=== PATIENT | male | born 1990 | race Caucasian/White ===

== ENCOUNTER 2023-11-06 08:44 | Outpatient (OUT) | payer MEDICARE, SELFPAY ==
--- NOTE | 2023-11-06 09:16 | XR_ITS ---
The [address] [address] Patient Name: CHIQUITA WEEKS MRN: [id number] date: 1990 Sex: M Assigned Patient Location: LAB Current Patient Location: Accession/Order Number: [id number] Exam Date: 11/06/2023 09:02 Report Date: 11/06/2023 11:06 At the request of: ERNST PENA Procedure: XR lumbar spine 2-3V EXAMINATION: XR lumbar spine 2-3V, XR thoracic spine 2V HISTORY: Chronic Low Back Pain With Left Sided Sciatica M54.42 COMPARISON: 08/10/2018 FINDINGS: BONES: Normal alignment of the thoracic and lumbar vertebral bodies with no spondylolisthesis. Mild anterior wedge compression fractures T12 and L1. Mild to moderate diffuse degenerative spondylosis and facet osteoarthropathy. Posterior decompression and transpedicular fusion T6-L2 No mechanical failure DISC SPACES: Normal. No significant disc height narrowing, subluxation, or endplate abnormality. PARASPINOUS: Negative. No paraspinous abnormality is seen. OTHER: Negative. XR/XR lumbar spine 2-3V IMPRESSION: Stable lumbosacral fusion [id number] degenerative changes Electronically authenticated by: RILEY LOVETT Date: 11/06/2023 11:06
--- NOTE | 2023-11-06 09:16 | XR_ITS ---
The [address] [address] Patient Name: CHIQUITA WEEKS MRN: [id number] date: 1990 Sex: M Assigned Patient Location: LAB Current Patient Location: LAB Accession/Order Number: [id number] Exam Date: 11/06/2023 09:02 Report Date: 11/06/2023 09:29 At the request of: ERNST PENA Procedure: XR shoulder ORTEGA min 2V EXAMINATION: XR shoulder ORTEGA min 2V HISTORY: Shoulder Pain COMPARISON: No relevant comparison available. FINDINGS: RIGHT FINDINGS: BONES: Normal. No significant arthropathy or acute abnormality. SOFT TISSUES: Negative. No visible soft tissue swelling. OTHER: Negative. LEFT FINDINGS: BONES: Normal. No significant arthropathy or acute abnormality. SOFT TISSUES: Negative. No visible soft tissue swelling. OTHER: Negative. XR/XR shoulder ORTEGA min 2V IMPRESSION: RIGHT CONCLUSION: Normal LEFT CONCLUSION: Normal Electronically authenticated by: RILEY LOVETT Date: 11/06/2023 09:29
--- NOTE | 2023-11-06 09:16 | XR_ITS ---
The [address] [address] Patient Name: CHIQUITA WEEKS MRN: [id number] date: 1990 Sex: M Assigned Patient Location: LAB Current Patient Location: Accession/Order Number: [id number] Exam Date: 11/06/2023 09:02 Report Date: 11/06/2023 11:06 At the request of: ERNST PENA Procedure: XR thoracic spine 2V EXAMINATION: XR lumbar spine 2-3V, XR thoracic spine 2V HISTORY: Chronic Low Back Pain With Left Sided Sciatica M54.42 COMPARISON: 08/10/2018 FINDINGS: BONES: Normal alignment of the thoracic and lumbar vertebral bodies with no spondylolisthesis. Mild anterior wedge compression fractures T12 and L1. Mild to moderate diffuse degenerative spondylosis and facet osteoarthropathy. Posterior decompression and transpedicular fusion T6-L2 No mechanical failure DISC SPACES: Normal. No significant disc height narrowing, subluxation, or endplate abnormality. PARASPINOUS: Negative. No paraspinous abnormality is seen. OTHER: Negative. XR/XR thoracic spine 2V IMPRESSION: Stable lumbosacral fusion Qnvi-vx-[id number] degenerative changes Electronically authenticated by: RILEY LOVETT Date: 11/06/2023 11:06
[2023-11-06 09:39] LABS: Estimated Average Glucose 114 mg/dL; Glycohemoglobin A1C 5.6 % (4.5-6.2)
[2023-11-06 09:51] LABS: Alanine Aminotransferase 67 U/L (16-63); Albumin Globulin Ratio 0.9; Albumin Level 3.8 g/dL (3.4-5.0); Alkaline Phosphatase 92 U/L (46-116); Anion Gap 12.8; Aspartate Amino Transferase 24 U/L (15-37); BUN Creatinine Ratio 13.2; Bilirubin Total 0.8 mg/dL (0.2-1.0); Calcium 9.2 mg/dL (8.5-10.1); Carbon Dioxide 29.1 mmol/L (21.0-32.0); Chloride 101 mmol/L (98-107); Chol HDL Ratio 6.2; Cholesterol 205 mg/dL (<=200); Estimated GFR (African America >60 (>=60); Estimated GFR (Non-African Ame >60 (>=60); Free T3 2.94 pg/mL (2.18-3.98); Globulin 4.1 g/dL; Glucose 103 mg/dL (74-106); HDL Cholesterol 33 mg/dL (40-60); Potassium 3.9 mmol/L (3.5-5.1); Sodium 139 mmol/L (136-145); Thyroid Stimulating Hormone 1.736 uIU/mL (0.358-3.740); Total Protein 7.9 g/dL (6.4-8.2); Triglycerides 147 mg/dL (<=150); VLDL CHOLESTEROL 29.4 mg/dL
[2023-11-06 10:37] LABS: Basophils Absolute Auto 0.1 10^3/uL (0.0-0.1); Basophils Percent Auto 0.6 % (0.2-2.0); Eosinophils Absolute Auto 0.5 10^3/uL (0.0-0.7); Eosinophils Percent Auto 4.5 % (0.9-7.0); Hematocrit 48.7 % (42.0-54.0); Hemoglobin 15.9 g/dL (14.0-18.0); Immature Granulocytes Abs Auto 0.09 10^3/uL (0.00-0.03); Immature Granulocytes Pct Auto 0.9 % (0.0-0.5); Lymphocytes Percent Auto 18.8 % (20.5-60.0); Mean Corpuscular HGB Conc 32.6 g/dL (29.9-35.2); Mean Corpuscular Hemoglobin 29.3 pg (25.9-34.0); Mean Corpuscular Volume 89.7 fL (80.0-94.0); Mean Platelet Volume 10.3 fL (9.5-13.5); Monocytes Absolute Auto 0.7 10^3/uL (0.3-0.8); Monocytes Percent Auto 6.7 % (1.7-12.0); Neutrophils Absolute Auto 7.2 10^3/uL (1.4-6.5); Neutrophils Percent Auto 68.5 % (43.0-75.0); Platelet Count 336 10^3/uL (150-450); Red Blood Count 5.43 10^6/uL (4.70-6.10); Red Cell Distribution Width 12.9 % (11.0-15.0); White Blood Count 10.6 10^3/uL (4.0-11.0)
[2023-11-07 10:10] LABS: Insulin 52.7 uIU/mL (2.6-24.9)
== END 2023-11-06 08:45 | disposition home or self-care (01) ==
LOC: LAB 08:47
PROVIDERS: PCP Nurse Practitioner Family; Visit Provider Nurse Practitioner Family
DX: I10 Essential (primary) hypertension (principal); M25.519 Pain in unspecified shoulder; M54.42 Lumbago with sciatica, left side; M47.816 Spondylosis without myelopathy or radiculopathy, lumbar region; M47.814 Spondylosis without myelopathy or radiculopathy, thoracic region; Z98.1 Arthrodesis status
CPT/HCPCS: 36415; 72070; 72100; 73030; 80053; 80061; 83036; 83525; 84436; 84443; 84481; 85025; G0463

== ENCOUNTER 2023-11-06 10:51 | Outpatient (OUT) | payer MEDICARE, SELFPAY ==
--- NOTE | 2023-11-06 | CONS_ITS ---
CONSULTATION DATE: 11/06/2023 CHIEF COMPLAINT: Includes left mid back pain. HISTORY OF PRESENT ILLNESS: Review of systems, past medical/surgical history were obtained and documented on the health questionnaire and is available upon request. He is a 33-year-old male, presently has pain in the above mentioned area for several years. 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 He reports this seemed to have helped with symptoms at that time; however, he has developed progressive pain, described as a 5-7/10 pain, constant, throbbing and occasional sharp, burning component, increased with activity such as standing, walking and performing transitioning maneuvers. He appears most comfortable in the semi-recumbent position. Denies any change in bowel and bladder habits or new sensorimotor changes in the lower extremities. CURRENT MEDICATION: Includes ibuprofen. He takes 2-3 pills up to four times a day p.r.n. He has also been using Tylenol intermittently as well. EXAM: His examination is notable for patient having dysesthesia and hyperesthesia overlying the distribution of the left T12 dermatome, as well as possibly at the T11 and L1 dermatome respectively also on the left side. This is associated with significant myofascial dysfunction with dystonic changes involving the left erector spinae muscle, with severe tenderness overlying this area as well, resulting in mild lumbar dorsiflexion as well as mild lateral rotation to the left with mild left lateral flexion. No appreciable signs consistent with myelopathy involving his lower extremities. No appreciable radiculopathy involving L1 through S1 involving the lower extremities. IMPRESSION: Our impression is patient appears to have: 1. Chronic pain secondary to post laminectomy syndrome with thoracolumbar neuritis and dysesthesia and hyperesthesia left T12, possibly at T11 and possibly L1, but most severe at the T12 level of the left side. 2. Myofascial dysfunction with cord dystonic changes left erector spinae muscle. RECOMMENDATIONS: I recommend a left sided T12-L1 transforaminal epidural steroid injection under fluoroscopic guidance/nerve root injection of L1 level. Will make the determination at the time of the procedure whether we perform the left sided T11-12 or T12-1 nerve root injection. As part of providing excellent, safe, comprehensive care, the following was completed at our patient's visit: 1. A medication reconciliation and review to ensure accurate knowledge of current/active medications, including asking our patients to inform us about any aqud-lej-lqojltp medications or herbal remedies/nutritional supplements/alternative remedies. 2. A review to specifically ensure our patients have had annual screening for: elevated body mass index (BMI, see intake chart for exact total), tobacco use, screening for depression, and screening for unhealthy alcohol use. When screening is concerning, patients are provided with education and the specific recommendation to discuss the concerning health issue and treatment options with their primary care provider. RAUL
== END 2023-11-06 10:52 | disposition home or self-care (01) ==
LOC: PM 10:51
PROVIDERS: PCP Nurse Practitioner Family; Visit Provider Anesthesiology Pain Medicine
DX: I10 Essential (primary) hypertension (principal)
CPT/HCPCS: G0463

== ENCOUNTER 2023-11-07 09:49 | Outpatient (OUT) | payer MEDICARE, SELFPAY ==
--- NOTE | 2023-11-07 09:59 | XR_ITS ---
The [address] [address] Patient Name: CHIQUITA WEEKS MRN: [id number] date: 1990 Sex: M Assigned Patient Location: [facility] Current Patient Location: [facility] Accession/Order Number: [id number] Exam Date: 11/07/2023 10:15 Report Date: 11/07/2023 11:52 At the request of: JULIANNA VILLA Procedure: XR thoracic spine 3V EXAM: XR thoracic spine 3V, XR lumbar spine min 4V HISTORY: post laminectomy syndrome COMPARISON: Radiographs from 11/06/2023. FINDINGS: 3 views of the thoracic spine, 5 views of the lumbar spine. Posterior fusion hardware spanning T6-L2 without evidence of interval hardware complication. There is no acute fracture or vertebral malalignment. Specifically, no acute abnormality correlating with the soft tissue marker over the lower back, superficial to the level of T12. Degenerative disc height loss and associated discogenic vertebral endplate changes of the lower thoracic spine. There is no significant soft tissue abnormality. XR/XR thoracic spine 3V IMPRESSION: Posterior fusion changes of the thoracolumbar spine. No abnormality to correlate with the BB marker placed on the lower back. No significant change from 11/06/2023. Electronically authenticated by: THERESA SMITH Date: 11/07/2023 11:52
--- NOTE | 2023-11-07 10:00 | XR_ITS ---
The [address] [address] Patient Name: CHIQUITA WEEKS MRN: [id number] date: 1990 Sex: M Assigned Patient Location: [facility] Current Patient Location: [facility] Accession/Order Number: [id number] Exam Date: 11/07/2023 10:15 Report Date: 11/07/2023 11:52 At the request of: JULIANNA VILLA Procedure: XR lumbar spine min 4V EXAM: XR thoracic spine 3V, XR lumbar spine min 4V HISTORY: post laminectomy syndrome COMPARISON: Radiographs from 11/06/2023. FINDINGS: 3 views of the thoracic spine, 5 views of the lumbar spine. Posterior fusion hardware spanning T6-L2 without evidence of interval hardware complication. There is no acute fracture or vertebral malalignment. Specifically, no acute abnormality correlating with the soft tissue marker over the lower back, superficial to the level of T12. Degenerative disc height loss and associated discogenic vertebral endplate changes of the lower thoracic spine. There is no significant soft tissue abnormality. XR/XR lumbar spine min 4V IMPRESSION: Posterior fusion changes of the thoracolumbar spine. No abnormality to correlate with the BB marker placed on the lower back. No significant change from 11/06/2023. Electronically authenticated by: THERESA SMITH Date: 11/07/2023 11:52
== END 2023-11-07 09:50 | disposition home or self-care (01) ==
PROVIDERS: PCP Nurse Practitioner Family; Visit Provider Anesthesiology Pain Medicine
DX: M96.1 Postlaminectomy syndrome, not elsewhere classified (principal)
CPT/HCPCS: 72072; 72110

== ENCOUNTER 2023-11-16 09:44 | Outpatient (RCR) | payer MEDICARE, MEDICAID, SELFPAY | END 2024-04-11 10:42 | disposition home or self-care (01) | LOC: PT 09:44 | PROVIDERS: PCP Nurse Practitioner Family; Visit Provider Anesthesiology Pain Medicine | DX: M96.1 Postlaminectomy syndrome, not elsewhere classified (principal) | CPT/HCPCS: 97110; 97113; 97163 ==

== ENCOUNTER 2023-11-20 08:52 | Day surgery (SDC) | payer MEDICARE, SELFPAY ==
--- NOTE | 2023-11-20 | OP_ITS ---
PROCEDURE DATE: 11/20/2023 PROCEDURE: Diagnostic left sided T11-12 , left sided T12-L1 nerve root injection under fluoroscopic guidance. PREOPERATIVE DIAGNOSIS: Pain secondary to thoracic neuritis. POSTOPERATIVE DIAGNOSIS: Pain secondary to thoracic neuritis. IMMEDIATE COMPLICATIONS: None. SOLUTION USED FOR INJECTION: 2% lidocaine 5 mL and 1 mL used for injection at each site. Omnipaque dye used to confirm needle tip placement. PROCEDURE: After informed consent was obtained from the patient, brought to the OR, placed in the prone position. The skin overlying the area was prepped and draped in sterile fashion using Betadine. A 25 gauge 3?? spinal needle was inserted over the targeted areas directed towards the left T11-T12 nerve root, under fluoroscopic guidance. After encountering the same, no indication of intravascular or intraneural or intrathecal needle tip placement, 1 mL of solution was injected at the site. This was repeated in a similar fashion at the left T12-L1 level. Post-op needle was removed. Transferred to recovery in stable condition. He reports dramatic decrease in pain symptoms post procedurally. RAUL
[2023-11-20 09:28] VITALS: BP 117/88; PULSE 66; TEMP 36.6; O2SAT 96
[2023-11-20 09:58] VITALS: PULSE 71; O2SAT 97
[2023-11-20 09:59] VITALS: BP 149/96
[2023-11-20 10:03] VITALS: BP 150/100; PULSE 65; O2SAT 97
[2023-11-20] MEDS: LIDOCAINE HCL 2% 400 MG/20 ML MDV 4 ML INJ (10:05)
[2023-11-20] MEDS: METHYLPREDNISOLONE ACETATE 40 MG/ML VIAL INJ (10:06)
[2023-11-20] MEDS: IOHEXOL 240 MG/ML - 10 ML VIAL 24 MG INJ (10:06)
--- NOTE | 2023-11-20 10:16 | W.PM.PROCNOT ---
Date of procedure: 11/20/23 Pre-op diagnosis: post laminectomy syndrome Post-op diagnosis: same as pre-op
== END 2023-11-20 10:07 | disposition home or self-care (01) ==
LOC: SURGOUT 08:52
PROVIDERS: PCP Nurse Practitioner Family; Visit Provider Anesthesiology Pain Medicine
DX: M54.14 Radiculopathy, thoracic region (principal)
CPT/HCPCS: 64479; 64480; J1010; Q9966

== ENCOUNTER 2023-12-05 08:37 | Outpatient (OUT) | payer MEDICARE, SELFPAY ==
--- NOTE | 2023-12-05 08:57 | P.CN_ITS ---
Consult Note: HPI Data of Consult Requesting Physician: Letty Ayala NP Primary Care Provider: ERNST PENA Consult Narrative Narrative: He is a 33-year-old male, presently has pain in the above mentioned area for several years. 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 He reports this seemed to have helped with symptoms at that time; however, he has developed progressive pain, described as a 5-7/10 pain, constant, throbbing and occasional sharp, burning component, increased with activity such as standing, walking and performing transitioning maneuvers. He appears most comfortable in the semi-recumbent position. Denies any change in bowel and bladder habits or new sensorimotor changes in the lower extremities.Recently underwent Diagnostic left sided T11-12 , left sided T12-L1 nerve root injection under fluoroscopic guidance with >90% improvement immediately following and ho urs after the injection. cc:: CC: Letty Ayala NP Review of Systems ROS Status of ROS 10 or more systems reviewed and unremark able except as noted in history and below Musculoskeletal Reports: back pain PFSH PFSH Medical History (Updated 12/05/23 @ 10:28 by Letty Ayala NP) Anxiety ?F41.9 - Anxiety disorder, unspecified (ICD-10) HTN (hypertension) ?I10 - Essential (primary) hypertension (ICD-10) Surgical History (Updated 11/14/23 @ 13:57 by Nikki Pacheco RN) History of spinal fusion ?Z98.1 - Arthrodesis status (ICD-10) Meds Home Medications and Allergies Home Medications ?Medication ?Instructions ?Recorded ?Confirmed ?Type baclofen 10 mg tablet 10 mg PO DAILY 11/06/23 11/20/23 History bupropion HCl 300 mg 24 hr tablet, 300 mg PO DAILY 11/06/23 11/20/23 History extended release (Wellbutrin XL) hydrochlorothiazide 25 mg tablet 25 mg PO DAILY 11/06/23 11/20/23 History lisinopril 40 mg tablet 40 mg PO DAILY 11/06/23 11/20/23 History metoprolol tartrate 50 mg tablet 50 mg PO BID 11/06/23 11/20/23 History zonisamide 100 mg capsule 100 mg PO .HS 11/06/23 11/20/23 History (Zonegran) Allergies Allergy/AdvReac Type Severity Reaction Status Date / Time No Known Drug Allergies Allergy Verified 11/20/23 09:24 Exam Narrative Exam Narrative: His examination is notable for patient having dysesthesia and hyperesthesia overlying the distribution of the left T12 dermatome, as well as possibly at the T11 and L1 dermatome respectively also on the left side. This is associated with significant myofascial dysfunction with dystonic changes involving the left erector spinae muscle, with severe tenderness overlying this area as well, re sulting in mild lumbar dorsiflexion as well as mild lateral rotation to the left with mild left lateral flexion. No appreciable signs consistent with myelopathy involving his lower extremities. No appreciable radiculopathy involving L1 through S1 involving the lower extremities. Assessment and Plan Assessment and Plan (1) Dystonia: (2) Post laminectomy syndrome: Plan 1. Chronic pain secondary to post laminectomy syndrome with thoracolumbar neuritis and dysesthesia and hyperesthesia left T12, possibly at T11 and possibly L1, but most severe at the T12 level of the left side. 2. Myofascial dysfunction with cord dystonic changes left erector spinae muscle. increase zonegran 50mg AM and 100mg HS, continue baclofen 10mg 1.5 tabs HS PRN left erector spinae botox injection with Dr Banks under fluoroscopy, risks vs benefits reviewed f/u after completion
== END 2023-12-05 08:38 | disposition home or self-care (01) ==
LOC: PM 08:38
PROVIDERS: PCP Nurse Practitioner Family; Visit Provider Nurse Practitioner
DX: G24.9 Dystonia, unspecified (principal); M96.1 Postlaminectomy syndrome, not elsewhere classified
CPT/HCPCS: G0463

== ENCOUNTER 2024-02-05 11:01 | Day surgery (SDC) | payer MEDICARE, MEDICAID, SELFPAY ==
--- OUTSIDE RECORDS SUMMARY | 2024-02-05 11:10 | XMS_ITS | CCD ---
Author Organization [facility] Care Team Providers Care Physician Interventional Cardiologist Name Role Phone PHYSICIAN, DEFAULT Unavailable Unavailable PHYSICIAN, DEFAULT Unavailable Unavailable ELGAFY, COOKIE K Unavailable Unavailable ELGAFY, COOKIE K Unavailable Unavailable ELGAFY, COOKIE K Unavailable Unavailable UNKNOWN, PHYSICIAN Unavailable Unavailable MARCIA, SELVON Admitting Unavailable MARCIA, SELVON Attending Unavailable [facility] Unavailable Luís Marcus Consulting Unavailable LEIDA LYNN Consulting Unavaila ble Lynn, Leida Cross Consulting Unavaila ble SpychalsEllen zeng Consulting Unavailable Delfino Montoya Consulting Unavailable LEIDA LYNN Attending Unavaila ble [facility] Unavailable SLOANE HIGH PA-C Attending Unavail able MARCIA, SELVON Attending Unavailable [facility] Unavailable BECKY, ERNST Primary Care Unavailable TAISHA, DR SCOOTER Webster Attending Unavailable TAISHA, DR SCOOTER Webster Admitting Unavailable CHANTE HERNANDEZ Consulting Unavailable BECKY, ERNST Primary Care Unavailable BECKY, ERNST Admitting Unavailable ERNST PENA Attending Unavailable ERNST PENA Consulting Unavailable [facility] Care Unavaila ble MARCIA, SELVON F Referring Unavailable MARCIA, SELVON F Attending Unavailable MARCIA, SELVON F Admitting Unavailable Allergies Allergy Classification Reported Allergen(s) Allergy Type Date of Onset Reaction(s) Facility (1 source) No Known Medication Allergies; Translations: [No Known Medication Allergies] Propensity to adverse reactions to drug (disorder) [facility] Rep[facility] Problems Problem Classification Problem Date Documented Date Episodic/Chronic Diabetes mellitus without complication (1 source) Other abnormal glucose; Translations: [OTHER ABNORMAL GLUCOSE] Onset: 02-02-2022 Episodic Disorders of lipid metabolism (1 source) Hyperlipidemia, unspecified; Translations: [HYPERLIPIDEMIA UNSPECIFIED] Onset: 02-02-2022 Chronic Essential hypertension (4 sources) Essential (primary) hypertension; Translations: [ESSENTIAL PRIMARY HYPERTENSION] Onset: 02-01-2022 Chronic Other acquired deformities (1 source) Unspecified kyphosis, thoracic region; Translations: [UNSPECIFIED KYPHOSIS, THORACIC REGION] Onset: 04-24-2018 Chronic Other acquired deformities (1 source) Other specified deforming dorsopathies, thoracolumbar region; Translations: [OTHER SPECIFIED DEFORMING DORSOPATHIES, THORACOLUMBAR REGION] Onset: 04-24-2018 Episodic Other screening for suspected conditions (not mental disorders or infectious disease) (1 source) Encounter for screening for malignant neoplasm of prostate; Translations: [ENC SCREEN MALIG NEOPLASM PROSTATE] Onset: 02-02-2022 Episodic Spondylosis; intervertebral disc disorders; other back problems (3 sources) Pain in thoracic spine; Translations: [PAIN IN THORACIC SPINE] Onset: 04-24-2018 Episodic Unclassified (2 sources) Unknown / UNK(Unknown) Onset: 04-24-2018 Results Test Name Value Interpretation Reference Range Facility INSULINon 02-02-2022 Insulin 16.5 uIU/mL Normal 2.6-24.9 [facility] Comment on above: Performed By: #### I NSULIN #### [facility] [address] [place] [address] Dr. Armida Brown CBC AUTO DIFFon 02-01-2022 BASO # 0.1 103/ul Normal 0.0-0.1 [facility] Comment on above: Performed By: #### C BC #### [facility] [address] [place] [address] Dr. Armida Brown Basophils/100 WBC (Bld) 0.9 % Normal 0.2-2.0 [facility] Comment on above: Performed By: #### C BC #### [facility] [address] [place] [address] Dr. Armida Brown EO # 0.4 103/ul Normal 0.0-0.7 [facility] Comment on above: Performed By: #### C BC #### [facility] [address] [place] [address] Dr. Armida Brown Eosinophils/100 WBC (Bld) 4.7 % Normal 0.9-7.0 [facility] Comment on above: Performed By: #### C BC #### [facility] [address] [place] [address] Dr. Armida Brown Erythrocyte distribution width (RBC) [Ratio] 13.1 % Normal 11.0-15.0 [facility] Comment on above: Performed By: #### C BC #### [facility] [address] [place] [address] Dr. Armida Brown Hematocrit (Bld) [Volume fraction] 48.6 % Normal 42.0-54.0 [facility] Comment on above: Performed By: #### C BC #### [facility] [address] [place] [address] Dr. Armida Brown Hemoglobin (Bld) [Mass/Vol] 16.5 g/dL Normal 14.0-18.0 [facility] Comment on above: Performed By: #### C BC #### [facility] [address] [place] [address] Dr. Armida Brown IG # 0.05 10e3/ul Critically high 0.00-0.03 [facility] Comment on above: Performed By: #### C BC #### [facility] [address] [place] [address] Dr. Armida Brown IG % 0.6 % Critically high 0.0-0.5 [facility] Comment on above: Performed By: #### C BC #### [facility] [address] [place] [address] Dr. Armida Brown LYMPH # 1.7 103/ul Normal 1.2-3.8 [facility] Comment on above: Performed By: #### C BC #### [facility] [address] [place] [address] Dr. Armida Brown Lymphocytes/100 WBC (Bld) 19.6 % Critically low 20.5-60.0 [facility] Comment on above: Performed By: #### C BC #### [facility] [address] [place] [address] Dr. Armida Brown MANUAL DIFF REQ NO Normal [facility] Comment on above: Performed By: #### C BC #### [facility] [address] [address] [address] Armida Brown MCH (RBC) [Entitic mass] 30.1 pg Normal 25.9-34.0 [facility] Comment on above: Performed By: #### C BC #### [facility] [address] [address] [address] Armida Brown MCHC (RBC) [Mass/Vol] 34.0 g/dL Normal 29.9-35.2 [facility] Comment on above: Performed By: #### C BC #### [facility] [address] [place] [address] Dr. Armida Brown MCV (RBC) [Entitic vol] 88.5 fL Normal 80.0-94.0 [facility] Comment on above: Performed By: #### C BC #### [facility] [address] [place] [address] Dr. Armida Brown MONO # 0.5 103/ul Normal 0.3-0.8 [facility] Comment on above: Performed By: #### C BC #### [facility] [address] [place] [address] Dr. Armida Brown Monocytes/100 WBC (Bld) 5.6 % Normal 1.7-12.0 [facility] Comment on above: Performed By: #### C BC #### [facility] [address] [place] [address] Dr. Armida Brown NEUT # 6.1 103/ul Normal 1.4-6.5 [facility] Comment on above: Performed By: #### C BC #### [facility] [address] [place] [address] Dr. Armida Brown Neutrophils/100 WBC (Bld) 68.6 % Normal 43.0-75.0 [facility] Comment on above: Performed By: #### C BC #### [facility] [address] [place] [address] Dr. Armida Brown Platelet mean volume (Bld) [Entitic vol] 9.3 fL Critically low 9.5-13.5 [facility] Comment on above: Performed By: #### C BC #### [facility] [address] [address] [address] Armida Brown PLT 293 103/ul Normal 150-450 [facility] Comment on above: Performed By: #### C BC #### [facility] [address] [address] [address] Armida Brown RBC 5.49 106/ul Normal 4.70-6.10 [facility] Comment on above: Performed By: #### C BC #### [facility] [address] [address] [address] Armida Brown WBC 8.9 103/ul Normal 4.0-11.0 [facility] Comment on above: Performed By: #### C BC #### [facility] [address] [place] [address] Dr. Armida Brown FREE THYROXINE INDEX T7on FTI 3.33 Normal 1.30-4.50 [facility] Comment on above: Performed By: #### T SH, CMP, URIC, LIPID, T7 #### [facility] [address] [address] [address] Armida Brown T3U 35.0 % Normal 33.0-40.0 [facility] Comment on above: Performed By: #### T SH, CMP, URIC, LIPID, T7 #### [facility] [address] [place] [address] Dr. Armida Brown T4 [Mass/Vol] 9.50 ug/dL Normal 4.50-12.10 [facility] Comment on above: Performed By: #### T SH, CMP, URIC, LIPID, T7 #### [facility] [address] [place] [address] Dr. Armida Brown GLYCOHEMOGLOBIN A1Con 2021 ADA RECOMMENDATION SEE BELOW Normal [facility] Comment on above: Result Comment: ADA RECOMMENDED LIMIT 4.0 - 6.0 ADA THERAPEUTIC TARGET < 7.0 ACTION SUGGESTED > 7.0 Performed By: #### A 1C #### [facility] [address] [address] [address] Armida Brown Glucose [Mass/Vol] 103 mg/dL Normal [facility] Comment on above: Performed By: #### A 1C #### [facility] [address] [place] [address] Dr. Armida Brown HbA1c (Bld) [Mass fraction] 5.2 % Normal 4.5-6.2 [facility] Comment on above: Performed By: #### A 1C #### [facility] [address] [place] [address] Dr. Armida Brown LIPID PROFILEon 02-01-2022 CHOL-HDL RATIO NORM SEE BELOW Normal [facility] Comment on above: Result Comment: 3.3 - 4.4 LOW RISK 4.4 - 7.1 AVERAGE RISK 7.1 - 11.0 MODERATE RISK >11.0 HIGH RISK Performed By: #### T SH, CMP, URIC, LIPID, T7 #### [facility] [address] [place] [address] Dr. Armida Brown Cholesterol [Mass/Vol] 183 mg/dL Normal <=200 [facility] Comment on above: Performed By: #### T SH, CMP, URIC, LIPID, T7 #### [facility] [address] [place] [address] Dr. Armida Brown Cholesterol in HDL [Mass/Vol] 33 mg/dL Critically low 40-60 [facility] Comment on above: Performed By: #### T SH, CMP, URIC, LIPID, T7 #### [facility] [address] [address] [address] Armida Brown Cholesterol in LDL [Mass/Vol] 123.0 mg/dL Normal [facility] Comment on above: Performed By: #### T SH, CMP, URIC, LIPID, T7 #### [facility] [address] [place] [address] Dr. Armida Brown Cholesterol.total/C holesterol in HDL [Mass ratio] 5.5 {ratio} Normal [facility] Comment on above: Performed By: #### T SH, CMP, URIC, LIPID, T7 #### [facility] [address] [place] [address] Dr. Armida Brown HDL NORMAL > or = 60 mg/dl - LO W CARDIOVASCULAR RISK <40 mg/dl - HIGH CARDIOVASCULAR RISK Normal [facility] Comment on above: Performed By: #### T SH, CMP, URIC, LIPID, T7 #### [facility] [address] [address] [address] Armida Brown LDL CALC NORMAL SEE BELOW Normal [facility] Comment on above: Result Comment: <100 mg/dl OPTIMAL 100 - 129 mg/dl NEAR OR ABOVE OPTIMAL 130 - 159 mg/dl BORDERLINE HIGH 160 - 189 mg/dl HIGH >190 mg/dl VERY HIGH Performed By: #### T SH, CMP, URIC, LIPID, T7 #### [facility] [address] [address] [address] Armida Brown Triglyceride [Mass/Vol] 135 mg/dL Normal <=150 [facility] Comment on above: Performed By: #### T SH, CMP, URIC, LIPID, T7 #### [facility] [address] [address] [address] Armida Brown VLDL CALC 27.0 mg/dL Normal [facility] Comment on above: Performed By: #### T SH, CMP, URIC, LIPID, T7 #### [facility] [address] [address] [address] Armida Brown PROF 14(COMP METB)on 022 Albumin [Mass/Vol] 4.1 g/dL Normal 3.4-5.0 [facility] Comment on above: Performed By: #### T SH, CMP, URIC, LIPID, T7 #### [facility] [address] [address] [address] Armida Brown Albumin/Globulin [Mass ratio] 1.1 {ratio} Normal [facility] Comment on above: Performed By: #### T SH, CMP, URIC, LIPID, T7 #### [facility] [address] [address] [address] Armida Brown ALP [Catalytic activity/Vol] 79 U/L Normal 46-116 [facility] Comment on above: Performed By: #### T SH, CMP, URIC, LIPID, T7 #### [facility] [address] [address] [address] Armida Brown ALT [Catalytic activity/Vol] 58 U/L Normal 16-63 [facility] Comment on above: Performed By: #### T SH, CMP, URIC, LIPID, T7 #### [facility] [address] [address] [address] Armida Brown Anion gap [Moles/Vol] 12.6 mmol/L Normal [facility] Comment on above: Performed By: #### T SH, CMP, URIC, LIPID, T7 #### [facility] [address] [place] [address] Dr. Armida Brown AST [Catalytic activity/Vol] 23 U/L Normal 15-37 [facility] Comment on above: Performed By: #### T SH, CMP, URIC, LIPID, T7 #### [facility] [address] [place] [address] Dr. Armida Brown Bilirubin [Mass/Vol] 0.6 mg/dL Normal 0.2-1.0 [facility] Comment on above: Performed By: #### T SH, CMP, URIC, LIPID, T7 #### [facility] [address] [address] [address] Armida Brown Calcium [Mass/Vol] 8.9 mg/dL Normal 8.5-10.1 [facility] Comment on above: Performed By: #### T SH, CMP, URIC, LIPID, T7 #### [facility] [address] [place] [address] Dr. Armida Brown Chloride [Moles/Vol] 104 mmol/L Normal 98-107 [facility] Comment on above: Performed By: #### T SH, CMP, URIC, LIPID, T7 #### [facility] [address] [place] [address] Dr. Armida Brown CO2 [Moles/Vol] 26.7 mmol/L Normal 21.0-32.0 [facility] Comment on above: Performed By: #### T SH, CMP, URIC, LIPID, T7 #### [facility] [address] [place] [address] Dr. Armida Brown Creatinine [Mass/Vol] 0.99 mg/dL Normal 0.70-1.30 [facility] Comment on above: Performed By: #### T SH, CMP, URIC, LIPID, T7 #### [facility] [address] [address] [address] Armida Brown EGFR-AF TUVALUAN >60 Normal >=60 [facility] Comment on above: Performed By: #### T SH, CMP, URIC, LIPID, T7 #### [facility] [address] [address] [address] Armida Brown EGFR-NON AF TUVALUAN >60 Normal >=60 [facility] Comment on above: Performed By: #### T SH, CMP, URIC, LIPID, T7 #### [facility] [address] [place] [address] Dr. Armida Brown Globulin (S) [Mass/Vol] 3.6 g/dL Normal [facility] Comment on above: Performed By: #### T SH, CMP, URIC, LIPID, T7 #### [facility] [address] [place] [address] Dr. Armida Brown Glucose [Mass/Vol] 100 mg/dL Normal 74-106 [facility] Comment on above: Performed By: #### T SH, CMP, URIC, LIPID, T7 #### [facility] [address] [place] [address] Dr. Armida Brown Potassium [Moles/Vol] 4.3 mmol/L Normal 3.5-5.1 [facility] Comment on above: Performed By: #### T SH, CMP, URIC, LIPID, T7 #### [facility] [address] [place] [address] Dr. Armida Brown Protein [Mass/Vol] 7.7 g/dL Normal 6.4-8.2 [facility] Comment on above: Performed By: #### T SH, CMP, URIC, LIPID, T7 #### [facility] [address] [place] [address] Dr. Armida Brown Sodium [Moles/Vol] 139 mmol/L Normal 136-145 [facility] Comment on above: Performed By: #### T SH, CMP, URIC, LIPID, T7 #### [facility] [address] [address] [address] Armida Brown Urea nitrogen [Mass/Vol] 16.0 mg/dL Normal 7.0-18.0 [facility] Comment on above: Performed By: #### T SH, CMP, URIC, LIPID, T7 #### [facility] [address] [address] [address] Armida Brown Urea nitrogen/Creatinine [Mass ratio] 16.2 mg/mg Normal [facility] Comment on above: Performed By: #### T SH, CMP, URIC, LIPID, T7 #### [facility] [address] [place] [address] Dr. Armida Brown TSHon 02-01-2022 TSH 1.176 uIU/mL Normal 0.358-3.740 [facility] Comment on above: Performed By: #### T SH, CMP, URIC, LIPID, T7 #### [facility] [address] [place] [address] Dr. Armida Brown URIC ACID SERUMon 02-01-2022 Urate [Mass/Vol] 6.7 mg/dL Normal 3.5-7.2 [facility] Comment on above: Performed By: #### T SH, CMP, URIC, LIPID, T7 #### [facility] [address] [place] [address] Dr. Armida Brown .eGFRon 08-12-2018 eGFR AA >60 Normal >=60 [facility] Comment on above: Order Comment: Order added by Discern rule Result Comment: Resu lt = 0-14.9 mL/min/1.73 m2 Kidney failure or Dialysis Result = 15-29 mL/min/1.73 m2 Severe decrease in GFR Result = 30-59 mL/min/1.73 m2 Moderate decrease in GFR Result >= 60 mL/min/1.73 m2 Normal or increased GFR Performed By: #### P TT #### [facility] [address] [place] [id number] eGFR Non-AA >60 Normal >=60 [facility] Comment on above: Order Comment: Order added by Discern rule Result Comment: Resu lt = 0-14.9 mL/min/1.73 m2 Kidney failure or Dialysis Result = 15-29 mL/min/1.73 m2 Severe decrease in GFR Result = 30-59 mL/min/1.73 m2 Moderate decrease in GFR Result >= 60 mL/min/1.73 m2 Normal or increased GFR Chronic kidney disease is defined as either kidney damage or GFR < 60 mL/min/1.73 m2 for >= 3 months. Kidney damage is defined as pathologic abnormalities or markers of damage including abnormalities in blood or urine tests or imaging studies. This GFR is NOT used for medication dosing. Performed By: #### P TT #### [address] [place] [id number] Basic Metabolic Profileon Anion gap molar conc 11 mmol/L Normal 7-17 [facility] Comment on above: Performed By: #### P TINR #### [place] [id number] Calcium mass conc 8.2 mg/dL Low 8.5-10.3 [facility] Comment on above: Performed By: #### P TINR #### [place] [id number] Chloride molar conc 102 mmol/L Normal 98-110 [facility] Comment on above: Performed By: #### P TINR #### [place] [id number] CO2 molar conc 27 mmol/L Normal 22-32 [facility] Comment on above: Performed By: #### P TINR #### [address] [address] Creatinine mass conc 0.83 mg/dL Normal 0.61-1.24 [facility] Comment on above: Performed By: #### P TINR #### [place] [id number] Glucose mass conc 109 mg/dL Normal 74-118 [facility] Comment on above: Performed By: #### P TINR #### [address] [address] Potassium molar conc 3.9 mmol/L Normal 3.4-4.8 [facility] Comment on above: Performed By: #### P TINR #### [address] [address] Sodium molar conc 136 mmol/L Normal 133-142 [facility] Comment on above: Performed By: #### P TINR #### [address] [address] Urea nitrogen mass conc 9 mg/dL Normal 8-26 [facility] Comment on above: Performed By: #### P TINR #### [place] [id number] Urea nitrogen/Creatinine mass ratio 10.8 mg/mg Normal 10.0-20.0 [facility] Comment on above: Performed By: #### P TINR #### [place] [id number] CBC w/ Diffon 08-12-2018 Erythrocyte distribution width Ratio (RBC) 12.5 % Normal 11.6-14.8 [facility] Comment on above: Performed By: #### P TINR #### [address] [address] Hematocrit Volume Fraction (Bld) 29.7 % Low 41.0-53.0 [facility] Comment on above: Performed By: #### P TINR #### [address] [address] Hemoglobin mass conc (Bld) 10.3 g/dL Low 13.5-17.5 [facility] Comment on above: Performed By: #### P TINR #### [address] [address] MCH Entitic mass (RBC) 30.1 pg Normal 27.0-35.0 [facility] Comment on above: Performed By: #### P TINR #### [address] [address] MCHC mass conc (RBC) 34.5 % Normal 31.0-37.0 [facility] Comment on above: Performed By: #### P TINR #### [place] [id number] MCV Entitic volume (RBC) 87.2 fL Normal 80.0-100.0 [facility] Comment on above: Performed By: #### P TINR #### [place] [id number] Platelet mean volume Entitic volume (Bld) 7.8 fL Normal 6.7-10.6 [facility] Comment on above: Performed By: #### P TINR #### [place] [id number] Platelets #/vol (Bld) 218 x10*3/mcL Normal 150-350 [facility] Comment on above: Performed By: #### P TINR #### [place] [address] RBC #/vol (Bld) 3.41 x10*6/mcL Low 4.30-5.80 [facility] Comment on above: Performed By: #### P TINR #### [place] [id number] WBC #/vol (Bld) 9.1 x10*3/mcL Normal 4.5-11.0 [facility] Comment on above: Performed By: #### P TINR #### [place] [address] Diff Autoon 08-12-2018 Baso Absolute 0.0 x10*3/mcL Normal 0.0-0.2 [facility] Comment on above: Performed By: #### P TINR #### [place] [id number] Basophils/100 WBC (Bld) 0.5 % Normal 0.0-1.2 [facility] Comment on above: Performed By: #### P TINR #### [place] [id number] Eos Absolute 0.3 x10*3/mcL Normal 0.0-0.4 [facility] Comment on above: Performed By: #### P TINR #### [address] [address] Eosinophils/100 WBC (Bld) 3.4 % Normal 0.0-6.1 [facility] Comment on above: Performed By: #### P TINR #### [address] [address] Lymphocytes #/vol (Bld) 1.1 x10*3/mcL Normal 1.0-4.8 [facility] Comment on above: Performed By: #### P TINR #### [address] [address] Lymphocytes/100 WBC (Bld) 11.8 % Low 27.2-40.8 [facility] Comment on above: Performed By: #### P TINR #### [address] [address] [place] Absolute 0.8 x10*3/mcL Normal 0.3-1.1 [facility] Comment on above: Performed By: #### P TINR #### [address] [address] Monocytes/100 WBC (Bld) 8.5 % Normal 4.7-13.9 [facility] Comment on above: Performed By: #### P TINR #### [address] [address] Neutro Absolute 6.9 x10*3/mcL Normal 1.8-7.7 [facility] Comment on above: Performed By: #### P TINR #### [address] [address] Neutro Auto 75.8 % High 47.2-70.8 [facility] Comment on above: Performed By: #### P TINR #### [address] [address] Inpatient Clinical Summaryon 08-12-2018 Inpatient Clinical Summary [address] [place] [address] [address] Clinical Summary Person Information Name: Chiquita Weeks Age: 28 Years : 1990 Sex: Male PCP: Cyril Ruiz MD Marital Status: Phone: PCP: Race: White Ethnicity: Not or Language: Danish Visit Id: Visit Reason: Speciality: Acuity: Enc Type: Inpatient Med Service: Surgery Arrival: 08/08/2018 08:12:20 Discharge: Dispo Type: Address: [address] [place] [address] Diagnosis: 1:Scheuermann's kyphosis Discharged To: Home Treatments: Other: checks blood pressure Devices/Equipment: Professional Skilled Services: Special Services and Community Resources: Mode of Discharge Transportation: Discharge Orders Allergies No Known Medication Allergies Functional Status: Sensory Deficits: Other: wears glasses History of Falls: None Mobility Assistance Prior to Admission: ADLs: Minimal assistance Gait: Steady Ambulation Assist: Assistive Device: Gait belt, Walker Special Orthopedic Devices: Brace Current Level of Assistance for Self-Care/Mobility: Cognitive Status: Orientation: Orientation Assessment Oriented x 4 Level of Consciousness: Alert Characteristics of Speech: Clear Aspiration Risk: None Affect/Behavior: Appropriate, Calm, Cooperative Laboratory or Other Results This Visit (last charted value for your 08/08/2018 visit) Hematology 08/12/2018 5:40 AM WBC: 9.1 x10 RBC: 3.41 x10 Neutro Auto: 75.8 % -- Normal range between ( 47.2 and 70.8 ) Lymph Auto: 11.8 % -- Normal range between ( 27.2 and 40.8 ) Garrett Auto: 8.5 % -- Normal range between ( 4.7 and 13.9 ) Eos Auto: 3.4 % -- Normal range between ( 0.0 and 6.1 ) Basophil Auto: 0.5 % -- Normal range between ( 0.0 and 1.2 ) Baso Absolute: 0.0 x10 MCV: 87.2 fL -- Normal range between ( 80.0 and 100.0 ) MCHC: 34.5 % -- Normal range between ( 31.0 and 37.0 ) Lymph Absolute: 1.1 x10 Hct: 29.7 % -- Normal range between ( 41.0 and 53.0 ) Garrett Absolute: 0.8 x10 MCH: 30.1 pg -- Normal range between ( 27.0 and 35.0 ) Neutro Absolute: 6.9 x10 Hgb: 10.3 g/dL -- Normal range between ( 13.5 and 17.5 ) Mean Platelet Volume: 7.8 fL -- Normal range between ( 6.7 and 10.6 ) Platelet: 218 x10 Eos Absolute: 0.3 x10 RDW: 12.5 % -- Normal range between ( 11.6 and 14.8 ) Chemistry 08/12/2018 5:40 AM Creatinine Lvl: 0.83 mg/dL -- Normal range between ( 0.61 and 1.24 ) BUN: 9 mg/dL -- Normal range between ( 8 and 26 ) Glucose Lvl: 109 mg/dL -- Normal range between ( 74 and 118 ) Potassium Lvl: 3.9 mmol/L -- Normal range between ( 3.4 and 4.8 ) Sodium Lvl: 136 mmol/L -- Normal range between ( 133 and 142 ) Calcium Lvl: 8.2 mg/dL -- Normal range between ( 8.5 and 10.3 ) Chloride: 102 mmol/L -- Normal range between ( 98 and 110 ) CO2: 27 mmol/L -- Normal range between ( 22 and 32 ) Anion Gap: 11 -- Normal range between ( 7 and 17 ) eGFR Non-AA: >60 mL/min/1.73m? eGFR AA: >60 mL/min/1.73m? BUN Crea Ratio: 10.8 -- Normal range between ( 10.0 and 20.0 ) Computed Tomography 08/08/2018 10:[address] Spine Thoracic w/o Contrast: CT Spine Thoracic w/o Contrast Diagnostic Radiology 08/10/2018 11:05 AM XR Scoliosis Study 2 or 3 Views: XR Scoliosis Study 2 or 3 Views 08/08/2018 3:55 PM XR Spine Thoracic Minimum 4 Views: XR Spine Thoracic Minimum 4 Views Measurements: Height: Weight: Blood Pressure: 113 mmHg / BMI: Respiratory: Respirations: Unlabored, Quiet Respiratory Symptoms: None Cardiovascular: Heart Sounds: Heart Rhythm: Regular Gastrointestinal: GI Symptoms: Bowel Sounds: Present Vital Signs: Temp Axillary: Temp Temporal Artery: 36 degC Temp Oral: 36.6 degC Temp Rectal: Apical Heart Rate: Peripheral Pulse Rate: 108 bpm Heart Rate: 99 bpm Respiratory Rate: 16 br/min Diet Diet: Feeding Tolerance: Appetite: Good Armand Assessment: 21 Procedures Fusion Spine Lumbar Posterior (08/08/2018) Immunizations No Immunizations Documented This Visit HERE ARE THE MEDICATION CHANGES THAT OCCURRED DURING YOUR HOSPITAL STAY Medications That Were Updated - Follow Current Instructions Other Medications Current: gabapentin (gabapentin 100 mg oral capsule) 1 Capsules Oral (given by mouth) 2 times a day. TK ONE C PO BID. Last Dose: __ Medications That Have Not Changed Other Medications amLODIPine (amLODIPine 5 mg oral tablet) 1 Tabs Oral (given by mouth) every day., TAKES AT NOON Last Dose: __ atenolol (atenolol 50 mg oral tablet) TAKES AT NOON Oral (given by mouth) every day. Last Dose: __ calcium carbonate (Tums E-X 750 mg oral tablet, chewable) 2 Tabs Chewed 4 times a day as needed heartburn. Last Dose: __ cloNIDine (cloNIDine 0.2 mg/24 hr transdermal film, extended release) 1 Patches Topical (on the skin) Every . REMOVE OLD PATCH AND APPLY NEW PATCH TO A DIFFERENT SITE Q 7 DAYS. Last Dose: __ cyclobenzaprine (cyclobenzaprine 10 mg oral tablet) 1 Tabs Oral (given by mouth) 3 times a day. Last Dose: __ lisinopril (lisinopril 20 mg oral tablet) 0.5 Tabs Oral (given by mouth) 2 times a day. TK 1/2 T PO BID. Last Dose: __ traMADol (traMADol 50 mg oral tablet) 1 Tabs Oral (given by mouth) every 12 hours. TK 1 T PO Q 12 H. Last Dose: __ These Medications Were Removed and Should No Longer Be Taken ibuprofen (ibuprofen 200 mg oral tablet) 2-3 TABS Oral (given by mouth) every 6 hours as needed as needed for pain. Stop Taking Reason: Physician Request spironolactone-hydrochl orothiazide (spironolactone-hydroch lorothiazide 25 mg-25 mg oral tablet) 1 Tabs Oral (given by mouth) once a day (in the morning). TK 1 T PO QAM. Stop Taking Reason: Physician Request PROVIDED FOR YOU IS A LIST OF YOUR PATIENT?S CURRENT MEDICATIONS Other Medications amLODIPine (amLODIPine 5 mg oral tablet) 1 Tabs Oral (given by mouth) every day., TAKES AT NOON atenolol (atenolol 50 mg oral tablet) TAKES AT NOON Oral (given by mouth) every day. calcium carbonate (Tums E-X 750 mg oral tablet, chewable) 2 Tabs Chewed 4 times a day as needed heartburn. cloNIDine (cloNIDine 0.2 mg/24 hr transdermal film, extended release) 1 Patches Topical (on the skin) Every . REMOVE OLD PATCH AND APPLY NEW PATCH TO A DIFFERENT SITE Q 7 DAYS. cyclobenzaprine (cyclobenzaprine 10 mg oral tablet) 1 Tabs Oral (given by mouth) 3 times a day. gabapentin (gabapentin 100 mg oral capsule) 1 Capsules Oral (given by mouth) 2 times a day. TK ONE C PO BID. lisinopril (lisinopril 20 mg oral tablet) 0.5 Tabs Oral (given by mouth) 2 times a day. TK 1/2 T PO BID. traMADol (traMADol 50 mg oral tablet) 1 Tabs Oral (given by mouth) every 12 hours. TK 1 T PO Q 12 H. Care Team Members: Attending Physician: [facility] LIM, Jesus Keane Consulting Physician: Amrit SHEEHAN, Luís Franco; Shane PANCHAL MD, Leida Cross Referring Physician: Follow up: With: Address: When: [facility], [place] [phone] Business (1) Comments: Schedule follow up appointment for 2 weeks for staple removal With: Address: When: Cyril Ruiz Normal [facility] Occupational Therapy Progres s Noteon 08-12-2018 Protein mass conc Planned/pending dc t o home today. Reecommended [facility] Electronically signed by ___ Teo Johnson 08/12/18 06:26 EST Normal [facility] Orthopedic Progress Noteon 0 08-12-2018 Protein mass conc Subjective Patient doing well, feels each day is getting better No BM. +flatus Objective Drain- 70 cc over 8 hours (60 cc prior) Vitals & Measurements T: 36.7 ?C (Oral) T: 36 ?C (Temporal Artery) HR: 99 (Monitored) RR: 16 BP: 130/88 BP: 119/61 (Line) SpO2: 90% HT: 182 cm HT: 182.88 cm WT: 153.2 kg WT: 152.8 kg DOSE WT: 148.5 kg BMI: 46.13 BMI: 45.69 Additional Vitals Peripheral Pulse Rate: 117 bpm High Lab Results WBC 9.1 x10 Hgb 10.3 g/dL 08/12/2018 05:40 EST (Low) Platelet 218 x10 Sodium Lvl 136 mmol/L 08/12/2018 05:40 EST Chloride 102 mmol/L 08/12/2018 05:40 EST CO2 27 mmol/L 08/12/2018 05:40 EST Glucose Lvl 109 mg/dL 08/12/2018 05:40 EST BUN 9 mg/dL 08/12/2018 05:40 EST Creatinine Lvl 0.83 mg/dL 08/12/2018 05:40 EST Microbiology No qualifying data available. Diagnostic Results Diagnostic Radiology XR Scoliosis Study 2 or 3 Views 08/11/18 14:53:56 IMPRESSION: No definite measurable curvature. Postoperative changes. Signed By: Lam Burrows MD Physical Exam Patient standing in room, TLSO brace on A&O x [address] and functioning Medications Inpatient amLODIPine, 5 mg, Oral, Daily atenolol, 50 mg, Oral, Daily Ativan, 1 mg, 0.5 mL, IV Push, q6hr, PRN calcium carbonate, 1500 mg, Chewed, QID, PRN ceFAZolin cloNIDine 0.2 mg/24 hr transdermal film, extended release, 1 patches, Topical, Colace, 100 mg, Oral, BID Dulcolax Laxative, 10 mg, 1 supp, Rectal, Daily, PRN Dulcolax Laxative, 10 mg, Oral, Daily, PRN gabapentin, 100 mg, Oral, BID lisinopril, 10 mg, Oral, BID MiraLax, 17 g, 1 EA, Oral, Daily morphine, 3 mg, 0.75 mL, IV Push, q3hr, PRN Normal Saline Flush 0.9% injectable solution, 10 mL, IV Push, As Indicated, PRN NS 1,000 mL, 1000 mL, IV Percocet 5/325 oral tablet, 2 tabs, Oral, q4hr, PRN Valium, 5 mg, Oral, q8hr, PRN Zofran, 4 mg, 2 mL, IV Push, q4hr, PRN Assessment/Plan 1. Scheuermann's kyphosis Continue drain until patient has BM. Once patient has BM okay to remove drain and change dressing Bowel regimen, discussed suppository with patient Continue antibiotics until drains are removed PT/OT. Activity as tolerated. TLSO brace when ambulating Hgb stable Discharge pending, home today after patient has BM Electronically signed by ___ Luís Marcus PA-C 08/12/18 07:37 EST Normal [facility] .eGFRon 08-11-2018 eGFR Non-AA >60 Normal >=60 [facility] Comment on above: Order Comment: Order added by Discern rule Result Comment: Resu lt = 0-14.9 mL/min/1.73 m2 Kidney failure or Dialysis Result = 15-29 mL/min/1.73 m2 Severe decrease in GFR Result = 30-59 mL/min/1.73 m2 Moderate decrease in GFR Result >= 60 mL/min/1.73 m2 Normal or increased GFR Chronic kidney disease is defined as either kidney damage or GFR < 60 mL/min/1.73 m2 for >= 3 months. Kidney damage is defined as pathologic abnormalities or markers of damage including abnormalities in blood or urine tests or imaging studies. This GFR is NOT used for medication dosing. Performed By: #### P TINR #### [place] [id number] eGFR AA >60 Normal >=60 [facility] Comment on above: Order Comment: Order added by Discern rule Result Comment: Resu lt = 0-14.9 mL/min/1.73 m2 Kidney failure or Dialysis Result = 15-29 mL/min/1.73 m2 Severe decrease in GFR Result = 30-59 mL/min/1.73 m2 Moderate decrease in GFR Result >= 60 mL/min/1.73 m2 Normal or increased GFR Performed By: #### P TINR #### [place] [id number] Basic Metabolic Profileon Anion gap molar conc 10 mmol/L Normal 7-17 [facility] Comment on above: Performed By: #### P TINR #### [place] [id number] Calcium mass conc 8.3 mg/dL Low 8.5-10.3 [facility] Comment on above: Performed By: #### P TINR #### [address] [address] Chloride molar conc 97 mmol/L Low 98-110 [facility] Comment on above: Performed By: #### P TINR #### [address] [address] CO2 molar conc 26 mmol/L Normal 22-32 [facility] Comment on above: Performed By: #### P TINR #### [address] [address] Creatinine mass conc 0.88 mg/dL Normal 0.61-1.24 [facility] Comment on above: Performed By: #### P TINR #### [address] [address] Glucose mass conc 109 mg/dL Normal 74-118 [facility] Comment on above: Performed By: #### P TINR #### [address] [address] Potassium molar conc 4.0 mmol/L Normal 3.4-4.8 [facility] Comment on above: Performed By: #### P TINR #### [address] [address] Sodium molar conc 129 mmol/L Low 133-142 [facility] Comment on above: Performed By: #### P TINR #### [address] [address] Urea nitrogen mass conc 9 mg/dL Normal 8-26 [facility] Comment on above: Performed By: #### P TINR #### [address] [address] Urea nitrogen/Creatinine mass ratio 10.2 mg/mg Normal 10.0-20.0 [facility] Comment on above: Performed By: #### P TINR #### [address] [address] CBC w/ Diffon 08-11-2018 Erythrocyte distribution width Ratio (RBC) 12.6 % Normal 11.6-14.8 [facility] Comment on above: Performed By: #### P TINR #### [address] [address] Hematocrit Volume Fraction (Bld) 31.7 % Low 41.0-53.0 [facility] Comment on above: Performed By: #### P TINR #### [address] [address] Hemoglobin mass conc (Bld) 10.8 g/dL Low 13.5-17.5 [facility] Comment on above: Performed By: #### P TINR #### [address] [address] MCH Entitic mass (RBC) 29.9 pg Normal 27.0-35.0 [facility] Comment on above: Performed By: #### P TINR #### [address] [address] MCHC mass conc (RBC) 34.2 % Normal 31.0-37.0 [facility] Comment on above: Performed By: #### P TINR #### [address] [address] MCV Entitic volume (RBC) 87.5 fL Normal 80.0-100.0 [facility] Comment on above: Performed By: #### P TINR #### [address] [address] Platelet mean volume Entitic volume (Bld) 7.8 fL Normal 6.7-10.6 [facility] Comment on above: Performed By: #### P TINR #### [address] [address] Platelets #/vol (Bld) 218 x10*3/mcL Normal 150-350 [facility] Comment on above: Performed By: #### P TINR #### [address] [address] RBC #/vol (Bld) 3.62 x10*6/mcL Low 4.30-5.80 [facility] Comment on above: Performed By: #### P TINR #### [address] [address] WBC #/vol (Bld) 11.8 x10*3/mcL High 4.5-11.0 [facility] Comment on above: Performed By: #### P TINR #### [address] [address] Diff Autoon 08-11-2018 Baso Absolute 0.1 x10*3/mcL Normal 0.0-0.2 [facility] Comment on above: Performed By: #### P TINR #### [address] [address] Basophils/100 WBC (Bld) 0.5 % Normal 0.0-1.2 [facility] Comment on above: Performed By: #### P TINR #### [address] [address] Eos Absolute 0.3 x10*3/mcL Normal 0.0-0.4 [facility] Comment on above: Performed By: #### P TINR #### [address] [address] Eosinophils/100 WBC (Bld) 2.3 % Normal 0.0-6.1 [facility] Comment on above: Performed By: #### P TINR #### [address] [address] Lymphocytes #/vol (Bld) 1.7 x10*3/mcL Normal 1.0-4.8 [facility] Comment on above: Performed By: #### P TINR #### [address] [address] Lymphocytes/100 WBC (Bld) 14.3 % Low 27.2-40.8 [facility] Comment on above: Performed By: #### P TINR #### [address] [address] Garrett Absolute 1.2 x10*3/mcL High 0.3-1.1 [facility] Comment on above: Performed By: #### P TINR #### [address] [address] Monocytes/100 WBC (Bld) 9.9 % Normal 4.7-13.9 [facility] Comment on above: Performed By: #### P TINR #### [address] [address] Neutro Absolute 8.6 x10*3/mcL High 1.8-7.7 [facility] Comment on above: Performed By: #### P TINR #### [address] [address] Neutro Auto 73.0 % High 47.2-70.8 [facility] Comment on above: Performed By: #### P TINR #### [facility] [address] [place] [address] Orthopedic Progress Noteon 0 08-11-2018 Protein mass conc Subjective Patient doing well, back pain improved. Denies leg pain No BM. +flatus Patient reports he is working well with PT Objective Drain- 105 over last 8 hours Vitals & Measurements T: 36.3 ?C (Oral) T: 36 ?C (Temporal Artery) HR: 99 (Monitored) RR: 18 BP: 125/60 BP: 119/61 (Line) SpO2: 92% HT: 182 cm HT: 182.88 cm WT: 153.4 kg WT: 152.8 kg DOSE WT: 148.5 kg BMI: 46.13 BMI: 45.69 Additional Vitals Peripheral Pulse Rate: 58 bpm Low Lab Results WBC 11.8 x10 Hgb 10.8 g/dL 08/11/2018 05:52 EST (Low) Hct 31.7 % 08/11/2018 05:52 EST (Low) Platelet 218 x10 Sodium Lvl 129 mmol/L 08/11/2018 05:52 EST (Low) Chloride 97 mmol/L 08/11/2018 05:52 EST (Low) CO2 26 mmol/L 08/11/2018 05:52 EST Glucose Lvl 109 mg/dL 08/11/2018 05:52 EST BUN 9 mg/dL 08/11/2018 05:52 EST Creatinine Lvl 0.88 mg/dL 08/11/2018 05:52 EST Diagnostic Results Diagnostic Radiology XR Spine Thoracic Minimum 4 Views 08/09/18 07:23:40 IMPRESSION: Intraoperative changes of multilevel thoracic spine fusion. Signed By: Markos LIM, Lam Bajwa Physical Exam Patient resting in bed A&O x 3 NVI 5/5 muscle strength bilateral LE Medications Inpatient amLODIPine, 5 mg, Oral, Daily atenolol, 50 mg, Oral, Daily Ativan, 1 mg, 0.5 mL, IV Push, q6hr, PRN calcium carbonate, 1500 mg, Chewed, QID, PRN ceFAZolin cloNIDine 0.2 mg/24 hr transdermal film, extended release, 1 patches, Topical, Colace, 100 mg, Oral, BID Dulcolax Laxative, 10 mg, 1 supp, Rectal, Daily, PRN Dulcolax Laxative, 10 mg, Oral, Daily, PRN gabapentin, 100 mg, Oral, BID lisinopril, 10 mg, Oral, BID MiraLax, 17 g, 1 EA, Oral, Daily morphine, 3 mg, 0.75 mL, IV Push, q3hr, PRN Normal Saline Flush 0.9% injectable solution, 10 mL, IV Push, As Indicated, PRN NS 1,000 mL, 1000 mL, IV Percocet 5/325 oral tablet, 2 tabs, Oral, q4hr, PRN Valium, 5 mg, Oral, q8hr, PRN Zofran, 4 mg, 2 mL, IV Push, q4hr, PRN Assessment/Plan 1. Scheuermann's kyphosis Continue drain Bowel regimen Continue antibiotics until drains are removed PT/OT. Activity as tolerated. TLSO brace when ambulating Hgb stable Discharge pending, home tomorrow pending BM and drain outputs Electronically signed by ___ Luís Marcus PA-C 08/11/18 14:44 EST Normal [facility] XR Scoliosis Study 2 or 3 Vi ewson 08-11-2018 XR Scoliosis Study 2 or 3 Views Procedure: Scoliosis screening radiographs. Technique: Upright PA and lateral radiographs of the spine from the occiput through the proximal femora. Clinical Information: 28-year-old male status post fusion. Comparison: CT thoracic spine 08/08/2018. Findings: Major curve: No definite measurable curvature. Bones: Postoperative changes of laminectomy and posterior fusion at T5-L1 with pedicle screws and rods. Hardware grossly in expected position. No gross acute fracture fracture or aggressive abnormality. Chest: Hypoinflated lungs. Abdomen: No gross bowel dilatation. Soft tissues: Edema and skin elise throughout the middle back. IMPRESSION: No definite measurable curvature. Postoperative changes. Final Dictated by: Lam Burrows MD Dictated DT/TM: 08/11/2018 2:53 pm Signed by: Lam Burrows MD Signed (Electronic Signature): 08/11/2018 2:58 pm (If Report Is Signed, Electronically Signed in Other Vendor System) Normal [facility] Comment on above: Order Comment: Stand ing AP and lateral views in TLSO brace .eGFRon 08-10-2018 eGFR AA >60 Normal >=60 [facility] Comment on above: Result Comment: Resu lt = 0-14.9 mL/min/1.73 m2 Kidney failure or Dialysis Result = 15-29 mL/min/1.73 m2 Severe decrease in GFR Result = 30-59 mL/min/1.73 m2 Moderate decrease in GFR Result >= 60 mL/min/1.73 m2 Normal or increased GFR Performed By: #### C BC #### [address] [address] eGFR Non-AA >60 Normal >=60 [facility] Comment on above: Result Comment: Resu lt = 0-14.9 mL/min/1.73 m2 Kidney failure or Dialysis Result = 15-29 mL/min/1.73 m2 Severe decrease in GFR Result = 30-59 mL/min/1.73 m2 Moderate decrease in GFR Result >= 60 mL/min/1.73 m2 Normal or increased GFR Chronic kidney disease is defined as either kidney damage or GFR < 60 mL/min/1.73 m2 for >= 3 months. Kidney damage is defined as pathologic abnormalities or markers of damage including abnormalities in blood or urine tests or imaging studies. This GFR is NOT used for medication dosing. Performed By: #### C BC #### [address] [address] Basic Metabolic Profileon Anion gap molar conc 12 mmol/L Normal 7-17 [facility] Comment on above: Performed By: #### C BC #### [address] [address] Calcium mass conc 8.1 mg/dL Low 8.5-10.3 [facility] Comment on above: Performed By: #### C BC #### [address] [address] Chloride molar conc 103 mmol/L Normal 98-110 [facility] Comment on above: Performed By: #### C BC #### [address] [address] CO2 molar conc 25 mmol/L Normal 22-32 [facility] Comment on above: Performed By: #### C BC #### [address] [address] Creatinine mass conc 0.83 mg/dL Normal 0.61-1.24 [facility] Comment on above: Performed By: #### C BC #### [address] [address] Glucose mass conc 99 mg/dL Normal 74-118 [facility] Comment on above: Performed By: #### C BC #### [address] [address] Potassium molar conc 4.3 mmol/L Normal 3.4-4.8 [facility] Comment on above: Performed By: #### C BC #### [address] [address] Sodium molar conc 136 mmol/L Normal 133-142 [facility] Comment on above: Performed By: #### C BC #### [address] [address] Urea nitrogen mass conc 12 mg/dL Normal 8-26 [facility] Comment on above: Performed By: #### C BC #### [address] [address] Urea nitrogen/Creatinine mass ratio 14.5 mg/mg Normal 10.0-20.0 [facility] Comment on above: Performed By: #### C BC #### [address] [address] CBC w/ Diffon 08-10-2018 Erythrocyte distribution width Ratio (RBC) 12.6 % Normal 11.6-14.8 [facility] Comment on above: Performed By: #### C BC #### [address] [address] Hematocrit Volume Fraction (Bld) 33.6 % Low 41.0-53.0 [facility] Comment on above: Performed By: #### C BC #### [address] [address] Hemoglobin mass conc (Bld) 11.4 g/dL Low 13.5-17.5 [facility] Comment on above: Performed By: #### C BC #### [address] [address] MCH Entitic mass (RBC) 29.9 pg Normal 27.0-35.0 [facility] Comment on above: Performed By: #### C BC #### [address] [address] MCHC mass conc (RBC) 34.0 % Normal 31.0-37.0 [facility] Comment on above: Performed By: #### C BC #### [address] [address] MCV Entitic volume (RBC) 87.8 fL Normal 80.0-100.0 [facility] Comment on above: Performed By: #### C BC #### [address] [address] Platelet mean volume Entitic volume (Bld) 8.1 fL Normal 6.7-10.6 [facility] Comment on above: Performed By: #### C BC #### [address] [address] Platelets #/vol (Bld) 182 x10*3/mcL Normal 150-350 [facility] Comment on above: Performed By: #### C BC #### [address] [address] RBC #/vol (Bld) 3.82 x10*6/mcL Low 4.30-5.80 [facility] Comment on above: Performed By: #### C BC #### [address] [address] WBC #/vol (Bld) 10.3 x10*3/mcL Normal 4.5-11.0 [facility] Comment on above: Performed By: #### C BC #### [address] [address] Diff Autoon 08-10-2018 Baso Absolute 0.1 x10*3/mcL Normal 0.0-0.2 [facility] Comment on above: Performed By: #### C BC #### [address] [address] Basophils/100 WBC (Bld) 1.4 % High 0.0-1.2 [facility] Comment on above: Performed By: #### C BC #### [address] [address] Eos Absolute 0.1 x10*3/mcL Normal 0.0-0.4 [facility] Comment on above: Performed By: #### C BC #### [address] [address] Eosinophils/100 WBC (Bld) 1.2 % Normal 0.0-6.1 [facility] Comment on above: Performed By: #### C BC #### [address] [address] Lymphocytes #/vol (Bld) 2.3 x10*3/mcL Normal 1.0-4.8 [facility] Comment on above: Performed By: #### C BC #### [address] [address] Lymphocytes/100 WBC (Bld) 22.7 % Low 27.2-40.8 [facility] Comment on above: Performed By: #### C BC #### [address] [address] Garrett Absolute 1.1 x10*3/mcL Normal 0.3-1.1 [facility] Comment on above: Performed By: #### C BC #### [address] [address] Monocytes/100 WBC (Bld) 10.6 % Normal 4.7-13.9 [facility] Comment on above: Performed By: #### C BC #### [address] [address] Neutro Absolute 6.6 x10*3/mcL Normal 1.8-7.7 [facility] Comment on above: Performed By: #### C BC #### [facility] [address] [place] [address] Neutro Auto 64.1 % Normal 47.2-70.8 [facility] Comment on above: Performed By: #### C BC #### [facility] [address] [place] [address] Orthopedic Progress Noteon 0 08-10-2018 Protein mass conc Subjective Patient pain is better controlled. Brace came yesterday and patient ambulated in halls. No BM. ++Flatus Salgado removed and patient able to void on own Objective Vitals & Measurements T: 36.5 ?C (Oral) T: 36 ?C (Temporal Artery) HR: 99 (Monitored) RR: 16 BP: 110/58 BP: 119/61 (Line) SpO2: 92% HT: 182 cm HT: 182.88 cm WT: 152.6 kg WT: 152.8 kg DOSE WT: 148.5 kg BMI: 46.13 BMI: 45.69 Additional Vitals Peripheral Pulse Rate: 102 bpm High Lab Results Labs pending Diagnostic Results Diagnostic Radiology XR Spine Thoracic Minimum 4 Views 08/09/18 07:23:40 IMPRESSION: Intraoperative changes of multilevel thoracic spine fusion. Signed By: Lam Burrows MD Computed Tomography CT Spine Thoracic w/o Contrast 08/08/18 11:02:22 IMPRESSION:1. There is kyphosis. No subluxation.2. Multilevel mild degenerative disc disease at the lower levels, likely related to developmental wedging.3. Probably old minor compression fracture at superior T3 endplate area.4. No spinal stenosis. No obvious large disc protrusion, no definite acute intrathecal pathology, within the limitations of this study.5. Mild arthritis at a few of the facets and costovertebral articulations.6. No comparison exam here. Consider MRI. Signed By: Chris Don MD Physical Exam Patient resting in bed Awake and alert Hemovac in place and functioning NVI 5/5 bilateral LE Medications Inpatient amLODIPine, 5 mg, Oral, Daily atenolol, 50 mg, Oral, Daily Ativan, 1 mg, 0.5 mL, IV Push, q6hr, PRN calcium carbonate, 1500 mg, Chewed, QID, PRN ceFAZolin cloNIDine 0.2 mg/24 hr transdermal film, extended release, 1 patches, Topical, Colace, 100 mg, Oral, BID Dulcolax Laxative, 10 mg, 1 supp, Rectal, Daily, PRN Dulcolax Laxative, 10 mg, Oral, Daily, PRN gabapentin, 100 mg, Oral, BID lisinopril, 10 mg, Oral, BID MiraLax, 17 g, 1 EA, Oral, Daily morphine, 3 mg, 0.75 mL, IV Push, q3hr, PRN Normal Saline Flush 0.9% injectable solution, 10 mL, IV Push, As Indicated, PRN NS 1,000 mL, 1000 mL, IV Percocet 5/325 oral tablet, 2 tabs, Oral, q4hr, PRN Valium, 5 mg, Oral, q8hr, PRN Zofran, 4 mg, 2 mL, IV Push, q4hr, PRN Assessment/Plan 1. Scheuermann's kyphosis POD#2 s/p T7-T12 decompression with Woods-Calloway Osteotomies and T6-L2 PSF for kyphosis correction Continue drains Bowel regimen Continue antibiotics until drains are removed PT/OT. Activity as tolerated. TLSO brace when ambulating AM labs pending, hgb 13 yesterday Standing AP and lateral scoliosis x-rays in TLSO brace Discharge pending Electronically signed by ___ Luís Marcus PA-C 08/10/18 06:03 EST Normal [facility] .eGFRon 08-09-2018 eGFR AA >60 Normal >=60 [facility] Comment on above: Result Comment: Resu lt = 0-14.9 mL/min/1.73 m2 Kidney failure or Dialysis Result = 15-29 mL/min/1.73 m2 Severe decrease in GFR Result = 30-59 mL/min/1.73 m2 Moderate decrease in GFR Result >= 60 mL/min/1.73 m2 Normal or increased GFR Performed By: #### C BC #### [address] [address] eGFR Non-AA >60 Normal >=60 [facility] Comment on above: Result Comment: Resu lt = 0-14.9 mL/min/1.73 m2 Kidney failure or Dialysis Result = 15-29 mL/min/1.73 m2 Severe decrease in GFR Result = 30-59 mL/min/1.73 m2 Moderate decrease in GFR Result >= 60 mL/min/1.73 m2 Normal or increased GFR Chronic kidney disease is defined as either kidney damage or GFR < 60 mL/min/1.73 m2 for >= 3 months. Kidney damage is defined as pathologic abnormalities or markers of damage including abnormalities in blood or urine tests or imaging studies. This GFR is NOT used for medication dosing. Performed By: #### C BC #### [address] [address] Basic Metabolic Profileon Anion gap molar conc 12 mmol/L Normal 7-17 [facility] Comment on above: Performed By: #### C BC #### [address] [address] Calcium mass conc 8.3 mg/dL Low 8.5-10.3 [facility] Comment on above: Performed By: #### C BC #### [address] [address] Chloride molar conc 106 mmol/L Normal 98-110 [facility] Comment on above: Performed By: #### C BC #### [address] [address] CO2 molar conc 24 mmol/L Normal 22-32 [facility] Comment on above: Performed By: #### C BC #### [address] [address] Creatinine mass conc 1.02 mg/dL Normal 0.61-1.24 [facility] Comment on above: Performed By: #### C BC #### [address] [address] Glucose mass conc 119 mg/dL High 74-118 [facility] Comment on above: Performed By: #### C BC #### [address] [address] Potassium molar conc 4.5 mmol/L Normal 3.4-4.8 [facility] Comment on above: Performed By: #### C BC #### [address] [address] Sodium molar conc 137 mmol/L Normal 133-142 [facility] Comment on above: Performed By: #### C BC #### [address] [address] Urea nitrogen mass conc 12 mg/dL Normal 8-26 [facility] Comment on above: Performed By: #### C BC #### [address] [address] Urea nitrogen/Creatinine mass ratio 11.8 mg/mg Normal 10.0-20.0 [facility] Comment on above: Performed By: #### C BC #### [address] [address] CBC w/ Diffon 08-09-2018 Erythrocyte distribution width Ratio (RBC) 12.8 % Normal 11.6-14.8 [facility] Comment on above: Performed By: #### . Automated Diff #### [address] [address] Hematocrit Volume Fraction (Bld) 39.9 % Low 41.0-53.0 [facility] Comment on above: Performed By: #### . Automated Diff #### [address] [address] Hemoglobin mass conc (Bld) 13.4 g/dL Low 13.5-17.5 [facility] Comment on above: Performed By: #### . Automated Diff #### [address] [address] MCH Entitic mass (RBC) 29.1 pg Normal 27.0-35.0 [facility] Comment on above: Performed By: #### . Automated Diff #### [address] [address] MCHC mass conc (RBC) 33.5 % Normal 31.0-37.0 [facility] Comment on above: Performed By: #### . Automated Diff #### [address] [address] MCV Entitic volume (RBC) 86.9 fL Normal 80.0-100.0 [facility] Comment on above: Performed By: #### . Automated Diff #### [place] [id number] Platelet mean volume Entitic volume (Bld) 8.2 fL Normal 6.7-10.6 [facility] Comment on above: Performed By: #### . Automated Diff #### [place] [address] Platelets #/vol (Bld) 302 x10*3/mcL Normal 150-350 [facility] Comment on above: Performed By: #### . Automated Diff #### [place] [address] RBC #/vol (Bld) 4.59 x10*6/mcL Normal 4.30-5.80 [facility] Comment on above: Performed By: #### . Automated Diff #### [address] [address] WBC #/vol (Bld) 14.2 x10*3/mcL High 4.5-11.0 [facility] Comment on above: Performed By: #### . Automated Diff #### [place] [id number] Manager [employer] Director Progress Noteon 08-09-2018 Manager [employer] Director Progress Note Met with patient regarding transitions of care. Patient states that he already has a walker prescribed and at home if needed before surgery. He has a supportive family a and mother who plan on helping him after surgery. He has insurance and transportation. He plans on returning home when medically able. Patient discussed in transitions of care huddle. Electronically signed by ___ Abbie Cordova 08/09/18 10:08 EST Normal [facility] Diff Autoon 08-09-2018 Baso Absolute 0.0 x10*3/mcL Normal 0.0-0.2 [facility] Comment on above: Performed By: #### . Automated Diff #### [address] [address] Basophils/100 WBC (Bld) 0.3 % Normal 0.0-1.2 [facility] Comment on above: Performed By: #### . Automated Diff #### [address] [address] Eos Absolute 0.0 x10*3/mcL Normal 0.0-0.4 [facility] Comment on above: Performed By: #### . Automated Diff #### [address] [address] Eosinophils/100 WBC (Bld) 0.1 % Normal 0.0-6.1 [facility] Comment on above: Performed By: #### . Automated Diff #### [address] [address] Lymphocytes #/vol (Bld) 1.2 x10*3/mcL Normal 1.0-4.8 [facility] Comment on above: Performed By: #### . Automated Diff #### [address] [address] Lymphocytes/100 WBC (Bld) 8.6 % Low 27.2-40.8 [facility] Comment on above: Performed By: #### . Automated Diff #### [address] [address] Garrett Absolute 1.0 x10*3/mcL Normal 0.3-1.1 [facility] Comment on above: Performed By: #### . Automated Diff #### [address] [address] Monocytes/100 WBC (Bld) 6.9 % Normal 4.7-13.9 [facility] Comment on above: Performed By: #### . Automated Diff #### [facility] [address] [place] [address] Neutro Absolute 11.9 x10*3/mcL High 1.8-7.7 [facility] Comment on above: Performed By: #### . Automated Diff #### [facility] [address] [place] [address] Neutro Auto 84.1 % High 47.2-70.8 [facility] Comment on above: Performed By: #### . Automated Diff #### [place] [address] [place] [id number] Orthopedic Progress Noteon 0 08-09-2018 Protein mass conc Subjective Patient doing well, c/o back pain and muscle spasms. He does report a noticeable difference laying in bed- feels kyphosis is improved. No BM. Patient does not have TLSO brace yet, fitted for brace yesterday. Objective Vitals & Measurements T: 36.7 ?C (Oral) T: 36 ?C (Temporal Artery) HR: 99 (Monitored) RR: 18 BP: 123/74 BP: 119/61 (Line) SpO2: 97% HT: 182 cm HT: 182.88 cm WT: 152.8 kg WT: 152.8 kg DOSE WT: 148.5 kg BMI: 46.13 BMI: 45.69 Additional Vitals Body Mass Index Measured: 46.13 kg/m2 Peripheral Pulse Rate: 82 bpm Lab Results Hgb 14.4 g/dL 08/08/2018 17:28 EST Hct 42.8 % 08/08/2018 17:28 EST Diagnostic Results Diagnostic Radiology No qualifying data available. Computed Tomography CT Spine Thoracic w/o Contrast 08/08/18 11:02:22 IMPRESSION:1. There is kyphosis. No subluxation.2. Multilevel mild degenerative disc disease at the lower levels, likely related to developmental wedging.3. Probably old minor compression fracture at superior T3 endplate area.4. No spinal stenosis. No obvious large disc protrusion, no definite acute intrathecal pathology, within the limitations of this study.5. Mild arthritis at a few of the facets and costovertebral articulations.6. No comparison exam here. Consider MRI. Signed By: Arian LIM, Chris iNño Physical Exam Patient resting in bed Alert and oriented x 3 5/5 muscle strength bilateral LE NVI Hemovac drains in place and functioning- dark bloody drainage Medications Inpatient amLODIPine, 5 mg, Oral, Daily atenolol, 50 mg, Oral, Daily Ativan, 1 mg, 0.5 mL, IV Push, q6hr, PRN calcium carbonate, 1500 mg, Chewed, QID, PRN ceFAZolin cloNIDine 0.2 mg/24 hr transdermal film, extended release, 1 patches, Topical, Colace, 100 mg, Oral, BID Dulcolax Laxative, 10 mg, 1 supp, Rectal, Daily, PRN Dulcolax Laxative, 10 mg, Oral, Daily, PRN gabapentin, 100 mg, Oral, BID lisinopril, 10 mg, Oral, BID MiraLax, 17 g, 1 EA, Oral, Daily morphine, 2 mg, 1 mL, IV Push, q3hr, PRN NS 1,000 mL, 1000 mL, IV Percocet 5/325 oral tablet, 2 tabs, Oral, q4hr, PRN Valium, 5 mg, Oral, q8hr, PRN Zofran, 4 mg, 2 mL, IV Push, q4hr, PRN Assessment/Plan 1. Scheuermann's kyphosis POD#1 s/p T7-T12 decompression with Woods-Calloway Osteotomies and T6-L2 PSF for kyphosis correction Continue drains Bowel regimen Continue antibiotics until drains are removed PT/OT. Activity as tolerated. TLSO brace when ambulating AM labs pending Remove salgado once patient becomes more mobile with PT Standing AP and lateral scoliosis x-rays in TLSO brace once brace is here Discharge pending Electronically signed by ___ Luís Marcus PA-C 08/09/18 06:28 EST Normal [facility] Progress Note-Nurseon 2018 Protein mass conc Upset because back brace not here from the company, patient called to find out when it will arrive told t hat they have no idea. Anxious and tates that he will getting up with or with out the brace he doesn't care. Explained that no need to undo the surgery and place himslef in harms way. Wait for the brace to arrive. Electronically signed by ___ Petra Kim 08/09/18 10:50 EST Normal [facility] XR Spine Thoracic Minimum 4 Viewson 08-09-2018 XR Spine Thoracic Minimum 4 Views Procedure: Intraoperative thoracic spine fluoroscopy. Images: Nine cone-down intraoperative fluoroscopic image holds of the thoracic spine in the AP and lateral views were obtained. Fluoroscopy: 0.4 minutes (12.5 mGy). Clinical information: 28-year-old male with posterior thoracic spine fusion. Comparison: None. Findings: Bones: Progressive placement of multilevel pedicle screws and posterior rods, grossly in expected position. No gross acute displaced fracture. Intervertebral discs: Single level of moderate degenerative disc disease grossly in the lower thoracic spine. Facet joints: Poorly evaluated. Soft tissues: Surgical instruments in the posterior soft tissues. IMPRESSION: Intraoperative changes of multilevel thoracic spine fusion. Final Dictated by: Lam Burrows MD Dictated DT/TM: 08/09/2018 7:23 am Signed by: Lam Burrows MD Signed (Electronic Signature): 08/09/2018 7:32 am (If Report Is Signed, Electronically Signed in Other Vendor System) Normal [facility] CT Spine Thoracic w/o Contra ston 08-08-2018 CT Spine Thoracic w/o Contrast CT thoracic spine without contrast HISTORY: Chronic upper back pain, preop surgery COMPARISON: None here TECHNIQUE: 2 mm axial and sagittal and coronal CT sequences are submitted of the thoracic spine without contrast. Report: There is likely developmental wedge-shaped appearance of T11 and T12 more than L1 or T10, with kyphosis therefrom. Buckled appearance of superior endplate area of T3 noted, consistent with compression fracture, but no acute fracture lines identified there. There is a narrowed appearance to T11-12 and T10-11 and T9-10 disc spaces, a small amount of gas in to those disc spaces and anterior osteophyte formation at those levels. Lesser such findings at T8-9 disc. There are Schmorl's nodes at some of these levels, the largest is at the inferior T3 endplate area. Mild arthritis at a few of the facets and costovertebral junctions. No obvious large asymmetric disc protrusions, within the limitations of this study. No spinal stenosis. No definite intrathecal pathology. IMPRESSION: 1. There is kyphosis. No subluxation. 2. Multilevel mild degenerative disc disease at the lower levels, likely related to developmental wedging. 3. Probably old minor compression fracture at superior T3 endplate area. 4. No spinal stenosis. No obvious large disc protrusion, no definite acute intrathecal pathology, within the limitations of this study. 5. Mild arthritis at a few of the facets and costovertebral articulations. 6. No comparison exam here. Consider MRI. Radiation Dose Estimate: CTDI(mGy):0.289596 / / / kVp:120.529286 / mAs:0.286605 / / / DLP(mGy-cm):9.394121Peu y Part: Abdomen CTDI(mGy):0.707295 / / / kVp:140.525035 / mAs:0.531631 / / / DLP(mGy-cm):14.155357So dy Part: Final Dictated by: Chris Don MD Dictated DT/TM: 08.08.2018 11:02 am Signed by: Chris Don MD Signed (Electronic Signature): 08.08.2018 11:22 am (If Report Is Signed, Electronically Signed in Other Vendor System) Normal [facility] Comment on above: Order Comment: tried to call office at 18:05. office already closed and unable to leave message regarding this to be a future order. Hgb & Hcton 08-08-2018 Hematocrit Volume Fraction (Bld) 42.8 % Normal 41.0-53.0 [facility] Comment on above: Performed By: #### . Automated Diff #### [place] [address] Hemoglobin mass conc (Bld) 14.4 g/dL Normal 13.5-17.5 [facility] Comment on above: Performed By: #### . Automated Diff #### [place] [id number] [place] [address] Operative Reporton 9 Operative Report Indication for Surge ry Intractable thoracic pain secondary to Scheuermann's kyphosis with kyphoscoliosis/deformit y Preoperative Diagnosis Same Postoperative Diagnosis Same Operation T7, T8, T9, T10, T11, T12 decompressive laminectomies with Woods Reese osteotomies T7 8, T8 9, T9 10, T11 12; instrumentation using spinal elements overwatch thoracolumbar lumbar pedicle screw system 7.5 mm diameter screws with placement at T6, T7, T8, T9, T10, T11, T12, L1, L2 with reduction of kyphotic deformity; posterior spinal fusion T6, T7, T8, T9, T10, T11, T12, L1, L2 using onlay intertransverse placement of autogenous autograft from local harvest/laminectomy as well as leona demineralized bone matrix Surgeon(s) Jesus Reyes for decompression and co-surgeon Leida Lynn for instrumentation Education Paraprofessional Luís HAMEED Anesthesia General anesthetic via endotracheal tube Estimated Blood Loss 750 mL Urine Output 350 mL Findings Stable SSEP and MEP monitoring and no EMG outburst or trains; screw testing EMG all at or above 15 Specimen(s) None Complications None Technique History: Patient is a pleasant 28-year-old gentleman with a history of morbid obesity as well as development of significant kyphosis secondary to Scheuermann's kyphosis. He has developed intractable thoracic and thoracolumbar pain and has resisted all-consuming measures. Imaging reveals over 50? kyphotic deformity from T8 to T12. Given the failure of conservative measures, the patient is offered the above-mentioned procedure for reduction in pain control measures. He is first on the risk and benefits of procedure by Dr. Reyes in the orthopedic spine team as well as by the neurosurgical team. Patient is in agreement and wished to proceed understanding the risk of procedure-neurosurgery noted complications including the risk of procedure including infection, bleeding, CSF leak, neurologic injury, neuropathic pain syndrome, peridural fibrosis, failure for improvement, incomplete benefit, new neurologic deficit, spinal instability, coma, , paralysis, deep venous thrombosis, pulmonary embolism as well as pseudoarthrosis, adjacent segment disease, hardware failure or pullout, ischemic optic neuropathy with permanent blindness, reoperation either delayed or acute. Patient acknowledges and wishes to proceed Procedure: Patient is brought into the operating room and general anesthetic is induced with atraumatically placed endotracheal tube. Venous and arterial access is secured. He is carefully turned onto [facility] operating room table and head and neck are placed in neutral position and arms are placed on arm boards as he has turned prone; neurovascular bundles unencumbered. He is placed on chest pad and hip pads to allow his abdomen to be dependent to prevent venous vascular engorgement. Once positioned, the patient receives IV antibiotics and the thoracic and lumbar region is cleaned with alcohol and dried. fluoroscopy was used to confirm levels. A proposed skin incision ascribed from the top of the spinous process of T5 to the spinous process of L2 taking into account the apex of his kyphotic deformity at T10. The area is prepped and draped in usual fashion. After the appropriate side, site, patient are identified, and a timeout maneuvers performed, full-thickness skin incision incorporating previous incision is made to the thoracolumbar fascia using 10 blade and knife and monopolar cautery. Fascia is incised using cutting current monopolar cautery. In a subperiosteal fashion, paravertebral muscles were elevated off the spinous processes, lamina and facets of T5 through L2 and uncovering of the transverse processes of T6 through L2. Hemostasis is achieved using aqua mantis bipolar cautery and packing. Levels are self evident by virtue of transverse processes anatomy at L1 and L2 as well as transverse processes morphology T12 which correlates with his imaging/CT. Self-retaining retractors are put in place. Pedicle screw insertion sites were identified using standard landmarks . Posterior cortex is breached and then passageways are created using pedicle feelers passing through the pedicle into the vertebral body of the respective level. This is conducted at all levels without incident . Depths are measured and recorded in each hole was tapped with appropriate sized tap. This is followed by insertion of 0.5 mm diameter screws 40 mm from T6 through T9 and 45 mm screws from T10 through L2. EMG screw testing isn't performed without aberration. Then the spinous processes of T7 through T12 are resected using Luis Alberto glass ribbon machine operator assistant and this bone is harvested for placement and bone mail. Complete laminectomies were then performed at T7, T8, T9, T10, T11, T12 and this bone is harvested as well. Laminectomies were performed using a variety of tools such as Leksell rongeur, high-speed electric drill Kerrison punches so as to completely decompress the thecal sac . Then, using high-speed drill, osteotomes as well as Kerrison punches, radical facetectomies of T7 8, T8 9, T9 10, T11 12 are performed so as to allow reduction strategy without neurologic compromise. Kerrison punches are used to skeletonize the pedicles at each level to ensure decompression. Once decompression is completed and all neural elements are assured from compressive phenomenon, the wound is copiously irrigated with antibiotic solution. Then, using template, appropriate sized cobalt chrome rods are cut and placed on the carrier heads, on the left side beginning at T6 and on the right side beginning at L2 to and sequentially providing compression via reduction tools so as to engage each successive level towards the apex of the kyphosis so as to effect reduction. Small amount of coronal correction using in situ benders is performed while performing the in situ reduction. Ultimately, excellent reduction is performed with no changes in EMG, MEP's, or SSEPs. Locking nuts were placed at each level and tightened to final tightness followed by 2 cross-links. Wound is reirrigated and then transverse processes of T6, T7, T8, T9, T10, T11, T12, L1 and L2 are then decorticated using high-speed bur followed by application of large amounts of autograft from local harvest supplemented with [place] demineralized bone matrix. The wound is reirrigated with antibiotic solution and dusted with approximately 1.5 of powdered vancomycin. 2 eighth inch Hemovacs are brought through separate stab incision and placed in the epidural space. Paravertebral muscles and fascia are reapproximated using 1-Vicryl in interrupted fashion. Subcutaneous tissues are reirrigated and then dusted with 1.5 g of powdered vancomycin. Subcutaneous tissues are reapproximated using 1-Vicryl in inverted interrupted fashion in 2 layers. elise completed the skin closure. Fluoroscopy demonstrates appropriate hardware placement/levels. Suction grenades are attached to drains and patient is carefully turned onto awaiting operating room gurney and extubated and taken to recover for monitoring. The patient did have repeat antibiotic IV 3 hours after first installation. No known complications of surgery. This surgical procedure was assisted by my physician?s geriatric nursing assistant. Her presence was needed throughout the case for manipulation and positioning the surgical arm as well as positioning the surgical instruments as well as primarily assisting me through procedure. Due to the complexity of condition, the skill set of an neurosurgical physician geriatric nursing assistant was needed throughout the case. During the surgical case, the surgical supply assistant was working the back table and was not available for assistance. Tourniquet Time None Sponge/Needle Count Per nursing correct Fluid Count 2500 mL crystalloid Electronically signed by ___ Shane PANCHAL MD, Leida Cross 08/08/18 17:22 EST Normal [facility] Operative Report Operative Report DATE OF OPERATION: 08/08/2018 PRE-OPERATIVE DIAGNOSES: 1. Scheuermann's kyphosis 2. Intractable thoracic pain 3. Obesity with BMI of 42.72 POST-OPERATIVE DIAGNOSES: 1. Scheuermann's kyphosis 2. Intractable thoracic pain 3. Obesity with BMI of 42.72 OPERATION PERFORMED: 1. T7 through T12 bilateral laminectomy, partial medial facetectomies, foraminotomies of the T7, T8, T9, T10, T11, T12 and L2 nerve roots 2. T7 through T12 Woods-Calloway Osteotomies 3. T6 through L2 posterior spine fusion for reduction of kyphotic deformity 4. T6 through L2 posterior spine instrumentation, Overwatch, Spinal Elements 5. Use of local autograft bone and [place] Matrix SURGEON: Jesus Shah MD for decompression Leida Lynn MD for instrumentation MOHEL: Luís Staley assisted throughout the procedure with positioning, draping, retraction, wound closure and dressing application. TYPE OF ANESTHESIA: General INDICATIONS FOR SURGERY: This is a 28-year-old male with refractory thoracic pain secondary to severe kyphosis from Scheuermanns' Kyphosis. Patient had tried and failed conservative therapy, including medication management, physical therapy and bracing. Due to the persistence of symptoms and reduction in ADL's, patient elected surgical treatment. Patient, therefore, understood the indications for surgery, as well as, the risks, benefits, and alternatives. These risks include but are not limited to infection, hematoma, dural tear, nerve root injury, paralysis, non-union, DVT/PE, bleeding, chronic pain, GA, stroke, etc. All questions were answered and informed consent was obtained. PROCEDURE: Patient was taken to the Operating Room by Anesthesiology Service and had satisfactory general anesthesia. A first generation cephalosporin was given within 1 hour of surgical incision. 2 g of cefazolin was given IV. Venous thromboembolic prophylaxis was performed with sequential devices. A salgado catheter was placed using standard sterile technique. Patient was then positioned prone on a standard OSI frame with the abdomen hanging free and all bone prominences were well-padded. The low back was then prepped and draped in its entirety in usual sterile fashion. Before incision, a formal time-out was taken per protocol. We next took a mid-line longitudinal approach and performed sub-periosteal dissection out to the tips of the transverse processes of T6, T7, T8, T9, T10, T11, T12, L1 and L2. Intraoperative localization of level was confirmed. Satisfied with exposure and confirmation of level, we then began spine instrumentation and posterolateral fusion. Using anatomic landmarks and guided by direct visualization of the pedicles from within the canal, pedicle screws were then placed bilaterally at T6, T7, T8, T9, T10, T11, T12, L1 and L2. The screws were then inserted, which were under-tapped by 1 mm. All of the screws were completely interosseous as determined by bony palpation. We then turned our attention to perform We then began the laminectomy as well as decompression by removing the spinous process of T7, T8, T9, T10, T11 and T12. We then trimmed down the dorsal cortices with a high-speed maikol. We then identified the epidural space and carefully entered the spinal canal resecting the ligamentum flavum in its entirety over this region. At this time, partial medial facetectomy was performed with the osteotome to get lateral to the facet overhang, but just medial to the pedicles and nerve roots. Kerrisons were then used to perform foraminotomies of the T7, T8, T9, T10, T11, T12, L1 nerve roots bilaterally. This thereby, completed our decompression at T7-8, T8-9, T9-10, T10-T11, T11-T12 with foraminotomies of the T7, T8, T9, T10, T11, T12 and L1 nerve roots bilaterally. In order to correct the patient's kyphosis, Woods-Calloway osteotomies were performed bilaterally at T7-8, T8-9, T9-10, T10-11, T11-12 bilaterally using an osteotome, Kerrisneris and pituitary by entirely resecting the facet joint. Two Blakeslee chrome rods were cut to size and placed bilaterally from T6-L2. One rods secured distally and the other pablo proximally then sequentially applied for excellent reduction of his kyphotic curvature. In situ benders also used for deformity correction. Set screws engaged, and tightened down to their final torque. Transverse processes were then decorticated with a high-speed maikol at T6, T7, T8, T9, T10, T11, T12, L1 and L2 bilaterally. Local autograft bone was packed over the decorticated elements bilaterally.[place]ito matrix was placed on top of this for extra bulk. Two Overwatch crosslinks were used. Everything was tightened down. A very rigid construct was achieved. Final x-rays were taken demonstrating good position of the spine and all of the implants. Satisfied with this, we then achieved hemostasis. We then copiously irrigated the wound. We then inserted 2 Hemovac drains through 2 separate stab incisions. The wound was then closed in layers with interrupted 1 and 2-0 Vicryl sutures and dusted with 3 g vancomycin powder. [place] used for skin and antibiotic ointment apploed over top. A dry sterile dressing was applied. Patient was returned to the hospital bed, extubated and taken to the recovery room in stable condition. Spinal cord monitoring remained stable throughout the procedure including SSEPs and MEPs. COMPLICATIONS: None SPECIMENS: None ESTIMATED BLOOD LOSS: 750 mL POST-OPERATIVE CARE: The patient will be recovered in the PACU and then a regular nursing floor. Once drain is low and pain is under control, patient will be discharged home per clinical indication. Patient will follow up in the office in 6 weeks. At that time, AP and lateral x-rays of the lumbar spine will be obtained to assess instrumentation and fusion. Modifier 22: Due to the patient's BMI greater than 30 (42.72), modifier 22 will be applied for the case taking 50% longer due to poor visualization and orientation JESUS REYES M.D. Electronically signed by ___ Jesus Reyes MD 08/09/18 11:58 EST Normal [facility] Operative Report Preoperative Diagnos is Scheuermann's kyphosis Intractable thoracic pain Postoperative Diagnosis Scheuermann's kyphosis Intractable thoracic pain Operation 1. T7-T12 decompression with T7-T12 bilateral Woods-Calloway Osteotomies 2. T6-L2 posterior spinal fusion using in situ deformity correction Surgeon(s) Dr. Reyes for decompression Dr. Lynn for instrumentation Education Paraprofessional Amrit SHEEHAN Anesthesia general Estimated Blood Loss 750 cc Findings preoperative diagnosis confirmed Specimen(s) none Complications none Electronically signed by ___ Luís Marcus PA-C 08/08/18 18:12 EST Normal [facility] History and Physicalon 08-07 History and Physical Chief Complaint Thoracic pain History of Present Illness In summary, Chiquita is a 28-year-old male who is having constant mid-thoracic pain. He also complains of right rib cage pain and intermittent tingling in the left leg and foot. The patient reports a kyphosis deformity since childhood that has gradually gotten worse pain dos santos over the last couple of years. Current VAS score of 7/10. Percentage dos santos, 90% of the pain is in the back and 10% left leg. Activities that aggravate the pain include sitting, standing, walking, bending forward, lying on his side and lying on his back. Activities that help relieve the pain include sitting. Modifying factors include medication management, PT, brace and physician directed home exercises. These have provided no relief of his symptoms. No previous spinal surgeries. Patient is a 1 ppd smoker. No bowel or bladder incontinence. Review of Systems Constitutional: No fevers, chills Respiratory: No shortness of breath, cough Cardiovascular: No chest pain, palpitations Gastrointestinal: No nausea, vomiting, incontinence Genitourinary: No dysuria or incontinence Musculoskeletal: (+) thoracic pain, leg pain, rib cage pain Neurologic: (+) numbness/tingling, negative for h/a Psychiatric: No anxiety, depression Physical Exam General: Alert and oriented, well nourished, no acute distress. Head: Atraumatic, normocephalic Lungs: No respiratory distress. CTA bilaterally, no wheezes Heart: RRR, no murmur Abdomen: Soft, non-tender, non-distended, normal bowel sounds Musculoskeletal: Limited thoraco-lumbar ROM. TTP mid-thoracic spine . 5/5 muscle strength bilateral lower extremities. Obvious kyphosis deformity Skin: Inspection of thoraco-lumbar spine, shows no skin lesions or open wounds. Neurologic: Awake, alert, and oriented X3, sensory intact lower extremities Psychiatric: Cooperative, appropriate mood and affect Assessment/Plan Assessment: Scheuermann's kyphosis Plan: T4-T12 decompression and fusion with Woods-Calloway Osteotomies CT Thoracic spine ordered for on arrival Problem List/Past Medical History Ongoing Heartburn Hypertension Scheuermann's kyphosis Historical No qualifying data Procedure/Surgical History Tonsillectomy. Medications Home amLODIPine 5 mg oral tablet, 5 mg, 1 tabs, Oral, Daily atenolol 50 mg oral tablet, TAKES AT NOON, Oral, Daily cloNIDine 0.2 mg/24 hr transdermal film, extended release, 1 patches, Topical, cyclobenzaprine 10 mg oral tablet, 10 mg, 1 tabs, Oral, TID gabapentin 100 mg oral capsule, 100 mg, 1 caps, Oral, TID ibuprofen 200 mg oral tablet, 2-3 TABS, Oral, q6hr, PRN lisinopril 20 mg oral tablet, 10 mg, 0.5 tabs, Oral, BID spironolactone-hydrochl orothiazide 25 mg-25 mg oral tablet, 1 tabs, Oral, qAM traMADol 50 mg oral tablet, 50 mg, 1 tabs, Oral, q12hr Tums E-X 750 mg oral tablet, chewable, 1500 mg, 2 tabs, Chewed, QID, PRN Inpatient No active inpatient medications Prescriptions No active Prescriptions Allergies No Known Medication Allergies Social History Alcohol Current, Beer, Wine, Liquor, 1-2 times per year 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 Exercise Home/Environment Lives with Children, Spouse. Living situation: Home/Independent. , 2 DOGS Nutrition/Health Regular, Caffeine intake amount: 3-4 CUPS COFFEE DAILY. Sexual History of sexual abuse: No. Substance Abuse Denies All Tobacco Former smoker, quit more than 30 days ago Use:. Cigarettes, 15 year(s). Family History Hypertension: Mother and Grandmother (M). Diagnostic Results XRAYS Scoliosis: Schuermann's kyphosis of the thoracic spine with Blum angle of 77 degrees Electronically signed by ___ Luís Marcus PA-C 08/07/18 13:30 EST Electronically signed by ___ Jesus Reyes MD 08/08/2018 14:55 EST Normal [facility] .eGFRon 07-31-2018 eGFR Non-AA >60 Normal >=60 [facility] Comment on above: Result Comment: Resu lt = 0-14.9 mL/min/1.73 m2 Kidney failure or Dialysis Result = 15-29 mL/min/1.73 m2 Severe decrease in GFR Result = 30-59 mL/min/1.73 m2 Moderate decrease in GFR Result >= 60 mL/min/1.73 m2 Normal or increased GFR Chronic kidney disease is defined as either kidney damage or GFR < 60 mL/min/1.73 m2 for >= 3 months. Kidney damage is defined as pathologic abnormalities or markers of damage including abnormalities in blood or urine tests or imaging studies. This GFR is NOT used for medication dosing. Performed By: #### E GFR #### [address] [address] eGFR AA >60 Normal >=60 [facility] Comment on above: Result Comment: Resu lt = 0-14.9 mL/min/1.73 m2 Kidney failure or Dialysis Result = 15-29 mL/min/1.73 m2 Severe decrease in GFR Result = 30-59 mL/min/1.73 m2 Moderate decrease in GFR Result >= 60 mL/min/1.73 m2 Normal or increased GFR Performed By: #### E GFR #### [address] [address] ABO/Rhon 07-31-2018 ABO/Rh SD 1.11.19 DCon: 0 ABO/Rh: O POS Normal [facility] Comment on above: Performed By: #### A MONISHA #### [facility] (DEFAULT) [address] [place] [id number] [address] ABSC Autoon 07-31-2018 ABSC Auto Negative Normal [facility] Comment on above: Performed By: #### A SA #### [address] [address] Basic Metabolic Profileon Anion gap molar conc 15 mmol/L Normal 7-17 [facility] Comment on above: Performed By: #### C [id number] #### [address] [address] Calcium mass conc 9.7 mg/dL Normal 8.5-10.3 [facility] Comment on above: Performed By: #### C [id number] #### [address] [address] Chloride molar conc 96 mmol/L Low 98-110 [facility] Comment on above: Performed By: #### C [id number] #### [address] [address] CO2 molar conc 28 mmol/L Normal 22-32 [facility] Comment on above: Performed By: #### C [id number] #### [address] [address] Creatinine mass conc 1.07 mg/dL Normal 0.61-1.24 [facility] Comment on above: Performed By: #### C [id number] #### [address] [address] Glucose mass conc 94 mg/dL Normal 74-118 [facility] Comment on above: Performed By: #### C [id number] #### [address] [address] Potassium molar conc 4.4 mmol/L Normal 3.4-4.8 [facility] Comment on above: Performed By: #### C [id number] #### [address] [address] Sodium molar conc 135 mmol/L Normal 133-142 [facility] Comment on above: Performed By: #### C [id number] #### [address] [address] Urea nitrogen mass conc 20 mg/dL Normal 8-26 [facility] Comment on above: Performed By: #### C [id number] #### [address] [address] Urea nitrogen/Creatinine mass ratio 18.7 mg/mg Normal 10.0-20.0 [facility] Comment on above: Performed By: #### C [id number] #### [address] [address] CBC w/ Diffon 07-31-2018 Erythrocyte distribution width Ratio (RBC) 13.0 % Normal 11.6-14.8 [facility] Comment on above: Performed By: #### C BC #### [address] [address] Hematocrit Volume Fraction (Bld) 51.4 % Normal 41.0-53.0 [facility] Comment on above: Performed By: #### C BC #### [address] [address] Hemoglobin mass conc (Bld) 17.4 g/dL Normal 13.5-17.5 [facility] Comment on above: Performed By: #### C BC #### [place] [id number] MCH Entitic mass (RBC) 29.8 pg Normal 27.0-35.0 [facility] Comment on above: Performed By: #### C BC #### [place] [id number] MCHC mass conc (RBC) 33.9 % Normal 31.0-37.0 [facility] Comment on above: Performed By: #### C BC #### [place] [id number] MCV Entitic volume (RBC) 87.7 fL Normal 80.0-100.0 [facility] Comment on above: Performed By: #### C BC #### [place] [id number] Platelet mean volume Entitic volume (Bld) 7.8 fL Normal 6.7-10.6 [facility] Comment on above: Performed By: #### C BC #### [place] [id number] Platelets #/vol (Bld) 295 x10*3/mcL Normal 150-350 [facility] Comment on above: Performed By: #### C BC #### [address] [address] RBC #/vol (Bld) 5.86 x10*6/mcL High 4.30-5.80 [facility] Comment on above: Performed By: #### C BC #### [address] [address] WBC #/vol (Bld) 9.1 x10*3/mcL Normal 4.5-11.0 [facility] Comment on above: Performed By: #### C BC #### [address] [address] Diff Autoon 07-31-2018 Baso Absolute 0.1 x10*3/mcL Normal 0.0-0.2 [facility] Comment on above: Performed By: #### . Automated Diff #### [address] [address] Basophils/100 WBC (Bld) 1.0 % Normal 0.0-1.2 [facility] Comment on above: Performed By: #### . Automated Diff #### [address] [address] Eos Absolute 0.3 x10*3/mcL Normal 0.0-0.4 [facility] Comment on above: Performed By: #### . Automated Diff #### [address] [address] Eosinophils/100 WBC (Bld) 3.1 % Normal 0.0-6.1 [facility] Comment on above: Performed By: #### . Automated Diff #### [address] [address] Lymphocytes #/vol (Bld) 2.6 x10*3/mcL Normal 1.0-4.8 [facility] Comment on above: Performed By: #### . Automated Diff #### [address] [address] Lymphocytes/100 WBC (Bld) 28.2 % Normal 27.2-40.8 [facility] Comment on above: Performed By: #### . Automated Diff #### [address] [address] Garrett Absolute 0.8 x10*3/mcL Normal 0.3-1.1 [facility] Comment on above: Performed By: #### . Automated Diff #### [address] [address] Monocytes/100 WBC (Bld) 9.3 % Normal 4.7-13.9 [facility] Comment on above: Performed By: #### . Automated Diff #### [address] [address] Neutro Absolute 5.3 x10*3/mcL Normal 1.8-7.7 [facility] Comment on above: Performed By: #### . Automated Diff #### [facility] [address] [place] [address] Neutro Auto 58.4 % Normal 47.2-70.8 [facility] Comment on above: Performed By: #### . Automated Diff #### [address] [address] MRSA, PCRon 07-31-2018 INR Coag RelTime (Bld) Negative Normal [facility] Comment on above: Result Comment: The [employer] Xpert MRSA Assay is a qualitative in vitro diagnostic test designed for rapid detection of Methicillin-Resistant Staphylococcus aureus (MRSA) from nasal swabs in patients at risk for nasal colonization.The test utilizes automated real-time polymerase chain reaction (PCR) to detect MRSA DNA,because the detection of MRSA is dependent on the number of organisms present. A positive test result does not necessarily indicate the presence of viable organism. It is however,presumptive for the presence of MRSA.Test results might be affected by concurrent antibiotic therapy. Therefore, therapeutic success or failure cannot be assessed using this test because DNA might persist following antimicrobial therapy. Mutations or polymorphisms in primer or probe binding regions may affect detection of new or unknown MRSA variants resulting in a false negative result. Results from the Xpert MRSA Assay should be interpreted in conjunction with other laboratory and clinical data available to the clinician. Performed By: #### M RSAPC #### [address] [address] Neurosurgery Office/Clinic N oteon 07-31-2018 Neurosurgery Office/Clinic Note Chief Complaint patient states back History of Present Illness Patient is a very pleasant 28-year-old gentleman who has been referred by Dr. Jesus Reyes for surgical intervention via a co-surgeon team for a correction of kyphotic deformity of the thoracic spine Patient notes that he has had kyphosis/hunchback since his late teenage years which initially provided no significant his comfort, but more recently, he has developed increasing back pain, particularly at the thoracolumbar junction and mid thoracic region. Intermittently, he will develop radiation into his thoracic wall posteriorly and laterally as well as intermittently into his leg. Activity worsens his syndrome, particular standing and sitting and he has now been off duty from work for 3 months secondary to intractable pain that has also resisted physical therapy, chiropractic, NSAIDs, and muscle relaxers. He was trialed in brace with no significant benefit. He is now planned for T4 through T12 correction/instrumentat ion PAST MEDICAL HISTORY: Hypertension Obesity Bronchitis PAST SURGICAL HISTORY: Tonsillectomy ALLERGIES: None MEDICATIONS: See medication list SOCIAL HISTORY: Recently quit smoking; rare alcohol intake Patient works in a [employer]-no legal or Workmen's Compensation claims on today's visit; off-duty Patient is and accompanied by Review of Systems Constitutional: [No fevers, chills, sweats] Eye: [No recent visual problems] ENMT: [No ear pain, nasal congestion, sore throat] Respiratory: [No shortness of breath, cough] Cardiovascular: [No Chest pain, palpitations, syncope] Gastrointestinal: [No nausea, vomiting, diarrhea] Genitourinary: [No hematuria] Physical Exam Vitals & Measurements BP: 110/68 HT: 182.88 cm WT: 148.5 kg DOSE WT: 148.5 kg BMI: 44.4 Additional Vitals Body Mass Index Measured: 44.4 kg/m2 BP Position/Location: Sitting, Left arm Peripheral Pulse Rate: 76 bpm GENERAL PHYSICAL EXAM: GENERAL: well developed, over nourished, no distress HEAD: normocephalic, atraumatic EYES: anicteric, atraumatic MUCOUS MEMBRANES: Moist, no evidence of dehydration NECK: supple, full range of motion, no deformity noted; no cervical adenopathy; no carotid bruits; no tracheal deviation; no winging of the scapula; no drooping of the shoulder; no evidence of neurotension signs such as Lhermitte's or Spurling sign CHEST: clear CARDIAC: normal heart sounds no murmurs or extra sounds SHOULDER: Full range of motion on active and passive evaluation; no evidence of impingement or rotator cuff tendinopathy, negative empty can testing [] PERIPHERAL NERVES: no tinel's signs carpal, cubital, or peroneal, no digital compression provocation SPINE: Patient demonstrates kyphotic pose of his thoracic spine consistent with Scheuermann's kyphosis with trigger points in the mid to lower portion of this thoracic hump without obvious coronal deformity VASCULAR: strong pulses with rapid capillary refill, no evidence of Raynaud's phenomenon, autonomic disturbance, venous insufficiency, or thoracic outlet syndrome. HIP: no Fabere's or Jeremy's sign LUMBAR: range of motion normal; no evidence of neurotension signs such as straight leg raise or reverse straight leg raise or femoral stretch test. PAIN BEHAVIOR: No evidence of Selina's findings or overt pain behavior. NEUROLOGICAL EXAM: MENTAL STATUS: Awake alert and appropriate with normal mental status exam and executive function CRANIAL NERVES: Round reactive pupils without ophthalmoplegia, no visual field defects to confrontation, no nystagmus, no evidence of Kelsea syndrome, equal facies, equal auditory perception to confrontation, bilaterally upgoing palate, midline tongue without atrophy or fasciculations and full range of motion, equal trapezial strength and sternocleidomastoid strength. MOTOR: normal tone and bulk in all groups with full power ; no evidence of atrophy or fasciculations. DEEP TENDON REFLEXES: All reflexes 2+;no evidence of myelopathic features such as Chavez's, pectoral reflex, clonus, Babinski SENSORY EXAM: No dermatomal changes to dorsal column or spinal thalamic function, no suspended sensory levels. CEREBELLAR: No lateralization, no dysmetria or dysdiadochokinesia. GAIT: Patient demonstrates full ability to toe and heel walk ; normal base, station, stride length, and barbara. Imaging: None available for review- Assessment/Plan 1. Scheuermann's kyphosis 28-year-old gentleman with development of intractable thoracic pain as a result of Scheuermann's kyphosis. The patient has been trialed on multiple modalities of conservative management with limited benefit. He has progressed to the point where he cannot engage normal lifestyle, ADLs or work. Dr. Reyes of orthopedic spine surgery has proposed correction of deformity through open technique with instrumentation. Neurosurgery was requested for co-surgeon benitez. This appears to be quite appropriate and neurosurgery will be present at time of surgery Diagnosis is explained to patient and as well as resection intervention-they are pleased and wish to proceed as scheduled. Problem List/Past Medical History Ongoing Hypertension Scheuermann's kyphosis Historical No qualifying data Procedure/Surgical History Tonsillectomy. Medications cloNIDine 0.2 mg/24 hr transdermal film, extended release gabapentin 100 mg oral capsule ibuprofen lisinopril 20 mg oral tablet Misc Medication spironolactone-hydrochl orothiazide 25 mg-25 mg oral tablet traMADol 50 mg oral tablet Tylenol, Oral Allergies No Known Medication Allergies Social History Alcohol Current, Beer, Wine, Liquor, 1-2 times per year Sexual History of sexual abuse: No. Substance Abuse Denies All Tobacco Former smoker, quit more than 30 days ago Use:. Family History Hypertension: Mother and Grandmother (M). Electronically signed by ___ Shane PANCHAL MD, Leida Cross 07/31/18 11:40 EST Normal [facility] PTon 07-31-2018 INR Coag RelTime (PPP) 1.0 {INR} Normal <=3.5 [facility] Comment on above: Result Comment: INR has no normal range. INR Therapeutic range is: 2.0-3.0 (AF, CVA, TIAs, DVT prophylaxis, acute DVT) 2.5-3.5 ([facility] heart valves, recurrent thrombosis/emboli) Performed By: #### P TINR #### [address] [address] Prothrombin time (PT) Coag time (PPP) 10.4 s Normal 9.1-11.6 [facility] Comment on above: Performed By: #### P TINR #### [address] [address] PTTon 07-31-2018 aPTT Coag time (Bld) 28.9 s Normal 19.2-29.7 [facility] Comment on above: Performed By: #### P TT #### [address] [address] XR Chest 2 Viewson 9 XR Chest 2 Views CLINICAL HISTORY: Preoperative evaluation. EXAMINATION: Frontal and lateral images of the chest were obtained. There is no prior study available for comparison. FINDINGS: The cardiac silhouette is normal in size. Pulmonary vasculature is unremarkable. There is no focal consolidation, pleural effusion or pneumothorax. There is mild increased kyphosis of the thoracic spine with degenerative change. There is no acute osseous abnormality. IMPRESSION: No acute pulmonary process. Final Dictated by: Noé Giles MD Dictated DT/TM: 07/31/2018 4:07 pm Signed by: Noé Giles MD Signed (Electronic Signature): 07/31/2018 4:07 pm (If Report Is Signed, Electronically Signed in Other Vendor System) Normal [facility] SCOLIOSIS 2 [facility] 04-24-2018 [facility] [place], [place] [id number] =====Patient Name: CHIQUITA WEEKS : 1990Sex: MAge: Race: WhiteMRN: [id number]. Location: 84Patient Status: OVisit #: [id number] Date: 04/24/2018 3:05:00 PMCompleted Date: 04/24/2018 03:19 PMRequesting Provider: COOKIE COLES Attending Provider: COOKIE COLES Report Copy To: Signs & Symptoms: M54.6 Pain in thoracic spine [id number]: AthenaComments: , , , Ordering Provider - COOKIE COLES MD , Exam: SCOLIOSIS 2 VWSAccession #: [id number] SCOLIOSIS 2 S 04/24/2018 3:19 PM EDT SIGNS AND SYMPTOMS: M54.6 Pain in thoracic spine I10 TECHNOLOGIST COMMENTS: Patient complaining of mid upper back pain most of my life. They tell me I have a kyphotic hump states patient No injury QUESTION FOR THE RADIOLOGIST: , , , Ordering Provider - COOKIE COLES MD , CONTRAST: COMPARISON: none FINDINGS: Scoliosis series revealed minimal S-shaped thoracic lumbar scoliosis with 5 degrees and levoconvex lumbar scoliosis centered at L2 and dextro convex thoracic scoliosis of approximately 3 degrees centered at T6. There is also exaggerated thoracic kyphosis with angle of more than 50 degrees and mild bony spurring seen. There is also exaggerated lumbar lordosis seen. No congenital vertebral anomalies. There is straightening and loss of the normal lordosis in the cervical spine possibly from muscle spasm. Visualized lungs and ribs appear unremarkable. Nonobstructive bowel gas pattern in the abdomen and pelvis. IMPRESSION: Minimal S-shaped thoracolumbar scoliosis and exaggerated thoracic kyphosis as well as lumbar lordosis. No congenital vertebral anomalies or acute bony abnormality. Electronically signed by:Adelfo Kay. Transcribed by: [email or web address], User Resident: Electronically Signed by: ADELFO KAY @ 04/24/2018 10:56 PM Normal [facility] Comment on above: Order Comment: , , = ========= , Ordering Provider - COOKIE COLES MD , Encounters Encounter Date Encounter Type Care Provider Facility Start: 02-01-2022 End: 02-02-2022 ambulatory ERNST PENA Facility: Start: 06-23-2021 ambulatory [facility] Facility: Start: 09-25-2018 End: 09-26-2018 ambulatory [facility] CYRIL MIGUEL A Facility:[facility] Start: 08-08-2018 End: 08-12-2018 Evaluation and management of inpatient SELVON MARCIA Facility:[facility] Start: 07-31-2018 End: 08-01-2018 [facility] Start: 07-31-2018 End: 08-01-2018 Patient encounter procedure LEIDA LYNN Facility:[facility] Start: 07-30-2018 Patient encounter procedure SELVON MARCIA Facility:[facility] Start: 04-24-2018 End: 04-25-2018 Patient encounter COOKIE COLES Facility:[facility] Start: 04-15-2018 End: 04-16-2018 Patient encounter DEFAULT PHYSICIAN Facility:[facility] Procedures Date Procedure Procedure Detail Performing Clinician Start: 02-01-2022 PSA screening ERNST OROURKE Comment on above: Performed By: #### P [facility] #### [facility] [address] [place] [address] Dr. Armida Brown Payers Date Payer Category Payer Unknown 2017 Unknown [id number] 1988 Unknown [id number] 2.16.8 [id number] 1988 Unknown [id number] 2.16.8 [id number] 1988 Unknown [id number] 2.16.8 [id number] 1988 Unknown [id number] 2.16.8 [id number] 1988 Unknown [id number] 2.16.8 [id number] 1988 Unknown [id number] 2.16.8 [id number] 1988 Unknown [id number] 2.16.84 [id number] 1988 Unknown [id number] 2.16.84 [id number] 1988 Unknown [id number] 2.16.84 [id number] 1988 Unknown [id number] 2.16.84 [id number] 1959 Medicaid [id number] 1961 Medicare [id number] 1959 Unknown [id number] Unknown [id number] Summary Purpose Family History No Family History Records FoundNo Family History Records FoundNo Family History Records FoundNo Family History Records Found Advance Directives No Advanced Directives Records FoundNo Advanced Directives Records FoundNo Advanced Directives Records FoundNo Advanced Directives Records Found Hospital Course Note Admission Information DATE O F ADMISSION: 08/08/2018 DATE OF OPERATION: 08/08/2018 PRE-OPERATIVE DIAGNOSES: 1. Scheuermann's kyphosis 2. Intractable thoracic pain 3. Obesity with BMI of 42.72 POST-OPERATIVE DIAGNOSES: 1. Scheuermann's kyphosis 2. Intractable thoracic pain 3. Obesity with BMI of 42.72 OPERATION PERFORMED: 1. T7 through T12 bilateral laminectomy, partial medial facetectomies, foraminotomies of the T7, T8, T9, T10, T11, T12 and L2 nerve roots 2. T7 through T12 [facility]otomies 3. T6 through L2 posterior spine fusion for reduction of kyphotic deformity 4. T6 through L2 posterior spine instrumentation, Overwatch, Spinal Elements 5. Use of local autograft bone and [place] [employer] SURGEON: Jesus Shah MD for decompression Leida Lynn MD for instrumentation INDICATIONS FOR SURGERY: This is a 28-year-old male with refractory thoracic pain secondary to severe kyphosis from Scheuermanns' Kyphosis. Patient had tried and failed conservative therapy, including medic (more content not included)... Additional Source Comments (unrecognized sect ion and content) No Status Records FoundNo Status Records FoundNo Status Records FoundNo Status Records Found INFORMATION SOURCE (unrecogn ized section and content) DATE CREATED AUTHOR 05/29/2018 [facility] DATE CREATED AUTHOR AUTHOR'S ORGANIZ ATION 08/25/2018 [facility] DATE CREATED AUTHOR AUTHOR'S ORGANIZ ATION 02/15/2022 [facility] DATE CREATED AUTHOR AUTHOR'S ORGANIZ ATION 09/27/2022 [facility] FOR RECORDS PERTAINING TO PATIENTS WHO ARE OR HAVE BEEN ENROLLED IN A CHEMICAL DEPENDENCY/SUBSTANCEABUSE PROGRAM, SOME INFORMATION MAY BE OMITTED. This clinical summary was aggregated from multiple sources. Caution should be exercised in using it in the provision of clinical care. This summary normalizes information from multiple sources, and as a consequence, information in this document may materially change the coding, format and clinical context of patient data. In addition, data may be omitted in some cases. CLINICAL DECISIONS SHOULD BE BASED ON THE PRIMARY CLINICAL RECORDS. [facility]. provides no warranty or guarantee of the accuracy or completeness of information in this document.
[2024-02-05 11:19] VITALS: BP 140/104; PULSE 78; TEMP 36.4; O2SAT 97
[2024-02-05] MEDS: ONABOTULINUMTOXINA 100 UNIT VIAL INJ (12:11)
[2024-02-05] MEDS: ONABOTULINUMTOXINA 200 UNIT VIAL INJ (12:12)
[2024-02-05] MEDS: 0.9 % SODIUM CHLORIDE 10 ML VIAL 15 ML INJ (12:13)
[2024-02-05 12:14] VITALS: BP 142/95; BP 147/90; PULSE 68; PULSE 72; O2SAT 92; O2SAT 95
--- NOTE | 2024-02-05 14:25 | W.PM.PROCNOT ---
Date of procedure: 02/05/24 Pre-op diagnosis: dystonia Post-op diagnosis: same as pre-op Procedure: PROCEDURE:? Botulinum toxin infiltration of the Left erector spinae muscle at the Lumbar 1 levels under fluoroscopic guidance. PREOPERATIVE DIAGNOSIS:? dystonia POSTOPERATIVE DIAGNOSIS:? dystonia SOLUTION USED FOR INJECTION:? Botulinum toxin type A, 300 units IMMEDIATE COMPLICATIONS:? None. PROCEDURE:? After informed consent was obtained from the patient, was brought to the OR, placed in the prone position.? The skin overlying the area was prepped with the normal sterile fashion.? A 25 gauge spinal needle was inserted over the pedicle at L1 on the left side.? Needle tip advanced until it was encountered.? Needle tip was withdrawn slightly and injection of 300 units of botulinum toxin was injected at this area.?? Post procedure, needle was removed.? Tolerated the procedure well without complications.?He reports a dramatic reduction of pain symptoms post procedurally. Anesthesia: Local Surgeon: Annette Banks Condition: stable Anesthesia: Local Surgeon: Annette Banks Condition: stable
== END 2024-02-05 12:18 | disposition home or self-care (01) ==
LOC: SURGOUT 11:03
PROVIDERS: PCP Nurse Practitioner Family; Visit Provider Anesthesiology Pain Medicine
DX: G24.9 Dystonia, unspecified (principal)
CPT/HCPCS: 64646; 77002; J0585

== ENCOUNTER 2024-02-14 09:37 | Outpatient (OUT) | payer MEDICARE, MEDICAID, SELFPAY ==
--- OUTSIDE RECORDS SUMMARY | 2024-02-14 09:41 | XMS_ITS | CCD ---
Author Organization [facility] Care Team Providers Care Gang Sawyer Name Role Phone PHYSICIAN, DEFAULT Unavailable Unavailable PHYSICIAN, DEFAULT Unavailable Unavailable ELGAFY, COOKIE K Unavailable Unavailable ELGAFY, COOKIE K Unavailable Unavailable ELGAFY, COOKIE K Unavailable Unavailable UNKNOWN, PHYSICIAN Unavailable Unavailable MARCIA, SELVON Admitting Unavailable MARCIA, SELVON Attending Unavailable [facility] Unavailable Luís Marcus Consulting Unavailable LEIDA LYNN Consulting Unavaila ble Lynn, Leida Cross Consulting Unavaila ble SpychalsEllen zeng Consulting Unavailable Delfino Montoya Consulting Unavailable LEIDA LYNN Attending Unavaila ble [facility] Unavailable SLOANE HIGH PA-C Attending Unavail able MARCIA, SELVON Attending Unavailable [facility] Unavailable BECKY, ERNST Primary Care Unavailable TAISHA, DR SCOOTER Webster Attending Unavailable TAISHA, DR SCOOTER Webster Admitting Unavailable CHANTE HERNANDEZ Consulting Unavailable BECKY, ERNST Primary Care Unavailable BECKY, ERNST Admitting Unavailable ERNST PENA Attending Unavailable ERNST PENA Consulting Unavailable [facility] Unavaila ble MARCIA, SELVON F Referring Unavailable MARCIA, SELVON F Attending Unavailable MARCIA, SELVON F Admitting Unavailable Allergies Allergy Classification Reported Allergen(s) Allergy Type Date of Onset Reaction(s) Facility (1 source) No Known Medication Allergies; Translations: [No Known Medication Allergies] Propensity to adverse reactions to drug (disorder) [facility] Repository Problems Problem Classification Problem Date Documented [...] INSULINon 02-02-2022 Insulin 16.5 uIU/mL Normal 2.6-24.[address] [facility] Comment on above: Performed By: #### I NSULIN #### [facility] [address] [place] [address] Dr. Armida Brown CBC AUTO DIFFon 02-01-2022 BASO # 0.1 103/ul Normal 0.0-0.[address] [facility] Comment on above: Performed By: #### C BC #### [facility] [address] [place] [address] Dr. Armida Brown Basophils/100 WBC (Bld) 0.9 % Normal 0.2-2.[address] [facility] Comment on above: Performed By: #### C BC #### [facility] [address] [place] [address] Dr. Armida Brown EO # 0.4 103/ul Normal 0.0-0.[address] [facility] Comment on above: Performed By: #### C BC #### [facility] [address] [place] [address] Dr. Armida Brown Eosinophils/100 WBC (Bld) 4.7 % Normal 0.9-7.[address] [facility] Comment on above: Performed By: #### C BC #### [facility] [address] [place] [address] Dr. Armida Brown Erythrocyte distribution width (RBC) [Ratio] 13.1 % Normal 11.0-15.[address] [facility] Comment on above: Performed By: #### C BC #### [facility] [address] [place] [address] Dr. Armida Brwon Hematocrit (Bld) [Volume fraction] 48.6 % Normal 42.0-54.[address] [facility] Comment on above: Performed By: #### C BC #### [facility] [address] [place] [address] Dr. Armida Brown Hemoglobin (Bld) [Mass/Vol] 16.5 g/dL Normal 14.0-18.[address] [facility] Comment on above: Performed By: #### C BC #### [facility] [address] [place] [address] Dr. Armida Brown IG # 0.05 10e3/ul Critically high 0.00-0.03 [facility] Comment on above: Performed By: #### C BC #### [facility] [address] [place] [address] Dr. Armida Brown IG % 0.6 % Critically high 0.0-0.5 [facility] Comment on above: Performed By: #### C BC #### [facility] [address] [place] [address] Dr. Armida Brown LYMPH # 1.7 103/ul Normal 1.2-3.[address] [facility] Comment on above: Performed By: #### C BC #### [facility] [address] [place] [address] Dr. Armida Brown Lymphocytes/100 WBC (Bld) 19.6 % Critically low 20.5-60.[address] [facility] Comment on above: Performed By: #### C BC #### [facility] [address] [place] [address] Dr. Armida Brown MANUAL DIFF REQ NO Normal [facility] Comment on above: Performed By: #### C BC #### [facility] [address] [address] [address] Armida Brown MCH (RBC) [Entitic mass] 30.1 pg Normal 25.9-34.[address] [facility] Comment on above: Performed By: #### C BC #### [facility] [address] [address] [address] Armida Brown MCHC (RBC) [Mass/Vol] 34.0 g/dL Normal 29.9-35.[address] [facility] Comment on above: Performed By: #### C BC #### [facility] [address] [place] [address] Dr. Armida Brown MCV (RBC) [Entitic vol] 88.5 fL Normal 80.0-94.[address] [facility] Comment on above: Performed By: #### C BC #### [facility] [address] [place] [address] Dr. Armida Brown MONO # 0.5 103/ul Normal 0.3-0.[address] [facility] Comment on above: Performed By: #### C BC #### [facility] [address] [place] [address] Dr. Armida Brown Monocytes/100 WBC (Bld) 5.6 % Normal 1.7-12.[address] [facility] Comment on above: Performed By: #### C BC #### [facility] [address] [place] [address] Dr. Armida Brown NEUT # 6.1 103/ul Normal 1.4-6.5 [facility] Comment on above: Performed By: #### C BC #### [facility] [address] [place] [address] Dr. Armida Brown Neutrophils/100 WBC (Bld) 68.6 % Normal 43.0-75.0 [facility] Comment on above: Performed By: #### C BC #### [facility] [address] [place] [address] Dr. Armida Brown Platelet mean volume (Bld) [Entitic vol] 9.3 fL Critically low 9.5-13.[address] [facility] Comment on above: Performed By: #### C BC #### [facility] [address] [address] [address] Armida Brown PLT 293 103/ul Normal 150-[address] [facility] Comment on above: Performed By: #### C BC #### [facility] [address] [address] [address] Armida Brown RBC 5.49 106/ul Normal 4.70-6.[address] [facility] Comment on above: Performed By: #### C BC #### [facility] [address] [address] [address] Armida Brown WBC 8.9 103/ul Normal 4.0-11.[address] [facility] Comment on above: Performed By: #### C BC #### [facility] [address] [place] [address] Dr. Armida Brown FREE THYROXINE INDEX T7on FTI 3.33 Normal 1.30-4.[address] [facility] Comment on above: Performed By: #### T SH, CMP, URIC, LIPID, T7 #### [facility] [address] [address] [address] Armida Brown T3U 35.0 % Normal 33.0-40.[address] [facility] Comment on above: Performed By: #### T SH, CMP, URIC, LIPID, T7 #### [facility] [address] [place] [address] Dr. Armida Brown T4 [Mass/Vol] 9.50 ug/dL Normal 4.50-12.10 [facility] Comment on above: Performed By: #### T SH, CMP, URIC, LIPID, T7 #### [facility] [address] [place] [address] Dr. Armida Brown GLYCOHEMOGLOBIN A1Con 2021 ADA RECOMMENDATION SEE BELOW Normal [facility] Comment on above: Result Comment: ADA RECOMMENDED LIMIT 4.0 - 6.0 ADA THERAPEUTIC TARGET < 7.0 ACTION SUGGESTED > 7.0 Performed By: #### A 1C #### [facility] [address] [address] [address] Armida Brown Glucose [Mass/Vol] 103 mg/dL Normal [place] Comment on above: Performed By: #### A 1C #### [facility] [address] [place] [address] Dr. Armida Brown HbA1c (Bld) [Mass fraction] 5.2 % Normal 4.5-6.[address] [facility] Comment on above: Performed By: #### A 1C #### [facility] [address] [place] [address] Dr. Armida Brown LIPID PROFILEon 02-01-2022 CHOL-HDL RATIO NORM SEE BELOW Normal [facility] Comment on above: Result Comment: 3.3 - 4.4 LOW RISK 4.4 - 7.1 AVERAGE RISK 7.1 - 11.0 MODERATE RISK >11.0 HIGH RISK Performed By: #### T SH, CMP, URIC, LIPID, T7 #### [facility] [address] [place] [address] Dr. Armida Brown Cholesterol [Mass/Vol] 183 mg/dL Normal <=[address] [facility] Comment on above: Performed By: #### T SH, CMP, URIC, LIPID, T7 #### [facility] [address] [place] [address] Dr. Armida Brown Cholesterol in HDL [Mass/Vol] 33 mg/dL Critically low 40-[address] [facility] Comment on above: Performed By: #### T SH, CMP, URIC, LIPID, T7 #### [facility] [address] [address] [address] Armida Brown Cholesterol in LDL [Mass/Vol] 123.0 mg/dL Normal [facility] Comment on above: Performed By: #### T SH, CMP, URIC, LIPID, T7 #### [facility] [address] [place] [address] Dr. Armida Brown Cholesterol.total/C holesterol in HDL [Mass ratio] 5.5 {ratio} Normal [facility] Comment on above: Performed By: #### T SH, CMP, URIC, LIPID, T7 #### [facility] [address] [place] [address] Dr. Armida Brown HDL NORMAL > or = 60 mg/dl - LO W CARDIOVASCULAR RISK <40 mg/dl - HIGH CARDIOVASCULAR RISK Normal [facility] Comment on above: Performed By: #### T SH, CMP, URIC, LIPID, T7 #### [facility] [address] [address] [address] Armida Brown LDL CALC NORMAL SEE BELOW Normal [facility] Comment on above: Result Comment: <100 mg/dl OPTIMAL 100 - 129 mg/dl NEAR OR ABOVE OPTIMAL 130 - 159 mg/dl BORDERLINE HIGH 160 - 189 mg/dl HIGH >190 mg/dl VERY HIGH Performed By: #### T SH, CMP, URIC, LIPID, T7 #### [facility] [address] [address] [address] Armida Brown Triglyceride [Mass/Vol] 135 mg/dL Normal <=[address] [facility] Comment on above: Performed By: #### T SH, CMP, URIC, LIPID, T7 #### [facility] [address] [address] [address] Armida Brown VLDL CALC 27.0 mg/dL Normal [facility] Comment on above: Performed By: #### T SH, CMP, URIC, LIPID, T7 #### [facility] [address] [address] [address] Armida Brown PROF 14(COMP METB)on 022 Albumin [Mass/Vol] 4.1 g/dL Normal 3.4-5.0 [place] Comment on above: Performed By: #### T SH, CMP, URIC, LIPID, T7 #### [facility] [address] [address] [address] Armida Brown Albumin/Globulin [Mass ratio] 1.1 {ratio} Normal [facility] Comment on above: Performed By: #### T SH, CMP, URIC, LIPID, T7 #### [facility] [address] [address] [address] Armida Brown ALP [Catalytic activity/Vol] 79 U/L Normal 46-[address] [facility] Comment on above: Performed By: #### T SH, CMP, URIC, LIPID, T7 #### [facility] [address] [address] [address] Armida Brown ALT [Catalytic activity/Vol] 58 U/L Normal 16-63 [facility] Comment on above: Performed By: #### T SH, CMP, URIC, LIPID, T7 #### [facility] [address] [address] [address] Armida Brown Anion gap [Moles/Vol] 12.6 mmol/L Normal [facility] Comment on above: Performed By: #### T SH, CMP, URIC, LIPID, T7 #### [facility] [address] [place] [address] Dr. Armida Brown AST [Catalytic activity/Vol] 23 U/L Normal 15-[address] [facility] Comment on above: Performed By: #### T SH, CMP, URIC, LIPID, T7 #### [facility] [address] [place] [address] Dr. Armida Brown Bilirubin [Mass/Vol] 0.6 mg/dL Normal 0.2-1.[address] [facility] Comment on above: Performed By: #### T SH, CMP, URIC, LIPID, T7 #### [facility] [address] [address] [address] Armida Brown Calcium [Mass/Vol] 8.9 mg/dL Normal 8.5-10.1 [place] Comment on above: Performed By: #### T SH, CMP, URIC, LIPID, T7 #### [facility] [address] [place] [address] Dr. Armida Brown Chloride [Moles/Vol] 104 mmol/L Normal 98-107 [facility] Comment on above: Performed By: #### T SH, CMP, URIC, LIPID, T7 #### [facility] [address] [place] [address] Dr. Armida Brown CO2 [Moles/Vol] 26.7 mmol/L Normal 21.0-32.0 [facility] Comment on above: Performed By: #### T SH, CMP, URIC, LIPID, T7 #### [facility] [address] [place] [address] Dr. Armida Brown Creatinine [Mass/Vol] 0.99 mg/dL Normal 0.70-1.30 [facility] Comment on above: Performed By: #### T SH, CMP, URIC, LIPID, T7 #### [facility] [address] [address] [address] Armida Brown EGFR-AF SUDANESE >60 Normal >=60 [facility] Comment on above: Performed By: #### T SH, CMP, URIC, LIPID, T7 #### [facility] [address] [address] [address] Armida Brown EGFR-NON AF SUDANESE >60 Normal >=60 [facility] Comment on above: Performed By: #### T SH, CMP, URIC, LIPID, T7 #### [facility] [address] [place] [address] Dr. Armida Brown Globulin (S) [Mass/Vol] 3.6 g/dL Normal [facility] Comment on above: Performed By: #### T SH, CMP, URIC, LIPID, T7 #### [facility] [address] [place] [address] Dr. Armida Brown Glucose [Mass/Vol] 100 mg/dL Normal 74-106 [facility] Comment on above: Performed By: #### T SH, CMP, URIC, LIPID, T7 #### [facility] [address] [place] [address] Dr. Armida Brown Potassium [Moles/Vol] 4.3 mmol/L Normal 3.5-5.1 [facility] Comment on above: Performed By: #### T SH, CMP, URIC, LIPID, T7 #### [facility] [address] [place] [address] Dr. Armida Brown Protein [Mass/Vol] 7.7 g/dL Normal 6.4-8.2 [facility] Comment on above: Performed By: #### T SH, CMP, URIC, LIPID, T7 #### [facility] [address] [place] [address] Dr. Armida Brown Sodium [Moles/Vol] 139 mmol/L Normal 136-145 [facility] Comment on above: Performed By: #### T SH, CMP, URIC, LIPID, T7 #### [facility] [address] [address] [address] Armida Brown Urea nitrogen [Mass/Vol] 16.0 mg/dL Normal 7.0-18.[address] [facility] Comment on above: Performed By: #### T SH, CMP, URIC, LIPID, T7 #### [facility] [address] [address] [address] Armida Brown Urea nitrogen/Creatinine [Mass ratio] 16.2 mg/mg Normal [facility] Comment on above: Performed By: #### T SH, CMP, URIC, LIPID, T7 #### [facility] [address] [place] [address] Dr. Armida Brown TSHon 02-01-2022 TSH 1.176 uIU/mL Normal 0.358-3.740 [facility] Comment on above: Performed By: #### T SH, CMP, URIC, LIPID, T7 #### [facility] [address] [place] [address] Dr. Armida Brown URIC ACID SERUMon 02-01-2022 Urate [Mass/Vol] 6.7 mg/dL Normal 3.5-7.2 [facility] Comment on above: Performed By: #### T SH, CMP, URIC, LIPID, T7 #### [facility] [address] [place] [address] Dr. Armida Brown .eGFRon 08-12-2018 eGFR AA >60 Normal >=60 [facility] Comment on above: Order Comment: Order added by Discern rule Result Comment: Resu lt = 0-14.9 mL/min/1.73 m2 Kidney failure or Dialysis Result = 15-29 mL/min/1.73 m2 Severe decrease in GFR Result = 30-59 mL/min/1.73 m2 Moderate decrease in GFR Result >= 60 mL/min/1.73 m2 Normal or increased GFR Performed By: #### P TT #### [facility] [address] [place] [address] eGFR Non-AA >60 Normal >=60 [facility] Comment on above: Order Comment: Order added [...] dosing. Performed By: #### P TT #### [place] [id number] Basic Metabolic Profileon Anion gap molar conc 11 mmol/L Normal 7-17 [facility] Comment on above: Performed By: #### P TINR #### [place] [id number] Calcium mass conc 8.2 mg/dL Low 8.5-10.3 [facility] Comment on above: Performed By: #### P TINR #### [place] [id number] Chloride molar conc 102 mmol/L Normal 98-110 [facility] Comment on above: Performed By: #### P TINR #### [place] [id number] CO2 molar conc 27 mmol/L Normal 22-32 [facility] Comment on above: Performed By: #### P TINR #### [address] [address] Creatinine mass conc 0.83 mg/dL Normal 0.61-1.24 [facility] Comment on above: Performed By: #### P TINR #### [place] [id number] Glucose mass conc 109 mg/dL Normal 74-118 [facility] Comment on above: Performed By: #### P TINR #### [address] [address] Potassium molar conc 3.9 mmol/L Normal 3.4-4.8 [facility] Comment on above: Performed By: #### P TINR #### [address] [address] Sodium molar conc 136 mmol/L Normal 133-142 [facility] Comment on above: Performed By: #### P TINR #### [address] [address] Urea nitrogen mass conc 9 mg/dL Normal 8-26 [facility] Comment on above: Performed By: #### P TINR #### [place] [id number] Urea nitrogen/Creatinine mass ratio 10.8 mg/mg Normal 10.0-20.0 [facility] Comment on above: Performed By: #### P TINR #### [place] [id number] CBC w/ Diffon 08-12-2018 Erythrocyte distribution width Ratio (RBC) 12.5 % Normal 11.6-14.8 [facility] Comment on above: Performed By: #### P TINR #### [address] [address] Hematocrit Volume Fraction (Bld) 29.7 % Low 41.0-53.0 [facility] Comment on above: Performed By: #### P TINR #### [address] [address] Hemoglobin mass conc (Bld) 10.3 g/dL Low 13.5-17.5 [facility] Comment on above: Performed By: #### P TINR #### [address] [address] MCH Entitic mass (RBC) 30.1 pg Normal 27.0-35.0 [facility] Comment on above: Performed By: #### P TINR #### [address] [address] MCHC mass conc (RBC) 34.5 % Normal 31.0-37.0 [facility] Comment on above: Performed By: #### P TINR #### [place] [id number] MCV Entitic volume (RBC) 87.2 fL Normal 80.0-100.0 [facility] Comment on above: Performed By: #### P TINR #### [place] [id number] Platelet mean volume Entitic volume (Bld) 7.8 fL Normal 6.7-10.6 [facility] Comment on above: Performed By: #### P TINR #### [place] [id number] Platelets #/vol (Bld) 218 x10*3/mcL Normal 150-350 [facility] Comment on above: Performed By: #### P TINR #### [place] [address] RBC #/vol (Bld) 3.41 x10*6/mcL Low 4.30-5.80 [facility] Comment on above: Performed By: #### P TINR #### [place] [id number] WBC #/vol (Bld) 9.1 x10*3/mcL Normal 4.5-11.0 [facility] Comment on above: Performed By: #### P TINR #### [place] [address] Diff Autoon 08-12-2018 Baso Absolute 0.0 x10*3/mcL Normal 0.0-0.2 [facility] Comment on above: Performed By: #### P TINR #### [place] [id number] Basophils/100 WBC (Bld) 0.5 % Normal 0.0-1.2 [facility] Comment on above: Performed By: #### P TINR #### [place] [id number] Eos Absolute 0.3 x10*3/mcL Normal 0.0-0.4 [facility] Comment on above: Performed By: #### P TINR #### [address] [address] Eosinophils/100 WBC (Bld) 3.4 % Normal 0.0-6.1 [facility] Comment on above: Performed By: #### P TINR #### [address] [address] Lymphocytes #/vol (Bld) 1.1 x10*3/mcL Normal 1.0-4.8 [facility] Comment on above: Performed By: #### P TINR #### [address] [address] Lymphocytes/100 WBC (Bld) 11.8 % Low 27.2-40.8 [facility] Comment on above: Performed By: #### P TINR #### [address] [address] [place] Absolute 0.8 x10*3/mcL Normal 0.3-1.1 [facility] Comment on above: Performed By: #### P TINR #### [address] [address] Monocytes/100 WBC (Bld) 8.5 % Normal 4.7-13.9 [facility] Comment on above: Performed By: #### P TINR #### [address] [address] Neutro Absolute 6.9 x10*3/mcL Normal 1.8-7.7 [facility] Comment on above: Performed By: #### P TINR #### [address] [address] Neutro Auto 75.8 % High 47.2-70.8 [facility] Comment on above: Performed By: #### P TINR #### [address] [address] Inpatient Clinical Summaryon 08-12-2018 Inpatient Clinical Summary [address] [place] [address] [address] Clinical Summary Person Information Name: Chiquita Weeks Age: 28 Years : 1990 Sex: Male PCP: Cyril Ruiz MD Marital Status: Phone: PCP: Race: White Ethnicity: Not or Language: Romansh Visit Id: Visit Reason: Speciality: Acuity: Enc Type: Inpatient Med Service: Surgery Arrival: 08/08/2018 08:12:20 Discharge: Dispo Type: Address: [address] [place] [address] Diagnosis: 1:Scheuermann's kyphosis Discharged To: Home Treatments: [...] range between ( 27.2 and 40.8 ) [place] Auto: 8.5 % -- Normal range between [...] range between ( 41.0 and 53.0 ) [place] Absolute: 0.8 x10 MCH: 30.1 pg -- [...] Follow up: With: Address: When: [facility], [place] [phone] Business (1) Comments: Schedule follow up appointment for 2 weeks for staple removal With: Address: When: Cyril Ruiz Normal [facility] Occupational Therapy Progres s Noteon 08-12-2018 Protein mass conc Planned/pending dc t o home today. Reecommended [facility] Electronically signed by ___ Teo Johnson 08/12/18 06:26 EST Normal [facility] Orthopedic Progress Noteon 0 08-12-2018 Protein mass [...] Luís Marcus PA-C 08/12/18 07:37 EST Normal [facility] .eGFRon 08-11-2018 eGFR Non-AA >60 Normal >=60 [facility] Comment on above: Order Comment: Order added [...] dosing. Performed By: #### P TINR #### [place] [id number] eGFR AA >60 Normal >=60 [facility] Comment on above: Order Comment: Order added by Discern rule Result Comment: Resu lt = 0-14.9 mL/min/1.73 m2 Kidney failure or Dialysis Result = 15-29 mL/min/1.73 m2 Severe decrease in GFR Result = 30-59 mL/min/1.73 m2 Moderate decrease in GFR Result >= 60 mL/min/1.73 m2 Normal or increased GFR Performed By: #### P TINR #### [place] [id number] Basic Metabolic Profileon Anion gap molar conc 10 mmol/L Normal 7-17 [facility] Comment on above: Performed By: #### P TINR #### [place] [id number] Calcium mass conc 8.3 mg/dL Low 8.5-10.3 [facility] Comment on above: Performed By: #### P TINR #### [address] [address] Chloride molar conc 97 mmol/L Low 98-110 [facility] Comment on above: Performed By: #### P TINR #### [address] [address] CO2 molar conc 26 mmol/L Normal 22-32 [facility] Comment on above: Performed By: #### P TINR #### [address] [address] Creatinine mass conc 0.88 mg/dL Normal 0.61-1.24 [facility] Comment on above: Performed By: #### P TINR #### [address] [address] Glucose mass conc 109 mg/dL Normal 74-118 [facility] Comment on above: Performed By: #### P TINR #### [address] [address] Potassium molar conc 4.0 mmol/L Normal 3.4-4.8 [facility] Comment on above: Performed By: #### P TINR #### [address] [address] Sodium molar conc 129 mmol/L Low 133-142 [facility] Comment on above: Performed By: #### P TINR #### [address] [address] Urea nitrogen mass conc 9 mg/dL Normal 8-26 [facility] Comment on above: Performed By: #### P TINR #### [address] [address] Urea nitrogen/Creatinine mass ratio 10.2 mg/mg Normal 10.0-20.0 [facility] Comment on above: Performed By: #### P TINR #### [address] [address] CBC w/ Diffon 08-11-2018 Erythrocyte distribution width Ratio (RBC) 12.6 % Normal 11.6-14.8 [facility] Comment on above: Performed By: #### P TINR #### [address] [address] Hematocrit Volume Fraction (Bld) 31.7 % Low 41.0-53.0 [facility] Comment on above: Performed By: #### P TINR #### [address] [address] Hemoglobin mass conc (Bld) 10.8 g/dL Low 13.5-17.5 [facility] Comment on above: Performed By: #### P TINR #### [address] [address] MCH Entitic mass (RBC) 29.9 pg Normal 27.0-35.0 [facility] Comment on above: Performed By: #### P TINR #### [address] [address] MCHC mass conc (RBC) 34.2 % Normal 31.0-37.0 [facility] Comment on above: Performed By: #### P TINR #### [address] [address] MCV Entitic volume (RBC) 87.5 fL Normal 80.0-100.0 [facility] Comment on above: Performed By: #### P TINR #### [address] [address] Platelet mean volume Entitic volume (Bld) 7.8 fL Normal 6.7-10.6 [facility] Comment on above: Performed By: #### P TINR #### [address] [address] Platelets #/vol (Bld) 218 x10*3/mcL Normal 150-350 [facility] Comment on above: Performed By: #### P TINR #### [address] [address] RBC #/vol (Bld) 3.62 x10*6/mcL Low 4.30-5.80 [facility] Comment on above: Performed By: #### P TINR #### [address] [address] WBC #/vol (Bld) 11.8 x10*3/mcL High 4.5-11.0 [facility] Comment on above: Performed By: #### P TINR #### [address] [address] Diff Autoon 08-11-2018 Baso Absolute 0.1 x10*3/mcL Normal 0.0-0.2 [facility] Comment on above: Performed By: #### P TINR #### [address] [address] Basophils/100 WBC (Bld) 0.5 % Normal 0.0-1.2 [facility] Comment on above: Performed By: #### P TINR #### [address] [address] Eos Absolute 0.3 x10*3/mcL Normal 0.0-0.4 [facility] Comment on above: Performed By: #### P TINR #### [address] [address] Eosinophils/100 WBC (Bld) 2.3 % Normal 0.0-6.1 [facility] Comment on above: Performed By: #### P TINR #### [address] [address] Lymphocytes #/vol (Bld) 1.7 x10*3/mcL Normal 1.0-4.8 [facility] Comment on above: Performed By: #### P TINR #### [address] [address] Lymphocytes/100 WBC (Bld) 14.3 % Low 27.2-40.8 [facility] Comment on above: Performed By: #### P TINR #### [address] [address] [place] Absolute 1.2 x10*3/mcL High 0.3-1.1 [facility] Comment on above: Performed By: #### P TINR #### [address] [address] Monocytes/100 WBC (Bld) 9.9 % Normal 4.7-13.9 [facility] Comment on above: Performed By: #### P TINR #### [address] [address] Neutro Absolute 8.6 x10*3/mcL High 1.8-7.7 [facility] Comment on above: Performed By: #### P TINR #### [address] [address] Neutro Auto 73.0 % High 47.2-70.8 [facility] Comment on above: Performed By: #### P TINR #### [facility] [address] [place] [address] Orthopedic Progress Noteon 0 08-11-2018 Protein mass [...] Luís Marcus PA-C 08/11/18 14:44 EST Normal [facility] XR Scoliosis Study 2 or 3 Vi [...] Electronically Signed in Other Vendor System) Normal [facility] Comment on above: Order Comment: Stand ing AP and lateral views in TLSO brace .eGFRon 08-10-2018 eGFR AA >60 Normal >=60 [facility] Comment on above: Result Comment: Resu lt = 0-14.9 mL/min/1.73 m2 Kidney failure or Dialysis Result = 15-29 mL/min/1.73 m2 Severe decrease in GFR Result = 30-59 mL/min/1.73 m2 Moderate decrease in GFR Result >= 60 mL/min/1.73 m2 Normal or increased GFR Performed By: #### C BC #### [address] [address] eGFR Non-AA >60 Normal >=60 [facility] Comment on above: Result Comment: Resu lt [...] dosing. Performed By: #### C BC #### [address] [address] Basic Metabolic Profileon Anion gap molar conc 12 mmol/L Normal 7-17 [facility] Comment on above: Performed By: #### C BC #### [address] [address] Calcium mass conc 8.1 mg/dL Low 8.5-10.3 [facility] Comment on above: Performed By: #### C BC #### [address] [address] Chloride molar conc 103 mmol/L Normal 98-110 [facility] Comment on above: Performed By: #### C BC #### [address] [address] CO2 molar conc 25 mmol/L Normal 22-32 [facility] Comment on above: Performed By: #### C BC #### [address] [address] Creatinine mass conc 0.83 mg/dL Normal 0.61-1.24 [facility] Comment on above: Performed By: #### C BC #### [address] [address] Glucose mass conc 99 mg/dL Normal 74-118 [facility] Comment on above: Performed By: #### C BC #### [address] [address] Potassium molar conc 4.3 mmol/L Normal 3.4-4.8 [facility] Comment on above: Performed By: #### C BC #### [address] [address] Sodium molar conc 136 mmol/L Normal 133-142 [facility] Comment on above: Performed By: #### C BC #### [address] [address] Urea nitrogen mass conc 12 mg/dL Normal 8-26 [facility] Comment on above: Performed By: #### C BC #### [address] [address] Urea nitrogen/Creatinine mass ratio 14.5 mg/mg Normal 10.0-20.0 [facility] Comment on above: Performed By: #### C BC #### [address] [address] CBC w/ Diffon 08-10-2018 Erythrocyte distribution width Ratio (RBC) 12.6 % Normal 11.6-14.8 [facility] Comment on above: Performed By: #### C BC #### [address] [address] Hematocrit Volume Fraction (Bld) 33.6 % Low 41.0-53.0 [facility] Comment on above: Performed By: #### C BC #### [address] [address] Hemoglobin mass conc (Bld) 11.4 g/dL Low 13.5-17.5 [facility] Comment on above: Performed By: #### C BC #### [address] [address] MCH Entitic mass (RBC) 29.9 pg Normal 27.0-35.0 [facility] Comment on above: Performed By: #### C BC #### [address] [address] MCHC mass conc (RBC) 34.0 % Normal 31.0-37.0 [facility] Comment on above: Performed By: #### C BC #### [address] [address] MCV Entitic volume (RBC) 87.8 fL Normal 80.0-100.0 [facility] Comment on above: Performed By: #### C BC #### [address] [address] Platelet mean volume Entitic volume (Bld) 8.1 fL Normal 6.7-10.6 [facility] Comment on above: Performed By: #### C BC #### [address] [address] Platelets #/vol (Bld) 182 x10*3/mcL Normal 150-350 [facility] Comment on above: Performed By: #### C BC #### [address] [address] RBC #/vol (Bld) 3.82 x10*6/mcL Low 4.30-5.80 [facility] Comment on above: Performed By: #### C BC #### [address] [address] WBC #/vol (Bld) 10.3 x10*3/mcL Normal 4.5-11.0 [facility] Comment on above: Performed By: #### C BC #### [address] [address] Diff Autoon 08-10-2018 Baso Absolute 0.1 x10*3/mcL Normal 0.0-0.2 [facility] Comment on above: Performed By: #### C BC #### [address] [address] Basophils/100 WBC (Bld) 1.4 % High 0.0-1.2 [facility] Comment on above: Performed By: #### C BC #### [address] [address] Eos Absolute 0.1 x10*3/mcL Normal 0.0-0.4 [facility] Comment on above: Performed By: #### C BC #### [address] [address] Eosinophils/100 WBC (Bld) 1.2 % Normal 0.0-6.1 [facility] Comment on above: Performed By: #### C BC #### [address] [address] Lymphocytes #/vol (Bld) 2.3 x10*3/mcL Normal 1.0-4.8 [facility] Comment on above: Performed By: #### C BC #### [address] [address] Lymphocytes/100 WBC (Bld) 22.7 % Low 27.2-40.8 [facility] Comment on above: Performed By: #### C BC #### [address] [address] [place] Absolute 1.1 x10*3/mcL Normal 0.3-1.1 [facility] Comment on above: Performed By: #### C BC #### [address] [address] Monocytes/100 WBC (Bld) 10.6 % Normal 4.7-13.9 [facility] Comment on above: Performed By: #### C BC #### [address] [address] Neutro Absolute 6.6 x10*3/mcL Normal 1.8-7.7 [facility] Comment on above: Performed By: #### C BC #### [facility] [address] [place] [address] Neutro Auto 64.1 % Normal 47.2-70.8 [facility] Comment on above: Performed By: #### C BC #### [facility] [address] [place] [address] Orthopedic Progress Noteon 0 08-10-2018 Protein mass [...] Luís Marcus PA-C 08/10/18 06:03 EST Normal [facility] .eGFRon 08-09-2018 eGFR AA >60 Normal >=60 [facility] Comment on above: Result Comment: Resu lt = 0-14.9 mL/min/1.73 m2 Kidney failure or Dialysis Result = 15-29 mL/min/1.73 m2 Severe decrease in GFR Result = 30-59 mL/min/1.73 m2 Moderate decrease in GFR Result >= 60 mL/min/1.73 m2 Normal or increased GFR Performed By: #### C BC #### [address] [address] eGFR Non-AA >60 Normal >=60 [facility] Comment on above: Result Comment: Resu lt [...] dosing. Performed By: #### C BC #### [address] [address] Basic Metabolic Profileon Anion gap molar conc 12 mmol/L Normal 7-17 [facility] Comment on above: Performed By: #### C BC #### [address] [address] Calcium mass conc 8.3 mg/dL Low 8.5-10.3 [facility] Comment on above: Performed By: #### C BC #### [address] [address] Chloride molar conc 106 mmol/L Normal 98-110 [facility] Comment on above: Performed By: #### C BC #### [address] [address] CO2 molar conc 24 mmol/L Normal 22-32 [facility] Comment on above: Performed By: #### C BC #### [address] [address] Creatinine mass conc 1.02 mg/dL Normal 0.61-1.24 [facility] Comment on above: Performed By: #### C BC #### [address] [address] Glucose mass conc 119 mg/dL High 74-118 [facility] Comment on above: Performed By: #### C BC #### [address] [address] Potassium molar conc 4.5 mmol/L Normal 3.4-4.8 [facility] Comment on above: Performed By: #### C BC #### [address] [address] Sodium molar conc 137 mmol/L Normal 133-142 [facility] Comment on above: Performed By: #### C BC #### [address] [address] Urea nitrogen mass conc 12 mg/dL Normal 8-26 [facility] Comment on above: Performed By: #### C BC #### [address] [address] Urea nitrogen/Creatinine mass ratio 11.8 mg/mg Normal 10.0-20.0 [facility] Comment on above: Performed By: #### C BC #### [address] [address] CBC w/ Diffon 08-09-2018 Erythrocyte distribution width Ratio (RBC) 12.8 % Normal 11.6-14.8 [facility] Comment on above: Performed By: #### . Automated Diff #### [address] [address] Hematocrit Volume Fraction (Bld) 39.9 % Low 41.0-53.0 [facility] Comment on above: Performed By: #### . Automated Diff #### [address] [address] Hemoglobin mass conc (Bld) 13.4 g/dL Low 13.5-17.5 [facility] Comment on above: Performed By: #### . Automated Diff #### [address] [address] MCH Entitic mass (RBC) 29.1 pg Normal 27.0-35.0 [facility] Comment on above: Performed By: #### . Automated Diff #### [address] [address] MCHC mass conc (RBC) 33.5 % Normal 31.0-37.0 [facility] Comment on above: Performed By: #### . Automated Diff #### [address] [address] MCV Entitic volume (RBC) 86.9 fL Normal 80.0-100.0 [facility] Comment on above: Performed By: #### . Automated Diff #### [place] [id number] Platelet mean volume Entitic volume (Bld) 8.2 fL Normal 6.7-10.6 [facility] Comment on above: Performed By: #### . Automated Diff #### [place] [address] Platelets #/vol (Bld) 302 x10*3/mcL Normal 150-350 [facility] Comment on above: Performed By: #### . Automated Diff #### [place] [address] RBC #/vol (Bld) 4.59 x10*6/mcL Normal 4.30-5.80 [facility] Comment on above: Performed By: #### . Automated Diff #### [address] [address] WBC #/vol (Bld) 14.2 x10*3/mcL High 4.5-11.0 [facility] Comment on above: Performed By: #### . Automated Diff #### [place] [id number] Multiple Tube Winding Machine Operator Progress Noteon 08-09-2018 Multiple Tube Winding Machine Operator Progress Note Met with patient regarding transitions [...] ___ Abbie Cordova 08/09/18 10:08 EST Normal [facility] Diff Autoon 08-09-2018 Baso Absolute 0.0 x10*3/mcL Normal 0.0-0.2 [facility] Comment on above: Performed By: #### . Automated Diff #### [address] [address] Basophils/100 WBC (Bld) 0.3 % Normal 0.0-1.2 [facility] Comment on above: Performed By: #### . Automated Diff #### [address] [address] Eos Absolute 0.0 x10*3/mcL Normal 0.0-0.4 [facility] Comment on above: Performed By: #### . Automated Diff #### [address] [address] Eosinophils/100 WBC (Bld) 0.1 % Normal 0.0-6.1 [facility] Comment on above: Performed By: #### . Automated Diff #### [address] [address] Lymphocytes #/vol (Bld) 1.2 x10*3/mcL Normal 1.0-4.8 [facility] Comment on above: Performed By: #### . Automated Diff #### [address] [address] Lymphocytes/100 WBC (Bld) 8.6 % Low 27.2-40.8 [facility] Comment on above: Performed By: #### . Automated Diff #### [address] [address] [place] Absolute 1.0 x10*3/mcL Normal 0.3-1.1 [facility] Comment on above: Performed By: #### . Automated Diff #### [address] [address] Monocytes/100 WBC (Bld) 6.9 % Normal 4.7-13.9 [facility] Comment on above: Performed By: #### . Automated Diff #### [facility] [address] [place] [address] Neutro Absolute 11.9 x10*3/mcL High 1.8-7.7 [facility] Comment on above: Performed By: #### . Automated Diff #### [facility] [address] [place] [address] Neutro Auto 84.1 % High 47.2-70.8 [facility] Comment on above: Performed By: #### . Automated Diff #### [place] [address] [place] [id number] Orthopedic Progress Noteon 0 08-09-2018 Protein mass [...] Consider MRI. Signed By: Arian LIM, Chris Niño Physical Exam Patient resting in bed Alert [...] Luís Marcus PA-C 08/09/18 06:28 EST Normal [facility] Progress Note-Nurseon 2018 Protein mass conc Upset [...] ___ Petra Kim 08/09/18 10:50 EST Normal [facility] XR Spine Thoracic Minimum 4 Viewson 08-09-2018 [...] Electronically Signed in Other Vendor System) Normal [facility] CT Spine Thoracic w/o Contra ston 08-08-2018 [...] exam here. Consider MRI. Radiation Dose Estimate: CTDI(mGy):0.970075 / / / kVp:120.936077 / mAs:0.136237 / / / DLP(mGy-cm):9.141789Uru y Part: Abdomen CTDI(mGy):0.931570 / / / kVp:140.249411 / mAs:0.568174 / / / DLP(mGy-cm):14.263403Zd dy Part: Final Dictated by: Chris Don MD Dictated DT/TM: 08.08.2018 11:02 am Signed by: Chris Don MD Signed (Electronic Signature): 08.08.2018 11:22 am (If Report Is Signed, Electronically Signed in Other Vendor System) Normal [facility] Comment on above: Order Comment: tried to call office at 18:05. office already closed and unable to leave message regarding this to be a future order. Hgb & Hcton 08-08-2018 Hematocrit Volume Fraction (Bld) 42.8 % Normal 41.0-53.0 [facility] Comment on above: Performed By: #### . Automated Diff #### [place] [address] Hemoglobin mass conc (Bld) 14.4 g/dL Normal 13.5-17.5 [facility] Comment on above: Performed By: #### . Automated Diff #### [place] [address] [place] [address] Operative Reporton 9 Operative Report Indication for [...] decompression and co-surgeon Leida Lynn for instrumentation Grocery Checker Luís HAMEED Anesthesia General anesthetic via endotracheal [...] is secured. He is carefully turned onto [facility] operating room table and head and neck [...] through T12 are resected using Luis Alberto superintendent overhead distribution and this bone is harvested for placement [...] of autograft from local harvest supplemented with [place] demineralized bone matrix. The wound is reirrigated [...] surgical procedure was assisted by my physician?s assistant store manager trainee. Her presence was needed throughout the case for manipulation and positioning the surgical arm as well as positioning the surgical instruments as well as primarily assisting me through procedure. Due to the complexity of condition, the skill set of an neurosurgical physician assistant store manager trainee was needed throughout the case. During the surgical case, the alarm service technician was working the back table and was not available for assistance. Tourniquet Time None Sponge/Needle Count Per nursing correct Fluid Count 2500 mL crystalloid Electronically signed by ___ Shane PANCHAL MD, Leida Cross 08/08/18 17:22 EST Normal [facility] Operative Report Operative Report DATE OF OPERATION: [...] 5. Use of local autograft bone and [place] Matrix SURGEON: Jesus Shah MD for decompression Leida Lynn MD for instrumentation BESSEMER CONVERTER OPERATOR: Luís Staley assisted throughout the procedure with [...] injury, paralysis, non-union, DVT/PE, bleeding, chronic pain, CT, stroke, etc. All questions were answered and [...] by entirely resecting the facet joint. Two Goehner chrome rods were cut to size and [...] bone was packed over the decorticated elements bilaterally.[place] matrix was placed on top of this [...] and dusted with 3 g vancomycin powder. [place] used for skin and antibiotic ointment apploed [...] Jesus Reyes MD 08/09/18 11:58 EST Normal [facility] Operative Report Preoperative Diagnos is Scheuermann's kyphosis Intractable thoracic pain Postoperative Diagnosis Scheuermann's kyphosis Intractable thoracic pain Operation 1. T7-T12 decompression with T7-T12 bilateral [place] Osteotomies 2. T6-L2 posterior spinal fusion using in situ deformity correction Surgeon(s) Dr. Reyes for decompression Dr. 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 Exercise Home/Environment Lives with Children, Spouse. Living [...] Jesus Reyes MD 08/08/2018 14:55 EST Normal [facility] .eGFRon 07-31-2018 eGFR Non-AA >60 Normal >=60 [facility] Comment on above: Result Comment: Resu lt [...] dosing. Performed By: #### E GFR #### [address] [address] eGFR AA >60 Normal >=60 [facility] Comment on above: Result Comment: Resu lt = 0-14.9 mL/min/1.73 m2 Kidney failure or Dialysis Result = 15-29 mL/min/1.73 m2 Severe decrease in GFR Result = 30-59 mL/min/1.73 m2 Moderate decrease in GFR Result >= 60 mL/min/1.73 m2 Normal or increased GFR Performed By: #### E GFR #### [address] [address] ABO/Rhon 07-31-2018 ABO/Rh SD 1.11.19 DCon: 0 ABO/Rh: O POS Normal [facility] Comment on above: Performed By: #### A MONISHA #### [facility] (DEFAULT) [address] [place] [id number] [address] ABSC Autoon 07-31-2018 ABSC Auto Negative Normal [facility] Comment on above: Performed By: #### A SA #### [address] [address] Basic Metabolic Profileon Anion gap molar conc 15 mmol/L Normal 7-17 [facility] Comment on above: Performed By: #### C [id number] #### [address] [address] Calcium mass conc 9.7 mg/dL Normal 8.5-10.3 [facility] Comment on above: Performed By: #### C [id number] #### [address] [address] Chloride molar conc 96 mmol/L Low 98-110 [facility] Comment on above: Performed By: #### C [id number] #### [address] [address] CO2 molar conc 28 mmol/L Normal 22-32 [facility] Comment on above: Performed By: #### C [id number] #### [address] [address] Creatinine mass conc 1.07 mg/dL Normal 0.61-1.24 [facility] Comment on above: Performed By: #### C [id number] #### [address] [address] Glucose mass conc 94 mg/dL Normal 74-118 [facility] Comment on above: Performed By: #### C [id number] #### [address] [address] Potassium molar conc 4.4 mmol/L Normal 3.4-4.8 [facility] Comment on above: Performed By: #### C [id number] #### [address] [address] Sodium molar conc 135 mmol/L Normal 133-142 [facility] Comment on above: Performed By: #### C [id number] #### [address] [address] Urea nitrogen mass conc 20 mg/dL Normal 8-26 [facility] Comment on above: Performed By: #### C [id number] #### [address] [address] Urea nitrogen/Creatinine mass ratio 18.7 mg/mg Normal 10.0-20.0 [facility] Comment on above: Performed By: #### C [id number] #### [address] [address] CBC w/ Diffon 07-31-2018 Erythrocyte distribution width Ratio (RBC) 13.0 % Normal 11.6-14.8 [facility] Comment on above: Performed By: #### C BC #### [address] [address] Hematocrit Volume Fraction (Bld) 51.4 % Normal 41.0-53.0 [facility] Comment on above: Performed By: #### C BC #### [address] [address] Hemoglobin mass conc (Bld) 17.4 g/dL Normal 13.5-17.5 [facility] Comment on above: Performed By: #### C BC #### [place] [address] MCH Entitic mass (RBC) 29.8 pg Normal 27.0-35.0 [facility] Comment on above: Performed By: #### C BC #### [place] [address] MCHC mass conc (RBC) 33.9 % Normal 31.0-37.0 [facility] Comment on above: Performed By: #### C BC #### [place] [address] MCV Entitic volume (RBC) 87.7 fL Normal 80.0-100.0 [facility] Comment on above: Performed By: #### C BC #### [place] [address] Platelet mean volume Entitic volume (Bld) 7.8 fL Normal 6.7-10.6 [facility] Comment on above: Performed By: #### C BC #### [place] [address] Platelets #/vol (Bld) 295 x10*3/mcL Normal 150-350 [facility] Comment on above: Performed By: #### C BC #### [address] [address] RBC #/vol (Bld) 5.86 x10*6/mcL High 4.30-5.80 [facility] Comment on above: Performed By: #### C BC #### [address] [address] WBC #/vol (Bld) 9.1 x10*3/mcL Normal 4.5-11.0 [facility] Comment on above: Performed By: #### C BC #### [address] [address] Diff Autoon 07-31-2018 Baso Absolute 0.1 x10*3/mcL Normal 0.0-0.2 [facility] Comment on above: Performed By: #### . Automated Diff #### [address] [address] Basophils/100 WBC (Bld) 1.0 % Normal 0.0-1.2 [facility] Comment on above: Performed By: #### . Automated Diff #### [address] [address] Eos Absolute 0.3 x10*3/mcL Normal 0.0-0.4 [facility] Comment on above: Performed By: #### . Automated Diff #### [address] [address] Eosinophils/100 WBC (Bld) 3.1 % Normal 0.0-6.1 [facility] Comment on above: Performed By: #### . Automated Diff #### [address] [address] Lymphocytes #/vol (Bld) 2.6 x10*3/mcL Normal 1.0-4.8 [facility] Comment on above: Performed By: #### . Automated Diff #### [address] [address] Lymphocytes/100 WBC (Bld) 28.2 % Normal 27.2-40.8 [facility] Comment on above: Performed By: #### . Automated Diff #### [address] [address] [place] Absolute 0.8 x10*3/mcL Normal 0.3-1.1 [facility] Comment on above: Performed By: #### . Automated Diff #### [address] [address] Monocytes/100 WBC (Bld) 9.3 % Normal 4.7-13.9 [facility] Comment on above: Performed By: #### . Automated Diff #### [address] [address] Neutro Absolute 5.3 x10*3/mcL Normal 1.8-7.7 [facility] Comment on above: Performed By: #### . Automated Diff #### [facility] [address] [place] [address] Neutro Auto 58.4 % Normal 47.2-70.8 [facility] Comment on above: Performed By: #### . Automated Diff #### [address] [address] MRSA, PCRon 07-31-2018 INR Coag RelTime (Bld) Negative Normal [facility] Comment on above: Result Comment: The [employer] Xpert MRSA Assay is a qualitative in [...] clinician. Performed By: #### M RSAPC #### [address] [address] Neurosurgery Office/Clinic N oteon 07-31-2018 Neurosurgery Office/Clinic [...] rare alcohol intake Patient works in a [employer]-no legal or Workmen's Compensation claims on today's [...] MD, Leida Cross 07/31/18 11:40 EST Normal [facility] PTon 07-31-2018 INR Coag RelTime (PPP) 1.0 {INR} Normal <=3.5 [facility] Comment on above: Result Comment: INR has no normal range. INR Therapeutic range is: 2.0-3.0 (AF, CVA, TIAs, DVT prophylaxis, acute DVT) 2.5-3.5 ([facility] heart valves, recurrent thrombosis/emboli) Performed By: #### P TINR #### [address] [address] Prothrombin time (PT) Coag time (PPP) 10.4 s Normal 9.1-11.6 [facility] Comment on above: Performed By: #### P TINR #### [address] [address] PTTon 07-31-2018 aPTT Coag time (Bld) 28.9 s Normal 19.2-29.7 [facility] Comment on above: Performed By: #### P TT #### [address] [address] XR Chest 2 Viewson 9 XR Chest [...] Electronically Signed in Other Vendor System) Normal [facility] SCOLIOSIS 2 [facility] 04-24-2018 [facility]IS 2 [facility] [place], [place] [address] =====Patient Name: CHIQUITA WEEKS : 1990Sex: MAge: Race: WhiteMRN: [id number]. Location: 84Patient Status: OVisit #: [id number] Date: 04/24/2018 3:05:00 PMCompleted Date: 04/24/2018 03:19 PMRequesting Provider: COOKIE COLES Attending Provider: COOKIE COLES Report Copy To: Signs & Symptoms: M54.6 Pain in thoracic spine [id number]: AthenaComments: , , , Ordering Provider - COOKIE COLES MD , Exam: SCOLIOSIS 2 VWSAccession #: [id number] SCOLIOSIS 2 S 04/24/2018 3:19 PM EDT [...] abnormality. Electronically signed by:Adelfo Kay. Transcribed by: [email or web address], User Resident: Electronically Signed by: ADELFO KAY @ 04/24/2018 10:56 PM Normal [facility] Comment on above: Order Comment: , , = ========= , Ordering Provider - COOKIE COLES MD , Encounters Encounter Date Encounter Type Care Provider Facility Start: 02-01-2022 End: 02-02-2022 ambulatory ERNST PENA Facility: Start: 06-23-2021 ambulatory ERNST [facility] Facility: Start: 09-25-2018 End: 09-26-2018 ambulatory [facility] CYRIL MIGUEL A Facility:[facility] Start: 08-08-2018 End: 08-12-2018 Evaluation and management of inpatient SELVON MARCIA Facility:[facility] Start: 07-31-2018 End: 08-01-2018 [facility] Start: 07-31-2018 End: 08-01-2018 Patient encounter procedure LEIDA LYNN Facility:[facility] Start: 07-30-2018 Patient encounter procedure SELVON MARCIA Facility:[facility] Start: 04-24-2018 End: 04-25-2018 Patient encounter COOKIE COLES Facility:[facility] Start: 04-15-2018 End: 04-16-2018 Patient encounter DEFAULT PHYSICIAN Facility:[facility] Procedures Date Procedure Procedure Detail Performing Clinician Start: 02-01-2022 PSA screening ERNST OROURKE Comment on above: Performed By: #### P [facility] #### [facility] [address] [place] [address] Dr. Armida Brown Payers Date Payer Category Payer Unknown 2017 Unknown [id number] 1990 Unknown [id number] 2.16.8 [id number] 1990 Unknown [id number] 2.16.8 [id number] 1990 Unknown [id number] 2.16.8 [id number] 1990 Unknown [id number] 2.16.8 [id number] 1988 Unknown [id number] 2.16.8 [id number] 1988 Unknown [id number] 2.16.8 [id number] 1988 Unknown [id number] 2.16.84 [id number] 1990 Unknown [id number] 2.16.84 [id number] 1988 Unknown [id number] 2.16.84 [id number] 1988 Unknown [id number] 2.16.84 [id number] 1961 Medicaid [id number] 1961 Medicare [id number] 1961 Unknown [id number] Unknown [id number] Summary Purpose Family History No Family History [...] 5. Use of local autograft bone and [facility] SURGEON: Jesus Shah MD for decompression [...] section and content) DATE CREATED AUTHOR 05/29/2018 [facility] DATE CREATED AUTHOR AUTHOR'S ORGANIZ ATION 08/25/2018 [facility] DATE CREATED AUTHOR AUTHOR'S ORGANIZ ATION 02/15/2022 [facility] DATE CREATED AUTHOR AUTHOR'S ORGANIZ ATION 09/27/2022 [facility] FOR RECORDS PERTAINING TO PATIENTS WHO ARE [...] BE BASED ON THE PRIMARY CLINICAL RECORDS. [facility]. provides no warranty or guarantee of the accuracy or completeness of information in this document.
--- NOTE | 2024-02-14 09:58 | P.CN_ITS ---
Consult Note: HPI Data of Consult Requesting Physician: Letty Ayala NP Primary Care Provider: ERNST PENA Consult Narrative Narrative: He is a 33-year-old male, presently has pain in the above mentioned area for several years. 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 He reports this seemed to have helped with symptoms at that time; however, he has developed progressive pain, described as a 3-7/10 pain, constant, throbbing and occasional sharp, burning component, increased with activity such as standing, walking and performing transitioning maneuvers. He appears most comfortable in the semi-recumbent position. Denies any change in bowel and bladder habits or new sensorimotor changes in the lower extremities.Recently underwent Diagnostic left sided T11-12 , left sided T12-L1 nerve root injection under fluoroscopic guidance with >90% improvement immediately following and ho urs after the injection and left erector spinae botox with 75-90% improvement. Patient finding benefit to current medication regimen without side effects. Would like to discuss his chronic right mid/upper back pain as this is now his biggest complaint. cc:: CC: Letty Ayala NP Review of Systems ROS Status of ROS 10 or more systems reviewed and unremark able except as noted in history and below Musculoskeletal Reports: back pain PFSH PFSH Medical History (Updated 12/05/23 @ 10:28 by Letty Ayala NP) Anxiety ?F41.9 - Anxiety disorder, unspecified (ICD-10) HTN (hypertension) ?I10 - Essential (primary) hypertension (ICD-10) Surgical History History of spinal fusion ?Z98.1 - Arthrodesis status (ICD-10) Meds Home Medications and Allergies Home Medications ?Medication ?Instructions ?Recorded ?Confirmed ?Type baclofen 10 mg tablet 10 mg PO DAILY 11/06/23 02/05/24 History bupropion HCl 300 mg 24 hr tablet, 300 mg PO DAILY 11/06/23 02/05/24 History extended release (Wellbutrin XL) hydrochlorothiazide 25 mg tablet 25 mg PO DAILY 11/06/23 02/05/24 History lisinopril 40 mg tablet 40 mg PO DAILY 11/06/23 02/05/24 History metoprolol tartrate 50 mg tablet 50 mg PO BID 11/06/23 02/05/24 History zonisamide 100 mg capsule 100 mg PO .HS 11/06/23 02/05/24 History (Zonegran) Allergies Allergy/AdvReac Type Severity Reaction Status Date / Time No Known Drug Allergies Allergy Verified 02/05/24 11:17 Exam Narrative Exam Narrative: His examination is notable for patient having dysesthesia and hyperesthesia overlying the distribution of the right T12 dermatome, as well as possibly at the T11 and L1 dermatome respectively also on the right side. This is associated with significant myofascial dysfunction with dystonic changes involving the right erector spinae muscle, with severe tenderness overlying this area as well, resulting in mild lumbar dorsiflexion as well as mild lateral rotation to the right. No appreciable signs consistent with myelopathy involving his lower extremities. No appreciable radiculopathy involving L1 through S1 involving the lower extremities. improvement over left T12-L1 dermatomal pattern and myofascial tenderness. Assessment and Plan Assessment and Plan (1) Dystonia: (2) Post laminectomy syndrome: Plan 1. Chronic pain secondary to post laminectomy syndrome with thoracolumbar neuritis and dysesthesia and hyperesthesia right T12, possibly at T11 and possibly L1, but most severe at the T12 level of the right side. 2. Myofascial dysfunction with cord dystonic changes left erector spinae muscle. continue zonegran 50mg AM and 100mg HS, continue baclofen 10mg 1.5 tabs HS PRN right T11-12 T12-L1 TFESI under fluoroscopy, risks vs benefits reviewed f/u after injection
--- NOTE | 2024-02-14 10:01 | PM.CN ---
Consult Note: HPI Data of Consult Requesting Physician: Letyt Ayala NP Primary Care Provider: ERNST PENA Consult Narrative cc:: CC: Letty Ayala NP [facility] Medical History (Updated 12/05/23 @ 10:28 by Letty Ayala NP) Anxiety ?F41.9 - Anxiety disorder, unspecified (ICD-10) HTN (hypertension) ?I10 - Essential (primary) hypertension (ICD-10) Surgical History History of spinal fusion ?Z98.1 - Arthrodesis status (ICD-10) Meds Home Medications and Allergies Home Medications ?Medication ?Instructions ?Recorded ?Confirmed ?Type baclofen 10 mg tablet 10 mg PO DAILY 11/06/23 02/05/24 History bupropion HCl 300 mg 24 hr tablet, 300 mg PO DAILY 11/06/23 02/05/24 History extended release (Wellbutrin XL) hydrochlorothiazide 25 mg tablet 25 mg PO DAILY 11/06/23 02/05/24 History lisinopril 40 mg tablet 40 mg PO DAILY 11/06/23 02/05/24 History metoprolol tartrate 50 mg tablet 50 mg PO BID 11/06/23 02/05/24 History zonisamide 100 mg capsule 100 mg PO .HS 11/06/23 02/05/24 History (Zonegran) Allergies Allergy/AdvReac Type Severity Reaction Status Date / Time No Known Drug Allergies Allergy Verified 02/05/24 11:17 Assessment and Plan Assessment and Plan (1) Dystonia: (2) Post laminectomy syndrome: Plan 1. Chronic pain secondary to post laminectomy syndrome with thoracolumbar neuritis and dysesthesia and hyperesthesia right T12, possibly at T11 and possibly L1, but most severe at the T12 level of the right side. 2. Myofascial dysfunction with cord dystonic changes left erector spinae muscle. continue zonegran 50mg AM and 100mg HS, continue baclofen 10mg 1.5 tabs HS PRN right T11-12 T12-L1 TFESI under fluoroscopy, risks vs benefits reviewed f/u after injection
== END 2024-02-14 09:38 | disposition home or self-care (01) ==
LOC: PM 09:38
PROVIDERS: PCP Nurse Practitioner Family; Visit Provider Nurse Practitioner
DX: G24.9 Dystonia, unspecified (principal); M96.1 Postlaminectomy syndrome, not elsewhere classified
CPT/HCPCS: G0463

== ENCOUNTER 2024-02-19 06:50 | Day surgery (SDC) | payer MEDICARE, MEDICAID, SELFPAY ==
--- OUTSIDE RECORDS SUMMARY | 2024-02-19 06:53 | XMS_ITS | CCD ---
Author Organization [facility] Care Team Providers Care Signing Teacher Name Role Phone PHYSICIAN, DEFAULT Unavailable Unavailable PHYSICIAN, DEFAULT Unavailable Unavailable ELGAFY, COOKIE K Unavailable Unavailable ELGAFY, COOKIE K Unavailable Unavailable ELGAFY, COOKIE K Unavailable Unavailable UNKNOWN, PHYSICIAN Unavailable Unavailable MARCIA, SELVON Admitting Unavailable MARCIA, SELVON Attending Unavailable [facility] Unavailable Luís Marcus Consulting Unavailable LEIDA LYNN Consulting Unavaila ble Lynn, Leida Cross Consulting Unavaila ble SpychalsEllen zeng Consulting Unavailable Delfino Montoya Consulting Unavailable LEIDA LYNN Attending Unavaila ble [facility] Unavailable SLOANE HIGH PA-C Attending Unavail able MARCIA, SELVON Attending Unavailable [facility] Unavailable BECKY, ERNST Primary Care Unavailable TAISHA, DR SCOOTER Webster Attending Unavailable TAISHA, DR SCOOTER Webster Admitting Unavailable CHANTE HERNANDEZ Consulting Unavailable BECKY, ERNST Primary Care Unavailable BECKY, ERNST Admitting Unavailable ERNST PENA Attending Unavailable ERNST PENA Consulting Unavailable [facility] Care Unavaila ble MARCIA, SELVON F Referring Unavailable MARCIA, SELVON F Attending Unavailable MARCIA, SELVON F Admitting Unavailable Allergies Allergy Classification Reported Allergen(s) Allergy Type Date of Onset Reaction(s) Facility (1 source) No Known Medication Allergies; Translations: [No Known Medication Allergies] Propensity to adverse reactions to drug (disorder) [facility] Repository Problems Problem Classification Problem Date [...] INSULINon 02-02-2022 Insulin 16.5 uIU/mL Normal 2.6-24.9 [facility] Comment on above: Performed By: #### I NSULIN #### [facility] [address] [place] [address] Dr. Armida Brown CBC AUTO DIFFon 02-01-2022 BASO # 0.1 103/ul Normal 0.0-0.1 [facility] Comment on above: Performed By: #### C BC #### [facility] [address] [place] [address] Dr. Armida Brown Basophils/100 WBC (Bld) 0.9 % Normal 0.2-2.0 [facility] Comment on above: Performed By: #### C BC #### [facility] [address] [place] [address] Dr. Armida Brown EO # 0.4 103/ul Normal 0.0-0.7 [facility] Comment on above: Performed By: #### C BC #### [facility] [address] [place] [address] Dr. Armida Brown Eosinophils/100 WBC (Bld) 4.7 % Normal 0.9-7.0 [facility] Comment on above: Performed By: #### C BC #### [facility] [address] [place] [address] Dr. Armida Brown Erythrocyte distribution width (RBC) [Ratio] 13.1 % Normal 11.0-15.0 [facility] Comment on above: Performed By: #### C BC #### [facility] [address] [place] [address] Dr. Armida Brown Hematocrit (Bld) [Volume fraction] 48.6 % Normal 42.0-54.0 [facility] Comment on above: Performed By: #### C BC #### [facility] [address] [place] [address] Dr. Armida Brown Hemoglobin (Bld) [Mass/Vol] 16.5 g/dL Normal 14.0-18.0 [facility] Comment on above: Performed By: #### C BC #### [facility] [address] [place] [address] Dr. Armida Brown IG # 0.05 10e3/ul Critically high 0.00-0.03 [facility] Comment on above: Performed By: #### C BC #### [facility] [address] [place] [address] Dr. Armida Brown IG % 0.6 % Critically high 0.0-0.5 [facility] Comment on above: Performed By: #### C BC #### [facility] [address] [place] [address] Dr. Armida Brown LYMPH # 1.7 103/ul Normal 1.2-3.8 [facility] Comment on above: Performed By: #### C BC #### [facility] [address] [place] [address] Dr. Armida Brown Lymphocytes/100 WBC (Bld) 19.6 % Critically low 20.5-60.0 [facility] Comment on above: Performed By: #### C BC #### [facility] [address] [place] [address] Dr. Armida Brown MANUAL DIFF REQ NO Normal [facility] Comment on above: Performed By: #### C BC #### [facility] [address] [address] [address] Armida Brown MCH (RBC) [Entitic mass] 30.1 pg Normal 25.9-34.0 [facility] Comment on above: Performed By: #### C BC #### [facility] [address] [address] [address] Armida Brown MCHC (RBC) [Mass/Vol] 34.0 g/dL Normal 29.9-35.2 [facility] Comment on above: Performed By: #### C BC #### [facility] [address] [place] [address] Dr. Armida Brown MCV (RBC) [Entitic vol] 88.5 fL Normal 80.0-94.0 [facility] Comment on above: Performed By: #### C BC #### [facility] [address] [place] [address] Dr. Armida Brown MONO # 0.5 103/ul Normal 0.3-0.8 [facility] Comment on above: Performed By: #### C BC #### [facility] [address] [place] [address] Dr. Armida Brown Monocytes/100 WBC (Bld) 5.6 % Normal 1.7-12.0 [facility] Comment on above: Performed By: #### C BC #### [facility] [address] [place] [address] Dr. Armida Brown NEUT # 6.1 103/ul Normal 1.4-6.5 [facility] Comment on above: Performed By: #### C BC #### [facility] [address] [place] [address] Dr. Armida Brown Neutrophils/100 WBC (Bld) 68.6 % Normal 43.0-75.0 [facility] Comment on above: Performed By: #### C BC #### [facility] [address] [place] [address] Dr. Armida Brown Platelet mean volume (Bld) [Entitic vol] 9.3 fL Critically low 9.5-13.5 [facility] Comment on above: Performed By: #### C BC #### [facility] [address] [address] [address] Armida Brown PLT 293 103/ul Normal 150-450 [facility] Comment on above: Performed By: #### C BC #### [facility] [address] [address] [address] Armida Brown RBC 5.49 106/ul Normal 4.70-6.10 [facility] Comment on above: Performed By: #### C BC #### [facility] [address] [address] [address] Armida Brown WBC 8.9 103/ul Normal 4.0-11.0 [facility] Comment on above: Performed By: #### C BC #### [facility] [address] [place] [address] Dr. Armida Brown FREE THYROXINE INDEX T7on FTI 3.33 Normal 1.30-4.50 [facility] Comment on above: Performed By: #### T SH, CMP, URIC, LIPID, T7 #### [facility] [address] [address] [address] Armida Brown T3U 35.0 % Normal 33.0-40.0 [facility] Comment on above: Performed By: #### T SH, CMP, URIC, LIPID, T7 #### [facility] [address] [place] [address] Dr. Armida Brown T4 [Mass/Vol] 9.50 ug/dL Normal 4.50-12.10 [facility] Comment on above: Performed By: #### T SH, CMP, URIC, LIPID, T7 #### [facility] [address] [place] [address] Dr. Armida Brown GLYCOHEMOGLOBIN A1Con 2021 ADA RECOMMENDATION SEE BELOW Normal [facility] Comment on above: Result Comment: ADA RECOMMENDED LIMIT 4.0 - 6.0 ADA THERAPEUTIC TARGET < 7.0 ACTION SUGGESTED > 7.0 Performed By: #### A 1C #### [facility] [address] [address] [address] Armida Brown Glucose [Mass/Vol] 103 mg/dL Normal [facility] Comment on above: Performed By: #### A 1C #### [facility] [address] [place] [address] Dr. Armida Brown HbA1c (Bld) [Mass fraction] 5.2 % Normal 4.5-6.2 [facility] Comment on above: Performed By: #### A 1C #### [facility] [address] [place] [address] Dr. Armida Brown LIPID PROFILEon 02-01-2022 CHOL-HDL RATIO NORM SEE BELOW Normal [facility] Comment on above: Result Comment: 3.3 - 4.4 LOW RISK 4.4 - 7.1 AVERAGE RISK 7.1 - 11.0 MODERATE RISK >11.0 HIGH RISK Performed By: #### T SH, CMP, URIC, LIPID, T7 #### [facility] [address] [place] [address] Dr. Armida Brown Cholesterol [Mass/Vol] 183 mg/dL Normal <=200 [facility] Comment on above: Performed By: #### T SH, CMP, URIC, LIPID, T7 #### [facility] [address] [place] [address] Dr. Armida Brown Cholesterol in HDL [Mass/Vol] 33 mg/dL Critically low 40-60 [facility] Comment on above: Performed By: #### T SH, CMP, URIC, LIPID, T7 #### [facility] [address] [address] [address] Armida Brown Cholesterol in LDL [Mass/Vol] 123.0 mg/dL Normal [facility] Comment on above: Performed By: #### T SH, CMP, URIC, LIPID, T7 #### [facility] [address] [place] [address] Dr. Armida Brown Cholesterol.total/C holesterol in HDL [Mass ratio] 5.5 {ratio} Normal [facility] Comment on above: Performed By: #### T SH, CMP, URIC, LIPID, T7 #### [facility] [address] [place] [address] Dr. Armida Brown HDL NORMAL > or = 60 mg/dl - LO W CARDIOVASCULAR RISK <40 mg/dl - HIGH CARDIOVASCULAR RISK Normal [facility] Comment on above: Performed By: #### T SH, CMP, URIC, LIPID, T7 #### [facility] [address] [address] [address] Armida Brown LDL CALC NORMAL SEE BELOW Normal [facility] Comment on above: Result Comment: <100 mg/dl OPTIMAL 100 - 129 mg/dl NEAR OR ABOVE OPTIMAL 130 - 159 mg/dl BORDERLINE HIGH 160 - 189 mg/dl HIGH >190 mg/dl VERY HIGH Performed By: #### T SH, CMP, URIC, LIPID, T7 #### [facility] [address] [address] [address] Armida Brown Triglyceride [Mass/Vol] 135 mg/dL Normal <=150 [facility] Comment on above: Performed By: #### T SH, CMP, URIC, LIPID, T7 #### [facility] [address] [address] [address] Armida Brown VLDL CALC 27.0 mg/dL Normal [facility] Comment on above: Performed By: #### T SH, CMP, URIC, LIPID, T7 #### [facility] [address] [address] [address] Armida Brown PROF 14(COMP METB)on 022 Albumin [Mass/Vol] 4.1 g/dL Normal 3.4-5.0 [facility] Comment on above: Performed By: #### T SH, CMP, URIC, LIPID, T7 #### [facility] [address] [address] [address] Armida Brown Albumin/Globulin [Mass ratio] 1.1 {ratio} Normal [facility] Comment on above: Performed By: #### T SH, CMP, URIC, LIPID, T7 #### [facility] [address] [address] [address] Armida Brown ALP [Catalytic activity/Vol] 79 U/L Normal 46-116 [facility] Comment on above: Performed By: #### T SH, CMP, URIC, LIPID, T7 #### [facility] [address] [address] [address] Armida Brown ALT [Catalytic activity/Vol] 58 U/L Normal 16-63 [facility] Comment on above: Performed By: #### T SH, CMP, URIC, LIPID, T7 #### [facility] [address] [address] [address] Armida Brown Anion gap [Moles/Vol] 12.6 mmol/L Normal [facility] Comment on above: Performed By: #### T SH, CMP, URIC, LIPID, T7 #### [facility] [address] [place] [address] Dr. Armida Brown AST [Catalytic activity/Vol] 23 U/L Normal 15-37 [facility] Comment on above: Performed By: #### T SH, CMP, URIC, LIPID, T7 #### [facility] [address] [place] [address] Dr. Armida Brown Bilirubin [Mass/Vol] 0.6 mg/dL Normal 0.2-1.0 [facility] Comment on above: Performed By: #### T SH, CMP, URIC, LIPID, T7 #### [facility] [address] [address] [address] Armida Brown Calcium [Mass/Vol] 8.9 mg/dL Normal 8.5-10.1 [facility] Comment on above: Performed By: #### T SH, CMP, URIC, LIPID, T7 #### [facility] [address] [place] [address] Dr. Armida Brown Chloride [Moles/Vol] 104 mmol/L Normal 98-107 [facility] Comment on above: Performed By: #### T SH, CMP, URIC, LIPID, T7 #### [facility] [address] [place] [address] Dr. Armida Brown CO2 [Moles/Vol] 26.7 mmol/L Normal 21.0-32.0 [facility] Comment on above: Performed By: #### T SH, CMP, URIC, LIPID, T7 #### [facility] [address] [place] [address] Dr. Armida Brown Creatinine [Mass/Vol] 0.99 mg/dL Normal 0.70-1.30 [facility] Comment on above: Performed By: #### T SH, CMP, URIC, LIPID, T7 #### [facility] [address] [address] [address] Armida Brown EGFR-AF ARGENTINE >60 Normal >=60 [facility] Comment on above: Performed By: #### T SH, CMP, URIC, LIPID, T7 #### [facility] [address] [address] [address] Armida Brown EGFR-NON AF ARGENTINE >60 Normal >=60 [facility] Comment on above: Performed By: #### T SH, CMP, URIC, LIPID, T7 #### [facility] [address] [place] [address] Dr. Armida Brown Globulin (S) [Mass/Vol] 3.6 g/dL Normal [facility] Comment on above: Performed By: #### T SH, CMP, URIC, LIPID, T7 #### [facility] [address] [place] [address] Dr. Armida Brown Glucose [Mass/Vol] 100 mg/dL Normal 74-106 [facility] Comment on above: Performed By: #### T SH, CMP, URIC, LIPID, T7 #### [facility] [address] [place] [address] Dr. Armida Brown Potassium [Moles/Vol] 4.3 mmol/L Normal 3.5-5.1 [facility] Comment on above: Performed By: #### T SH, CMP, URIC, LIPID, T7 #### [facility] [address] [place] [address] Dr. Armida Brown Protein [Mass/Vol] 7.7 g/dL Normal 6.4-8.2 [facility] Comment on above: Performed By: #### T SH, CMP, URIC, LIPID, T7 #### [facility] [address] [place] [address] Dr. Armida Brown Sodium [Moles/Vol] 139 mmol/L Normal 136-145 [facility] Comment on above: Performed By: #### T SH, CMP, URIC, LIPID, T7 #### [facility] [address] [address] [address] Armida Brown Urea nitrogen [Mass/Vol] 16.0 mg/dL Normal 7.0-18.0 [facility] Comment on above: Performed By: #### T SH, CMP, URIC, LIPID, T7 #### [facility] [address] [address] [address] Armida Brown Urea nitrogen/Creatinine [Mass ratio] 16.2 mg/mg Normal [facility] Comment on above: Performed By: #### T SH, CMP, URIC, LIPID, T7 #### [facility] [address] [place] [address] Dr. Armida Brown TSHon 02-01-2022 TSH 1.176 uIU/mL Normal 0.358-3.740 [facility] Comment on above: Performed By: #### T SH, CMP, URIC, LIPID, T7 #### [facility] [address] [place] [address] Dr. Armida Brown URIC ACID SERUMon 02-01-2022 Urate [Mass/Vol] 6.7 mg/dL Normal 3.5-7.2 [facility] Comment on above: Performed By: #### T SH, CMP, URIC, LIPID, T7 #### [facility] [address] [place] [address] Dr. Armida Brown .eGFRon 08-12-2018 eGFR AA >60 Normal >=60 [facility] Comment on above: Order Comment: Order added by Discern rule Result Comment: Resu lt = 0-14.9 mL/min/1.73 m2 Kidney failure or Dialysis Result = 15-29 mL/min/1.73 m2 Severe decrease in GFR Result = 30-59 mL/min/1.73 m2 Moderate decrease in GFR Result >= 60 mL/min/1.73 m2 Normal or increased GFR Performed By: #### P TT #### [facility] [address] [place] [id number] eGFR Non-AA >60 Normal >=60 [facility] Comment on above: Order Comment: Order [...] dosing. Performed By: #### P TT #### [address] [id number] Basic Metabolic Profileon Anion gap molar conc 11 mmol/L Normal 7-17 [facility] Comment on above: Performed By: #### P TINR #### [address] [id number] Calcium mass conc 8.2 mg/dL Low 8.5-10.3 [facility] Comment on above: Performed By: #### P TINR #### [address] [address] [id number] Chloride molar conc 102 mmol/L Normal 98-110 [facility] Comment on above: Performed By: #### P TINR #### [address] [id number] CO2 molar conc 27 mmol/L Normal 22-32 [facility] Comment on above: Performed By: #### P TINR #### [address] [address] Creatinine mass conc 0.83 mg/dL Normal 0.61-1.24 [facility] Comment on above: Performed By: #### P TINR #### [address] [id number] Glucose mass conc 109 mg/dL Normal 74-118 [facility] Comment on above: Performed By: #### P TINR #### [address] [address] Potassium molar conc 3.9 mmol/L Normal 3.4-4.8 [facility] Comment on above: Performed By: #### P TINR #### [address] [address] Sodium molar conc 136 mmol/L Normal 133-142 [facility] Comment on above: Performed By: #### P TINR #### [address] [address] Urea nitrogen mass conc 9 mg/dL Normal 8-26 [facility] Comment on above: Performed By: #### P TINR #### [address] [id number] Urea nitrogen/Creatinine mass ratio 10.8 mg/mg Normal 10.0-20.0 [facility] Comment on above: Performed By: #### P TINR #### [address] [id number] CBC w/ Diffon 08-12-2018 Erythrocyte distribution width Ratio (RBC) 12.5 % Normal 11.6-14.8 [facility] Comment on above: Performed By: #### P TINR #### [address] [address] Hematocrit Volume Fraction (Bld) 29.7 % Low 41.0-53.0 [facility] Comment on above: Performed By: #### P TINR #### [address] [address] Hemoglobin mass conc (Bld) 10.3 g/dL Low 13.5-17.5 [facility] Comment on above: Performed By: #### P TINR #### [address] [address] MCH Entitic mass (RBC) 30.1 pg Normal 27.0-35.0 [facility] Comment on above: Performed By: #### P TINR #### [address] [address] MCHC mass conc (RBC) 34.5 % Normal 31.0-37.0 [facility] Comment on above: Performed By: #### P TINR #### [address] [id number] MCV Entitic volume (RBC) 87.2 fL Normal 80.0-100.0 [facility] Comment on above: Performed By: #### P TINR #### [address] [id number] Platelet mean volume Entitic volume (Bld) 7.8 fL Normal 6.7-10.6 [facility] Comment on above: Performed By: #### P TINR #### [address] [id number] Platelets #/vol (Bld) 218 x10*3/mcL Normal 150-350 [facility] Comment on above: Performed By: #### P TINR #### [place] [address] RBC #/vol (Bld) 3.41 x10*6/mcL Low 4.30-5.80 [facility] Comment on above: Performed By: #### P TINR #### [address] [id number] WBC #/vol (Bld) 9.1 x10*3/mcL Normal 4.5-11.0 [facility] Comment on above: Performed By: #### P TINR #### [place] [address] Diff Autoon 08-12-2018 Baso Absolute 0.0 x10*3/mcL Normal 0.0-0.2 [facility] Comment on above: Performed By: #### P TINR #### [address] [id number] Basophils/100 WBC (Bld) 0.5 % Normal 0.0-1.2 [facility] Comment on above: Performed By: #### P TINR #### [address] [id number] Eos Absolute 0.3 x10*3/mcL Normal 0.0-0.4 [facility] Comment on above: Performed By: #### P TINR #### [address] [address] Eosinophils/100 WBC (Bld) 3.4 % Normal 0.0-6.1 [facility] Comment on above: Performed By: #### P TINR #### [address] [address] Lymphocytes #/vol (Bld) 1.1 x10*3/mcL Normal 1.0-4.8 [facility] Comment on above: Performed By: #### P TINR #### [address] [address] Lymphocytes/100 WBC (Bld) 11.8 % Low 27.2-40.8 [facility] Comment on above: Performed By: #### P TINR #### [address] [address] Tillman Absolute 0.8 x10*3/mcL Normal 0.3-1.1 [facility] Comment on above: Performed By: #### P TINR #### [address] [address] Monocytes/100 WBC (Bld) 8.5 % Normal 4.7-13.9 [facility] Comment on above: Performed By: #### P TINR #### [address] [address] Neutro Absolute 6.9 x10*3/mcL Normal 1.8-7.7 [facility] Comment on above: Performed By: #### P TINR #### [address] [address] Neutro Auto 75.8 % High 47.2-70.8 [facility] Comment on above: Performed By: #### P TINR #### [address] [address] Inpatient Clinical Summaryon 08-12-2018 Inpatient Clinical Summary [address] [place] [address] [address] Clinical Summary Person Information Name: Chiquita Weeks Age: 28 Years : 1990 Sex: Male PCP: Cyril Ruiz MD Marital Status: Phone: PCP: Race: White Ethnicity: Not or Language: Ukrainian Visit Id: Visit Reason: Speciality: Acuity: Enc Type: Inpatient Med Service: Surgery Arrival: 08/08/2018 08:12:20 Discharge: Dispo Type: Address: [address] [place] [address] Diagnosis: 1:Scheuermann's kyphosis Discharged To: Home Treatments: [...] range between ( 27.2 and 40.8 ) Tillman Auto: 8.5 % -- Normal range between [...] range between ( 41.0 and 53.0 ) Tillman Absolute: 0.8 x10 MCH: 30.1 pg -- [...] Follow up: With: Address: When: Jesus Reyes [facility] [employer] [facility], [place] [phone] Business (1) Comments: Schedule follow up appointment for 2 weeks for staple removal With: Address: When: Cyril Ruiz Normal [facility] Occupational Therapy Progres s Noteon 08-12-2018 Protein mass conc Planned/pending dc t o home today. Reecommended [facility] Electronically signed by ___ Teo Johnson 08/12/18 06:26 EST Normal [facility] Orthopedic Progress Noteon 0 08-12-2018 Protein [...] Luís Marcus PA-C 08/12/18 07:37 EST Normal [facility] .eGFRon 08-11-2018 eGFR Non-AA >60 Normal >=60 [facility] Comment on above: Order Comment: Order [...] dosing. Performed By: #### P TINR #### [place] [id number] eGFR AA >60 Normal >=60 [facility] Comment on above: Order Comment: Order added by Discern rule Result Comment: Resu lt = 0-14.9 mL/min/1.73 m2 Kidney failure or Dialysis Result = 15-29 mL/min/1.73 m2 Severe decrease in GFR Result = 30-59 mL/min/1.73 m2 Moderate decrease in GFR Result >= 60 mL/min/1.73 m2 Normal or increased GFR Performed By: #### P TINR #### [place] [id number] Basic Metabolic Profileon Anion gap molar conc 10 mmol/L Normal 7-17 [facility] Comment on above: Performed By: #### P TINR #### [place] [id number] Calcium mass conc 8.3 mg/dL Low 8.5-10.3 [facility] Comment on above: Performed By: #### P TINR #### [address] [address] Chloride molar conc 97 mmol/L Low 98-110 [facility] Comment on above: Performed By: #### P TINR #### [address] [address] CO2 molar conc 26 mmol/L Normal 22-32 [facility] Comment on above: Performed By: #### P TINR #### [address] [address] Creatinine mass conc 0.88 mg/dL Normal 0.61-1.24 [facility] Comment on above: Performed By: #### P TINR #### [address] [address] Glucose mass conc 109 mg/dL Normal 74-118 [facility] Comment on above: Performed By: #### P TINR #### [address] [address] Potassium molar conc 4.0 mmol/L Normal 3.4-4.8 [facility] Comment on above: Performed By: #### P TINR #### [address] [address] Sodium molar conc 129 mmol/L Low 133-142 [facility] Comment on above: Performed By: #### P TINR #### [address] [address] Urea nitrogen mass conc 9 mg/dL Normal 8-26 [facility] Comment on above: Performed By: #### P TINR #### [address] [address] Urea nitrogen/Creatinine mass ratio 10.2 mg/mg Normal 10.0-20.0 [facility] Comment on above: Performed By: #### P TINR #### [address] [address] CBC w/ Diffon 08-11-2018 Erythrocyte distribution width Ratio (RBC) 12.6 % Normal 11.6-14.8 [facility] Comment on above: Performed By: #### P TINR #### [address] [address] Hematocrit Volume Fraction (Bld) 31.7 % Low 41.0-53.0 [facility] Comment on above: Performed By: #### P TINR #### [address] [address] Hemoglobin mass conc (Bld) 10.8 g/dL Low 13.5-17.5 [facility] Comment on above: Performed By: #### P TINR #### [address] [address] MCH Entitic mass (RBC) 29.9 pg Normal 27.0-35.0 [facility] Comment on above: Performed By: #### P TINR #### [address] [address] MCHC mass conc (RBC) 34.2 % Normal 31.0-37.0 [facility] Comment on above: Performed By: #### P TINR #### [address] [address] MCV Entitic volume (RBC) 87.5 fL Normal 80.0-100.0 [facility] Comment on above: Performed By: #### P TINR #### [address] [address] Platelet mean volume Entitic volume (Bld) 7.8 fL Normal 6.7-10.6 [facility] Comment on above: Performed By: #### P TINR #### [address] [address] Platelets #/vol (Bld) 218 x10*3/mcL Normal 150-350 [facility] Comment on above: Performed By: #### P TINR #### [address] [address] RBC #/vol (Bld) 3.62 x10*6/mcL Low 4.30-5.80 [facility] Comment on above: Performed By: #### P TINR #### [address] [address] WBC #/vol (Bld) 11.8 x10*3/mcL High 4.5-11.0 [facility] Comment on above: Performed By: #### P TINR #### [address] [address] Diff Autoon 08-11-2018 Baso Absolute 0.1 x10*3/mcL Normal 0.0-0.2 [facility] Comment on above: Performed By: #### P TINR #### [address] [address] Basophils/100 WBC (Bld) 0.5 % Normal 0.0-1.2 [facility] Comment on above: Performed By: #### P TINR #### [address] [address] Eos Absolute 0.3 x10*3/mcL Normal 0.0-0.4 [facility] Comment on above: Performed By: #### P TINR #### [address] [address] Eosinophils/100 WBC (Bld) 2.3 % Normal 0.0-6.1 [facility] Comment on above: Performed By: #### P TINR #### [address] [address] Lymphocytes #/vol (Bld) 1.7 x10*3/mcL Normal 1.0-4.8 [facility] Comment on above: Performed By: #### P TINR #### [address] [address] Lymphocytes/100 WBC (Bld) 14.3 % Low 27.2-40.8 [facility] Comment on above: Performed By: #### P TINR #### [address] [address] Tillman Absolute 1.2 x10*3/mcL High 0.3-1.1 [facility] Comment on above: Performed By: #### P TINR #### [address] [address] Monocytes/100 WBC (Bld) 9.9 % Normal 4.7-13.9 [facility] Comment on above: Performed By: #### P TINR #### [address] [address] Neutro Absolute 8.6 x10*3/mcL High 1.8-7.7 [facility] Comment on above: Performed By: #### P TINR #### [address] [address] Neutro Auto 73.0 % High 47.2-70.8 [facility] Comment on above: Performed By: #### P TINR #### [facility] [address] [place] [address] Orthopedic Progress Noteon 0 08-11-2018 Protein mass [...] Luís Marcus PA-C 08/11/18 14:44 EST Normal [facility] XR Scoliosis Study 2 or 3 [...] Electronically Signed in Other Vendor System) Normal [facility] Comment on above: Order Comment: Stand ing AP and lateral views in TLSO brace .eGFRon 08-10-2018 eGFR AA >60 Normal >=60 [facility] Comment on above: Result Comment: Resu lt = 0-14.9 mL/min/1.73 m2 Kidney failure or Dialysis Result = 15-29 mL/min/1.73 m2 Severe decrease in GFR Result = 30-59 mL/min/1.73 m2 Moderate decrease in GFR Result >= 60 mL/min/1.73 m2 Normal or increased GFR Performed By: #### C BC #### [address] [address] eGFR Non-AA >60 Normal >=60 [facility] Comment on above: Result Comment: Resu [...] dosing. Performed By: #### C BC #### [address] [address] Basic Metabolic Profileon Anion gap molar conc 12 mmol/L Normal 7-17 [facility] Comment on above: Performed By: #### C BC #### [address] [address] Calcium mass conc 8.1 mg/dL Low 8.5-10.3 [facility] Comment on above: Performed By: #### C BC #### [address] [address] Chloride molar conc 103 mmol/L Normal 98-110 [facility] Comment on above: Performed By: #### C BC #### [address] [address] CO2 molar conc 25 mmol/L Normal 22-32 [facility] Comment on above: Performed By: #### C BC #### [address] [address] Creatinine mass conc 0.83 mg/dL Normal 0.61-1.24 [facility] Comment on above: Performed By: #### C BC #### [address] [address] Glucose mass conc 99 mg/dL Normal 74-118 [facility] Comment on above: Performed By: #### C BC #### [address] [address] Potassium molar conc 4.3 mmol/L Normal 3.4-4.8 [facility] Comment on above: Performed By: #### C BC #### [address] [address] Sodium molar conc 136 mmol/L Normal 133-142 [facility] Comment on above: Performed By: #### C BC #### [address] [address] Urea nitrogen mass conc 12 mg/dL Normal 8-26 [facility] Comment on above: Performed By: #### C BC #### [address] [address] Urea nitrogen/Creatinine mass ratio 14.5 mg/mg Normal 10.0-20.0 [facility] Comment on above: Performed By: #### C BC #### [address] [address] CBC w/ Diffon 08-10-2018 Erythrocyte distribution width Ratio (RBC) 12.6 % Normal 11.6-14.8 [facility] Comment on above: Performed By: #### C BC #### [address] [address] Hematocrit Volume Fraction (Bld) 33.6 % Low 41.0-53.0 [facility] Comment on above: Performed By: #### C BC #### [address] [address] Hemoglobin mass conc (Bld) 11.4 g/dL Low 13.5-17.5 [facility] Comment on above: Performed By: #### C BC #### [address] [address] MCH Entitic mass (RBC) 29.9 pg Normal 27.0-35.0 [facility] Comment on above: Performed By: #### C BC #### [address] [address] MCHC mass conc (RBC) 34.0 % Normal 31.0-37.0 [facility] Comment on above: Performed By: #### C BC #### [address] [address] MCV Entitic volume (RBC) 87.8 fL Normal 80.0-100.0 [facility] Comment on above: Performed By: #### C BC #### [address] [address] Platelet mean volume Entitic volume (Bld) 8.1 fL Normal 6.7-10.6 [facility] Comment on above: Performed By: #### C BC #### [address] [address] Platelets #/vol (Bld) 182 x10*3/mcL Normal 150-350 [facility] Comment on above: Performed By: #### C BC #### [address] [address] RBC #/vol (Bld) 3.82 x10*6/mcL Low 4.30-5.80 [facility] Comment on above: Performed By: #### C BC #### [address] [address] WBC #/vol (Bld) 10.3 x10*3/mcL Normal 4.5-11.0 [facility] Comment on above: Performed By: #### C BC #### [address] [address] Diff Autoon 08-10-2018 Baso Absolute 0.1 x10*3/mcL Normal 0.0-0.2 [facility] Comment on above: Performed By: #### C BC #### [address] [address] Basophils/100 WBC (Bld) 1.4 % High 0.0-1.2 [facility] Comment on above: Performed By: #### C BC #### [address] [address] Eos Absolute 0.1 x10*3/mcL Normal 0.0-0.4 [facility] Comment on above: Performed By: #### C BC #### [address] [address] Eosinophils/100 WBC (Bld) 1.2 % Normal 0.0-6.1 [facility] Comment on above: Performed By: #### C BC #### [address] [address] Lymphocytes #/vol (Bld) 2.3 x10*3/mcL Normal 1.0-4.8 [facility] Comment on above: Performed By: #### C BC #### [address] [address] Lymphocytes/100 WBC (Bld) 22.7 % Low 27.2-40.8 [facility] Comment on above: Performed By: #### C BC #### [address] [address] Tillman Absolute 1.1 x10*3/mcL Normal 0.3-1.1 [facility] Comment on above: Performed By: #### C BC #### [address] [address] Monocytes/100 WBC (Bld) 10.6 % Normal 4.7-13.9 [facility] Comment on above: Performed By: #### C BC #### [address] [address] Neutro Absolute 6.6 x10*3/mcL Normal 1.8-7.7 [facility] Comment on above: Performed By: #### C BC #### [facility] [address] [place] [address] Neutro Auto 64.1 % Normal 47.2-70.8 [facility] Comment on above: Performed By: #### C BC #### [facility] [address] [place] [address] Orthopedic Progress Noteon 0 08-10-2018 Protein mass [...] of multilevel thoracic spine fusion. Signed By: Lma Burrows MD Computed Tomography CT Spine Thoracic [...] Luís Marcus PA-C 08/10/18 06:03 EST Normal [facility] .eGFRon 08-09-2018 eGFR AA >60 Normal >=60 [facility] Comment on above: Result Comment: Resu lt = 0-14.9 mL/min/1.73 m2 Kidney failure or Dialysis Result = 15-29 mL/min/1.73 m2 Severe decrease in GFR Result = 30-59 mL/min/1.73 m2 Moderate decrease in GFR Result >= 60 mL/min/1.73 m2 Normal or increased GFR Performed By: #### C BC #### [address] [address] eGFR Non-AA >60 Normal >=60 [facility] Comment on above: Result Comment: Resu [...] dosing. Performed By: #### C BC #### [address] [address] Basic Metabolic Profileon Anion gap molar conc 12 mmol/L Normal 7-17 [facility] Comment on above: Performed By: #### C BC #### [address] [address] Calcium mass conc 8.3 mg/dL Low 8.5-10.3 [facility] Comment on above: Performed By: #### C BC #### [address] [address] Chloride molar conc 106 mmol/L Normal 98-110 [facility] Comment on above: Performed By: #### C BC #### [address] [address] CO2 molar conc 24 mmol/L Normal 22-32 [facility] Comment on above: Performed By: #### C BC #### [address] [address] Creatinine mass conc 1.02 mg/dL Normal 0.61-1.24 [facility] Comment on above: Performed By: #### C BC #### [address] [address] Glucose mass conc 119 mg/dL High 74-118 [facility] Comment on above: Performed By: #### C BC #### [address] [address] Potassium molar conc 4.5 mmol/L Normal 3.4-4.8 [facility] Comment on above: Performed By: #### C BC #### [address] [address] Sodium molar conc 137 mmol/L Normal 133-142 [facility] Comment on above: Performed By: #### C BC #### [address] [address] Urea nitrogen mass conc 12 mg/dL Normal 8-26 [facility] Comment on above: Performed By: #### C BC #### [address] [address] Urea nitrogen/Creatinine mass ratio 11.8 mg/mg Normal 10.0-20.0 [facility] Comment on above: Performed By: #### C BC #### [address] [address] CBC w/ Diffon 08-09-2018 Erythrocyte distribution width Ratio (RBC) 12.8 % Normal 11.6-14.8 [facility] Comment on above: Performed By: #### . Automated Diff #### [address] [address] Hematocrit Volume Fraction (Bld) 39.9 % Low 41.0-53.0 [facility] Comment on above: Performed By: #### . Automated Diff #### [address] [address] Hemoglobin mass conc (Bld) 13.4 g/dL Low 13.5-17.5 [facility] Comment on above: Performed By: #### . Automated Diff #### [address] [address] MCH Entitic mass (RBC) 29.1 pg Normal 27.0-35.0 [facility] Comment on above: Performed By: #### . Automated Diff #### [address] [address] MCHC mass conc (RBC) 33.5 % Normal 31.0-37.0 [facility] Comment on above: Performed By: #### . Automated Diff #### [address] [address] MCV Entitic volume (RBC) 86.9 fL Normal 80.0-100.0 [facility] Comment on above: Performed By: #### . Automated Diff #### [place] [id number] Platelet mean volume Entitic volume (Bld) 8.2 fL Normal 6.7-10.6 [facility] Comment on above: Performed By: #### . Automated Diff #### [place] [address] Platelets #/vol (Bld) 302 x10*3/mcL Normal 150-350 [facility] Comment on above: Performed By: #### . Automated Diff #### [place] [address] RBC #/vol (Bld) 4.59 x10*6/mcL Normal 4.30-5.80 [facility] Comment on above: Performed By: #### . Automated Diff #### [address] [address] WBC #/vol (Bld) 14.2 x10*3/mcL High 4.5-11.0 [facility] Comment on above: Performed By: #### . Automated Diff #### [place] [id number] Dental Equipment Mechanic Progress Noteon 08-09-2018 Dental Equipment Mechanic Progress Note Met with patient regarding transitions [...] ___ Abbie Cordova 08/09/18 10:08 EST Normal [facility] Diff Autoon 08-09-2018 Baso Absolute 0.0 x10*3/mcL Normal 0.0-0.2 [facility] Comment on above: Performed By: #### . Automated Diff #### [address] [address] Basophils/100 WBC (Bld) 0.3 % Normal 0.0-1.2 [facility] Comment on above: Performed By: #### . Automated Diff #### [address] [address] Eos Absolute 0.0 x10*3/mcL Normal 0.0-0.4 [facility] Comment on above: Performed By: #### . Automated Diff #### [address] [address] Eosinophils/100 WBC (Bld) 0.1 % Normal 0.0-6.1 [facility] Comment on above: Performed By: #### . Automated Diff #### [address] [address] Lymphocytes #/vol (Bld) 1.2 x10*3/mcL Normal 1.0-4.8 [facility] Comment on above: Performed By: #### . Automated Diff #### [address] [address] Lymphocytes/100 WBC (Bld) 8.6 % Low 27.2-40.8 [facility] Comment on above: Performed By: #### . Automated Diff #### [address] [address] Tillman Absolute 1.0 x10*3/mcL Normal 0.3-1.1 [facility] Comment on above: Performed By: #### . Automated Diff #### [address] [address] Monocytes/100 WBC (Bld) 6.9 % Normal 4.7-13.9 [facility] Comment on above: Performed By: #### . Automated Diff #### [facility] [address] [place] [address] Neutro Absolute 11.9 x10*3/mcL High 1.8-7.7 [facility] Comment on above: Performed By: #### . Automated Diff #### [facility] [address] [place] [address] Neutro Auto 84.1 % High 47.2-70.8 [facility] Comment on above: Performed By: #### . Automated Diff #### [place] [address] [place] [id number] Orthopedic Progress Noteon 0 08-09-2018 Protein mass [...] Luís Marcus PA-C 08/09/18 06:28 EST Normal [facility] Progress Note-Nurseon 2018 Protein mass conc [...] ___ Petra Kim 08/09/18 10:50 EST Normal [facility] XR Spine Thoracic Minimum 4 Viewson [...] Electronically Signed in Other Vendor System) Normal [facility] CT Spine Thoracic w/o Contra ston [...] exam here. Consider MRI. Radiation Dose Estimate: CTDI(mGy):0.066692 / / / kVp:120.364411 / mAs:0.645719 / / / DLP(mGy-cm):9.901111Pmn y Part: Abdomen CTDI(mGy):0.682977 / / / kVp:140.193428 / mAs:0.574035 / / / DLP(mGy-cm):14.761645Pf dy Part: Final Dictated by: Chris Don MD Dictated DT/TM: 08.08.2018 11:02 am Signed by: Chris Don MD Signed (Electronic Signature): 08.08.2018 11:22 am (If Report Is Signed, Electronically Signed in Other Vendor System) Normal [facility] Comment on above: Order Comment: tried to call office at 18:05. office already closed and unable to leave message regarding this to be a future order. Hgb & Hcton 08-08-2018 Hematocrit Volume Fraction (Bld) 42.8 % Normal 41.0-53.0 [facility] Comment on above: Performed By: #### . Automated Diff #### [place] [address] Hemoglobin mass conc (Bld) 14.4 g/dL Normal 13.5-17.5 [facility] Comment on above: Performed By: #### . Automated Diff #### [place] [address] [place] [address] Operative Reporton 9 Operative Report Indication for [...] decompression and co-surgeon Leida Lynn for instrumentation Vp Genetic Luís HAMEED Anesthesia General anesthetic via endotracheal [...] is secured. He is carefully turned onto [facility] operating room table and head and [...] through T12 are resected using Luis Alberto soiled linen distributor and this bone is harvested for placement [...] of autograft from local harvest supplemented with Corson demineralized bone matrix. The wound is reirrigated [...] surgical procedure was assisted by my physician?s freezer assistant. Her presence was needed throughout the case for manipulation and positioning the surgical arm as well as positioning the surgical instruments as well as primarily assisting me through procedure. Due to the complexity of condition, the skill set of an neurosurgical physician freezer assistant was needed throughout the case. During the surgical case, the surgical aides teacher was working the back table and was not available for assistance. Tourniquet Time None Sponge/Needle Count Per nursing correct Fluid Count 2500 mL crystalloid Electronically signed by ___ Shane PANCHAL MD, Leida Cross 08/08/18 17:22 EST Normal [facility] Operative Report Operative Report DATE OF [...] 5. Use of local autograft bone and Corson Matrix SURGEON: Jesus Shah MD for decompression Leida Lynn MD for instrumentation ATTENDANT LODGING FACILITIES: Luís Staley assisted throughout the procedure with [...] injury, paralysis, non-union, DVT/PE, bleeding, chronic pain, ID, stroke, etc. All questions were answered and [...] by entirely resecting the facet joint. Two Basco chrome rods were cut to size and [...] bone was packed over the decorticated elements bilaterally.Corson matrix was placed on top of this [...] and dusted with 3 g vancomycin powder. [place] used for skin and antibiotic ointment apploed [...] Jesus Reyes MD 08/09/18 11:58 EST Normal [facility] Operative Report Preoperative Diagnos is Scheuermann's kyphosis Intractable thoracic pain Postoperative Diagnosis Scheuermann's kyphosis Intractable thoracic pain Operation 1. T7-T12 decompression with T7-T12 bilateral [place] Osteotomies 2. T6-L2 posterior spinal fusion using in situ deformity correction Surgeon(s) Dr. Reyes for decompression Dr. 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 Exercise Home/Environment Lives with Children, Spouse. Living [...] Jesus Reyes MD 08/08/2018 14:55 EST Normal [facility] .eGFRon 07-31-2018 eGFR Non-AA >60 Normal >=60 [facility] Comment on above: Result Comment: Resu [...] dosing. Performed By: #### E GFR #### [address] [address] eGFR AA >60 Normal >=60 [facility] Comment on above: Result Comment: Resu lt = 0-14.9 mL/min/1.73 m2 Kidney failure or Dialysis Result = 15-29 mL/min/1.73 m2 Severe decrease in GFR Result = 30-59 mL/min/1.73 m2 Moderate decrease in GFR Result >= 60 mL/min/1.73 m2 Normal or increased GFR Performed By: #### E GFR #### [address] [address] ABO/Rhon 07-31-2018 ABO/Rh SD 1.11.19 DCon: 0 ABO/Rh: O POS Normal [facility] Comment on above: Performed By: #### A MONISHA #### [facility] (DEFAULT) [address] [place] [address] [id number] [address] ABSC Autoon 07-31-2018 ABSC Auto Negative Normal [facility] Comment on above: Performed By: #### A SA #### [address] [address] Basic Metabolic Profileon Anion gap molar conc 15 mmol/L Normal 7-17 [facility] Comment on above: Performed By: #### C [id number] #### [address] [address] Calcium mass conc 9.7 mg/dL Normal 8.5-10.3 [facility] Comment on above: Performed By: #### C [id number] #### [address] [address] Chloride molar conc 96 mmol/L Low 98-110 [facility] Comment on above: Performed By: #### C [id number] #### [address] [address] CO2 molar conc 28 mmol/L Normal 22-32 [facility] Comment on above: Performed By: #### C [id number] #### [address] [address] Creatinine mass conc 1.07 mg/dL Normal 0.61-1.24 [facility] Comment on above: Performed By: #### C [id number] #### [address] [address] Glucose mass conc 94 mg/dL Normal 74-118 [facility] Comment on above: Performed By: #### C [id number] #### [address] [address] Potassium molar conc 4.4 mmol/L Normal 3.4-4.8 [facility] Comment on above: Performed By: #### C [id number] #### [address] [address] Sodium molar conc 135 mmol/L Normal 133-142 [facility] Comment on above: Performed By: #### C [id number] #### [address] [address] Urea nitrogen mass conc 20 mg/dL Normal 8-26 [facility] Comment on above: Performed By: #### C [id number] #### [address] [address] Urea nitrogen/Creatinine mass ratio 18.7 mg/mg Normal 10.0-20.0 [facility] Comment on above: Performed By: #### C [id number] #### [address] [address] CBC w/ Diffon 07-31-2018 Erythrocyte distribution width Ratio (RBC) 13.0 % Normal 11.6-14.8 [facility] Comment on above: Performed By: #### C BC #### [address] [address] Hematocrit Volume Fraction (Bld) 51.4 % Normal 41.0-53.0 [facility] Comment on above: Performed By: #### C BC #### [address] [address] Hemoglobin mass conc (Bld) 17.4 g/dL Normal 13.5-17.5 [facility] Comment on above: Performed By: #### C BC #### [place] [id number] MCH Entitic mass (RBC) 29.8 pg Normal 27.0-35.0 [facility] Comment on above: Performed By: #### C BC #### [place] [id number] MCHC mass conc (RBC) 33.9 % Normal 31.0-37.0 [facility] Comment on above: Performed By: #### C BC #### [place] [id number] MCV Entitic volume (RBC) 87.7 fL Normal 80.0-100.0 [facility] Comment on above: Performed By: #### C BC #### [place] [id number] Platelet mean volume Entitic volume (Bld) 7.8 fL Normal 6.7-10.6 [facility] Comment on above: Performed By: #### C BC #### [place] [id number] Platelets #/vol (Bld) 295 x10*3/mcL Normal 150-350 [facility] Comment on above: Performed By: #### C BC #### [address] [address] RBC #/vol (Bld) 5.86 x10*6/mcL High 4.30-5.80 [facility] Comment on above: Performed By: #### C BC #### [address] [address] WBC #/vol (Bld) 9.1 x10*3/mcL Normal 4.5-11.0 [facility] Comment on above: Performed By: #### C BC #### [address] [address] Diff Autoon 07-31-2018 Baso Absolute 0.1 x10*3/mcL Normal 0.0-0.2 [facility] [place] Comment on above: Performed By: #### . Automated Diff #### [address] [address] Basophils/100 WBC (Bld) 1.0 % Normal 0.0-1.2 [facility] Comment on above: Performed By: #### . Automated Diff #### [address] [address] Eos Absolute 0.3 x10*3/mcL Normal 0.0-0.4 [facility] Comment on above: Performed By: #### . Automated Diff #### [address] [address] Eosinophils/100 WBC (Bld) 3.1 % Normal 0.0-6.1 [facility] Comment on above: Performed By: #### . Automated Diff #### [address] [address] Lymphocytes #/vol (Bld) 2.6 x10*3/mcL Normal 1.0-4.8 [facility] Comment on above: Performed By: #### . Automated Diff #### [address] [address] Lymphocytes/100 WBC (Bld) 28.2 % Normal 27.2-40.8 [facility] Comment on above: Performed By: #### . Automated Diff #### [address] [address] Tillman Absolute 0.8 x10*3/mcL Normal 0.3-1.1 [facility] [place] Comment on above: Performed By: #### . Automated Diff #### [address] [address] Monocytes/100 WBC (Bld) 9.3 % Normal 4.7-13.9 [facility] Comment on above: Performed By: #### . Automated Diff #### [address] [address] Neutro Absolute 5.3 x10*3/mcL Normal 1.8-7.7 [facility] Comment on above: Performed By: #### . Automated Diff #### [facility] [address] [place] [address] Neutro Auto 58.4 % Normal 47.2-70.8 [facility] Comment on above: Performed By: #### . Automated Diff #### [address] [address] MRSA, PCRon 07-31-2018 INR Coag RelTime (Bld) Negative Normal [facility] Comment on above: Result Comment: The PayTouch Xpert MRSA Assay is a qualitative in [...] clinician. Performed By: #### M RSAPC #### [address] [address] Neurosurgery Office/Clinic N oteon 07-31-2018 Neurosurgery Office/Clinic [...] rare alcohol intake Patient works in a [employer]-no legal or Workmen's Compensation claims on today's [...] MD, Leida Cross 07/31/18 11:40 EST Normal [facility] PTon 07-31-2018 INR Coag RelTime (PPP) 1.0 {INR} Normal <=3.5 [facility] Comment on above: Result Comment: INR has no normal range. INR Therapeutic range is: 2.0-3.0 (AF, CVA, TIAs, DVT prophylaxis, acute DVT) 2.5-3.5 ([facility] heart valves, recurrent thrombosis/emboli) Performed By: #### P TINR #### [address] [address] Prothrombin time (PT) Coag time (PPP) 10.4 s Normal 9.1-11.6 [facility] Comment on above: Performed By: #### P TINR #### [address] [address] PTTon 07-31-2018 aPTT Coag time (Bld) 28.9 s Normal 19.2-29.7 [facility] Comment on above: Performed By: #### P TT #### [address] [address] XR Chest 2 Viewson 9 XR Chest [...] Electronically Signed in Other Vendor System) Normal [facility] SCOLIOSIS 2 [facility] 04-24-2018 SCOLIOSIS 2 [facility] [place] [place], [place] [address] =====Patient Name: CHIQUITA WEEKS : 1990Sex: MAge: Race: WhiteMRN: [id number]. Location: 84Patient Status: OVisit #: [id number] Date: 04/24/2018 3:05:00 PMCompleted Date: 04/24/2018 03:19 PMRequesting Provider: COOKIE COLES Attending Provider: COOKIE COLES Report Copy To: Signs & Symptoms: M54.6 Pain in thoracic spine [id number]: AthenaComments: , , , Ordering Provider - COOKIE COLES MD , Exam: SCOLIOSIS 2 VWSAccession #: [id number] SCOLIOSIS 2 S 04/24/2018 3:19 PM EDT [...] abnormality. Electronically signed by:Adelfo Kay. Transcribed by: [email or web address], User Resident: Electronically Signed by: ADELFO KAY @ 04/24/2018 10:56 PM Normal [facility] Comment on above: Order Comment: , , = ========= , Ordering Provider - COOKIE COLES MD , Encounters Encounter Date Encounter Type Care Provider Facility Start: 02-01-2022 End: 02-02-2022 ambulatory ERNST PENA Facility: Start: 06-23-2021 ambulatory [facility] Facility: Start: 09-25-2018 End: 09-26-2018 ambulatory [facility] CYRIL MIGUEL A Facility:[facility] Start: 08-08-2018 End: 08-12-2018 Evaluation and management of inpatient SELVON MARCIA Facility:[facility] Start: 07-31-2018 End: 08-01-2018 Patient encounter procedure [facility]il [facility] Facility:[facility] Start: 07-31-2018 End: 08-01-2018 Patient encounter procedure LEIDA LYNN Facility:[facility] Start: 07-30-2018 Patient encounter procedure SELVON MARCIA Facility:[facility] Start: 04-24-2018 End: 04-25-2018 Patient encounter COOKIE COLES Facility:[facility] Start: 04-15-2018 End: 04-16-2018 Patient encounter DEFAULT PHYSICIAN Facility:[facility] Procedures Date Procedure Procedure Detail Performing Clinician Start: 02-01-2022 PSA screening ERNST OROURKE Comment on above: Performed By: #### P [facility] #### [facility] [address] [place] [address] Dr. Armida Brown Payers Date Payer Category Payer Unknown 2017 Unknown [id number] 1990 Unknown [id number] 2.16.8 [id number] 1990 Unknown [id number] 2.16.8 [id number] 1990 Unknown [id number] 2.16.8 [id number] 1988 Unknown [id number] 2.16.8 [id number] 1988 Unknown [id number] 2.16.8 [id number] 1988 Unknown [id number] 2.16.8 [id number] 1988 Unknown [id number] 2.16.84 [id number] 1988 Unknown [id number] 2.16.84 [id number] 1988 Unknown [id number] 2.16.84 [id number] 1988 Unknown [id number] 2.16.84 [id number] 1961 Medicaid [id number] 1961 Medicare [id number] 1961 Unknown [id number] Unknown [id number] Summary Purpose Family History No Family History [...] 5. Use of local autograft bone and [employer] SURGEON: Jesus Shah MD for decompression [...] section and content) DATE CREATED AUTHOR 05/29/2018 [facility] DATE CREATED AUTHOR AUTHOR'S ORGANIZ ATION 08/25/2018 [facility] DATE CREATED AUTHOR AUTHOR'S ORGANIZ ATION 02/15/2022 [facility] DATE CREATED AUTHOR AUTHOR'S ORGANIZ ATION 09/27/2022 [facility] FOR RECORDS PERTAINING TO PATIENTS WHO ARE [...] BE BASED ON THE PRIMARY CLINICAL RECORDS. [facility]. provides no warranty or guarantee of the accuracy or completeness of information in this document.
[2024-02-19 07:04] VITALS: BP 129/91; PULSE 86; TEMP 36.6; O2SAT 95
[2024-02-19 07:58] VITALS: BP 134/89; PULSE 77; O2SAT 96
[2024-02-19 07:59] VITALS: BP 126/85; PULSE 75; O2SAT 96
[2024-02-19] MEDS: BUPIVACAINE HCL 0.25% PF 25 MG/10 ML VIAL 5 ML INJ (08:03)
--- NOTE | 2024-02-19 09:02 | W.PM.PROCNOT ---
Date of procedure: 02/19/24 Procedure: PROCEDURE: Diagnostic left sided T11-12 , left sided T12-L1 nerve root injection under fluoroscopic guidance. 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 POSTOPERATIVE DIAGNOSIS: same as preop IMMEDIATE COMPLICATIONS: None. SOLUTION USED FOR INJECTION: 2% lidocaine 5 mL and 1 mL used for injection at each site. Omnipaque dye used to confirm needle tip placement. PROCEDURE: After informed consent was obtained from the patient, brought to the OR, placed in the prone position. The skin overlying the area was prepped and draped in sterile fashion using Betadine. A 25 gauge 3?? spinal needle was inserted over the targeted areas directed towards the right T11-T12 nerve root, under fluoroscopic guidance. After encountering the same, no indication of intravascular or intraneural or intrathecal needle tip placement, 1 mL of solution was injected at the site. This was repeated in a similar fashion at the right T12-L1 level. Post-op needle was removed. Transferred to recovery in stable condition. He reports dramatic decrease in pain symptoms post procedurally. Anesthesia: Local Surgeon: Annette Banks Condition: stable Disposition: PACU
== END 2024-02-19 08:06 | disposition home or self-care (01) ==
LOC: SURGOUT 06:51
PROVIDERS: PCP Nurse Practitioner Family; Visit Provider Anesthesiology Pain Medicine
DX: M96.1 Postlaminectomy syndrome, not elsewhere classified (principal); G24.8 Other dystonia
CPT/HCPCS: 64479; 64480; J0665

== ENCOUNTER 2024-03-06 08:03 | Outpatient (OUT) | payer MEDICARE, MEDICAID, SELFPAY ==
--- NOTE | 2024-03-06 08:10 | P.CN_ITS ---
Consult Note: HPI Data of Consult Patient: known to practice within the last 3 years Requesting Physician: Letty Ayala NP Primary Care Provider: ERNST BECKY Consult Narrative Reason for consult: chronic back pain Narrative: He is a 34-year-old male, presently has pain in the above mentioned area for several years. 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 He reports this seemed to have helped with symptoms at that time; however, he has developed progressive pain, described as a 3-7/10 pain, constant, throbbing and occasional sharp, burning component, increased with activity such as standing, walking and performing transitioning maneuvers. He appears most comfortable in the semi-recumbent position. Denies any change in bowel and bladder habits or new sensorimotor changes in the lower extremities. Patient finding benefit to current medication regimen without side effects. Recently underwent right T11/12 T12/L1 diagnostic TFESI with significant improvement, greater than 80% improvement that day. Patient finding benefit to aquatic therapy. cc:: CC: Letty Ayala NP Review of Systems ROS Status of ROS 10 or more systems reviewed and unremark able except as noted in history and below Musculoskeletal Reports: back pain PFSH PFSH Medical History (Updated 12/05/23 @ 10:28 by Letty Ayala NP) Anxiety ?F41.9 - Anxiety disorder, unspecified (ICD-10) HTN (hypertension) ?I10 - Essential (primary) hypertension (ICD-10) Surgical History History of spinal fusion ?Z98.1 - Arthrodesis status (ICD-10) Meds Home Medications and Allergies Home Medications ?Medication ?Instructions ?Recorded ?Confirmed ?Type baclofen 10 mg tablet 10 mg PO DAILY 11/06/23 02/19/24 History bupropion HCl 300 mg 24 hr tablet, 300 mg PO DAILY 11/06/23 02/19/24 History extended release (Wellbutrin XL) hydrochlorothiazide 25 mg tablet 25 mg PO DAILY 11/06/23 02/19/24 History lisinopril 40 mg tablet 40 mg PO DAILY 11/06/23 02/19/24 History metoprolol tartrate 50 mg tablet 50 mg PO BID 11/06/23 02/19/24 History zonisamide 100 mg capsule 100 mg PO .HS 11/06/23 02/19/24 History (Zonegran) Allergies Allergy/AdvReac Type Severity Reaction Status Date / Time No Known Drug Allergies Allergy Verified 02/19/24 07:07 Exam Narrative Exam Narrative: His examination is notable for patient having dysesthesia and hyperesthesia overlying the distribution of the right T12 dermatome, as well as possibly at the T11 and L1 dermatome respectively also on the right side. This is associated with significant myofascial dysfunction with dystonic changes involving the right erector spinae muscle, with severe tenderness overlying this area as well, resulting in mild lumbar dorsiflexion as well as mild lateral rotation to the right. No appreciable signs consistent with myelopathy involving his lower extremities. No appreciable radiculopathy involving L1 t hrough S1 involving the lower extremities. improvement over left T12-L1 dermatomal pattern and myofascial tenderness. Constitutional Documenting provider has reviewed patient's vital signs: yes Common normals: no apparent distress, oriented x3, healthy appearing, alert and well nourished General appearance: cooperative HENMT Common normals: normocephalic, hearing grossly normal bilaterally and moist oral mucous membranes Head and scalp: normocephalic Eye Common normals: PERRL Pupil: PERRL Neck & C-Spine Common normals: full ROM General: normal visual inspection Chest Common normals: inspection of chest normal Respiratory Common normals: normal respiratory effort, no retractions and no use of accessory muscles Neuro Common normals: oriented x3, CN's II-XII intact bilaterally, moves all extremities, no focal motor deficits, no sensory deficits noted and deep tendon reflexes 2+ bilaterally Sensorium/orientation: alert Motor exam: strength 5/5 throughout and no movement abnormalities noted Psych Common normals: mental status grossly normal, thought process normal, cooperative, affect normal, speech normal and activity/motor behavior normal Speech: normal speech Thought process: normal thought process Results Additional Findings Additional findings: If on a controlled substance or opioids, I have checked an [place]AR[place] report on this patient and there are no aberrancies noted in the prescribing history.??If on a controlled substance or opioid a drug screen was completed and reviewed within the last year, and if there has not been a drug screen completed we ordered one today to monitor higher risk, state monitored pain medication use. As part of providing excellent, safe, comprehensive care, the following was completed at our patient's visit: 1. A medication reconciliation and review to ensure accurate knowledge of current/active medications, including asking our patients to inform us about any [id number] medications or herbal remedies/nutritional supplements/alternative remedies. 2. A review to specifically ensure our patients have had annual screening for s creening for depression, screening for tobacco use, and screening for unhealthy alcohol use. For concerning screenings had a discussion with the patient, provided patient education, and recommended follow-up with primary care provider when appropriate. If patient noted with a risk of falling, they received education on strength, gait, and balance training to prevent future risk of falling. Assessment and Plan Assessment and Plan (1) Dystonia: (2) Post laminectomy syndrome: Plan 1. Chronic pain secondary to post laminectomy syndrome with thoracolumbar neuritis and dysesthesia and hyperesthesia right T12, possibly at T11 and possibly L1, but most severe at the T12 level of the right side. 2. Myofascial dysfunction with cord dystonic changes left erector spinae muscle. continue zonegran 50mg AM and 100mg HS, continue baclofen 10mg 1.5 tabs HS PRN proceed with right erector spinae botox f/u after injection
--- OUTSIDE RECORDS SUMMARY | 2024-03-06 08:18 | XMS_ITS | CCD ---
Author Organization [facility] Care Team Providers Care Dedicated Owner Operator Name Role Phone PHYSICIAN, DEFAULT Unavailable Unavailable PHYSICIAN, DEFAULT Unavailable Unavailable ELGAFY, COOKIE K Unavailable Unavailable ELGAFY, COOKIE K Unavailable Unavailable ELGAFY, COOKIE K Unavailable Unavailable UNKNOWN, PHYSICIAN Unavailable Unavailable MARCIA, SELVON Admitting Unavailable MARCIA, SELVON Attending Unavailable [facility] Primary Care Unavailable Luís Marcus Consulting Unavailable LEIDA LYNN Consulting Unavaila ble Lynn, Leida Cross Consulting Unavaila ble SpychalsEllen zeng Consulting Unavailable Delfino Montoya Consulting Unavailable LEIDA LYNN Attending Unavaila ble [facility] Unavailable SLOANE HIGH PA-C Attending Unavail able MARCIA, SELVON Attending Unavailable [facility] Unavailable BECKY, ERNST Primary Care Unavailable TAISHA, DR SCOOTER Webster Attending Unavailable TAISHA, DR SCOOTER Webster Admitting Unavailable CHANTE HERNANDEZ Consulting Unavailable BECKY, ERNST Primary Care Unavailable BECKY, ERNST Admitting Unavailable ERNST PENA Attending Unavailable ERNST PENA Consulting Unavailable [facility] Unavaila ble MARCIA, SELVON F Referring Unavailable MARCIA, SELVON F Attending Unavailable MARCIA, SELVON F Admitting Unavailable Allergies Allergy Classification Reported Allergen(s) Allergy Type Date of Onset Reaction(s) Facility (1 source) No Known Medication Allergies; Translations: [No Known Medication Allergies] Propensity to adverse reactions to drug (disorder) [facility] Repository Problems Problem Classification Problem Date Documented [...] INSULINon 02-02-2022 Insulin 16.5 uIU/mL Normal 2.6-24.9 [facility] Comment on above: Performed By: #### I NSULIN #### [facility] [address] [place] [address] Dr. Armida Brown CBC AUTO DIFFon 02-01-2022 BASO # 0.1 103/ul Normal 0.0-0.1 [facility] Comment on above: Performed By: #### C BC #### [facility] [address] [place] [address] Dr. Armida Brown Basophils/100 WBC (Bld) 0.9 % Normal 0.2-2.0 [facility] Comment on above: Performed By: #### C BC #### [facility] [address] [place] [address] Dr. Armida Brown EO # 0.4 103/ul Normal 0.0-0.7 [facility] Comment on above: Performed By: #### C BC #### [facility] [address] [place] [address] Dr. Armida Brown Eosinophils/100 WBC (Bld) 4.7 % Normal 0.9-7.0 [facility] Comment on above: Performed By: #### C BC #### [facility] [address] [place] [address] Dr. Armida Brown Erythrocyte distribution width (RBC) [Ratio] 13.1 % Normal 11.0-15.0 [facility] Comment on above: Performed By: #### C BC #### [facility] [address] [place] [address] Dr. Armida Brown Hematocrit (Bld) [Volume fraction] 48.6 % Normal 42.0-54.0 [facility] Comment on above: Performed By: #### C BC #### [facility] [address] [place] [address] Dr. Armida Brown Hemoglobin (Bld) [Mass/Vol] 16.5 g/dL Normal 14.0-18.0 [facility] Comment on above: Performed By: #### C BC #### [facility] [address] [place] [address] Dr. Armida Brown IG # 0.05 10e3/ul Critically high 0.00-0.03 [facility] Comment on above: Performed By: #### C BC #### [facility] [address] [place] [address] Dr. Armida Brown IG % 0.6 % Critically high 0.0-0.5 [facility] Comment on above: Performed By: #### C BC #### [facility] [address] [place] [address] Dr. Armida Brown LYMPH # 1.7 103/ul Normal 1.2-3.8 [facility] Comment on above: Performed By: #### C BC #### [facility] [address] [place] [address] Dr. Armida Brown Lymphocytes/100 WBC (Bld) 19.6 % Critically low 20.5-60.0 [facility] Comment on above: Performed By: #### C BC #### [facility] [address] [place] [address] Dr. Armida Brown MANUAL DIFF REQ NO Normal [facility] Comment on above: Performed By: #### C BC #### [facility] [address] [address] [address] Armida Brown MCH (RBC) [Entitic mass] 30.1 pg Normal 25.9-34.0 [facility] Comment on above: Performed By: #### C BC #### [facility] [address] [address] [address] Armida Brown MCHC (RBC) [Mass/Vol] 34.0 g/dL Normal 29.9-35.2 [facility] Comment on above: Performed By: #### C BC #### [facility] [address] [place] [address] Dr. Armida Brown MCV (RBC) [Entitic vol] 88.5 fL Normal 80.0-94.0 [facility] Comment on above: Performed By: #### C BC #### [facility] [address] [place] [address] Dr. Armida Brown MONO # 0.5 103/ul Normal 0.3-0.8 [facility] Comment on above: Performed By: #### C BC #### [facility] [address] [place] [address] Dr. Armida Brown Monocytes/100 WBC (Bld) 5.6 % Normal 1.7-12.0 [facility] Comment on above: Performed By: #### C BC #### [facility] [address] [place] [address] Dr. Armida Brown NEUT # 6.1 103/ul Normal 1.4-6.5 [facility] Comment on above: Performed By: #### C BC #### [facility] [address] [place] [address] Dr. Armida Brown Neutrophils/100 WBC (Bld) 68.6 % Normal 43.0-75.0 [facility] Comment on above: Performed By: #### C BC #### [facility] [address] [place] [address] Dr. Armida Brown Platelet mean volume (Bld) [Entitic vol] 9.3 fL Critically low 9.5-13.5 [facility] Comment on above: Performed By: #### C BC #### [facility] [address] [address] [address] Armida Brown PLT 293 103/ul Normal 150-450 [facility] Comment on above: Performed By: #### C BC #### [facility] [address] [address] [address] Armida Brown RBC 5.49 106/ul Normal 4.70-6.10 [facility] Comment on above: Performed By: #### C BC #### [facility] [address] [address] [address] Armida Brown WBC 8.9 103/ul Normal 4.0-11.0 [facility] Comment on above: Performed By: #### C BC #### [facility] [address] [place] [address] Dr. Armida Brown FREE THYROXINE INDEX T7on FTI 3.33 Normal 1.30-4.50 [facility] Comment on above: Performed By: #### T SH, CMP, URIC, LIPID, T7 #### [facility] [address] [address] [address] Armida Brown T3U 35.0 % Normal 33.0-40.0 [facility] Comment on above: Performed By: #### T SH, CMP, URIC, LIPID, T7 #### [facility] [address] [place] [address] Dr. Armida Brown T4 [Mass/Vol] 9.50 ug/dL Normal 4.50-12.10 [facility] Comment on above: Performed By: #### T SH, CMP, URIC, LIPID, T7 #### [facility] [address] [place] [address] Dr. Armida Brown GLYCOHEMOGLOBIN A1Con 2021 ADA RECOMMENDATION SEE BELOW Normal [facility] Comment on above: Result Comment: ADA RECOMMENDED LIMIT 4.0 - 6.0 ADA THERAPEUTIC TARGET < 7.0 ACTION SUGGESTED > 7.0 Performed By: #### A 1C #### [facility] [address] [address] [address] Armida Brown Glucose [Mass/Vol] 103 mg/dL Normal [facility] Comment on above: Performed By: #### A 1C #### [facility] [address] [place] [address] Dr. Armida Brown HbA1c (Bld) [Mass fraction] 5.2 % Normal 4.5-6.2 [facility] Comment on above: Performed By: #### A 1C #### [facility] [address] [place] [address] Dr. Armida Brown LIPID PROFILEon 02-01-2022 CHOL-HDL RATIO NORM SEE BELOW Normal [facility] Comment on above: Result Comment: 3.3 - 4.4 LOW RISK 4.4 - 7.1 AVERAGE RISK 7.1 - 11.0 MODERATE RISK >11.0 HIGH RISK Performed By: #### T SH, CMP, URIC, LIPID, T7 #### [facility] [address] [place] [address] Dr. Armida Brown Cholesterol [Mass/Vol] 183 mg/dL Normal <=200 [facility] Comment on above: Performed By: #### T SH, CMP, URIC, LIPID, T7 #### [facility] [address] [place] [address] Dr. Armida Brown Cholesterol in HDL [Mass/Vol] 33 mg/dL Critically low 40-60 [facility] Comment on above: Performed By: #### T SH, CMP, URIC, LIPID, T7 #### [facility] [address] [address] [address] Armida Brown Cholesterol in LDL [Mass/Vol] 123.0 mg/dL Normal [facility] Comment on above: Performed By: #### T SH, CMP, URIC, LIPID, T7 #### [facility] [address] [place] [address] Dr. Armida Brown Cholesterol.total/C holesterol in HDL [Mass ratio] 5.5 {ratio} Normal [facility] Comment on above: Performed By: #### T SH, CMP, URIC, LIPID, T7 #### [facility] [address] [place] [address] Dr. Armida Brown HDL NORMAL > or = 60 mg/dl - LO W CARDIOVASCULAR RISK <40 mg/dl - HIGH CARDIOVASCULAR RISK Normal [facility] Comment on above: Performed By: #### T SH, CMP, URIC, LIPID, T7 #### [facility] [address] [address] [address] Armida Brown LDL CALC NORMAL SEE BELOW Normal [facility] Comment on above: Result Comment: <100 mg/dl OPTIMAL 100 - 129 mg/dl NEAR OR ABOVE OPTIMAL 130 - 159 mg/dl BORDERLINE HIGH 160 - 189 mg/dl HIGH >190 mg/dl VERY HIGH Performed By: #### T SH, CMP, URIC, LIPID, T7 #### [facility] [address] [address] [address] Armida Brown Triglyceride [Mass/Vol] 135 mg/dL Normal <=150 [facility] Comment on above: Performed By: #### T SH, CMP, URIC, LIPID, T7 #### [facility] [address] [address] [address] Armida Brown VLDL CALC 27.0 mg/dL Normal [facility] Comment on above: Performed By: #### T SH, CMP, URIC, LIPID, T7 #### [facility] [address] [address] [address] Armida Brown PROF 14(COMP METB)on 022 Albumin [Mass/Vol] 4.1 g/dL Normal 3.4-5.0 [facility] Comment on above: Performed By: #### T SH, CMP, URIC, LIPID, T7 #### [facility] [address] [address] [address] Armida Brown Albumin/Globulin [Mass ratio] 1.1 {ratio} Normal [facility] Comment on above: Performed By: #### T SH, CMP, URIC, LIPID, T7 #### [facility] [address] [address] [address] Armida Brown ALP [Catalytic activity/Vol] 79 U/L Normal 46-116 [facility] Comment on above: Performed By: #### T SH, CMP, URIC, LIPID, T7 #### [facility] [address] [address] [address] Armida Brown ALT [Catalytic activity/Vol] 58 U/L Normal 16-63 [facility] Comment on above: Performed By: #### T SH, CMP, URIC, LIPID, T7 #### [facility] [address] [address] [address] Armida Brown Anion gap [Moles/Vol] 12.6 mmol/L Normal [facility] Comment on above: Performed By: #### T SH, CMP, URIC, LIPID, T7 #### [facility] [address] [place] [address] Dr. Armida Brown AST [Catalytic activity/Vol] 23 U/L Normal 15-37 [facility] Comment on above: Performed By: #### T SH, CMP, URIC, LIPID, T7 #### [facility] [address] [place] [address] Dr. Armida Brown Bilirubin [Mass/Vol] 0.6 mg/dL Normal 0.2-1.0 [facility] Comment on above: Performed By: #### T SH, CMP, URIC, LIPID, T7 #### [facility] [address] [address] [address] Armida Brown Calcium [Mass/Vol] 8.9 mg/dL Normal 8.5-10.1 [facility] Comment on above: Performed By: #### T SH, CMP, URIC, LIPID, T7 #### [facility] [address] [place] [address] Dr. Armida Brown Chloride [Moles/Vol] 104 mmol/L Normal 98-107 [facility] Comment on above: Performed By: #### T SH, CMP, URIC, LIPID, T7 #### [facility] [address] [place] [address] Dr. Armida Brown CO2 [Moles/Vol] 26.7 mmol/L Normal 21.0-32.0 [facility] Comment on above: Performed By: #### T SH, CMP, URIC, LIPID, T7 #### [facility] [address] [place] [address] Dr. Armida Brown Creatinine [Mass/Vol] 0.99 mg/dL Normal 0.70-1.30 [facility] Comment on above: Performed By: #### T SH, CMP, URIC, LIPID, T7 #### [facility] [address] [address] [address] Armida Brown EGFR-AF JAPANESE >60 Normal >=60 [facility] Comment on above: Performed By: #### T SH, CMP, URIC, LIPID, T7 #### [facility] [address] [address] [address] Armida Brown EGFR-NON AF JAPANESE >60 Normal >=60 [facility] Comment on above: Performed By: #### T SH, CMP, URIC, LIPID, T7 #### [facility] [address] [place] [address] Dr. Armida Brown Globulin (S) [Mass/Vol] 3.6 g/dL Normal [facility] Comment on above: Performed By: #### T SH, CMP, URIC, LIPID, T7 #### [facility] [address] [place] [address] Dr. Armida Brown Glucose [Mass/Vol] 100 mg/dL Normal 74-106 [facility] Comment on above: Performed By: #### T SH, CMP, URIC, LIPID, T7 #### [facility] [address] [place] [address] Dr. Armida Brown Potassium [Moles/Vol] 4.3 mmol/L Normal 3.5-5.1 [facility] Comment on above: Performed By: #### T SH, CMP, URIC, LIPID, T7 #### [facility] [address] [place] [address] Dr. Armida Brown Protein [Mass/Vol] 7.7 g/dL Normal 6.4-8.2 [facility] Comment on above: Performed By: #### T SH, CMP, URIC, LIPID, T7 #### [facility] [address] [place] [address] Dr. Armida Brown Sodium [Moles/Vol] 139 mmol/L Normal 136-145 [facility] Comment on above: Performed By: #### T SH, CMP, URIC, LIPID, T7 #### [facility] [address] [address] [address] Armida Brown Urea nitrogen [Mass/Vol] 16.0 mg/dL Normal 7.0-18.0 [facility] Comment on above: Performed By: #### T SH, CMP, URIC, LIPID, T7 #### [facility] [address] [address] [address] Armida Brown Urea nitrogen/Creatinine [Mass ratio] 16.2 mg/mg Normal [facility] Comment on above: Performed By: #### T SH, CMP, URIC, LIPID, T7 #### [facility] [address] [place] [address] Dr. Armida Brown TSHon 02-01-2022 TSH 1.176 uIU/mL Normal 0.358-3.740 [facility] Comment on above: Performed By: #### T SH, CMP, URIC, LIPID, T7 #### [facility] [address] [place] [address] Dr. Armida Brown URIC ACID SERUMon 02-01-2022 Urate [Mass/Vol] 6.7 mg/dL Normal 3.5-7.2 [facility] Comment on above: Performed By: #### T SH, CMP, URIC, LIPID, T7 #### [facility] [address] [place] [address] Dr. Armida Brown .eGFRon 08-12-2018 eGFR AA >60 Normal >=60 [facility] Comment on above: Order Comment: Order added by Discern rule Result Comment: Resu lt = 0-14.9 mL/min/1.73 m2 Kidney failure or Dialysis Result = 15-29 mL/min/1.73 m2 Severe decrease in GFR Result = 30-59 mL/min/1.73 m2 Moderate decrease in GFR Result >= 60 mL/min/1.73 m2 Normal or increased GFR Performed By: #### P TT #### [facility] [address] [place] [address] eGFR Non-AA >60 Normal >=60 [facility] Comment on above: Order Comment: Order added [...] dosing. Performed By: #### P TT #### [address] [id number] Basic Metabolic Profileon Anion gap molar conc 11 mmol/L Normal 7-17 [facility] Comment on above: Performed By: #### P TINR #### [address] [id number] Calcium mass conc 8.2 mg/dL Low 8.5-10.3 [facility] Comment on above: Performed By: #### P TINR #### [address] [id number] Chloride molar conc 102 mmol/L Normal 98-110 [facility] Comment on above: Performed By: #### P TINR #### [address] [id number] CO2 molar conc 27 mmol/L Normal 22-32 [facility] Comment on above: Performed By: #### P TINR #### [address] [address] Creatinine mass conc 0.83 mg/dL Normal 0.61-1.24 [facility] Comment on above: Performed By: #### P TINR #### [address] [id number] Glucose mass conc 109 mg/dL Normal 74-118 [facility] Comment on above: Performed By: #### P TINR #### [address] [address] Potassium molar conc 3.9 mmol/L Normal 3.4-4.8 [facility] Comment on above: Performed By: #### P TINR #### [address] [address] Sodium molar conc 136 mmol/L Normal 133-142 [facility] Comment on above: Performed By: #### P TINR #### [address] [address] Urea nitrogen mass conc 9 mg/dL Normal 8-26 [facility] Comment on above: Performed By: #### P TINR #### [address] [id number] Urea nitrogen/Creatinine mass ratio 10.8 mg/mg Normal 10.0-20.0 [facility] Comment on above: Performed By: #### P TINR #### [address] [id number] CBC w/ Diffon 08-12-2018 Erythrocyte distribution width Ratio (RBC) 12.5 % Normal 11.6-14.8 [facility] Comment on above: Performed By: #### P TINR #### [address] [address] Hematocrit Volume Fraction (Bld) 29.7 % Low 41.0-53.0 [facility] Comment on above: Performed By: #### P TINR #### [address] [address] Hemoglobin mass conc (Bld) 10.3 g/dL Low 13.5-17.5 [facility] Comment on above: Performed By: #### P TINR #### [address] [address] MCH Entitic mass (RBC) 30.1 pg Normal 27.0-35.0 [facility] Comment on above: Performed By: #### P TINR #### [address] [address] MCHC mass conc (RBC) 34.5 % Normal 31.0-37.0 [facility] Comment on above: Performed By: #### P TINR #### [address] [id number] MCV Entitic volume (RBC) 87.2 fL Normal 80.0-100.0 [facility] Comment on above: Performed By: #### P TINR #### [address] [id number] Platelet mean volume Entitic volume (Bld) 7.8 fL Normal 6.7-10.6 [facility] Comment on above: Performed By: #### P TINR #### [address] [id number] Platelets #/vol (Bld) 218 x10*3/mcL Normal 150-350 [facility] Comment on above: Performed By: #### P TINR #### [place] [address] RBC #/vol (Bld) 3.41 x10*6/mcL Low 4.30-5.80 [facility] Comment on above: Performed By: #### P TINR #### [address] [id number] WBC #/vol (Bld) 9.1 x10*3/mcL Normal 4.5-11.0 [facility] Comment on above: Performed By: #### P TINR #### [place] [address] Diff Autoon 08-12-2018 Baso Absolute 0.0 x10*3/mcL Normal 0.0-0.2 [facility] Comment on above: Performed By: #### P TINR #### [address] [id number] Basophils/100 WBC (Bld) 0.5 % Normal 0.0-1.2 [facility] Comment on above: Performed By: #### P TINR #### [address] [id number] Eos Absolute 0.3 x10*3/mcL Normal 0.0-0.4 [facility] Comment on above: Performed By: #### P TINR #### [address] [address] Eosinophils/100 WBC (Bld) 3.4 % Normal 0.0-6.1 [facility] Comment on above: Performed By: #### P TINR #### [address] [address] Lymphocytes #/vol (Bld) 1.1 x10*3/mcL Normal 1.0-4.8 [facility] Comment on above: Performed By: #### P TINR #### [address] [address] Lymphocytes/100 WBC (Bld) 11.8 % Low 27.2-40.8 [facility] Comment on above: Performed By: #### P TINR #### [address] [address] [place] Absolute 0.8 x10*3/mcL Normal 0.3-1.1 [facility] Comment on above: Performed By: #### P TINR #### [address] [address] Monocytes/100 WBC (Bld) 8.5 % Normal 4.7-13.9 [facility] Comment on above: Performed By: #### P TINR #### [address] [address] Neutro Absolute 6.9 x10*3/mcL Normal 1.8-7.7 [facility] Comment on above: Performed By: #### P TINR #### [address] [address] Neutro Auto 75.8 % High 47.2-70.8 [facility] Comment on above: Performed By: #### P TINR #### [address] [address] Inpatient Clinical Summaryon 08-12-2018 Inpatient Clinical Summary [address] [place] [address] [address] Clinical Summary Person Information Name: Chiquita Weeks Age: 28 Years : 1990 Sex: Male PCP: Cyril Ruiz MD Marital Status: Phone: PCP: Race: White Ethnicity: Not or Language: Armenian Visit Id: Visit Reason: Speciality: Acuity: Enc Type: Inpatient Med Service: Surgery Arrival: 08/08/2018 08:12:20 Discharge: Dispo Type: Address: [address] [place] [address] Diagnosis: 1:Scheuermann's kyphosis Discharged To: Home Treatments: [...] range between ( 27.2 and 40.8 ) [place] Auto: 8.5 % -- Normal range between [...] range between ( 41.0 and 53.0 ) [place] Absolute: 0.8 x10 MCH: 30.1 pg -- [...] Follow up: With: Address: When: Jesus Reyes [facility] [employer] [facility], [place] [phone] Business (1) Comments: Schedule follow up appointment for 2 weeks for staple removal With: Address: When: Cyril Ruiz Normal [facility] Occupational Therapy Progres s Noteon 08-12-2018 Protein mass conc Planned/pending dc t o home today. Reecommended [facility] Electronically signed by ___ Teo Johnson 08/12/18 06:26 EST Normal [facility] Orthopedic Progress Noteon 0 08-12-2018 Protein mass [...] PA-C 08/12/18 07:37 EST Normal [facility] .eGFRon 08-11-2018 eGFR Non-AA >60 Normal >=60 [facility] Comment on above: Order Comment: Order added [...] dosing. Performed By: #### P TINR #### [address] [id number] eGFR AA >60 Normal >=60 [facility] Comment on above: Order Comment: Order added by Discern rule Result Comment: Resu lt = 0-14.9 mL/min/1.73 m2 Kidney failure or Dialysis Result = 15-29 mL/min/1.73 m2 Severe decrease in GFR Result = 30-59 mL/min/1.73 m2 Moderate decrease in GFR Result >= 60 mL/min/1.73 m2 Normal or increased GFR Performed By: #### P TINR #### [address] [id number] Basic Metabolic Profileon Anion gap molar conc 10 mmol/L Normal 7-17 [facility] Comment on above: Performed By: #### P TINR #### [address] [place] [id number] Calcium mass conc 8.3 mg/dL Low 8.5-10.3 [facility] Comment on above: Performed By: #### P TINR #### [address] [address] Chloride molar conc 97 mmol/L Low 98-110 [facility] Comment on above: Performed By: #### P TINR #### [address] [address] CO2 molar conc 26 mmol/L Normal 22-32 [facility] Comment on above: Performed By: #### P TINR #### [address] [address] Creatinine mass conc 0.88 mg/dL Normal 0.61-1.24 [facility] Comment on above: Performed By: #### P TINR #### [address] [address] Glucose mass conc 109 mg/dL Normal 74-118 [facility] Comment on above: Performed By: #### P TINR #### [address] [address] Potassium molar conc 4.0 mmol/L Normal 3.4-4.8 [facility] Comment on above: Performed By: #### P TINR #### [address] [address] Sodium molar conc 129 mmol/L Low 133-142 [facility] Comment on above: Performed By: #### P TINR #### [address] [address] Urea nitrogen mass conc 9 mg/dL Normal 8-26 [facility] Comment on above: Performed By: #### P TINR #### [address] [address] Urea nitrogen/Creatinine mass ratio 10.2 mg/mg Normal 10.0-20.0 [facility] Comment on above: Performed By: #### P TINR #### [address] [address] CBC w/ Diffon 08-11-2018 Erythrocyte distribution width Ratio (RBC) 12.6 % Normal 11.6-14.8 [facility] [facility] Comment on above: Performed By: #### P TINR #### [address] [address] Hematocrit Volume Fraction (Bld) 31.7 % Low 41.0-53.0 [facility] Comment on above: Performed By: #### P TINR #### [address] [address] Hemoglobin mass conc (Bld) 10.8 g/dL Low 13.5-17.5 [facility] Comment on above: Performed By: #### P TINR #### [address] [address] MCH Entitic mass (RBC) 29.9 pg Normal 27.0-35.0 [facility] Comment on above: Performed By: #### P TINR #### [address] [address] MCHC mass conc (RBC) 34.2 % Normal 31.0-37.0 [facility] Comment on above: Performed By: #### P TINR #### [address] [address] MCV Entitic volume (RBC) 87.5 fL Normal 80.0-100.0 [facility] Comment on above: Performed By: #### P TINR #### [address] [address] Platelet mean volume Entitic volume (Bld) 7.8 fL Normal 6.7-10.6 [facility] Comment on above: Performed By: #### P TINR #### [address] [address] Platelets #/vol (Bld) 218 x10*3/mcL Normal 150-350 [facility] Comment on above: Performed By: #### P TINR #### [address] [address] RBC #/vol (Bld) 3.62 x10*6/mcL Low 4.30-5.80 [facility] Comment on above: Performed By: #### P TINR #### [address] [address] WBC #/vol (Bld) 11.8 x10*3/mcL High 4.5-11.0 [facility] Comment on above: Performed By: #### P TINR #### [address] [address] Diff Autoon 08-11-2018 Baso Absolute 0.1 x10*3/mcL Normal 0.0-0.2 [facility] Comment on above: Performed By: #### P TINR #### [address] [address] Basophils/100 WBC (Bld) 0.5 % Normal 0.0-1.2 [facility] Comment on above: Performed By: #### P TINR #### [address] [address] Eos Absolute 0.3 x10*3/mcL Normal 0.0-0.4 [facility] Comment on above: Performed By: #### P TINR #### [address] [address] Eosinophils/100 WBC (Bld) 2.3 % Normal 0.0-6.1 [facility] Comment on above: Performed By: #### P TINR #### [address] [address] Lymphocytes #/vol (Bld) 1.7 x10*3/mcL Normal 1.0-4.8 [facility] Comment on above: Performed By: #### P TINR #### [address] [address] Lymphocytes/100 WBC (Bld) 14.3 % Low 27.2-40.8 [facility] Comment on above: Performed By: #### P TINR #### [address] [address] [place] Absolute 1.2 x10*3/mcL High 0.3-1.1 [facility] Comment on above: Performed By: #### P TINR #### [address] [address] Monocytes/100 WBC (Bld) 9.9 % Normal 4.7-13.9 [facility] Comment on above: Performed By: #### P TINR #### [address] [address] Neutro Absolute 8.6 x10*3/mcL High 1.8-7.7 [facility] Comment on above: Performed By: #### P TINR #### [address] [address] Neutro Auto 73.0 % High 47.2-70.8 [facility] Comment on above: Performed By: #### P TINR #### [facility] [address] [place] [address] Orthopedic Progress Noteon 0 08-11-2018 Protein mass [...] PA-C 08/11/18 14:44 EST Normal [facility] XR Scoliosis Study 2 or 3 Vi [...] bowel dilatation. Soft tissues: Edema and skin napoleon throughout the middle back. IMPRESSION: No definite measurable curvature. Postoperative changes. Final Dictated by: Lam Burrows MD Dictated DT/TM: 08/11/2018 2:53 pm Signed by: Lam Burrows MD Signed (Electronic Signature): 08/11/2018 2:58 pm (If Report Is Signed, Electronically Signed in Other Vendor System) Normal [facility] Comment on above: Order Comment: Stand ing AP and lateral views in TLSO brace .eGFRon 08-10-2018 eGFR AA >60 Normal >=60 [facility] Comment on above: Result Comment: Resu lt = 0-14.9 mL/min/1.73 m2 Kidney failure or Dialysis Result = 15-29 mL/min/1.73 m2 Severe decrease in GFR Result = 30-59 mL/min/1.73 m2 Moderate decrease in GFR Result >= 60 mL/min/1.73 m2 Normal or increased GFR Performed By: #### C BC #### [address] [address] eGFR Non-AA >60 Normal >=60 [facility] Comment on above: Result Comment: Resu lt [...] dosing. Performed By: #### C BC #### [address] [address] Basic Metabolic Profileon Anion gap molar conc 12 mmol/L Normal 7-17 [facility] Comment on above: Performed By: #### C BC #### [address] [address] Calcium mass conc 8.1 mg/dL Low 8.5-10.3 [facility] Comment on above: Performed By: #### C BC #### [address] [address] Chloride molar conc 103 mmol/L Normal 98-110 [facility] Comment on above: Performed By: #### C BC #### [address] [address] CO2 molar conc 25 mmol/L Normal 22-32 [facility] Comment on above: Performed By: #### C BC #### [address] [address] Creatinine mass conc 0.83 mg/dL Normal 0.61-1.24 [facility] Comment on above: Performed By: #### C BC #### [address] [address] Glucose mass conc 99 mg/dL Normal 74-118 [facility] Comment on above: Performed By: #### C BC #### [address] [address] Potassium molar conc 4.3 mmol/L Normal 3.4-4.8 [facility] Comment on above: Performed By: #### C BC #### [address] [address] Sodium molar conc 136 mmol/L Normal 133-142 [facility] Comment on above: Performed By: #### C BC #### [address] [address] Urea nitrogen mass conc 12 mg/dL Normal 8-26 [facility] Comment on above: Performed By: #### C BC #### [address] [address] Urea nitrogen/Creatinine mass ratio 14.5 mg/mg Normal 10.0-20.0 [facility] Comment on above: Performed By: #### C BC #### [address] [address] CBC w/ Diffon 08-10-2018 Erythrocyte distribution width Ratio (RBC) 12.6 % Normal 11.6-14.8 [facility] Comment on above: Performed By: #### C BC #### [address] [address] Hematocrit Volume Fraction (Bld) 33.6 % Low 41.0-53.0 [facility] Comment on above: Performed By: #### C BC #### [address] [address] Hemoglobin mass conc (Bld) 11.4 g/dL Low 13.5-17.5 [facility] Comment on above: Performed By: #### C BC #### [address] [address] MCH Entitic mass (RBC) 29.9 pg Normal 27.0-35.0 [facility] Comment on above: Performed By: #### C BC #### [address] [address] MCHC mass conc (RBC) 34.0 % Normal 31.0-37.0 [facility] Comment on above: Performed By: #### C BC #### [address] [address] MCV Entitic volume (RBC) 87.8 fL Normal 80.0-100.0 [facility] Comment on above: Performed By: #### C BC #### [address] [address] Platelet mean volume Entitic volume (Bld) 8.1 fL Normal 6.7-10.6 [facility] Comment on above: Performed By: #### C BC #### [address] [address] Platelets #/vol (Bld) 182 x10*3/mcL Normal 150-350 [facility] Comment on above: Performed By: #### C BC #### [address] [address] RBC #/vol (Bld) 3.82 x10*6/mcL Low 4.30-5.80 [facility] Comment on above: Performed By: #### C BC #### [address] [address] WBC #/vol (Bld) 10.3 x10*3/mcL Normal 4.5-11.0 [facility] Comment on above: Performed By: #### C BC #### [address] [address] Diff Autoon 08-10-2018 Baso Absolute 0.1 x10*3/mcL Normal 0.0-0.2 [facility] Comment on above: Performed By: #### C BC #### [address] [address] Basophils/100 WBC (Bld) 1.4 % High 0.0-1.2 [facility] Comment on above: Performed By: #### C BC #### [address] [address] Eos Absolute 0.1 x10*3/mcL Normal 0.0-0.4 [facility] Comment on above: Performed By: #### C BC #### [address] [address] Eosinophils/100 WBC (Bld) 1.2 % Normal 0.0-6.1 [facility] Comment on above: Performed By: #### C BC #### [address] [address] Lymphocytes #/vol (Bld) 2.3 x10*3/mcL Normal 1.0-4.8 [facility] Comment on above: Performed By: #### C BC #### [address] [address] Lymphocytes/100 WBC (Bld) 22.7 % Low 27.2-40.8 [facility] Comment on above: Performed By: #### C BC #### [address] [address] [place] Absolute 1.1 x10*3/mcL Normal 0.3-1.1 [facility] Comment on above: Performed By: #### C BC #### [address] [address] Monocytes/100 WBC (Bld) 10.6 % Normal 4.7-13.9 [facility] Comment on above: Performed By: #### C BC #### [address] [address] Neutro Absolute 6.6 x10*3/mcL Normal 1.8-7.7 [facility] Comment on above: Performed By: #### C BC #### [facility] [address] [place] [address] Neutro Auto 64.1 % Normal 47.2-70.8 [facility] Comment on above: Performed By: #### C BC #### [facility] [address] [place] [address] Orthopedic Progress Noteon 0 08-10-2018 Protein mass [...] PA-C 08/10/18 06:03 EST Normal [facility] .eGFRon 08-09-2018 eGFR AA >60 Normal >=60 [facility] Comment on above: Result Comment: Resu lt = 0-14.9 mL/min/1.73 m2 Kidney failure or Dialysis Result = 15-29 mL/min/1.73 m2 Severe decrease in GFR Result = 30-59 mL/min/1.73 m2 Moderate decrease in GFR Result >= 60 mL/min/1.73 m2 Normal or increased GFR Performed By: #### C BC #### [address] [address] eGFR Non-AA >60 Normal >=60 [facility] Comment on above: Result Comment: Resu lt [...] dosing. Performed By: #### C BC #### [address] [address] Basic Metabolic Profileon Anion gap molar conc 12 mmol/L Normal 7-17 [facility] Comment on above: Performed By: #### C BC #### [address] [address] Calcium mass conc 8.3 mg/dL Low 8.5-10.3 [facility] Comment on above: Performed By: #### C BC #### [address] [address] Chloride molar conc 106 mmol/L Normal 98-110 [facility] Comment on above: Performed By: #### C BC #### [address] [address] CO2 molar conc 24 mmol/L Normal 22-32 [facility] Comment on above: Performed By: #### C BC #### [address] [address] Creatinine mass conc 1.02 mg/dL Normal 0.61-1.24 [facility] Comment on above: Performed By: #### C BC #### [address] [address] Glucose mass conc 119 mg/dL High 74-118 [facility] Comment on above: Performed By: #### C BC #### [address] [address] Potassium molar conc 4.5 mmol/L Normal 3.4-4.8 [facility] Comment on above: Performed By: #### C BC #### [address] [address] Sodium molar conc 137 mmol/L Normal 133-142 [facility] Comment on above: Performed By: #### C BC #### [address] [address] Urea nitrogen mass conc 12 mg/dL Normal 8-26 [facility] Comment on above: Performed By: #### C BC #### [address] [address] Urea nitrogen/Creatinine mass ratio 11.8 mg/mg Normal 10.0-20.0 [facility] Comment on above: Performed By: #### C BC #### [address] [address] CBC w/ Diffon 08-09-2018 Erythrocyte distribution width Ratio (RBC) 12.8 % Normal 11.6-14.8 [facility] Comment on above: Performed By: #### . Automated Diff #### [address] [address] Hematocrit Volume Fraction (Bld) 39.9 % Low 41.0-53.0 [facility] Comment on above: Performed By: #### . Automated Diff #### [address] [address] Hemoglobin mass conc (Bld) 13.4 g/dL Low 13.5-17.5 [facility] Comment on above: Performed By: #### . Automated Diff #### [address] [address] MCH Entitic mass (RBC) 29.1 pg Normal 27.0-35.0 [facility] Comment on above: Performed By: #### . Automated Diff #### [address] [address] MCHC mass conc (RBC) 33.5 % Normal 31.0-37.0 [facility] Comment on above: Performed By: #### . Automated Diff #### [address] [address] MCV Entitic volume (RBC) 86.9 fL Normal 80.0-100.0 [facility] Comment on above: Performed By: #### . Automated Diff #### [place] [id number] Platelet mean volume Entitic volume (Bld) 8.2 fL Normal 6.7-10.6 [facility] Comment on above: Performed By: #### . Automated Diff #### [place] [address] Platelets #/vol (Bld) 302 x10*3/mcL Normal 150-350 [facility] Comment on above: Performed By: #### . Automated Diff #### [place] [address] RBC #/vol (Bld) 4.59 x10*6/mcL Normal 4.30-5.80 [facility] Comment on above: Performed By: #### . Automated Diff #### [address] [address] WBC #/vol (Bld) 14.2 x10*3/mcL High 4.5-11.0 [facility] Comment on above: Performed By: #### . Automated Diff #### [place] [id number] Hand Candy Dipper Progress Noteon 08-09-2018 Hand Candy Dipper Progress Note Met with patient regarding transitions [...] [place] 08/09/18 10:08 EST Normal [facility] Diff Autoon 08-09-2018 Baso Absolute 0.0 x10*3/mcL Normal 0.0-0.2 [facility] Comment on above: Performed By: #### . Automated Diff #### [address] [address] Basophils/100 WBC (Bld) 0.3 % Normal 0.0-1.2 [facility] Comment on above: Performed By: #### . Automated Diff #### [address] [address] Eos Absolute 0.0 x10*3/mcL Normal 0.0-0.4 [facility] Comment on above: Performed By: #### . Automated Diff #### [address] [address] Eosinophils/100 WBC (Bld) 0.1 % Normal 0.0-6.1 [facility] Comment on above: Performed By: #### . Automated Diff #### [address] [address] Lymphocytes #/vol (Bld) 1.2 x10*3/mcL Normal 1.0-4.8 [facility] Comment on above: Performed By: #### . Automated Diff #### [address] [address] Lymphocytes/100 WBC (Bld) 8.6 % Low 27.2-40.8 [facility] Comment on above: Performed By: #### . Automated Diff #### [address] [address] [place] Absolute 1.0 x10*3/mcL Normal 0.3-1.1 [facility] Comment on above: Performed By: #### . Automated Diff #### [address] [address] Monocytes/100 WBC (Bld) 6.9 % Normal 4.7-13.9 [facility] Comment on above: Performed By: #### . Automated Diff #### [facility] [address] [place] [address] Neutro Absolute 11.9 x10*3/mcL High 1.8-7.7 [facility] Comment on above: Performed By: #### . Automated Diff #### [facility] [address] [place] [address] Neutro Auto 84.1 % High 47.2-70.8 [facility] Comment on above: Performed By: #### . Automated Diff #### [place] [id number] [place] [id number] Orthopedic Progress Noteon 0 08-09-2018 Protein mass [...] PA-C 08/09/18 06:28 EST Normal [facility] Progress Note-Nurseon 2018 Protein mass conc Upset [...] Kim 08/09/18 10:50 EST Normal [facility] XR Spine Thoracic Minimum 4 Viewson 08-09-2018 [...] in Other Vendor System) Normal [facility] CT Spine Thoracic w/o Contra ston 08-08-2018 [...] exam here. Consider MRI. Radiation Dose Estimate: CTDI(mGy):0.200974 / / / kVp:120.694789 / mAs:0.818536 / / / DLP(mGy-cm):9.233621Sfe y Part: Abdomen CTDI(mGy):0.275829 / / / kVp:140.202839 / mAs:0.431592 / / / DLP(mGy-cm):14.592590Mg dy Part: Final Dictated by: Chris Don MD Dictated DT/TM: 08.08.2018 11:02 am Signed by: Chris Don MD Signed (Electronic Signature): 08.08.2018 11:22 am (If Report Is Signed, Electronically Signed in Other Vendor System) Normal [facility] Comment on above: Order Comment: tried to call office at 18:05. office already closed and unable to leave message regarding this to be a future order. Hgb & Hcton 08-08-2018 Hematocrit Volume Fraction (Bld) 42.8 % Normal 41.0-53.0 [facility] Comment on above: Performed By: #### . Automated Diff #### [place] [address] Hemoglobin mass conc (Bld) 14.4 g/dL Normal 13.5-17.5 [facility] Comment on above: Performed By: #### . Automated Diff #### [place] [id number] [place] [address] Operative Reporton 9 Operative Report Indication for [...] autograft from local harvest/laminectomy as well as jimi demineralized bone matrix Surgeon(s) Jesus Reyes for decompression and co-surgeon Leida Lynn for instrumentation Drug Inspector Luís HAMEED Anesthesia General anesthetic via endotracheal [...] is secured. He is carefully turned onto [facility] operating room table and head and neck [...] through T12 are resected using Luis Alberto ribbing machine operator and this bone is harvested for placement [...] of autograft from local harvest supplemented with [place] demineralized bone matrix. The wound is reirrigated [...] in inverted interrupted fashion in 2 layers. napoleon completed the skin closure. Fluoroscopy demonstrates appropriate hardware placement/levels. Suction grenades are attached to drains and patient is carefully turned onto awaiting operating room gurney and extubated and taken to recover for monitoring. The patient did have repeat antibiotic IV 3 hours after first installation. No known complications of surgery. This surgical procedure was assisted by my physician?s railways assistant. Her presence was needed throughout the case for manipulation and positioning the surgical arm as well as positioning the surgical instruments as well as primarily assisting me through procedure. Due to the complexity of condition, the skill set of an neurosurgical physician railways assistant was needed throughout the case. During the surgical case, the hematology technologist was working the back table and was not available for assistance. Tourniquet Time None Sponge/Needle Count Per nursing correct Fluid Count 2500 mL crystalloid Electronically signed by ___ Shane PANCHAL MD, Leida Cross 08/08/18 17:22 EST Normal [facility] Operative Report Operative Report DATE OF OPERATION: [...] 5. Use of local autograft bone and [place] Matrix SURGEON: Jesus Shah MD for decompression Leida Lynn MD for instrumentation CYBER WORKFORCE DEVELOPER AND MANAGER: Luís Staley assisted throughout the procedure with [...] injury, paralysis, non-union, DVT/PE, bleeding, chronic pain, MA, stroke, etc. All questions were answered and [...] by entirely resecting the facet joint. Two [place] chrome rods were cut to size and [...] bone was packed over the decorticated elements bilaterally.[place] matrix was placed on top of this [...] and dusted with 3 g vancomycin powder. Napoleon used for skin and antibiotic ointment apploed [...] MD 08/09/18 11:58 EST Normal [facility] Operative Report Preoperative Diagnos is Scheuermann's kyphosis Intractable thoracic pain Postoperative Diagnosis Scheuermann's kyphosis Intractable thoracic pain Operation 1. T7-T12 decompression with T7-T12 bilateral Woods-Call[place]ay Osteotomies 2. T6-L2 posterior spinal fusion using in situ deformity correction Surgeon(s) Dr. Reyes for decompression Dr. 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 Exercise Home/Environment Lives with Children, Spouse. Living [...] MD 08/08/2018 14:55 EST Normal [facility] .eGFRon 07-31-2018 eGFR Non-AA >60 Normal >=60 [facility] Comment on above: Result Comment: Resu lt [...] dosing. Performed By: #### E GFR #### [address] [address] eGFR AA >60 Normal >=60 [facility] Comment on above: Result Comment: Resu lt = 0-14.9 mL/min/1.73 m2 Kidney failure or Dialysis Result = 15-29 mL/min/1.73 m2 Severe decrease in GFR Result = 30-59 mL/min/1.73 m2 Moderate decrease in GFR Result >= 60 mL/min/1.73 m2 Normal or increased GFR Performed By: #### E GFR #### [address] [address] ABO/Rhon 07-31-2018 ABO/Rh SD 1.11.19 DCon: 0 ABO/Rh: O POS Normal [facility] Comment on above: Performed By: #### A MONISHA #### [facility] (DEFAULT) [address] [place] [id number] [address] ABSC Autoon 07-31-2018 ABSC Auto Negative Normal [facility] Comment on above: Performed By: #### A SA #### [address] [address] Basic Metabolic Profileon Anion gap molar conc 15 mmol/L Normal 7-17 [facility] Comment on above: Performed By: #### C [id number] #### [address] [address] Calcium mass conc 9.7 mg/dL Normal 8.5-10.3 [facility] Comment on above: Performed By: #### C [id number] #### [address] [address] Chloride molar conc 96 mmol/L Low 98-110 [facility] Comment on above: Performed By: #### C [id number] #### [address] [address] CO2 molar conc 28 mmol/L Normal 22-32 [facility] Comment on above: Performed By: #### C [id number] #### [address] [address] Creatinine mass conc 1.07 mg/dL Normal 0.61-1.24 [facility] Comment on above: Performed By: #### C [id number] #### [address] [address] Glucose mass conc 94 mg/dL Normal 74-118 [facility] Comment on above: Performed By: #### C [id number] #### [address] [address] Potassium molar conc 4.4 mmol/L Normal 3.4-4.8 [facility] Comment on above: Performed By: #### C [id number] #### [address] [address] Sodium molar conc 135 mmol/L Normal 133-142 [facility] Comment on above: Performed By: #### C [id number] #### [address] [address] Urea nitrogen mass conc 20 mg/dL Normal 8-26 [facility] Comment on above: Performed By: #### C [id number] #### [address] [address] Urea nitrogen/Creatinine mass ratio 18.7 mg/mg Normal 10.0-20.0 [facility] Comment on above: Performed By: #### C [id number] #### [address] [address] CBC w/ Diffon 07-31-2018 Erythrocyte distribution width Ratio (RBC) 13.0 % Normal 11.6-14.8 [facility] Comment on above: Performed By: #### C BC #### [address] [address] Hematocrit Volume Fraction (Bld) 51.4 % Normal 41.0-53.0 [facility] Comment on above: Performed By: #### C BC #### [address] [address] Hemoglobin mass conc (Bld) 17.4 g/dL Normal 13.5-17.5 [facility] Comment on above: Performed By: #### C BC #### [place] [id number] MCH Entitic mass (RBC) 29.8 pg Normal 27.0-35.0 [facility] Comment on above: Performed By: #### C BC #### [place] [id number] MCHC mass conc (RBC) 33.9 % Normal 31.0-37.0 [facility] Comment on above: Performed By: #### C BC #### [place] [id number] MCV Entitic volume (RBC) 87.7 fL Normal 80.0-100.0 [facility] Comment on above: Performed By: #### C BC #### [place] [id number] Platelet mean volume Entitic volume (Bld) 7.8 fL Normal 6.7-10.6 [facility] Comment on above: Performed By: #### C BC #### [place] [id number] Platelets #/vol (Bld) 295 x10*3/mcL Normal 150-350 [facility] Comment on above: Performed By: #### C BC #### [address] [address] RBC #/vol (Bld) 5.86 x10*6/mcL High 4.30-5.80 [facility] Comment on above: Performed By: #### C BC #### [address] [address] WBC #/vol (Bld) 9.1 x10*3/mcL Normal 4.5-11.0 [facility] Comment on above: Performed By: #### C BC #### [address] [address] Diff Autoon 07-31-2018 Baso Absolute 0.1 x10*3/mcL Normal 0.0-0.2 [facility] Comment on above: Performed By: #### . Automated Diff #### [address] [address] Basophils/100 WBC (Bld) 1.0 % Normal 0.0-1.2 [facility] Comment on above: Performed By: #### . Automated Diff #### [address] [address] Eos Absolute 0.3 x10*3/mcL Normal 0.0-0.4 [facility] Comment on above: Performed By: #### . Automated Diff #### [address] [address] Eosinophils/100 WBC (Bld) 3.1 % Normal 0.0-6.1 [facility] Comment on above: Performed By: #### . Automated Diff #### [address] [address] Lymphocytes #/vol (Bld) 2.6 x10*3/mcL Normal 1.0-4.8 [facility] Comment on above: Performed By: #### . Automated Diff #### [address] [address] Lymphocytes/100 WBC (Bld) 28.2 % Normal 27.2-40.8 [facility] Comment on above: Performed By: #### . Automated Diff #### [address] [address] [place] Absolute 0.8 x10*3/mcL Normal 0.3-1.1 [facility] Comment on above: Performed By: #### . Automated Diff #### [address] [address] Monocytes/100 WBC (Bld) 9.3 % Normal 4.7-13.9 [facility] Comment on above: Performed By: #### . Automated Diff #### [address] [address] Neutro Absolute 5.3 x10*3/mcL Normal 1.8-7.7 [facility] Comment on above: Performed By: #### . Automated Diff #### [facility] [address] [place] [address] Neutro Auto 58.4 % Normal 47.2-70.8 [facility] Comment on above: Performed By: #### . Automated Diff #### [address] [address] MRSA, PCRon 07-31-2018 INR Coag RelTime (Bld) Negative Normal [facility] Comment on above: Result Comment: The Nightpro Xpert MRSA Assay is a qualitative in [...] clinician. Performed By: #### M RSAPC #### [address] [address] Neurosurgery Office/Clinic N oteon 07-31-2018 Neurosurgery Office/Clinic [...] rare alcohol intake Patient works in a [employer]-no legal or Workmen's Compensation claims on today's [...] Cross 07/31/18 11:40 EST Normal [facility] PTon 07-31-2018 INR Coag RelTime (PPP) 1.0 {INR} Normal <=3.5 [facility] Comment on above: Result Comment: INR has no normal range. INR Therapeutic range is: 2.0-3.0 (AF, CVA, TIAs, DVT prophylaxis, acute DVT) 2.5-3.5 ([facility] heart valves, recurrent thrombosis/emboli) Performed By: #### P TINR #### [address] [address] Prothrombin time (PT) Coag time (PPP) 10.4 s Normal 9.1-11.6 [facility] Comment on above: Performed By: #### P TINR #### [address] [address] PTTon 07-31-2018 aPTT Coag time (Bld) 28.9 s Normal 19.2-29.7 [facility] Comment on above: Performed By: #### P TT #### [address] [address] XR Chest 2 Viewson 9 XR Chest [...] in Other Vendor System) Normal [facility] SCOLIOSIS 2 [facility] 04-24-2018 [facility] [address] [place], [place] [id number] =====Patient Name: CHIQUITA WEEKS : 1990Sex: MAge: Race: WhiteMRN: [id number]. Location: 82Patient Status: OVisit #: [id number] Date: 04/24/2018 3:05:00 PMCompleted Date: 04/24/2018 03:19 PMRequesting Provider: COOKIE COLES Attending Provider: COOKIE COLES Report Copy To: Signs & Symptoms: M54.6 Pain in thoracic spine [id number]: AthenaComments: , , , Ordering Provider - COOKIE COLES MD , Exam: SCOLIOSIS 2 VWSAccession #: [id number] SCOLIOSIS 2 S 04/24/2018 3:19 PM EDT [...] abnormality. Electronically signed by:Adelfo Kay. Transcribed by: [email or web address], User Resident: Electronically Signed by: ADELFO KAY @ 04/24/2018 10:56 PM Normal [facility] Comment on above: Order Comment: , , = ========= , Ordering Provider - COOKIE COLES MD , Encounters Encounter Date Encounter Type Care Provider Facility Start: 02-01-2022 End: 02-02-2022 ambulatory ERNST PENA Facility: Start: 06-23-2021 ambulatory ERNST [facility] Facility: Start: 09-25-2018 End: 09-26-2018 ambulatory [facility] CYRIL MIGUEL A [place] Start: 08-08-2018 End: 08-12-2018 Evaluation and management of inpatient SELVON MARCIA Facility:[facility] Start: 07-31-2018 End: 08-01-2018 [facility] Start: 07-31-2018 End: 08-01-2018 Patient encounter procedure LEIDA LYNN Facility:[facility] Start: 07-30-2018 Patient encounter procedure SELVON MARCIA Facility:[facility] Start: 04-24-2018 End: 04-25-2018 Patient encounter COOKIE COLES Facility:[facility] Start: 04-15-2018 End: 04-16-2018 Patient encounter DEFAULT PHYSICIAN Facility:[facility] Procedures Date Procedure Procedure Detail Performing Clinician Start: 02-01-2022 PSA screening ERNST OROURKE Comment on above: Performed By: #### P [facility] #### [facility] [address] [place] [address] Dr. Armida Brown Payers Date Payer Category Payer Unknown 2017 Unknown [id number] 1990 Unknown [id number] 2.16.8 [id number] 1990 Unknown [id number] 2.16.8 [id number] 1990 Unknown [id number] 2.16.8 40.1.428005.3.579.2.196 1988 Unknown [id number] 2.16.8 40.1.168149.3.579.2.196 1988 Unknown [id number] 2.16.8 40.1.662394.3.579.2.196 1988 Unknown [id number] 2.16.8 40.1.920282.3.579.2.196 1988 Unknown [id number] 2.16.84 0.1.664687.3.579.2.593 1988 Unknown [id number] 2.16.84 0.1.106899.3.579.2.593 1988 Unknown [id number] 2.16.84 0.1.003926.3.579.2.593 1988 Unknown [id number] 2.16.84 0.1.486311.3.579.2.727 1961 Medicaid [id number] 1961 Medicare [id number] 1961 Unknown [id number] Unknown [id number] Summary Purpose Family History No Family History [...] 5. Use of local autograft bone and [employer] SURGEON: Jesus Shah MD for decompression [...] section and content) DATE CREATED AUTHOR 05/29/2018 [facility] DATE CREATED AUTHOR AUTHOR'S ORGANIZ ATION 08/25/2018 [facility] DATE CREATED AUTHOR AUTHOR'S ORGANIZ ATION 02/15/2022 [facility] DATE CREATED AUTHOR AUTHOR'S ORGANIZ ATION 09/27/2022 [facility] FOR RECORDS PERTAINING TO PATIENTS WHO [...] BE BASED ON THE PRIMARY CLINICAL RECORDS. [facility]. provides no warranty or guarantee of the accuracy or completeness of information in this document.
== END 2024-03-06 08:04 | disposition home or self-care (01) ==
LOC: PM 08:04
PROVIDERS: PCP Nurse Practitioner Family; Visit Provider Nurse Practitioner
DX: G24.9 Dystonia, unspecified (principal); M96.1 Postlaminectomy syndrome, not elsewhere classified
CPT/HCPCS: G0463

== ENCOUNTER 2024-04-08 06:54 | Day surgery (SDC) | payer MEDICARE, MEDICAID, SELFPAY ==
--- OUTSIDE RECORDS SUMMARY | 2024-04-08 06:58 | XMS_ITS | CCD ---
Author Organization [facility] Care Team Providers Care Cap Sizer Name Role Phone PHYSICIAN, DEFAULT Unavailable Unavailable [...] Consulting Unavailable LEIDA LYNN Attending Unavaila ble [facility] Unavailable SLOANE HIGH PA-C Attending Unavail able MARCIA, SELVON Attending Unavailable [facility] Unavailable BECKY, ERNST Primary Care Unavailable TAISHA, DR SCOOTER Webster Attending Unavailable TAISHA, DR SCOOTER Webster Admitting Unavailable CHANTE HERNANDEZ Consulting Unavailable BECKY, ERNST Primary Care Unavailable BECKY, ERNST Admitting Unavailable ERNST PENA Attending Unavailable ERNST PENA Consulting Unavailable [facility] Unavaila ble MARCIA, SELVON F Referring Unavailable MARCIA, SELVON F Attending Unavailable MARCIA, SELVON F Admitting Unavailable Allergies Allergy Classification Reported Allergen(s) Allergy Type Date of Onset Reaction(s) Facility (1 source) No Known Medication Allergies; Translations: [No Known Medication Allergies] Propensity to adverse reactions to drug (disorder) [facility] Repository Problems Problem Classification Problem Date Documented [...] INSULINon 02-02-2022 Insulin 16.5 uIU/mL Normal 2.6-24.9 [facility] Comment on above: Performed By: #### I NSULIN #### [facility] [address] [place] [address] Dr. Armida Brown CBC AUTO DIFFon 02-01-2022 BASO # 0.1 103/ul Normal 0.0-0.1 [facility] Comment on above: Performed By: #### C BC #### [facility] [address] [place] [address] Dr. Armida Brown Basophils/100 WBC (Bld) 0.9 % Normal 0.2-2.0 [facility] Comment on above: Performed By: #### C BC #### [facility] [address] [place] [address] Dr. Armida Brown EO # 0.4 103/ul Normal 0.0-0.7 [facility] Comment on above: Performed By: #### C BC #### [facility] [address] [place] [address] Dr. Armida Brown Eosinophils/100 WBC (Bld) 4.7 % Normal 0.9-7.0 [facility] Comment on above: Performed By: #### C BC #### [facility] [address] [place] [address] Dr. Armida Brown Erythrocyte distribution width (RBC) [Ratio] 13.1 % Normal 11.0-15.0 [facility] Comment on above: Performed By: #### C BC #### [facility] [address] [place] [address] Dr. Armida Brown Hematocrit (Bld) [Volume fraction] 48.6 % Normal 42.0-54.0 [facility] Comment on above: Performed By: #### C BC #### [facility] [address] [place] [address] Dr. Armida Brown Hemoglobin (Bld) [Mass/Vol] 16.5 g/dL Normal 14.0-18.0 [facility] Comment on above: Performed By: #### C BC #### [facility] [address] [place] [address] Dr. Armida Brown IG # 0.05 10e3/ul Critically high 0.00-0.03 [facility] Comment on above: Performed By: #### C BC #### [facility] [address] [place] [address] Dr. Armida Brown IG % 0.6 % Critically high 0.0-0.5 [facility] Comment on above: Performed By: #### C BC #### [facility] [address] [place] [address] Dr. Armida Brown LYMPH # 1.7 103/ul Normal 1.2-3.8 [facility] Comment on above: Performed By: #### C BC #### [facility] [address] [place] [address] Dr. Armida Brown Lymphocytes/100 WBC (Bld) 19.6 % Critically low 20.5-60.0 [facility] Comment on above: Performed By: #### C BC #### [facility] [address] [place] [address] Dr. Armida Brown MANUAL DIFF REQ NO Normal [facility] Comment on above: Performed By: #### C BC #### [facility] [address] [address] [address] Armida Brown MCH (RBC) [Entitic mass] 30.1 pg Normal 25.9-34.0 [facility] Comment on above: Performed By: #### C BC #### [facility] [address] [address] [address] Armida Brown MCHC (RBC) [Mass/Vol] 34.0 g/dL Normal 29.9-35.2 [facility] Comment on above: Performed By: #### C BC #### [facility] [address] [place] [address] Dr. Armida Brown MCV (RBC) [Entitic vol] 88.5 fL Normal 80.0-94.0 [facility] Comment on above: Performed By: #### C BC #### [facility] [address] [place] [address] Dr. Armida Brown MONO # 0.5 103/ul Normal 0.3-0.8 [facility] Comment on above: Performed By: #### C BC #### [facility] [address] [place] [address] Dr. Armida Brown Monocytes/100 WBC (Bld) 5.6 % Normal 1.7-12.0 [facility] Comment on above: Performed By: #### C BC #### [facility] [address] [place] [address] Dr. Armida Brown NEUT # 6.1 103/ul Normal 1.4-6.5 [facility] Comment on above: Performed By: #### C BC #### [facility] [address] [place] [address] Dr. Armida Brown Neutrophils/100 WBC (Bld) 68.6 % Normal 43.0-75.0 [facility] Comment on above: Performed By: #### C BC #### [facility] [address] [place] [address] Dr. Armida Brown Platelet mean volume (Bld) [Entitic vol] 9.3 fL Critically low 9.5-13.5 [facility] Comment on above: Performed By: #### C BC #### [facility] [address] [address] [address] Armida Brown PLT 293 103/ul Normal 150-450 [facility] Comment on above: Performed By: #### C BC #### [facility] [address] [address] [address] Armida Brown RBC 5.49 106/ul Normal 4.70-6.10 [facility] Comment on above: Performed By: #### C BC #### [facility] [address] [address] [address] Armida Brown WBC 8.9 103/ul Normal 4.0-11.0 [facility] Comment on above: Performed By: #### C BC #### [facility] [address] [place] [address] Dr. Armida Brown FREE THYROXINE INDEX T7on FTI 3.33 Normal 1.30-4.50 [facility] Comment on above: Performed By: #### T SH, CMP, URIC, LIPID, T7 #### [facility] [address] [address] [address] Armida Brown T3U 35.0 % Normal 33.0-40.0 [facility] Comment on above: Performed By: #### T SH, CMP, URIC, LIPID, T7 #### [facility] [address] [place] [address] Dr. Armida Brown T4 [Mass/Vol] 9.50 ug/dL Normal 4.50-12.10 [facility] Comment on above: Performed By: #### T SH, CMP, URIC, LIPID, T7 #### [facility] [address] [place] [address] Dr. Armida Brown GLYCOHEMOGLOBIN A1Con 2021 ADA RECOMMENDATION SEE BELOW Normal [facility] Comment on above: Result Comment: ADA RECOMMENDED LIMIT 4.0 - 6.0 ADA THERAPEUTIC TARGET < 7.0 ACTION SUGGESTED > 7.0 Performed By: #### A 1C #### [facility] [address] [address] [address] Armida Brown Glucose [Mass/Vol] 103 mg/dL Normal [facility] Comment on above: Performed By: #### A 1C #### [facility] [address] [place] [address] Dr. Armida Brown HbA1c (Bld) [Mass fraction] 5.2 % Normal 4.5-6.2 [facility] Comment on above: Performed By: #### A 1C #### [facility] [address] [place] [address] Dr. Armida Brown LIPID PROFILEon 02-01-2022 CHOL-HDL RATIO NORM SEE BELOW Normal [facility] Comment on above: Result Comment: 3.3 - 4.4 LOW RISK 4.4 - 7.1 AVERAGE RISK 7.1 - 11.0 MODERATE RISK >11.0 HIGH RISK Performed By: #### T SH, CMP, URIC, LIPID, T7 #### [facility] [address] [place] [address] Dr. Armida Brown Cholesterol [Mass/Vol] 183 mg/dL Normal <=200 [facility] Comment on above: Performed By: #### T SH, CMP, URIC, LIPID, T7 #### [facility] [address] [place] [address] Dr. Armida Brown Cholesterol in HDL [Mass/Vol] 33 mg/dL Critically low 40-60 [facility] Comment on above: Performed By: #### T SH, CMP, URIC, LIPID, T7 #### [facility] [address] [address] [address] Armida Brown Cholesterol in LDL [Mass/Vol] 123.0 mg/dL Normal [facility] Comment on above: Performed By: #### T SH, CMP, URIC, LIPID, T7 #### [facility] [address] [place] [address] Dr. Armida Brown Cholesterol.total/C holesterol in HDL [Mass ratio] 5.5 {ratio} Normal [facility] Comment on above: Performed By: #### T SH, CMP, URIC, LIPID, T7 #### [facility] [address] [place] [address] Dr. Armida Brown HDL NORMAL > or = 60 mg/dl - LO W CARDIOVASCULAR RISK <40 mg/dl - HIGH CARDIOVASCULAR RISK Normal [facility] Comment on above: Performed By: #### T SH, CMP, URIC, LIPID, T7 #### [facility] [address] [address] [address] Armida Brown LDL CALC NORMAL SEE BELOW Normal [facility] Comment on above: Result Comment: <100 mg/dl OPTIMAL 100 - 129 mg/dl NEAR OR ABOVE OPTIMAL 130 - 159 mg/dl BORDERLINE HIGH 160 - 189 mg/dl HIGH >190 mg/dl VERY HIGH Performed By: #### T SH, CMP, URIC, LIPID, T7 #### [facility] [address] [address] [address] Armida Brown Triglyceride [Mass/Vol] 135 mg/dL Normal <=150 [facility] Comment on above: Performed By: #### T SH, CMP, URIC, LIPID, T7 #### [facility] [address] [address] [address] Armida Brown VLDL CALC 27.0 mg/dL Normal [facility] Comment on above: Performed By: #### T SH, CMP, URIC, LIPID, T7 #### [facility] [address] [address] [address] Armida Brown PROF 14(COMP METB)on 022 Albumin [Mass/Vol] 4.1 g/dL Normal 3.4-5.0 [facility] Comment on above: Performed By: #### T SH, CMP, URIC, LIPID, T7 #### [facility] [address] [address] [address] Armida Brown Albumin/Globulin [Mass ratio] 1.1 {ratio} Normal [facility] Comment on above: Performed By: #### T SH, CMP, URIC, LIPID, T7 #### [facility] [address] [address] [address] Armida Brown ALP [Catalytic activity/Vol] 79 U/L Normal 46-116 [facility] Comment on above: Performed By: #### T SH, CMP, URIC, LIPID, T7 #### [facility] [address] [address] [address] Armida Brown ALT [Catalytic activity/Vol] 58 U/L Normal 16-63 [facility] Comment on above: Performed By: #### T SH, CMP, URIC, LIPID, T7 #### [facility] [address] [address] [address] Armida Brown Anion gap [Moles/Vol] 12.6 mmol/L Normal [facility] Comment on above: Performed By: #### T SH, CMP, URIC, LIPID, T7 #### [facility] [address] [place] [address] Dr. Armida Brown AST [Catalytic activity/Vol] 23 U/L Normal 15-37 [facility] Comment on above: Performed By: #### T SH, CMP, URIC, LIPID, T7 #### [facility] [address] [place] [address] Dr. Armida Brown Bilirubin [Mass/Vol] 0.6 mg/dL Normal 0.2-1.0 [facility] Comment on above: Performed By: #### T SH, CMP, URIC, LIPID, T7 #### [facility] [address] [address] [address] Armida Brown Calcium [Mass/Vol] 8.9 mg/dL Normal 8.5-10.1 [facility] Comment on above: Performed By: #### T SH, CMP, URIC, LIPID, T7 #### [facility] [address] [place] [address] Dr. Armida Brown Chloride [Moles/Vol] 104 mmol/L Normal 98-107 [facility] Comment on above: Performed By: #### T SH, CMP, URIC, LIPID, T7 #### [facility] [address] [place] [address] Dr. Armida Brown CO2 [Moles/Vol] 26.7 mmol/L Normal 21.0-32.0 [facility] Comment on above: Performed By: #### T SH, CMP, URIC, LIPID, T7 #### [facility] [address] [place] [address] Dr. Armida Brown Creatinine [Mass/Vol] 0.99 mg/dL Normal 0.70-1.30 [facility] Comment on above: Performed By: #### T SH, CMP, URIC, LIPID, T7 #### [facility] [address] [address] [address] Armida Brown EGFR-AF MARTINIQUAIS >60 Normal >=60 [facility] Comment on above: Performed By: #### T SH, CMP, URIC, LIPID, T7 #### [facility] [address] [address] [address] Armida Brown EGFR-NON AF MARTINIQUAIS >60 Normal >=60 [facility] Comment on above: Performed By: #### T SH, CMP, URIC, LIPID, T7 #### [facility] [address] [place] [address] Dr. Armida Brown Globulin (S) [Mass/Vol] 3.6 g/dL Normal [facility] Comment on above: Performed By: #### T SH, CMP, URIC, LIPID, T7 #### [facility] [address] [place] [address] Dr. Armida Brown Glucose [Mass/Vol] 100 mg/dL Normal 74-106 [facility] Comment on above: Performed By: #### T SH, CMP, URIC, LIPID, T7 #### [facility] [address] [place] [address] Dr. Armida Brown Potassium [Moles/Vol] 4.3 mmol/L Normal 3.5-5.1 [facility] Comment on above: Performed By: #### T SH, CMP, URIC, LIPID, T7 #### [facility] [address] [place] [address] Dr. Armida Brown Protein [Mass/Vol] 7.7 g/dL Normal 6.4-8.2 [facility] Comment on above: Performed By: #### T SH, CMP, URIC, LIPID, T7 #### [facility] [address] [place] [address] Dr. Armida Brown Sodium [Moles/Vol] 139 mmol/L Normal 136-145 [facility] Comment on above: Performed By: #### T SH, CMP, URIC, LIPID, T7 #### [facility] [address] [address] [address] Armida Brown Urea nitrogen [Mass/Vol] 16.0 mg/dL Normal 7.0-18.0 [facility] Comment on above: Performed By: #### T SH, CMP, URIC, LIPID, T7 #### [facility] [address] [address] [address] Armida Brown Urea nitrogen/Creatinine [Mass ratio] 16.2 mg/mg Normal [facility] Comment on above: Performed By: #### T SH, CMP, URIC, LIPID, T7 #### [facility] [address] [place] [address] Dr. Armida Brown TSHon 02-01-2022 TSH 1.176 uIU/mL Normal 0.358-3.740 [facility] Comment on above: Performed By: #### T SH, CMP, URIC, LIPID, T7 #### [facility] [address] [place] [address] Dr. Armida Brown URIC ACID SERUMon 02-01-2022 Urate [Mass/Vol] 6.7 mg/dL Normal 3.5-7.2 [facility] Comment on above: Performed By: #### T SH, CMP, URIC, LIPID, T7 #### [facility] [address] [place] [address] Dr. Armida Brown .eGFRon 08-12-2018 eGFR AA >60 Normal >=60 [facility] Comment on above: Order Comment: Order added by Discern rule Result Comment: Resu lt = 0-14.9 mL/min/1.73 m2 Kidney failure or Dialysis Result = 15-29 mL/min/1.73 m2 Severe decrease in GFR Result = 30-59 mL/min/1.73 m2 Moderate decrease in GFR Result >= 60 mL/min/1.73 m2 Normal or increased GFR Performed By: #### P TT #### [facility] [address] [place] [address] eGFR Non-AA >60 Normal >=60 [facility] Comment on above: Order Comment: Order added [...] dosing. Performed By: #### P TT #### [address] [id number] Basic Metabolic Profileon Anion gap molar conc 11 mmol/L Normal 7-17 [facility] Comment on above: Performed By: #### P TINR #### [address] [id number] Calcium mass conc 8.2 mg/dL Low 8.5-10.3 [facility] Comment on above: Performed By: #### P TINR #### [address] [id number] Chloride molar conc 102 mmol/L Normal 98-110 [facility] Comment on above: Performed By: #### P TINR #### [address] [id number] CO2 molar conc 27 mmol/L Normal 22-32 [facility] Comment on above: Performed By: #### P TINR #### [address] [address] Creatinine mass conc 0.83 mg/dL Normal 0.61-1.24 [facility] Comment on above: Performed By: #### P TINR #### [address] [place] [id number] Glucose mass conc 109 mg/dL Normal 74-118 [facility] Comment on above: Performed By: #### P TINR #### [address] [address] Potassium molar conc 3.9 mmol/L Normal 3.4-4.8 [facility] Comment on above: Performed By: #### P TINR #### [address] [address] Sodium molar conc 136 mmol/L Normal 133-142 [facility] Comment on above: Performed By: #### P TINR #### [address] [address] Urea nitrogen mass conc 9 mg/dL Normal 8-26 [facility] Comment on above: Performed By: #### P TINR #### [address] [place] [id number] Urea nitrogen/Creatinine mass ratio 10.8 mg/mg Normal 10.0-20.0 [facility] Comment on above: Performed By: #### P TINR #### [address] [id number] CBC w/ Diffon 08-12-2018 Erythrocyte distribution width Ratio (RBC) 12.5 % Normal 11.6-14.8 [facility] Comment on above: Performed By: #### P TINR #### [address] [address] Hematocrit Volume Fraction (Bld) 29.7 % Low 41.0-53.0 [facility] Comment on above: Performed By: #### P TINR #### [address] [address] Hemoglobin mass conc (Bld) 10.3 g/dL Low 13.5-17.5 [facility] Comment on above: Performed By: #### P TINR #### [address] [address] MCH Entitic mass (RBC) 30.1 pg Normal 27.0-35.0 [facility] Comment on above: Performed By: #### P TINR #### [address] [address] MCHC mass conc (RBC) 34.5 % Normal 31.0-37.0 [facility] Comment on above: Performed By: #### P TINR #### [address] [id number] MCV Entitic volume (RBC) 87.2 fL Normal 80.0-100.0 [facility] Comment on above: Performed By: #### P TINR #### [address] [place] [id number] Platelet mean volume Entitic volume (Bld) 7.8 fL Normal 6.7-10.6 [facility] Comment on above: Performed By: #### P TINR #### [address] [place] [id number] Platelets #/vol (Bld) 218 x10*3/mcL Normal 150-350 [facility] Comment on above: Performed By: #### P TINR #### [place] [address] RBC #/vol (Bld) 3.41 x10*6/mcL Low 4.30-5.80 [facility] Comment on above: Performed By: #### P TINR #### [address] [id number] WBC #/vol (Bld) 9.1 x10*3/mcL Normal 4.5-11.0 [facility] Comment on above: Performed By: #### P TINR #### [place] [address] Diff Autoon 08-12-2018 Baso Absolute 0.0 x10*3/mcL Normal 0.0-0.2 [facility] Comment on above: Performed By: #### P TINR #### [address] [place] [id number] Basophils/100 WBC (Bld) 0.5 % Normal 0.0-1.2 [facility] Comment on above: Performed By: #### P TINR #### [address] [place] [id number] Eos Absolute 0.3 x10*3/mcL Normal 0.0-0.4 [facility] Comment on above: Performed By: #### P TINR #### [address] [address] Eosinophils/100 WBC (Bld) 3.4 % Normal 0.0-6.1 [facility] Comment on above: Performed By: #### P TINR #### [address] [address] Lymphocytes #/vol (Bld) 1.1 x10*3/mcL Normal 1.0-4.8 [facility] Comment on above: Performed By: #### P TINR #### [address] [address] Lymphocytes/100 WBC (Bld) 11.8 % Low 27.2-40.8 [facility] Comment on above: Performed By: #### P TINR #### [address] [address] [place] Absolute 0.8 x10*3/mcL Normal 0.3-1.1 [facility] Comment on above: Performed By: #### P TINR #### [address] [address] Monocytes/100 WBC (Bld) 8.5 % Normal 4.7-13.9 [facility] Comment on above: Performed By: #### P TINR #### [address] [address] Neutro Absolute 6.9 x10*3/mcL Normal 1.8-7.7 [facility] Comment on above: Performed By: #### P TINR #### [address] [address] Neutro Auto 75.8 % High 47.2-70.8 [facility] Comment on above: Performed By: #### P TINR #### [address] [address] Inpatient Clinical Summaryon 08-12-2018 Inpatient Clinical Summary [address] [place] [address] [address] Clinical Summary Person Information Name: Chiquita Weeks Age: 28 Years : 1990 Sex: Male PCP: Cyril Ruiz MD Marital Status: Phone: PCP: Race: White Ethnicity: Not or Language: Fijian Visit Id: Visit Reason: Speciality: Acuity: Enc Type: Inpatient Med Service: Surgery Arrival: 08/08/2018 08:12:20 Discharge: Dispo Type: Address: [address] [place] [address] Diagnosis: 1:Scheuermann's kyphosis Discharged To: Home Treatments: [...] range between ( 27.2 and 40.8 ) [place] Auto: 8.5 % -- Normal range between [...] range between ( 41.0 and 53.0 ) [place] Absolute: 0.8 x10 MCH: 30.1 pg -- [...] Follow up: With: Address: When: Jesus Reyes [employer] [facility], [place] [phone] Business (1) Comments: Schedule follow up appointment for 2 weeks for staple removal With: Address: When: Cyril Ruiz Normal [facility] Occupational Therapy Progres s Noteon 08-12-2018 Protein mass conc Planned/pending dc t o home today. Reecommended [facility] Electronically signed by ___ Teo Johnson 08/12/18 06:26 EST Normal [facility] Orthopedic Progress Noteon 0 08-12-2018 Protein mass [...] Luís Marcus PA-C 08/12/18 07:37 EST Normal [facility] .eGFRon 08-11-2018 eGFR Non-AA >60 Normal >=60 [facility] Comment on above: Order Comment: Order added [...] dosing. Performed By: #### P TINR #### [place] [id number] eGFR AA >60 Normal >=60 [facility] Comment on above: Order Comment: Order added by Discern rule Result Comment: Resu lt = 0-14.9 mL/min/1.73 m2 Kidney failure or Dialysis Result = 15-29 mL/min/1.73 m2 Severe decrease in GFR Result = 30-59 mL/min/1.73 m2 Moderate decrease in GFR Result >= 60 mL/min/1.73 m2 Normal or increased GFR Performed By: #### P TINR #### [place] [id number] Basic Metabolic Profileon Anion gap molar conc 10 mmol/L Normal 7-17 [facility] Comment on above: Performed By: #### P TINR #### [place] [id number] Calcium mass conc 8.3 mg/dL Low 8.5-10.3 [facility] Comment on above: Performed By: #### P TINR #### [address] [address] Chloride molar conc 97 mmol/L Low 98-110 [facility] Comment on above: Performed By: #### P TINR #### [address] [address] CO2 molar conc 26 mmol/L Normal 22-32 [facility] Comment on above: Performed By: #### P TINR #### [address] [address] Creatinine mass conc 0.88 mg/dL Normal 0.61-1.24 [facility] [facility] Comment on above: Performed By: #### P TINR #### [address] [address] Glucose mass conc 109 mg/dL Normal 74-118 [facility] Comment on above: Performed By: #### P TINR #### [address] [address] Potassium molar conc 4.0 mmol/L Normal 3.4-4.8 [facility] Comment on above: Performed By: #### P TINR #### [address] [address] Sodium molar conc 129 mmol/L Low 133-142 [facility] Comment on above: Performed By: #### P TINR #### [address] [address] Urea nitrogen mass conc 9 mg/dL Normal 8-26 [facility] Comment on above: Performed By: #### P TINR #### [address] [address] Urea nitrogen/Creatinine mass ratio 10.2 mg/mg Normal 10.0-20.0 [facility] Comment on above: Performed By: #### P TINR #### [address] [address] CBC w/ Diffon 08-11-2018 Erythrocyte distribution width Ratio (RBC) 12.6 % Normal 11.6-14.8 [facility] Comment on above: Performed By: #### P TINR #### [address] [address] Hematocrit Volume Fraction (Bld) 31.7 % Low 41.0-53.0 [facility] Comment on above: Performed By: #### P TINR #### [address] [address] Hemoglobin mass conc (Bld) 10.8 g/dL Low 13.5-17.5 [facility] Comment on above: Performed By: #### P TINR #### [address] [address] MCH Entitic mass (RBC) 29.9 pg Normal 27.0-35.0 [facility] Comment on above: Performed By: #### P TINR #### [address] [address] MCHC mass conc (RBC) 34.2 % Normal 31.0-37.0 [facility] Comment on above: Performed By: #### P TINR #### [address] [address] MCV Entitic volume (RBC) 87.5 fL Normal 80.0-100.0 [facility] Comment on above: Performed By: #### P TINR #### [address] [address] Platelet mean volume Entitic volume (Bld) 7.8 fL Normal 6.7-10.6 [facility] Comment on above: Performed By: #### P TINR #### [address] [address] Platelets #/vol (Bld) 218 x10*3/mcL Normal 150-350 [facility] Comment on above: Performed By: #### P TINR #### [address] [address] RBC #/vol (Bld) 3.62 x10*6/mcL Low 4.30-5.80 [facility] Comment on above: Performed By: #### P TINR #### [address] [address] WBC #/vol (Bld) 11.8 x10*3/mcL High 4.5-11.0 [facility] Comment on above: Performed By: #### P TINR #### [address] [address] Diff Autoon 08-11-2018 Baso Absolute 0.1 x10*3/mcL Normal 0.0-0.2 [facility] Comment on above: Performed By: #### P TINR #### [address] [address] Basophils/100 WBC (Bld) 0.5 % Normal 0.0-1.2 [facility] Comment on above: Performed By: #### P TINR #### [address] [address] Eos Absolute 0.3 x10*3/mcL Normal 0.0-0.4 [facility] Comment on above: Performed By: #### P TINR #### [address] [address] Eosinophils/100 WBC (Bld) 2.3 % Normal 0.0-6.1 [facility] Comment on above: Performed By: #### P TINR #### [address] [address] Lymphocytes #/vol (Bld) 1.7 x10*3/mcL Normal 1.0-4.8 [facility] Comment on above: Performed By: #### P TINR #### [address] [address] Lymphocytes/100 WBC (Bld) 14.3 % Low 27.2-40.8 [facility] Comment on above: Performed By: #### P TINR #### [address] [address] [place] Absolute 1.2 x10*3/mcL High 0.3-1.1 [facility] Comment on above: Performed By: #### P TINR #### [address] [address] Monocytes/100 WBC (Bld) 9.9 % Normal 4.7-13.9 [facility] Comment on above: Performed By: #### P TINR #### [address] [address] Neutro Absolute 8.6 x10*3/mcL High 1.8-7.7 [facility] Comment on above: Performed By: #### P TINR #### [address] [address] Neutro Auto 73.0 % High 47.2-70.8 [facility] Comment on above: Performed By: #### P TINR #### [facility] [address] [place] [address] Orthopedic Progress Noteon 0 08-11-2018 Protein mass [...] Luís Marcus PA-C 08/11/18 14:44 EST Normal [facility] XR Scoliosis Study 2 or 3 Vi [...] Electronically Signed in Other Vendor System) Normal [facility] Comment on above: Order Comment: Stand ing AP and lateral views in TLSO brace .eGFRon 08-10-2018 eGFR AA >60 Normal >=60 [facility] Comment on above: Result Comment: Resu lt = 0-14.9 mL/min/1.73 m2 Kidney failure or Dialysis Result = 15-29 mL/min/1.73 m2 Severe decrease in GFR Result = 30-59 mL/min/1.73 m2 Moderate decrease in GFR Result >= 60 mL/min/1.73 m2 Normal or increased GFR Performed By: #### C BC #### [address] [address] eGFR Non-AA >60 Normal >=60 [facility] Comment on above: Result Comment: Resu lt [...] dosing. Performed By: #### C BC #### [address] [address] Basic Metabolic Profileon Anion gap molar conc 12 mmol/L Normal 7-17 [facility] Comment on above: Performed By: #### C BC #### [address] [address] Calcium mass conc 8.1 mg/dL Low 8.5-10.3 [facility] Comment on above: Performed By: #### C BC #### [address] [address] Chloride molar conc 103 mmol/L Normal 98-110 [facility] Comment on above: Performed By: #### C BC #### [address] [address] CO2 molar conc 25 mmol/L Normal 22-32 [facility] Comment on above: Performed By: #### C BC #### [address] [address] Creatinine mass conc 0.83 mg/dL Normal 0.61-1.24 [facility] Comment on above: Performed By: #### C BC #### [address] [address] Glucose mass conc 99 mg/dL Normal 74-118 [facility] Comment on above: Performed By: #### C BC #### [address] [address] Potassium molar conc 4.3 mmol/L Normal 3.4-4.8 [facility] Comment on above: Performed By: #### C BC #### [address] [address] Sodium molar conc 136 mmol/L Normal 133-142 [facility] Comment on above: Performed By: #### C BC #### [address] [address] Urea nitrogen mass conc 12 mg/dL Normal 8-26 [facility] Comment on above: Performed By: #### C BC #### [address] [address] Urea nitrogen/Creatinine mass ratio 14.5 mg/mg Normal 10.0-20.0 [facility] Comment on above: Performed By: #### C BC #### [address] [address] CBC w/ Diffon 08-10-2018 Erythrocyte distribution width Ratio (RBC) 12.6 % Normal 11.6-14.8 [facility] Comment on above: Performed By: #### C BC #### [address] [address] Hematocrit Volume Fraction (Bld) 33.6 % Low 41.0-53.0 [facility] Comment on above: Performed By: #### C BC #### [address] [address] Hemoglobin mass conc (Bld) 11.4 g/dL Low 13.5-17.5 [facility] Comment on above: Performed By: #### C BC #### [address] [address] MCH Entitic mass (RBC) 29.9 pg Normal 27.0-35.0 [facility] Comment on above: Performed By: #### C BC #### [address] [address] MCHC mass conc (RBC) 34.0 % Normal 31.0-37.0 [facility] Comment on above: Performed By: #### C BC #### [address] [address] MCV Entitic volume (RBC) 87.8 fL Normal 80.0-100.0 [facility] Comment on above: Performed By: #### C BC #### [address] [address] Platelet mean volume Entitic volume (Bld) 8.1 fL Normal 6.7-10.6 [facility] Comment on above: Performed By: #### C BC #### [address] [address] Platelets #/vol (Bld) 182 x10*3/mcL Normal 150-350 [facility] Comment on above: Performed By: #### C BC #### [address] [address] RBC #/vol (Bld) 3.82 x10*6/mcL Low 4.30-5.80 [facility] Comment on above: Performed By: #### C BC #### [address] [address] WBC #/vol (Bld) 10.3 x10*3/mcL Normal 4.5-11.0 [facility] Comment on above: Performed By: #### C BC #### [address] [address] Diff Autoon 08-10-2018 Baso Absolute 0.1 x10*3/mcL Normal 0.0-0.2 [facility] Comment on above: Performed By: #### C BC #### [address] [address] Basophils/100 WBC (Bld) 1.4 % High 0.0-1.2 [facility] Comment on above: Performed By: #### C BC #### [address] [address] Eos Absolute 0.1 x10*3/mcL Normal 0.0-0.4 [facility] Comment on above: Performed By: #### C BC #### [address] [address] Eosinophils/100 WBC (Bld) 1.2 % Normal 0.0-6.1 [facility] Comment on above: Performed By: #### C BC #### [address] [address] Lymphocytes #/vol (Bld) 2.3 x10*3/mcL Normal 1.0-4.8 [facility] Comment on above: Performed By: #### C BC #### [address] [address] Lymphocytes/100 WBC (Bld) 22.7 % Low 27.2-40.8 [facility] Comment on above: Performed By: #### C BC #### [address] [address] [place] Absolute 1.1 x10*3/mcL Normal 0.3-1.1 [facility] Comment on above: Performed By: #### C BC #### [address] [address] Monocytes/100 WBC (Bld) 10.6 % Normal 4.7-13.9 [facility] Comment on above: Performed By: #### C BC #### [address] [address] Neutro Absolute 6.6 x10*3/mcL Normal 1.8-7.7 [facility] Comment on above: Performed By: #### C BC #### [facility] [address] [place] [address] Neutro Auto 64.1 % Normal 47.2-70.8 [facility] Comment on above: Performed By: #### C BC #### [facility] [address] [place] [address] Orthopedic Progress Noteon 0 08-10-2018 Protein mass [...] Luís Marcus PA-C 08/10/18 06:03 EST Normal [facility] .eGFRon 08-09-2018 eGFR AA >60 Normal >=60 [facility] Comment on above: Result Comment: Resu lt = 0-14.9 mL/min/1.73 m2 Kidney failure or Dialysis Result = 15-29 mL/min/1.73 m2 Severe decrease in GFR Result = 30-59 mL/min/1.73 m2 Moderate decrease in GFR Result >= 60 mL/min/1.73 m2 Normal or increased GFR Performed By: #### C BC #### [address] [address] eGFR Non-AA >60 Normal >=60 [facility] Comment on above: Result Comment: Resu lt [...] dosing. Performed By: #### C BC #### [address] [address] Basic Metabolic Profileon Anion gap molar conc 12 mmol/L Normal 7-17 [facility] Comment on above: Performed By: #### C BC #### [address] [address] Calcium mass conc 8.3 mg/dL Low 8.5-10.3 [facility] Comment on above: Performed By: #### C BC #### [address] [address] Chloride molar conc 106 mmol/L Normal 98-110 [facility] Comment on above: Performed By: #### C BC #### [address] [address] CO2 molar conc 24 mmol/L Normal 22-32 [facility] Comment on above: Performed By: #### C BC #### [address] [address] Creatinine mass conc 1.02 mg/dL Normal 0.61-1.24 [facility] Comment on above: Performed By: #### C BC #### [address] [address] Glucose mass conc 119 mg/dL High 74-118 [facility] Comment on above: Performed By: #### C BC #### [address] [address] Potassium molar conc 4.5 mmol/L Normal 3.4-4.8 [facility] Comment on above: Performed By: #### C BC #### [address] [address] Sodium molar conc 137 mmol/L Normal 133-142 [facility] Comment on above: Performed By: #### C BC #### [address] [address] Urea nitrogen mass conc 12 mg/dL Normal 8-26 [facility] Comment on above: Performed By: #### C BC #### [address] [address] Urea nitrogen/Creatinine mass ratio 11.8 mg/mg Normal 10.0-20.0 [facility] Comment on above: Performed By: #### C BC #### [address] [address] CBC w/ Diffon 08-09-2018 Erythrocyte distribution width Ratio (RBC) 12.8 % Normal 11.6-14.8 [facility] Comment on above: Performed By: #### . Automated Diff #### [address] [address] Hematocrit Volume Fraction (Bld) 39.9 % Low 41.0-53.0 [facility] Comment on above: Performed By: #### . Automated Diff #### [address] [address] Hemoglobin mass conc (Bld) 13.4 g/dL Low 13.5-17.5 [facility] Comment on above: Performed By: #### . Automated Diff #### [address] [address] MCH Entitic mass (RBC) 29.1 pg Normal 27.0-35.0 [facility] Comment on above: Performed By: #### . Automated Diff #### [address] [address] MCHC mass conc (RBC) 33.5 % Normal 31.0-37.0 [facility] Comment on above: Performed By: #### . Automated Diff #### [address] [address] MCV Entitic volume (RBC) 86.9 fL Normal 80.0-100.0 [facility] Comment on above: Performed By: #### . Automated Diff #### [place] [id number] Platelet mean volume Entitic volume (Bld) 8.2 fL Normal 6.7-10.6 [facility] Comment on above: Performed By: #### . Automated Diff #### [place] [address] Platelets #/vol (Bld) 302 x10*3/mcL Normal 150-350 [facility] Comment on above: Performed By: #### . Automated Diff #### [place] [address] RBC #/vol (Bld) 4.59 x10*6/mcL Normal 4.30-5.80 [facility] Comment on above: Performed By: #### . Automated Diff #### [address] [address] WBC #/vol (Bld) 14.2 x10*3/mcL High 4.5-11.0 [facility] Comment on above: Performed By: #### . Automated Diff #### [place] [id number] [employer] Progress Noteon 08-09-2018 [employer] Driver Progress Note Met with patient regarding transitions [...] ___ Abbie Cordova 08/09/18 10:08 EST Normal [facility] Diff Autoon 08-09-2018 Baso Absolute 0.0 x10*3/mcL Normal 0.0-0.2 [facility] Comment on above: Performed By: #### . Automated Diff #### [address] [address] Basophils/100 WBC (Bld) 0.3 % Normal 0.0-1.2 [facility] Comment on above: Performed By: #### . Automated Diff #### [address] [address] Eos Absolute 0.0 x10*3/mcL Normal 0.0-0.4 [facility] Comment on above: Performed By: #### . Automated Diff #### [address] [address] Eosinophils/100 WBC (Bld) 0.1 % Normal 0.0-6.1 [facility] Comment on above: Performed By: #### . Automated Diff #### [address] [address] Lymphocytes #/vol (Bld) 1.2 x10*3/mcL Normal 1.0-4.8 [facility] Comment on above: Performed By: #### . Automated Diff #### [address] [address] Lymphocytes/100 WBC (Bld) 8.6 % Low 27.2-40.8 [facility] Comment on above: Performed By: #### . Automated Diff #### [address] [address] [place] Absolute 1.0 x10*3/mcL Normal 0.3-1.1 [facility] Comment on above: Performed By: #### . Automated Diff #### [address] [address] Monocytes/100 WBC (Bld) 6.9 % Normal 4.7-13.9 [facility] Comment on above: Performed By: #### . Automated Diff #### [facility] [address] [place] [address] Neutro Absolute 11.9 x10*3/mcL High 1.8-7.7 [facility] Comment on above: Performed By: #### . Automated Diff #### [facility] [address] [place] [address] Neutro Auto 84.1 % High 47.2-70.8 [facility] Comment on above: Performed By: #### . Automated Diff #### [place] [id number] [place] [id number] Orthopedic Progress Noteon 0 08-09-2018 Protein mass [...] Luís Marcus PA-C 08/09/18 06:28 EST Normal [facility] Progress Note-Nurseon 2018 Protein mass conc Upset [...] ___ Petra Kim 08/09/18 10:50 EST Normal [facility] XR Spine Thoracic Minimum 4 Viewson 08-09-2018 [...] Electronically Signed in Other Vendor System) Normal [facility] CT Spine Thoracic w/o Contra ston 08-08-2018 [...] exam here. Consider MRI. Radiation Dose Estimate: CTDI(mGy):0.684581 / / / kVp:120.621899 / mAs:0.391222 / / / DLP(mGy-cm):9.964139Uih y Part: Abdomen CTDI(mGy):0.314715 / / / kVp:140.314291 / mAs:0.953048 / / / DLP(mGy-cm):14.486957Ty dy Part: Final Dictated by: Chris Don MD Dictated DT/TM: 08.08.2018 11:02 am Signed by: Chris Don MD Signed (Electronic Signature): 08.08.2018 11:22 am (If Report Is Signed, Electronically Signed in Other Vendor System) Normal [facility] Comment on above: Order Comment: tried to call office at 18:05. office already closed and unable to leave message regarding this to be a future order. Hgb & Hcton 08-08-2018 Hematocrit Volume Fraction (Bld) 42.8 % Normal 41.0-53.0 [facility] Comment on above: Performed By: #### . Automated Diff #### [place] [address] Hemoglobin mass conc (Bld) 14.4 g/dL Normal 13.5-17.5 [facility] Comment on above: Performed By: #### . Automated Diff #### [place] [id number] [place] [address] Operative Reporton 9 Operative Report Indication for [...] decompression and co-surgeon Leida Lynn for instrumentation Forming Machine Adjuster Luís HAMEED Anesthesia General anesthetic via endotracheal [...] is secured. He is carefully turned onto [facility] operating room table and head and [...] through T12 are resected using Luis Alberto physician scribe and this bone is harvested for placement [...] of autograft from local harvest supplemented with Jimi demineralized bone matrix. The wound is reirrigated [...] surgical procedure was assisted by my physician?s guest services assistant. Her presence was needed throughout the case for manipulation and positioning the surgical arm as well as positioning the surgical instruments as well as primarily assisting me through procedure. Due to the complexity of condition, the skill set of an neurosurgical physician guest services assistant was needed throughout the case. During the surgical case, the surgical lead was working the back table and was not available for assistance. Tourniquet Time None Sponge/Needle Count Per nursing correct Fluid Count 2500 mL crystalloid Electronically signed by ___ Shane PANCHAL MD, Leida Cross 08/08/18 17:22 EST Normal [facility] Operative Report Operative Report DATE OF OPERATION: [...] 5. Use of local autograft bone and Cassia Matrix SURGEON: Jesus Shah MD for decompression Leida Lynn MD for instrumentation DELIMBER OPERATOR: Luís Staley assisted throughout the procedure [...] injury, paralysis, non-union, DVT/PE, bleeding, chronic pain, [place], stroke, etc. All questions were answered and [...] by entirely resecting the facet joint. Two [place] chrome rods were cut to size and [...] bone was packed over the decorticated elements bilaterally.Cassia matrix was placed on top of this [...] Jesus Reyes MD 08/09/18 11:58 EST Normal [facility] Operative Report Preoperative Diagnos is Scheuermann's kyphosis Intractable thoracic pain Postoperative Diagnosis Scheuermann's kyphosis Intractable thoracic pain Operation 1. T7-T12 decompression with T7-T12 bilateral [place] Osteotomies 2. T6-L2 posterior spinal fusion using in situ deformity correction Surgeon(s) Dr. Reyes for decompression Dr. 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 Exercise Home/Environment Lives with Children, Spouse. Living [...] Jesus Reyes MD 08/08/2018 14:55 EST Normal [facility] .eGFRon 07-31-2018 eGFR Non-AA >60 Normal >=60 [facility] Comment on above: Result Comment: Resu lt [...] dosing. Performed By: #### E GFR #### [address] [address] eGFR AA >60 Normal >=60 [facility] Comment on above: Result Comment: Resu lt = 0-14.9 mL/min/1.73 m2 Kidney failure or Dialysis Result = 15-29 mL/min/1.73 m2 Severe decrease in GFR Result = 30-59 mL/min/1.73 m2 Moderate decrease in GFR Result >= 60 mL/min/1.73 m2 Normal or increased GFR Performed By: #### E GFR #### [address] [address] ABO/Rhon 07-31-2018 ABO/Rh SD 1.11.19 DCon: 0 ABO/Rh: O POS Normal [facility] Comment on above: Performed By: #### A MONISHA #### [facility] (DEFAULT) [address] [place] [address] [address] [address] [address] ABSC Autoon 07-31-2018 ABSC Auto Negative Normal [facility] Comment on above: Performed By: #### A SA #### [address] [address] Basic Metabolic Profileon Anion gap molar conc 15 mmol/L Normal 7-17 [facility] Comment on above: Performed By: #### C [id number] #### [address] [address] Calcium mass conc 9.7 mg/dL Normal 8.5-10.3 [facility] Comment on above: Performed By: #### C [id number] #### [address] [address] Chloride molar conc 96 mmol/L Low 98-110 [facility] Comment on above: Performed By: #### C [id number] #### [address] [address] CO2 molar conc 28 mmol/L Normal 22-32 [facility] Comment on above: Performed By: #### C [id number] #### [address] [address] Creatinine mass conc 1.07 mg/dL Normal 0.61-1.24 [facility] Comment on above: Performed By: #### C [id number] #### [address] [address] Glucose mass conc 94 mg/dL Normal 74-118 [facility] Comment on above: Performed By: #### C [id number] #### [address] [address] Potassium molar conc 4.4 mmol/L Normal 3.4-4.8 [facility] Comment on above: Performed By: #### C [id number] #### [address] [address] Sodium molar conc 135 mmol/L Normal 133-142 [facility] Comment on above: Performed By: #### C [id number] #### [address] [address] Urea nitrogen mass conc 20 mg/dL Normal 8-26 [facility] Comment on above: Performed By: #### C [id number] #### [address] [address] Urea nitrogen/Creatinine mass ratio 18.7 mg/mg Normal 10.0-20.0 [facility] Comment on above: Performed By: #### C [id number] #### [address] [address] CBC w/ Diffon 07-31-2018 Erythrocyte distribution width Ratio (RBC) 13.0 % Normal 11.6-14.8 [facility] Comment on above: Performed By: #### C BC #### [address] [address] Hematocrit Volume Fraction (Bld) 51.4 % Normal 41.0-53.0 [facility] Comment on above: Performed By: #### C BC #### [address] [address] Hemoglobin mass conc (Bld) 17.4 g/dL Normal 13.5-17.5 [facility] Comment on above: Performed By: #### C BC #### [place] [id number] MCH Entitic mass (RBC) 29.8 pg Normal 27.0-35.0 [facility] Comment on above: Performed By: #### C BC #### [place] [address]5540 MCHC mass conc (RBC) 33.9 % Normal 31.0-37.0 [facility] Comment on above: Performed By: #### C BC #### [place] [id number] MCV Entitic volume (RBC) 87.7 fL Normal 80.0-100.0 [facility] Comment on above: Performed By: #### C BC #### [place] [id number] Platelet mean volume Entitic volume (Bld) 7.8 fL Normal 6.7-10.6 [facility] Comment on above: Performed By: #### C BC #### [place] [id number] Platelets #/vol (Bld) 295 x10*3/mcL Normal 150-350 [facility] Comment on above: Performed By: #### C BC #### [address] [address] RBC #/vol (Bld) 5.86 x10*6/mcL High 4.30-5.80 [facility] Comment on above: Performed By: #### C BC #### [address] [address] WBC #/vol (Bld) 9.1 x10*3/mcL Normal 4.5-11.0 [facility] Comment on above: Performed By: #### C BC #### [address] [address] Diff Autoon 07-31-2018 Baso Absolute 0.1 x10*3/mcL Normal 0.0-0.2 [facility] Comment on above: Performed By: #### . Automated Diff #### [address] [address] Basophils/100 WBC (Bld) 1.0 % Normal 0.0-1.2 [facility] Comment on above: Performed By: #### . Automated Diff #### [address] [address] Eos Absolute 0.3 x10*3/mcL Normal 0.0-0.4 [facility] Comment on above: Performed By: #### . Automated Diff #### [address] [address] Eosinophils/100 WBC (Bld) 3.1 % Normal 0.0-6.1 [facility] Comment on above: Performed By: #### . Automated Diff #### [address] [address] Lymphocytes #/vol (Bld) 2.6 x10*3/mcL Normal 1.0-4.8 [facility] Comment on above: Performed By: #### . Automated Diff #### [address] [address] Lymphocytes/100 WBC (Bld) 28.2 % Normal 27.2-40.8 [facility] Comment on above: Performed By: #### . Automated Diff #### [address] [address] [place] Absolute 0.8 x10*3/mcL Normal 0.3-1.1 [facility] Comment on above: Performed By: #### . Automated Diff #### [address] [address] Monocytes/100 WBC (Bld) 9.3 % Normal 4.7-13.9 [facility] Comment on above: Performed By: #### . Automated Diff #### [address] [address] Neutro Absolute 5.3 x10*3/mcL Normal 1.8-7.7 [facility] Comment on above: Performed By: #### . Automated Diff #### [facility] [address] [place] [address] Neutro Auto 58.4 % Normal 47.2-70.8 [facility] Comment on above: Performed By: #### . Automated Diff #### [address] [address] MRSA, PCRon 07-31-2018 INR Coag RelTime (Bld) Negative Normal [facility] Comment on above: Result Comment: The [employer] - Eye Tracking Xpert MRSA Assay is a qualitative in [...] clinician. Performed By: #### M RSAPC #### [address] [address] Neurosurgery Office/Clinic N oteon 07-31-2018 Neurosurgery Office/Clinic [...] rare alcohol intake Patient works in a [employer]-no legal or Workmen's Compensation claims on today's [...] MD, Leida Cross 07/31/18 11:40 EST Normal [facility] PTon 07-31-2018 INR Coag RelTime (PPP) 1.0 {INR} Normal <=3.5 [facility] Comment on above: Result Comment: INR has no normal range. INR Therapeutic range is: 2.0-3.0 (AF, CVA, TIAs, DVT prophylaxis, acute DVT) 2.5-3.5 ([facility] heart valves, recurrent thrombosis/emboli) Performed By: #### P TINR #### [address] [address] Prothrombin time (PT) Coag time (PPP) 10.4 s Normal 9.1-11.6 [facility] Comment on above: Performed By: #### P TINR #### [address] [address] PTTon 07-31-2018 aPTT Coag time (Bld) 28.9 s Normal 19.2-29.7 [facility] Comment on above: Performed By: #### P TT #### [address] [address] XR Chest 2 Viewson 9 XR Chest [...] Electronically Signed in Other Vendor System) Normal [facility] SCOLIOSIS 2 [facility] 04-24-2018 SCOLIOSIS 2 [facility] [address] [place], [place] [address] =====Patient Name: CHIQUITA WEEKS : 1990Sex: MAge: Race: WhiteMRN: [id number]. Location: 82Patient Status: OVisit #: [id number] Date: 04/24/2018 3:05:00 PMCompleted Date: 04/24/2018 03:19 PMRequesting Provider: COOKIE COLES Attending Provider: COOKIE COLES Report Copy To: Signs & Symptoms: M54.6 Pain in thoracic spine [id number]: AthenaComments: , , , Ordering Provider - COOKIE COLES MD , Exam: SCOLIOSIS 2 VWSAccession #: [id number] SCOLIOSIS 2 S 04/24/2018 3:19 PM EDT [...] abnormality. Electronically signed by:Adelfo Kay. Transcribed by: [email or web address], User Resident: Electronically Signed by: ADELFO KAY @ 04/24/2018 10:56 PM Normal [facility] Comment on above: Order Comment: , , = ========= , Ordering Provider - COOKIE COLES MD , Encounters Encounter Date Encounter Type Care Provider Facility Start: 02-01-2022 End: 02-02-2022 ambulatory ERNST PENA Facility: Start: 06-23-2021 ambulatory ERNST [facility] Facility: Start: 09-25-2018 End: 09-26-2018 ambulatory [facility] [place] [place]: 08-08-2018 End: 08-12-2018 Evaluation and management of inpatient SELVON MARCIA Facility:[facility] Start: 07-31-2018 End: 08-01-2018 [facility] Start: 07-31-2018 End: 08-01-2018 Patient encounter procedure LEIDA LYNN Facility:[facility] Start: 07-30-2018 Patient encounter procedure SELVON MARCIA Facility:[facility] Start: 04-24-2018 End: 04-25-2018 Patient encounter COOKIE COLES Facility:[facility] Start: 04-15-2018 End: 04-16-2018 Patient encounter DEFAULT PHYSICIAN Facility:[facility] Procedures Date Procedure Procedure Detail Performing Clinician Start: 02-01-2022 PSA screening ERNST OROURKE Comment on above: Performed By: #### P [facility] #### [facility] [address] [place] [address] Dr. Armida Brown Payers Date Payer Category Payer Unknown 2017 Unknown [id number] 1990 Unknown [id number] 2.16.8 [id number] 1990 Unknown [id number] 2.16.8 [id number] 1990 Unknown [id number] 2.16.8 [id number] 1990 Unknown [id number] 2.16.8 40.1.509010.3.579.2.196 1988 Unknown [id number] 2.16.8 40.1.245571.3.579.2.196 1988 Unknown [id number] 2.16.8 40.1.628013.3.579.2.196 1988 Unknown [id number] 2.16.84 0.1.744777.3.579.2.593 1988 Unknown [id number] 2.16.84 0.1.558577.3.579.2.593 1988 Unknown [id number] 2.16.84 0.1.768923.3.579.2.593 1988 Unknown [id number] 2.16.84 [id number] 1961 Medicaid [id number] 1961 Medicare [id number] 1961 Unknown [id number] Unknown [id number] Summary Purpose Family History No Family History [...] section and content) DATE CREATED AUTHOR 05/29/2018 [facility] DATE CREATED AUTHOR AUTHOR'S ORGANIZ ATION 08/25/2018 [facility] DATE CREATED AUTHOR AUTHOR'S ORGANIZ ATION 02/15/2022 [facility] DATE CREATED AUTHOR AUTHOR'S ORGANIZ ATION 09/27/2022 [facility] FOR RECORDS PERTAINING TO PATIENTS WHO [...] BE BASED ON THE PRIMARY CLINICAL RECORDS. [facility]. provides no warranty or guarantee of the accuracy or completeness of information in this document.
[2024-04-08 07:06] VITALS: BP 140/107; PULSE 82; TEMP 36.6; O2SAT 95
--- NOTE | 2024-04-08 08:03 | PC.NURSE ---
Procedure cancelled by Dr. Hernandez due to repeat botox procedure needing to wait until after oct 10 (per insurance and medical necessity).
--- NOTE | 2024-05-23 13:15 | P.EN_ITS ---
Event Note Event Note: The procedure intended for thoracic region botox injection (diagnosis- dystonia,G24.9) was cancelled in preop due to insurance limitations, confirmed by myself, Dr. Flavio Banks.
--- NOTE | 2024-05-23 13:15 | PM.EN ---
Event Note Event Note: The procedure intended for thoracic region botox injection (diagnosis-dystonia,G24.9) was cancelled in preop due to insurance limitations, confirmed by myself, Dr. Flavio Banks.
== END 2024-04-08 07:50 | disposition home or self-care (01) ==
LOC: SURGOUT 06:55
PROVIDERS: PCP Nurse Practitioner Family; Visit Provider Anesthesiology Pain Medicine
DX: G24.9 Dystonia, unspecified (principal); Z53.8 Procedure and treatment not carried out for other reasons
CPT/HCPCS: 64646

== ENCOUNTER 2024-04-30 14:57 | Outpatient (OUT) | payer MEDICARE, MEDICAID, SELFPAY ==
--- OUTSIDE RECORDS SUMMARY | 2024-04-30 15:16 | XMS_ITS | CCD ---
Author Organization [facility] Care Team Providers Care Pediatrics Teacher Name Role Phone PHYSICIAN, DEFAULT Unavailable Unavailable PHYSICIAN, DEFAULT Unavailable Unavailable ELGAFY, COOKIE K Unavailable Unavailable ELGAFY, COOKIE K Unavailable Unavailable ELGAFY, COOKIE K Unavailable Unavailable UNKNOWN, PHYSICIAN Unavailable Unavailable MARCIA, SELVON Admitting Unavailable MARCIA, SELVON Attending Unavailable [facility] Unavailable Luís Marcus Consulting Unavailable LEIDA LYNN Consulting Unavaila ble Lynn, Leida Cross Consulting Unavaila ble SpychalsEllen zeng Consulting Unavailable Delfino Montoya Consulting Unavailable LEIDA LYNN Attending Unavaila ble [facility] Un[facility] Unavailable SLOANE HIGH PA-C Attending Unavail able MARCIA, SELVON Attending Unavailable [facility] Unavailable BECKY, ERNST Primary Care Unavailable TAISHA, DR SCOOTER Webster Attending Unavailable TAISHA, DR SCOOTER Webster Admitting Unavailable CHANTE HERNANDEZ Consulting Unavailable BECKY, ERNST Primary Care Unavailable BECKY, ERNST Admitting Unavailable ERNST PENA Attending Unavailable ERNST PENA Consulting Unavailable [facility] Care Unavaila ble MARCIA, SELVON F Referring Unavailable MARCIA, SELVON F Attending Unavailable MARCIA, SELVON F Admitting Unavailable Allergies Allergy Classification Reported Allergen(s) Allergy Type Date of Onset Reaction(s) Facility (1 source) No Known Medication Allergies; Translations: [No Known Medication Allergies] Propensity to adverse reactions to drug (disorder) [facility] Repository Problems Problem Classification Problem [...] INSULINon 02-02-2022 Insulin 16.5 uIU/mL Normal 2.6-24.9 [facility] Comment on above: Performed By: #### I NSULIN #### [facility] [address] [place] [address] Dr. Armida Brown CBC AUTO DIFFon 02-01-2022 BASO # 0.1 103/ul Normal 0.0-0.1 [facility] Comment on above: Performed By: #### C BC #### [facility] [address] [place] [address] Dr. Armida Brown Basophils/100 WBC (Bld) 0.9 % Normal 0.2-2.0 [facility] Comment on above: Performed By: #### C BC #### [facility] [address] [place] [address] Dr. Armida Brown EO # 0.4 103/ul Normal 0.0-0.7 [facility] Comment on above: Performed By: #### C BC #### [facility] [address] [place] [address] Dr. Armida Brown Eosinophils/100 WBC (Bld) 4.7 % Normal 0.9-7.0 [facility] Comment on above: Performed By: #### C BC #### [facility] [address] [place] [address] Dr. Armida Brown Erythrocyte distribution width (RBC) [Ratio] 13.1 % Normal 11.0-15.0 [facility] Comment on above: Performed By: #### C BC #### [facility] [address] [place] [address] Dr. Armida Brown Hematocrit (Bld) [Volume fraction] 48.6 % Normal 42.0-54.0 [facility] Comment on above: Performed By: #### C BC #### [facility] [address] [place] [address] Dr. Armida Brown Hemoglobin (Bld) [Mass/Vol] 16.5 g/dL Normal 14.0-18.0 [facility] Comment on above: Performed By: #### C BC #### [facility] [address] [place] [address] Dr. Armida Brown IG # 0.05 10e3/ul Critically high 0.00-0.03 [facility] Comment on above: Performed By: #### C BC #### [facility] [address] [place] [address] Dr. Armida Brown IG % 0.6 % Critically high 0.0-0.5 [facility] Comment on above: Performed By: #### C BC #### [facility] [address] [place] [address] Dr. Armida Brown LYMPH # 1.7 103/ul Normal 1.2-3.8 [facility] Comment on above: Performed By: #### C BC #### [facility] [address] [place] [address] Dr. Armida Brown Lymphocytes/100 WBC (Bld) 19.6 % Critically low 20.5-60.0 [facility] Comment on above: Performed By: #### C BC #### [facility] [address] [place] [address] Dr. Armida Brown MANUAL DIFF REQ NO Normal [facility] Comment on above: Performed By: #### C BC #### [facility] [address] [address] [address] Armida Brown MCH (RBC) [Entitic mass] 30.1 pg Normal 25.9-34.0 [facility] Comment on above: Performed By: #### C BC #### [facility] [address] [address] [address] Armida Brown MCHC (RBC) [Mass/Vol] 34.0 g/dL Normal 29.9-35.2 [facility] Comment on above: Performed By: #### C BC #### [facility] [address] [place] [address] Dr. Armida Brown MCV (RBC) [Entitic vol] 88.5 fL Normal 80.0-94.0 [facility] Comment on above: Performed By: #### C BC #### [facility] [address] [place] [address] Dr. Armida Brown MONO # 0.5 103/ul Normal 0.3-0.8 [facility] Comment on above: Performed By: #### C BC #### [facility] [address] [place] [address] Dr. Armida Brown Monocytes/100 WBC (Bld) 5.6 % Normal 1.7-12.0 [facility] Comment on above: Performed By: #### C BC #### [facility] [address] [place] [address] Dr. Armida Brown NEUT # 6.1 103/ul Normal 1.4-6.[address] [facility] Comment on above: Performed By: #### C BC #### [facility] [address] [place] [address] Dr. Armida Brown Neutrophils/100 WBC (Bld) 68.6 % Normal 43.0-75.[address] [facility] Comment on above: Performed By: #### C BC #### [facility] [address] [place] [address] Dr. Armida Brown Platelet mean volume (Bld) [Entitic vol] 9.3 fL Critically low 9.5-13.5 [facility] Comment on above: Performed By: #### C BC #### [facility] [address] [address] [address] Armida Brown PLT 293 103/ul Normal 150-450 [facility] Comment on above: Performed By: #### C BC #### [facility] [address] [address] [address] Armida Brown RBC 5.49 106/ul Normal 4.70-6.10 [facility] Comment on above: Performed By: #### C BC #### [facility] [address] [address] [address] Armida Brown WBC 8.9 103/ul Normal 4.0-11.0 [facility] Comment on above: Performed By: #### C BC #### [facility] [address] [place] [address] Dr. Armida Brown FREE THYROXINE INDEX T7on FTI 3.33 Normal 1.30-4.50 [facility] Comment on above: Performed By: #### T SH, CMP, URIC, LIPID, T7 #### [facility] [address] [address] [address] Armida Brown T3U 35.0 % Normal 33.0-40.0 [facility] Comment on above: Performed By: #### T SH, CMP, URIC, LIPID, T7 #### [facility] [address] [place] [address] Dr. Armida Brown T4 [Mass/Vol] 9.50 ug/dL Normal 4.50-12.10 [facility] Comment on above: Performed By: #### T SH, CMP, URIC, LIPID, T7 #### [facility] [address] [place] [address] Dr. Armida Brown GLYCOHEMOGLOBIN A1Con 2021 ADA RECOMMENDATION SEE BELOW Normal [facility] Comment on above: Result Comment: ADA RECOMMENDED LIMIT 4.0 - 6.0 ADA THERAPEUTIC TARGET < 7.0 ACTION SUGGESTED > 7.0 Performed By: #### A 1C #### [facility] [address] [address] [address] Armida Brown Glucose [Mass/Vol] 103 mg/dL Normal [facility] Comment on above: Performed By: #### A 1C #### [facility] [address] [place] [address] Dr. Armida Brown HbA1c (Bld) [Mass fraction] 5.2 % Normal 4.5-6.2 [facility] Comment on above: Performed By: #### A 1C #### [facility] [address] [place] [address] Dr. Armida Brown LIPID PROFILEon 02-01-2022 CHOL-HDL RATIO NORM SEE BELOW Normal [facility] Comment on above: Result Comment: 3.3 - 4.4 LOW RISK 4.4 - 7.1 AVERAGE RISK 7.1 - 11.0 MODERATE RISK >11.0 HIGH RISK Performed By: #### T SH, CMP, URIC, LIPID, T7 #### [facility] [address] [place] [address] Dr. Armida Brown Cholesterol [Mass/Vol] 183 mg/dL Normal <=200 [facility] Comment on above: Performed By: #### T SH, CMP, URIC, LIPID, T7 #### [facility] [address] [place] [address] Dr. Armida Brown Cholesterol in HDL [Mass/Vol] 33 mg/dL Critically low 40-60 [facility] Comment on above: Performed By: #### T SH, CMP, URIC, LIPID, T7 #### [facility] [address] [address] [address] Armida Brown Cholesterol in LDL [Mass/Vol] 123.0 mg/dL Normal [facility] Comment on above: Performed By: #### T SH, CMP, URIC, LIPID, T7 #### [facility] [address] [place] [address] Dr. Armida Brown Cholesterol.total/C holesterol in HDL [Mass ratio] 5.5 {ratio} Normal [facility] Comment on above: Performed By: #### T SH, CMP, URIC, LIPID, T7 #### [facility] [address] [place] [address] Dr. Armida Brown HDL NORMAL > or = 60 mg/dl - LO W CARDIOVASCULAR RISK <40 mg/dl - HIGH CARDIOVASCULAR RISK Normal [facility] Comment on above: Performed By: #### T SH, CMP, URIC, LIPID, T7 #### [facility] [address] [address] [address] Armida Brown LDL CALC NORMAL SEE BELOW Normal [facility] Comment on above: Result Comment: <100 mg/dl OPTIMAL 100 - 129 mg/dl NEAR OR ABOVE OPTIMAL 130 - 159 mg/dl BORDERLINE HIGH 160 - 189 mg/dl HIGH >190 mg/dl VERY HIGH Performed By: #### T SH, CMP, URIC, LIPID, T7 #### [facility] [address] [address] [address] Armida Brown Triglyceride [Mass/Vol] 135 mg/dL Normal <=150 [facility] Comment on above: Performed By: #### T SH, CMP, URIC, LIPID, T7 #### [facility] [address] [address] [address] Armida Brown VLDL CALC 27.0 mg/dL Normal [facility] Comment on above: Performed By: #### T SH, CMP, URIC, LIPID, T7 #### [facility] [address] [address] [address] Armida Brown PROF 14(COMP METB)on 022 Albumin [Mass/Vol] 4.1 g/dL Normal 3.4-5.0 [facility] Comment on above: Performed By: #### T SH, CMP, URIC, LIPID, T7 #### [facility] [address] [address] [address] Armida Brown Albumin/Globulin [Mass ratio] 1.1 {ratio} Normal [facility] Comment on above: Performed By: #### T SH, CMP, URIC, LIPID, T7 #### [facility] [address] [address] [address] Armida Brown ALP [Catalytic activity/Vol] 79 U/L Normal 46-116 [facility] Comment on above: Performed By: #### T SH, CMP, URIC, LIPID, T7 #### [facility] [address] [address] [address] Armida Brown ALT [Catalytic activity/Vol] 58 U/L Normal 16-[address] [facility] Comment on above: Performed By: #### T SH, CMP, URIC, LIPID, T7 #### [facility] [address] [address] [address] Armida Brown Anion gap [Moles/Vol] 12.6 mmol/L Normal [facility] Comment on above: Performed By: #### T SH, CMP, URIC, LIPID, T7 #### [facility] [address] [place] [address] Dr. Armida Brown AST [Catalytic activity/Vol] 23 U/L Normal 15-37 [facility] Comment on above: Performed By: #### T SH, CMP, URIC, LIPID, T7 #### [facility] [address] [place] [address] Dr. Armida rBown Bilirubin [Mass/Vol] 0.6 mg/dL Normal 0.2-1.0 [facility] Comment on above: Performed By: #### T SH, CMP, URIC, LIPID, T7 #### [facility] [address] [address] [address] Armida Brown Calcium [Mass/Vol] 8.9 mg/dL Normal 8.5-10.1 [facility] Comment on above: Performed By: #### T SH, CMP, URIC, LIPID, T7 #### [facility] [address] [place] [address] Dr. Armida Brown Chloride [Moles/Vol] 104 mmol/L Normal 98-[address] [facility] Comment on above: Performed By: #### T SH, CMP, URIC, LIPID, T7 #### [facility] [address] [place] [address] Dr. Armida Brown CO2 [Moles/Vol] 26.7 mmol/L Normal 21.0-32.[address] [facility] Comment on above: Performed By: #### T SH, CMP, URIC, LIPID, T7 #### [facility] [address] [place] [address] Dr. Armida Brown Creatinine [Mass/Vol] 0.99 mg/dL Normal 0.70-1.[address] [facility] Comment on above: Performed By: #### T SH, CMP, URIC, LIPID, T7 #### [facility] [address] [address] [address] Armida Brown EGFR-AF BELGIAN >60 Normal >=60 [facility] Comment on above: Performed By: #### T SH, CMP, URIC, LIPID, T7 #### [facility] [address] [address] [address] Armida Brown EGFR-NON AF BELGIAN >60 Normal >=[address] [facility] Comment on above: Performed By: #### T SH, CMP, URIC, LIPID, T7 #### [facility] [address] [place] [address] Dr. Armida Brown Globulin (S) [Mass/Vol] 3.6 g/dL Normal [facility] Comment on above: Performed By: #### T SH, CMP, URIC, LIPID, T7 #### [facility] [address] [place] [address] Dr. Armida Brown Glucose [Mass/Vol] 100 mg/dL Normal 74-106 [facility] Comment on above: Performed By: #### T SH, CMP, URIC, LIPID, T7 #### [facility] [address] [place] [address] Dr. Armida Brown Potassium [Moles/Vol] 4.3 mmol/L Normal 3.5-5.[address] [facility] Comment on above: Performed By: #### T SH, CMP, URIC, LIPID, T7 #### [facility] [address] [place] [address] Dr. Armida Brown Protein [Mass/Vol] 7.7 g/dL Normal 6.4-8.2 [facility] Comment on above: Performed By: #### T SH, CMP, URIC, LIPID, T7 #### [facility] [address] [place] [address] Dr. Armida Brown Sodium [Moles/Vol] 139 mmol/L Normal 136-145 [facility] Comment on above: Performed By: #### T SH, CMP, URIC, LIPID, T7 #### [facility] [address] [address] [address] Armida Brown Urea nitrogen [Mass/Vol] 16.0 mg/dL Normal 7.0-18.0 [facility] Comment on above: Performed By: #### T SH, CMP, URIC, LIPID, T7 #### [facility] [address] [address] [address] Armida Brown Urea nitrogen/Creatinine [Mass ratio] 16.2 mg/mg Normal [facility] Comment on above: Performed By: #### T SH, CMP, URIC, LIPID, T7 #### [facility] [address] [place] [address] Dr. Armida Brown TSHon 02-01-2022 TSH 1.176 uIU/mL Normal 0.358-3.740 [facility] Comment on above: Performed By: #### T SH, CMP, URIC, LIPID, T7 #### [facility] [address] [place] [address] Dr. Armida Brown URIC ACID SERUMon 02-01-2022 Urate [Mass/Vol] 6.7 mg/dL Normal 3.5-7.[address] [facility] Comment on above: Performed By: #### T SH, CMP, URIC, LIPID, T7 #### [facility] [address] [place] [address] Dr. Armida Brown .eGFRon 08-12-2018 eGFR AA >60 Normal >=60 [facility] Comment on above: Order Comment: Order added by Discern rule Result Comment: Resu lt = 0-14.9 mL/min/1.73 m2 Kidney failure or Dialysis Result = 15-29 mL/min/1.73 m2 Severe decrease in GFR Result = 30-59 mL/min/1.73 m2 Moderate decrease in GFR Result >= 60 mL/min/1.73 m2 Normal or increased GFR Performed By: #### P TT #### [facility] [address] [place] [address] eGFR Non-AA >60 Normal >=60 [facility] Comment on above: Order Comment: [...] dosing. Performed By: #### P TT #### [address] [id number] Basic Metabolic Profileon Anion gap molar conc 11 mmol/L Normal 7-17 [facility] Comment on above: Performed By: #### P TINR #### [address] [id number] Calcium mass conc 8.2 mg/dL Low 8.5-10.3 [facility] Comment on above: Performed By: #### P TINR #### [address] [id number] Chloride molar conc 102 mmol/L Normal 98-110 [facility] Comment on above: Performed By: #### P TINR #### [address] [place] [id number] CO2 molar conc 27 mmol/L Normal 22-32 [facility] Comment on above: Performed By: #### P TINR #### [address] [address] Creatinine mass conc 0.83 mg/dL Normal 0.61-1.24 [facility] Comment on above: Performed By: #### P TINR #### [address] [place] [id number] Glucose mass conc 109 mg/dL Normal 74-118 [facility] Comment on above: Performed By: #### P TINR #### [address] [address] Potassium molar conc 3.9 mmol/L Normal 3.4-4.8 [facility] Comment on above: Performed By: #### P TINR #### [address] [address] Sodium molar conc 136 mmol/L Normal 133-142 [facility] Comment on above: Performed By: #### P TINR #### [address] [address] Urea nitrogen mass conc 9 mg/dL Normal 8-26 [facility] Comment on above: Performed By: #### P TINR #### [address] [place] [id number] Urea nitrogen/Creatinine mass ratio 10.8 mg/mg Normal 10.0-20.0 [facility] Comment on above: Performed By: #### P TINR #### [address] [place] [id number] CBC w/ Diffon 08-12-2018 Erythrocyte distribution width Ratio (RBC) 12.5 % Normal 11.6-14.8 [facility] Comment on above: Performed By: #### P TINR #### [address] [address] Hematocrit Volume Fraction (Bld) 29.7 % Low 41.0-53.0 [facility] Comment on above: Performed By: #### P TINR #### [address] [address] Hemoglobin mass conc (Bld) 10.3 g/dL Low 13.5-17.5 [facility] Comment on above: Performed By: #### P TINR #### [address] [address] MCH Entitic mass (RBC) 30.1 pg Normal 27.0-35.0 [facility] Comment on above: Performed By: #### P TINR #### [address] [address] MCHC mass conc (RBC) 34.5 % Normal 31.0-37.0 [facility] Comment on above: Performed By: #### P TINR #### [address] [place] [id number] MCV Entitic volume (RBC) 87.2 fL Normal 80.0-100.0 [facility] Comment on above: Performed By: #### P TINR #### [address] [place] [id number] Platelet mean volume Entitic volume (Bld) 7.8 fL Normal 6.7-10.6 [facility] Comment on above: Performed By: #### P TINR #### [address] [place] [id number] Platelets #/vol (Bld) 218 x10*3/mcL Normal 150-350 [facility] Comment on above: Performed By: #### P TINR #### [place] [address] RBC #/vol (Bld) 3.41 x10*6/mcL Low 4.30-5.80 [facility] Comment on above: Performed By: #### P TINR #### [address] [place] [id number] WBC #/vol (Bld) 9.1 x10*3/mcL Normal 4.5-11.0 [facility] Comment on above: Performed By: #### P TINR #### [place] [address] Diff Autoon 08-12-2018 Baso Absolute 0.0 x10*3/mcL Normal 0.0-0.2 [facility] Comment on above: Performed By: #### P TINR #### [address] [place] [id number] Basophils/100 WBC (Bld) 0.5 % Normal 0.0-1.2 [facility] Comment on above: Performed By: #### P TINR #### [address] [place] [id number] Eos Absolute 0.3 x10*3/mcL Normal 0.0-0.4 [facility] Comment on above: Performed By: #### P TINR #### [address] [address] Eosinophils/100 WBC (Bld) 3.4 % Normal 0.0-6.1 [facility] Comment on above: Performed By: #### P TINR #### [address] [address] Lymphocytes #/vol (Bld) 1.1 x10*3/mcL Normal 1.0-4.8 [facility] Comment on above: Performed By: #### P TINR #### [address] [address] Lymphocytes/100 WBC (Bld) 11.8 % Low 27.2-40.8 [facility] Comment on above: Performed By: #### P TINR #### [address] [address] [place] Absolute 0.8 x10*3/mcL Normal 0.3-1.1 [facility] Comment on above: Performed By: #### P TINR #### [address] [address] Monocytes/100 WBC (Bld) 8.5 % Normal 4.7-13.9 [facility] Comment on above: Performed By: #### P TINR #### [address] [address] Neutro Absolute 6.9 x10*3/mcL Normal 1.8-7.7 [facility] Comment on above: Performed By: #### P TINR #### [address] [address] Neutro Auto 75.8 % High 47.2-70.8 [facility] Comment on above: Performed By: #### P TINR #### [address] [address] Inpatient Clinical Summaryon 08-12-2018 Inpatient Clinical Summary [address] [place] [address] [address] Clinical Summary Person Information Name: Chiquita Weeks Age: 28 Years : 1990 Sex: Male PCP: Cyril Ruiz MD Marital Status: Phone: PCP: Race: White Ethnicity: Not or Language: Togolese Visit Id: Visit Reason: Speciality: Acuity: Enc Type: Inpatient Med Service: Surgery Arrival: 08/08/2018 08:12:20 Discharge: Dispo Type: Address: [address] [place] [address] Diagnosis: 1:Scheuermann's kyphosis Discharged To: Home Treatments: [...] range between ( 27.2 and 40.8 ) [place] Auto: 8.5 % -- Normal range between [...] range between ( 41.0 and 53.0 ) [place] Absolute: 0.8 x10 MCH: 30.1 pg -- [...] Follow up: With: Address: When: Jesus Reyes [facility], [place] [phone] Business (1) Comments: Schedule follow up appointment for 2 weeks for staple removal With: Address: When: Cyril Ruiz Normal [facility] Occupational Therapy Progres s Noteon 08-12-2018 Protein mass conc Planned/pending dc t o home today. Reecommended [facility] Electronically signed by ___ Teo Johnson 08/12/18 06:26 EST Normal [facility] Orthopedic Progress Noteon 0 08-12-2018 [...] PA-C 08/12/18 07:37 EST Normal [facility] .eGFRon 08-11-2018 eGFR Non-AA >60 Normal >=60 [facility] Comment on above: Order Comment: [...] dosing. Performed By: #### P TINR #### [place] [id number] eGFR AA >60 Normal >=60 [facility] Comment on above: Order Comment: Order added by Discern rule Result Comment: Resu lt = 0-14.9 mL/min/1.73 m2 Kidney failure or Dialysis Result = 15-29 mL/min/1.73 m2 Severe decrease in GFR Result = 30-59 mL/min/1.73 m2 Moderate decrease in GFR Result >= 60 mL/min/1.73 m2 Normal or increased GFR Performed By: #### P TINR #### [place] [id number] Basic Metabolic Profileon Anion gap molar conc 10 mmol/L Normal 7-17 [facility] Comment on above: Performed By: #### P TINR #### [place] [id number] Calcium mass conc 8.3 mg/dL Low 8.5-10.3 [facility] Comment on above: Performed By: #### P TINR #### [address] [address] Chloride molar conc 97 mmol/L Low 98-110 [facility] Comment on above: Performed By: #### P TINR #### [address] [address] CO2 molar conc 26 mmol/L Normal 22-32 [facility] Comment on above: Performed By: #### P TINR #### [address] [address] Creatinine mass conc 0.88 mg/dL Normal 0.61-1.24 [facility] Comment on above: Performed By: #### P TINR #### [address] [address] Glucose mass conc 109 mg/dL Normal 74-118 [facility] Comment on above: Performed By: #### P TINR #### [address] [address] Potassium molar conc 4.0 mmol/L Normal 3.4-4.8 [facility] Comment on above: Performed By: #### P TINR #### [address] [address] Sodium molar conc 129 mmol/L Low 133-142 [facility] Comment on above: Performed By: #### P TINR #### [address] [address] Urea nitrogen mass conc 9 mg/dL Normal 8-26 [facility] Comment on above: Performed By: #### P TINR #### [address] [address] Urea nitrogen/Creatinine mass ratio 10.2 mg/mg Normal 10.0-20.0 [facility] Comment on above: Performed By: #### P TINR #### [address] [address] CBC w/ Diffon 08-11-2018 Erythrocyte distribution width Ratio (RBC) 12.6 % Normal 11.6-14.8 [facility] Comment on above: Performed By: #### P TINR #### [address] [address] Hematocrit Volume Fraction (Bld) 31.7 % Low 41.0-53.0 [facility] Comment on above: Performed By: #### P TINR #### [address] [address] Hemoglobin mass conc (Bld) 10.8 g/dL Low 13.5-17.5 [facility] Comment on above: Performed By: #### P TINR #### [address] [address] MCH Entitic mass (RBC) 29.9 pg Normal 27.0-35.0 [facility] Comment on above: Performed By: #### P TINR #### [address] [address] MCHC mass conc (RBC) 34.2 % Normal 31.0-37.0 [facility] Comment on above: Performed By: #### P TINR #### [address] [address] MCV Entitic volume (RBC) 87.5 fL Normal 80.0-100.0 [facility] Comment on above: Performed By: #### P TINR #### [address] [address] Platelet mean volume Entitic volume (Bld) 7.8 fL Normal 6.7-10.6 [facility] Comment on above: Performed By: #### P TINR #### [address] [address] Platelets #/vol (Bld) 218 x10*3/mcL Normal 150-350 [facility] Comment on above: Performed By: #### P TINR #### [address] [address] RBC #/vol (Bld) 3.62 x10*6/mcL Low 4.30-5.80 [facility] Comment on above: Performed By: #### P TINR #### [address] [address] WBC #/vol (Bld) 11.8 x10*3/mcL High 4.5-11.0 [facility] Comment on above: Performed By: #### P TINR #### [address] [address] Diff Autoon 08-11-2018 Baso Absolute 0.1 x10*3/mcL Normal 0.0-0.2 [facility] Comment on above: Performed By: #### P TINR #### [address] [address] Basophils/100 WBC (Bld) 0.5 % Normal 0.0-1.2 [facility] Comment on above: Performed By: #### P TINR #### [address] [address] Eos Absolute 0.3 x10*3/mcL Normal 0.0-0.4 [facility] Comment on above: Performed By: #### P TINR #### [address] [address] Eosinophils/100 WBC (Bld) 2.3 % Normal 0.0-6.1 [facility] Comment on above: Performed By: #### P TINR #### [address] [address] Lymphocytes #/vol (Bld) 1.7 x10*3/mcL Normal 1.0-4.8 [facility] Comment on above: Performed By: #### P TINR #### [address] [address] Lymphocytes/100 WBC (Bld) 14.3 % Low 27.2-40.8 [facility] Comment on above: Performed By: #### P TINR #### [address] [address] [place] Absolute 1.2 x10*3/mcL High 0.3-1.1 [facility] Comment on above: Performed By: #### P TINR #### [address] [address] Monocytes/100 WBC (Bld) 9.9 % Normal 4.7-13.9 [facility] Comment on above: Performed By: #### P TINR #### [address] [address] Neutro Absolute 8.6 x10*3/mcL High 1.8-7.7 [facility] Comment on above: Performed By: #### P TINR #### [address] [address] Neutro Auto 73.0 % High 47.2-70.8 [facility] Comment on above: Performed By: #### P TINR #### [facility] [address] [place] [address] Orthopedic Progress Noteon 0 08-11-2018 Protein mass [...] PA-C 08/11/18 14:44 EST Normal [facility] XR Scoliosis Study 2 or [...] in Other Vendor System) Normal [facility] Comment on above: Order Comment: Stand ing AP and lateral views in TLSO brace .eGFRon 08-10-2018 eGFR AA >60 Normal >=60 [facility] Comment on above: Result Comment: Resu lt = 0-14.9 mL/min/1.73 m2 Kidney failure or Dialysis Result = 15-29 mL/min/1.73 m2 Severe decrease in GFR Result = 30-59 mL/min/1.73 m2 Moderate decrease in GFR Result >= 60 mL/min/1.73 m2 Normal or increased GFR Performed By: #### C BC #### [address] [address] eGFR Non-AA >60 Normal >=60 [facility] Comment on above: Result Comment: [...] dosing. Performed By: #### C BC #### [address] [address] Basic Metabolic Profileon Anion gap molar conc 12 mmol/L Normal 7-17 [facility] Comment on above: Performed By: #### C BC #### [address] [address] Calcium mass conc 8.1 mg/dL Low 8.5-10.3 [facility] Comment on above: Performed By: #### C BC #### [address] [address] Chloride molar conc 103 mmol/L Normal 98-110 [facility] Comment on above: Performed By: #### C BC #### [address] [address] CO2 molar conc 25 mmol/L Normal 22-32 [facility] Comment on above: Performed By: #### C BC #### [address] [address] Creatinine mass conc 0.83 mg/dL Normal 0.61-1.24 [facility] Comment on above: Performed By: #### C BC #### [address] [address] Glucose mass conc 99 mg/dL Normal 74-118 [facility] Comment on above: Performed By: #### C BC #### [address] [address] Potassium molar conc 4.3 mmol/L Normal 3.4-4.8 [facility] Comment on above: Performed By: #### C BC #### [address] [address] Sodium molar conc 136 mmol/L Normal 133-142 [facility] Comment on above: Performed By: #### C BC #### [address] [address] Urea nitrogen mass conc 12 mg/dL Normal 8-26 [facility] Comment on above: Performed By: #### C BC #### [address] [address] Urea nitrogen/Creatinine mass ratio 14.5 mg/mg Normal 10.0-20.0 [facility] Comment on above: Performed By: #### C BC #### [address] [address] CBC w/ Diffon 08-10-2018 Erythrocyte distribution width Ratio (RBC) 12.6 % Normal 11.6-14.8 [facility] Comment on above: Performed By: #### C BC #### [address] [address] Hematocrit Volume Fraction (Bld) 33.6 % Low 41.0-53.0 [facility] Comment on above: Performed By: #### C BC #### [address] [address] Hemoglobin mass conc (Bld) 11.4 g/dL Low 13.5-17.5 [facility] Comment on above: Performed By: #### C BC #### [address] [address] MCH Entitic mass (RBC) 29.9 pg Normal 27.0-35.0 [facility] Comment on above: Performed By: #### C BC #### [address] [address] MCHC mass conc (RBC) 34.0 % Normal 31.0-37.0 [facility] Comment on above: Performed By: #### C BC #### [address] [address] MCV Entitic volume (RBC) 87.8 fL Normal 80.0-100.0 [facility] Comment on above: Performed By: #### C BC #### [address] [address] Platelet mean volume Entitic volume (Bld) 8.1 fL Normal 6.7-10.6 [facility] Comment on above: Performed By: #### C BC #### [address] [address] Platelets #/vol (Bld) 182 x10*3/mcL Normal 150-350 [facility] Comment on above: Performed By: #### C BC #### [address] [address] RBC #/vol (Bld) 3.82 x10*6/mcL Low 4.30-5.80 [facility] Comment on above: Performed By: #### C BC #### [address] [address] WBC #/vol (Bld) 10.3 x10*3/mcL Normal 4.5-11.0 [facility] Comment on above: Performed By: #### C BC #### [address] [address] Diff Autoon 08-10-2018 Baso Absolute 0.1 x10*3/mcL Normal 0.0-0.2 [facility] Comment on above: Performed By: #### C BC #### [address] [address] Basophils/100 WBC (Bld) 1.4 % High 0.0-1.2 [facility] Comment on above: Performed By: #### C BC #### [address] [address] Eos Absolute 0.1 x10*3/mcL Normal 0.0-0.4 [facility] Comment on above: Performed By: #### C BC #### [address] [address] Eosinophils/100 WBC (Bld) 1.2 % Normal 0.0-6.1 [facility] Comment on above: Performed By: #### C BC #### [address] [address] Lymphocytes #/vol (Bld) 2.3 x10*3/mcL Normal 1.0-4.8 [facility] Comment on above: Performed By: #### C BC #### [address] [address] Lymphocytes/100 WBC (Bld) 22.7 % Low 27.2-40.8 [facility] Comment on above: Performed By: #### C BC #### [address] [address] [place] Absolute 1.1 x10*3/mcL Normal 0.3-1.1 [facility] Comment on above: Performed By: #### C BC #### [address] [address] Monocytes/100 WBC (Bld) 10.6 % Normal 4.7-13.9 [facility] Comment on above: Performed By: #### C BC #### [address] [address] Neutro Absolute 6.6 x10*3/mcL Normal 1.8-7.7 [facility] Comment on above: Performed By: #### C BC #### [facility] [address] [place] [address] Neutro Auto 64.1 % Normal 47.2-70.8 [facility] Comment on above: Performed By: #### C BC #### [facility] [address] [place] [address] Orthopedic Progress Noteon 0 08-10-2018 Protein mass [...] PA-C 08/10/18 06:03 EST Normal [facility] .eGFRon 08-09-2018 eGFR AA >60 Normal >=60 [facility] Comment on above: Result Comment: Resu lt = 0-14.9 mL/min/1.73 m2 Kidney failure or Dialysis Result = 15-29 mL/min/1.73 m2 Severe decrease in GFR Result = 30-59 mL/min/1.73 m2 Moderate decrease in GFR Result >= 60 mL/min/1.73 m2 Normal or increased GFR Performed By: #### C BC #### [address] [address] eGFR Non-AA >60 Normal >=60 [facility] Comment on above: Result Comment: [...] dosing. Performed By: #### C BC #### [address] [address] Basic Metabolic Profileon Anion gap molar conc 12 mmol/L Normal 7-17 [facility] Comment on above: Performed By: #### C BC #### [address] [address] Calcium mass conc 8.3 mg/dL Low 8.5-10.3 [facility] Comment on above: Performed By: #### C BC #### [address] [address] Chloride molar conc 106 mmol/L Normal 98-110 [facility] Comment on above: Performed By: #### C BC #### [address] [address] CO2 molar conc 24 mmol/L Normal 22-32 [facility] Comment on above: Performed By: #### C BC #### [address] [address] Creatinine mass conc 1.02 mg/dL Normal 0.61-1.24 [facility] Comment on above: Performed By: #### C BC #### [address] [address] Glucose mass conc 119 mg/dL High 74-118 [facility] Comment on above: Performed By: #### C BC #### [address] [address] Potassium molar conc 4.5 mmol/L Normal 3.4-4.8 [facility] Comment on above: Performed By: #### C BC #### [address] [address] Sodium molar conc 137 mmol/L Normal 133-142 [facility] Comment on above: Performed By: #### C BC #### [address] [address] Urea nitrogen mass conc 12 mg/dL Normal 8-26 [facility] Comment on above: Performed By: #### C BC #### [address] [address] Urea nitrogen/Creatinine mass ratio 11.8 mg/mg Normal 10.0-20.0 [facility] Comment on above: Performed By: #### C BC #### [address] [address] CBC w/ Diffon 08-09-2018 Erythrocyte distribution width Ratio (RBC) 12.8 % Normal 11.6-14.8 [facility] Comment on above: Performed By: #### . Automated Diff #### [address] [address] Hematocrit Volume Fraction (Bld) 39.9 % Low 41.0-53.0 [facility] Comment on above: Performed By: #### . Automated Diff #### [address] [address] Hemoglobin mass conc (Bld) 13.4 g/dL Low 13.5-17.5 [facility] Comment on above: Performed By: #### . Automated Diff #### [address] [address] MCH Entitic mass (RBC) 29.1 pg Normal 27.0-35.0 [facility] Comment on above: Performed By: #### . Automated Diff #### [address] [address] MCHC mass conc (RBC) 33.5 % Normal 31.0-37.0 [facility] Comment on above: Performed By: #### . Automated Diff #### [address] [address] MCV Entitic volume (RBC) 86.9 fL Normal 80.0-100.0 [facility] Comment on above: Performed By: #### . Automated Diff #### [place] [id number] Platelet mean volume Entitic volume (Bld) 8.2 fL Normal 6.7-10.6 [facility] Comment on above: Performed By: #### . Automated Diff #### [place] [address] Platelets #/vol (Bld) 302 x10*3/mcL Normal 150-350 [facility] Comment on above: Performed By: #### . Automated Diff #### [place] [address] RBC #/vol (Bld) 4.59 x10*6/mcL Normal 4.30-5.80 [facility] Comment on above: Performed By: #### . Automated Diff #### [address] [address] WBC #/vol (Bld) 14.2 x10*3/mcL High 4.5-11.0 [facility] Comment on above: Performed By: #### . 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 Automated Diff #### [address] [address] Basophils/100 WBC (Bld) 0.3 % Normal 0.0-1.2 [facility] Comment on above: Performed By: #### . Automated Diff #### [address] [address] Eos Absolute 0.0 x10*3/mcL Normal 0.0-0.4 [facility] Comment on above: Performed By: #### . Automated Diff #### [address] [address] Eosinophils/100 WBC (Bld) 0.1 % Normal 0.0-6.1 [facility] Comment on above: Performed By: #### . Automated Diff #### [address] [address] Lymphocytes #/vol (Bld) 1.2 x10*3/mcL Normal 1.0-4.8 [facility] Comment on above: Performed By: #### . Automated Diff #### [address] [address] Lymphocytes/100 WBC (Bld) 8.6 % Low 27.2-40.8 [facility] Comment on above: Performed By: #### . Automated Diff #### [address] [address] [place] Absolute 1.0 x10*3/mcL Normal 0.3-1.1 [facility] Comment on above: Performed By: #### . Automated Diff #### [address] [address] Monocytes/100 WBC (Bld) 6.9 % Normal 4.7-13.9 [facility] Comment on above: Performed By: #### . Automated Diff #### [facility] [address] [place] [address] Neutro Absolute 11.9 x10*3/mcL High 1.8-7.7 [facility] Comment on above: Performed By: #### . Automated Diff #### [facility] [address] [place] [address] Neutro Auto 84.1 % High 47.2-70.8 [facility] Comment on above: Performed By: #### . Automated Diff #### [place] [address] [place] [id number] Orthopedic Progress Noteon 0 08-09-2018 Protein mass [...] PA-C 08/09/18 06:28 EST Normal [facility] Progress Note-Nurseon 2018 Protein mass [...] Kim 08/09/18 10:50 EST Normal [facility] XR Spine Thoracic Minimum 4 [...] in Other Vendor System) Normal [facility] CT Spine Thoracic w/o Contra [...] exam here. Consider MRI. Radiation Dose Estimate: CTDI(mGy):0.114168 / / / kVp:120.635847 / mAs:0.319484 / / / DLP(mGy-cm):9.358122Wdc y Part: Abdomen CTDI(mGy):0.176740 / / / kVp:140.982679 / mAs:0.436853 / / / DLP(mGy-cm):14.161501Vg dy Part: Final Dictated by: Chris Don MD Dictated DT/TM: 08.08.2018 11:02 am Signed by: Chris Don MD Signed (Electronic Signature): 08.08.2018 11:22 am (If Report Is Signed, Electronically Signed in Other Vendor System) Normal [facility] Comment on above: Order Comment: tried to call office at 18:05. office already closed and unable to leave message regarding this to be a future order. Hgb & Hcton 08-08-2018 Hematocrit Volume Fraction (Bld) 42.8 % Normal 41.0-53.0 [facility] Comment on above: Performed By: #### . Automated Diff #### [place] [address] Hemoglobin mass conc (Bld) 14.4 g/dL Normal 13.5-17.5 [facility] Comment on above: Performed By: #### . Automated Diff #### [place] [address] [place] [address] Operative Reporton 9 Operative Report Indication for [...] decompression and co-surgeon Leida Lynn for instrumentation It Consulting Manager Luís HAMEED Anesthesia General anesthetic via endotracheal [...] He is carefully turned onto [facility] operating room table and head and [...] through T12 are resected using Luis Alberto distribution accounting clerk and this bone is harvested for placement [...] of autograft from local harvest supplemented with [place] demineralized bone matrix. The wound is reirrigated [...] surgical procedure was assisted by my physician?s conservation assistant. Her presence was needed throughout the case for manipulation and positioning the surgical arm as well as positioning the surgical instruments as well as primarily assisting me through procedure. Due to the complexity of condition, the skill set of an neurosurgical physician conservation assistant was needed throughout the case. During the surgical case, the surgical consultant was working the back table and was not available for assistance. Tourniquet Time None Sponge/Needle Count Per nursing correct Fluid Count 2500 mL crystalloid Electronically signed by ___ Shane PANCHAL MD, Leida Cross 08/08/18 17:22 EST Normal [facility] Operative Report Operative Report DATE [...] 5. Use of local autograft bone and [place] Matrix SURGEON: Jesus Shah MD for decompression Leida Lynn MD for instrumentation MICROBIOLOGY LABORATORY MANAGER: Luís Staley assisted throughout the procedure [...] by entirely resecting the facet joint. Two [place] chrome rods were cut to size and [...] bone was packed over the decorticated elements bilaterally.[place] matrix was placed on top of this [...] MD 08/09/18 11:58 EST Normal [facility] Operative Report Preoperative Diagnos is Scheuermann's kyphosis Intractable thoracic pain Postoperative Diagnosis Scheuermann's kyphosis Intractable thoracic pain Operation 1. T7-T12 decompression with T7-T12 bilateral [place] Osteotomies 2. T6-L2 posterior spinal fusion using in situ deformity correction Surgeon(s) Dr. Reyes for decompression Dr. 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 Exercise Home/Environment Lives with Children, Spouse. Living [...] MD 08/08/2018 14:55 EST Normal [facility] .eGFRon 07-31-2018 eGFR Non-AA >60 Normal >=60 [facility] Comment on above: Result Comment: [...] dosing. Performed By: #### E GFR #### [address] [address] eGFR AA >60 Normal >=60 [facility] Comment on above: Result Comment: Resu lt = 0-14.9 mL/min/1.73 m2 Kidney failure or Dialysis Result = 15-29 mL/min/1.73 m2 Severe decrease in GFR Result = 30-59 mL/min/1.73 m2 Moderate decrease in GFR Result >= 60 mL/min/1.73 m2 Normal or increased GFR Performed By: #### E GFR #### [address] [address] ABO/Rhon 07-31-2018 ABO/Rh SD 1.11.19 DCon: 0 ABO/Rh: O POS Normal [facility] Comment on above: Performed By: #### A MONISHA #### [facility] ([facility] [address] [place] [address] [address] ABSC Autoon 07-31-2018 ABSC Auto Negative Normal [facility] Comment on above: Performed By: #### A SA #### [address] [address] Basic Metabolic Profileon Anion gap molar conc 15 mmol/L Normal 7-17 [facility] Comment on above: Performed By: #### C [id number] #### [address] [address] Calcium mass conc 9.7 mg/dL Normal 8.5-10.3 [facility] Comment on above: Performed By: #### C [id number] #### [address] [address] Chloride molar conc 96 mmol/L Low 98-110 [facility] Comment on above: Performed By: #### C [id number] #### [address] [address] CO2 molar conc 28 mmol/L Normal 22-32 [facility] Comment on above: Performed By: #### C [id number] #### [address] [address] Creatinine mass conc 1.07 mg/dL Normal 0.61-1.24 [facility] Comment on above: Performed By: #### C [id number] #### [address] [address] Glucose mass conc 94 mg/dL Normal 74-118 [facility] Comment on above: Performed By: #### C [id number] #### [address] [address] Potassium molar conc 4.4 mmol/L Normal 3.4-4.8 [facility] Comment on above: Performed By: #### C [id number] #### [address] [address] Sodium molar conc 135 mmol/L Normal 133-142 [facility] Comment on above: Performed By: #### C [id number] #### [address] [address] Urea nitrogen mass conc 20 mg/dL Normal 8-26 [facility] Comment on above: Performed By: #### C [id number] #### [address] [address] Urea nitrogen/Creatinine mass ratio 18.7 mg/mg Normal 10.0-20.0 [facility] Comment on above: Performed By: #### C [id number] #### [address] [address] CBC w/ Diffon 07-31-2018 Erythrocyte distribution width Ratio (RBC) 13.0 % Normal 11.6-14.8 [facility] Comment on above: Performed By: #### C BC #### [address] [address] Hematocrit Volume Fraction (Bld) 51.4 % Normal 41.0-53.0 [facility] Comment on above: Performed By: #### C BC #### [address] [address] Hemoglobin mass conc (Bld) 17.4 g/dL Normal 13.5-17.5 [facility] Comment on above: Performed By: #### C BC #### [place] [id number] MCH Entitic mass (RBC) 29.8 pg Normal 27.0-35.0 [facility] Comment on above: Performed By: #### C BC #### [place] [id number] MCHC mass conc (RBC) 33.9 % Normal 31.0-37.0 [facility] Comment on above: Performed By: #### C BC #### [place] [id number] MCV Entitic volume (RBC) 87.7 fL Normal 80.0-100.0 [facility] Comment on above: Performed By: #### C BC #### [place] [id number] Platelet mean volume Entitic volume (Bld) 7.8 fL Normal 6.7-10.6 [facility] Comment on above: Performed By: #### C BC #### [place] [id number] Platelets #/vol (Bld) 295 x10*3/mcL Normal 150-350 [facility] Comment on above: Performed By: #### C BC #### [address] [address] RBC #/vol (Bld) 5.86 x10*6/mcL High 4.30-5.80 [facility] Comment on above: Performed By: #### C BC #### [address] [address] WBC #/vol (Bld) 9.1 x10*3/mcL Normal 4.5-11.0 [facility] Comment on above: Performed By: #### C BC #### [address] [id number] Diff Autoon 07-31-2018 Baso Absolute 0.1 x10*3/mcL Normal 0.0-0.2 [facility] [place] Comment on above: Performed By: #### . Automated Diff #### [address] [address] Basophils/100 WBC (Bld) 1.0 % Normal 0.0-1.2 [facility] Comment on above: Performed By: #### . Automated Diff #### [address] [address] Eos Absolute 0.3 x10*3/mcL Normal 0.0-0.4 [facility] Comment on above: Performed By: #### . Automated Diff #### [address] [address] Eosinophils/100 WBC (Bld) 3.1 % Normal 0.0-6.1 [facility] Comment on above: Performed By: #### . Automated Diff #### [address] [address] Lymphocytes #/vol (Bld) 2.6 x10*3/mcL Normal 1.0-4.8 [facility] Comment on above: Performed By: #### . Automated Diff #### [address] [address] Lymphocytes/100 WBC (Bld) 28.2 % Normal 27.2-40.8 [facility] Comment on above: Performed By: #### . Automated Diff #### [address] [address] [place] Absolute 0.8 x10*3/mcL Normal 0.3-1.1 [facility] [place] Comment on above: Performed By: #### . Automated Diff #### [address] [address] Monocytes/100 WBC (Bld) 9.3 % Normal 4.7-13.9 [facility] Comment on above: Performed By: #### . Automated Diff #### [address] [address] Neutro Absolute 5.3 x10*3/mcL Normal 1.8-7.7 [facility] Comment on above: Performed By: #### . Automated Diff #### [facility] [address] [place] [address] Neutro Auto 58.4 % Normal 47.2-70.8 [facility] Comment on above: Performed By: #### . Automated Diff #### [address] [address] MRSA, PCRon 07-31-2018 INR Coag RelTime (Bld) Negative Normal [facility] Comment on above: Result Comment: The Causes Xpert MRSA Assay is a qualitative in [...] clinician. Performed By: #### M RSAPC #### [address] [address] Neurosurgery Office/Clinic N oteon 07-31-2018 Neurosurgery Office/Clinic [...] rare alcohol intake Patient works in a [employer]-no legal or Workmen's Compensation claims on today's [...] Cross 07/31/18 11:40 EST Normal [facility] PTon 07-31-2018 INR Coag RelTime (PPP) 1.0 {INR} Normal <=3.5 [facility] Comment on above: Result Comment: INR has no normal range. INR Therapeutic range is: 2.0-3.0 (AF, CVA, TIAs, DVT prophylaxis, acute DVT) 2.5-3.5 ([facility] heart valves, recurrent thrombosis/emboli) Performed By: #### P TINR #### [address] [address] Prothrombin time (PT) Coag time (PPP) 10.4 s Normal 9.1-11.6 [facility] Comment on above: Performed By: #### P TINR #### [address] [address] PTTon 07-31-2018 aPTT Coag time (Bld) 28.9 s Normal 19.2-29.7 [facility] Comment on above: Performed By: #### P TT #### [address] [address] XR Chest 2 Viewson 9 XR Chest [...] in Other Vendor System) Normal [facility] SCOLIOSIS 2 [facility] 04-24-2018 [facility] [address] [place], [place] [address] =====Patient Name: CHIQUITA WEEKS : 1990Sex: MAge: Race: WhiteMRN: [id number]. Location: 82Patient Status: OVisit #: [id number] Date: 04/24/2018 3:05:00 PMCompleted Date: 04/24/2018 03:19 PMRequesting Provider: COOKIE COLES Attending Provider: COOKIE COLES Report Copy To: Signs & Symptoms: M54.6 Pain in thoracic spine [id number]: AthenaComments: , , , Ordering Provider - COOKIE COLES MD , Exam: SCOLIOSIS 2 VWSAccession #: [id number] SCOLIOSIS 2 S 04/24/2018 3:19 PM EDT [...] abnormality. Electronically signed by:Adelfo Kay. Transcribed by: [email or web address], User Resident: Electronically Signed by: ADELFO KAY @ 04/24/2018 10:56 PM Normal [facility] Comment on above: Order Comment: , , = ========= , Ordering Provider - COOKIE COLES MD , Encounters Encounter Date Encounter Type Care Provider Facility Start: 02-01-2022 End: 02-02-2022 ambulatory ERNST PENA Facility: Start: 06-23-2021 ambulatory [facility] Facility: Start: 09-25-2018 End: 09-26-2018 ambulatory [facility] CYRIL MIGUEL A [place] [place]: 08-08-2018 End: 08-12-2018 Evaluation and management of inpatient SELVON MARCIA Facility:[facility] Start: 07-31-2018 End: 08-01-2018 [facility] Start: 07-31-2018 End: 08-01-2018 Patient encounter procedure LEIDA LYNN Facility:[facility] Start: 07-30-2018 Patient encounter procedure SELVON MARCIA Facility:[facility] Start: 04-24-2018 End: 04-25-2018 Patient encounter COOKIE COLES Facility:[facility] Start: 04-15-2018 End: 04-16-2018 Patient encounter DEFAULT PHYSICIAN Facility:[facility] Procedures Date Procedure Procedure Detail Performing Clinician Start: 02-01-2022 PSA screening ERNST OROURKE Comment on above: Performed By: #### P [facility] #### [facility] [address] [place] [address] Dr. Armida Brown Payers Date Payer Category Payer Unknown 2017 Unknown [id number] 1990 Unknown [id number] 2.16.8 [id number] 1990 Unknown [id number] 2.16.8 [id number] 1990 Unknown [id number] 2.16.8 [id number] 1988 Unknown [id number] 2.16.8 [id number] 1988 Unknown [id number] 2.16.8 [id number] 1988 Unknown [id number] 2.16.8 [id number] 1990 Unknown [id number] 2.16.84 [id number] 1988 Unknown [id number] 2.16.84 [id number] 1988 Unknown [id number] 2.16.84 [id number] 1988 Unknown [id number] 2.16.84 [id number] 1961 Medicaid [id number] 1961 Medicare [id number] 1961 Unknown [id number] Unknown [id number] Summary Purpose Family History No Family History [...] section and content) DATE CREATED AUTHOR 05/29/2018 [facility] DATE CREATED AUTHOR AUTHOR'S ORGANIZ ATION 08/25/2018 [facility] DATE CREATED AUTHOR AUTHOR'S ORGANIZ ATION 02/15/2022 [facility] DATE CREATED AUTHOR AUTHOR'S ORGANIZ ATION 09/27/2022 [facility] FOR RECORDS PERTAINING TO PATIENTS WHO [...] BE BASED ON THE PRIMARY CLINICAL RECORDS. [facility]. provides no warranty or guarantee of the accuracy or completeness of information in this document.
--- NOTE | 2024-04-30 15:32 | PM.CN ---
Consult Note: HPI Data of Consult Patient: known to practice within the last 3 years Requesting Physician: Letty Ayala NP Primary Care Provider: ERNST PENA Consult Narrative Reason for consult: right low back pain Narrative: Benji Cunningham a pleasant 34 year old male presents for evaluation and management of acute on chronic right sided low back pain. Patient has a longstanding of myofascial pain and dystonia, T6-L2 fusion. Patient has found benefit to baclofen 10-15 mg HS and zonegran 100mg BID. Has noticed increase in pain over the last few days after bending over at [employer] to grab something. Pain 7/10 increasing to 10/10 with position changes and sleep, pain improved with heat and medications. denies medication side effects. cc:: CC: Letty Ayala NP Review of Systems ROS Status of ROS 10 or more systems reviewed and unremarkable except as noted in history and below Musculoskeletal Reports: back pain [facility] Medical History (Updated 04/30/24 @ 15:36 by Letty Ayala NP) Anxiety ?F41.9 - Anxiety disorder, unspecified (ICD-10) HTN (hypertension) ?I10 - Essential (primary) hypertension (ICD-10) Surgical History History of spinal fusion ?Z98.1 - Arthrodesis status (ICD-10) Meds Home Medications and Allergies Home Medications ?Medication ?Instructions ?Recorded ?Confirmed ?Type baclofen 10 mg tablet 10 mg PO DAILY 11/06/23 04/08/24 History bupropion HCl 300 mg 24 hr tablet, 300 mg PO DAILY 11/06/23 04/08/24 History extended release (Wellbutrin XL) hydrochlorothiazide 25 mg tablet 25 mg PO DAILY 11/06/23 04/08/24 History lisinopril 40 mg tablet 40 mg PO DAILY 11/06/23 04/08/24 History metoprolol tartrate 50 mg tablet 50 mg PO BID 11/06/23 04/08/24 History zonisamide 100 mg capsule 100 mg PO .HS 11/06/23 04/08/24 History (Zonegran) Allergies Allergy/AdvReac Type Severity Reaction Status Date / Time No Known Drug Allergies Allergy Verified 04/08/24 07:10 Exam Constitutional Documenting provider has reviewed patient's vital signs: yes Common normals: no apparent distress, oriented x3, healthy appearing, alert and well nourished General appearance: cooperative HENMT Common normals: normocephalic, hearing grossly normal bilaterally and moist oral mucous membranes Head and scalp: normocephalic Eye Common normals: PERRL Pupil: PERRL Neck & C-Spine Common normals: full ROM General: normal visual inspection Chest Common normals: inspection of chest normal Respiratory Common normals: normal respiratory effort, no retractions and no use of accessory muscles Back & Pelvis Lumbar spine/lower back: paraspinal muscle tenderness and paraspinal muscle spasm (significant spasming and trigger points at right latissimus dorsi ) Back image (male): 1. numerous trigger points identified, notable myofascial tension changes Neuro Common normals: oriented x3, CN's II-XII intact bilaterally, moves all extremities, no focal motor deficits, no sensory deficits noted and deep tendon reflexes 2+ bilaterally Sensorium/orientation: alert Motor exam: strength 5/5 throughout and no movement abnormalities noted Psych Common normals: mental status grossly normal, thought process normal, cooperative, affect normal, speech normal and activity/motor behavior normal Speech: normal speech Thought process: normal thought process Results Additional Findings Additional findings: If on a controlled substance or opioids, I have checked an [place]AR[place] report on this patient and there are no aberrancies noted in the prescribing history.??If on a controlled substance or opioid a drug screen was completed and reviewed within the last year, and if there has not been a drug screen completed we ordered one today to monitor higher risk, state monitored pain medication use. As part of providing excellent, safe, comprehensive care, the following was completed at our patient's visit: 1. A medication reconciliation and review to ensure accurate knowledge of current/active medications, including asking our patients to inform us about any [id number] medications or herbal remedies/nutritional supplements/alternative remedies. 2. A review to specifically ensure our patients have had annual screening for screening for depression, screening for tobacco use, and screening for unhealthy alcohol use. For concerning screenings had a discussion with the patient, provided patient education, and recommended follow-up with primary care provider when appropriate. If patient noted with a risk of falling, they received education on strength, gait, and balance training to prevent future risk of falling. Assessment and Plan Assessment and Plan (1) Myalgia, other site: Assessment and Plan: TPI performed to right latissimus dorsi The procedure risks, hazards and alternatives were discussed with the patient and a proper consent was obtained. The area over the myofascial spasm was prepped with alcohol utilizing sterile technique. After isolating it between two palpating fingertips a 25-gauge 1.5 needle was placed in the center of the myofascial spasms and a negative aspiration was performed. Then 1 cc of lidocaine was injected into each trigger point x8 in the right latissimus dorsi muscle. The patient tolerated the procedure well without any apparent difficulties or complications. They were feeling relief by the time the block had set. pain preop 7-05/01 post op 09/29 (2) Dystonia: (3) Post laminectomy syndrome: Plan increase baclofen 10mg BID PRN pain/spasms in addition to 10-15mg HS encouraged heat and warm showers continue zonegran 100mg BID f/u as scheduled
== END 2024-04-30 14:58 | disposition home or self-care (01) ==
LOC: PM 14:58
PROVIDERS: PCP Nurse Practitioner Family; Visit Provider Nurse Practitioner
DX: M79.18 Myalgia, other site (principal); G24.9 Dystonia, unspecified; M96.1 Postlaminectomy syndrome, not elsewhere classified
CPT/HCPCS: G0463

== ENCOUNTER 2024-05-27 06:58 | Day surgery (SDC) | payer MEDICARE, MEDICAID, SELFPAY ==
--- OUTSIDE RECORDS SUMMARY | 2024-05-27 07:01 | XMS_ITS | CCD ---
Author Organization [facility] Care Team Providers Care Pompom Maker Name Role Phone PHYSICIAN, DEFAULT Unavailable Unavailable PHYSICIAN, DEFAULT Unavailable Unavailable ELGAFY, COOKIE K Unavailable Unavailable ELGAFY, COOKIE K Unavailable Unavailable ELGAFY, COOKIE K Unavailable Unavailable UNKNOWN, PHYSICIAN Unavailable Unavailable MARCIA, SELVON Admitting Unavailable MARCIA, SELVON Attending Unavailable [facility] Primary Care Unavailable Luís Marcus Consulting Unavailable LEIDA LYNN Consulting Unavaila ble Lynn, Leida Cross Consulting Unavaila ble SpychalsEllen zeng Consulting Unavailable Delfino Montoya Consulting Unavailable LEIDA LYNN Attending Unavaila ble [facility] Unavailable SLOANE HIGH PA-C Attending Unavail able MARCIA, SELVON Attending Unavailable [facility] Unavailable BECKY, ERNST Primary Care Unavailable TAISHA, DR SCOOTER Webster Attending Unavailable TAISHA, DR SCOOTER Webster Admitting Unavailable CHANTE HERNANDEZ Consulting Unavailable BECKY, ERNST Primary Care Unavailable BECKY, ERNST Admitting Unavailable ERNST PENA Attending Unavailable ERNST PENA Consulting Unavailable [facility] Care Unavaila ble MARCIA, SELVON F Referring Unavailable MARCIA, SELVON F Attending Unavailable MARCIA, SELVON F Admitting Unavailable Allergies Allergy Classification Reported Allergen(s) Allergy Type Date of Onset Reaction(s) Facility (1 source) No Known Medication Allergies; Translations: [No Known Medication Allergies] Propensity to adverse reactions to drug (disorder) [facility] Repository Problems Problem Classification Problem Date Documented [...] INSULINon 02-02-2022 Insulin 16.5 uIU/mL Normal 2.6-24.9 [facility] Comment on above: Performed By: #### I NSULIN #### [facility] [address] [place] [address] Dr. Armida Brown CBC AUTO DIFFon 02-01-2022 BASO # 0.1 103/ul Normal 0.0-0.1 [facility] Comment on above: Performed By: #### C BC #### [facility] [address] [place] [address] Dr. Armida Brown Basophils/100 WBC (Bld) 0.9 % Normal 0.2-2.0 [facility] Comment on above: Performed By: #### C BC #### [facility] [address] [place] [address] Dr. Armida Brown EO # 0.4 103/ul Normal 0.0-0.7 [facility] Comment on above: Performed By: #### C BC #### [facility] [address] [place] [address] Dr. Armida Brown Eosinophils/100 WBC (Bld) 4.7 % Normal 0.9-7.0 [facility] Comment on above: Performed By: #### C BC #### [facility] [address] [place] [address] Dr. Armida Brown Erythrocyte distribution width (RBC) [Ratio] 13.1 % Normal 11.0-15.0 [facility] Comment on above: Performed By: #### C BC #### [facility] [address] [place] [address] Dr. Armida Brown Hematocrit (Bld) [Volume fraction] 48.6 % Normal 42.0-54.0 [facility] Comment on above: Performed By: #### C BC #### [facility] [address] [place] [address] Dr. Armida Brown Hemoglobin (Bld) [Mass/Vol] 16.5 g/dL Normal 14.0-18.0 [facility] Comment on above: Performed By: #### C BC #### [facility] [address] [place] [address] Dr. Armida Brown IG # 0.05 10e3/ul Critically high 0.00-0.03 [facility] Comment on above: Performed By: #### C BC #### [facility] [address] [place] [address] Dr. Armida Brown IG % 0.6 % Critically high 0.0-0.5 [facility] Comment on above: Performed By: #### C BC #### [facility] [address] [place] [address] Dr. Armida Brown LYMPH # 1.7 103/ul Normal 1.2-3.8 [facility] Comment on above: Performed By: #### C BC #### [facility] [address] [place] [address] Dr. Armida Brown Lymphocytes/100 WBC (Bld) 19.6 % Critically low 20.5-60.0 [facility] Comment on above: Performed By: #### C BC #### [facility] [address] [place] [address] Dr. Armida Brown MANUAL DIFF REQ NO Normal [facility] Comment on above: Performed By: #### C BC #### [facility] [address] [address] [address] Armida Brown MCH (RBC) [Entitic mass] 30.1 pg Normal 25.9-34.0 [facility] Comment on above: Performed By: #### C BC #### [facility] [address] [address] [address] Armida Brown MCHC (RBC) [Mass/Vol] 34.0 g/dL Normal 29.9-35.2 [facility] Comment on above: Performed By: #### C BC #### [facility] [address] [place] [address] Dr. Armida Brown MCV (RBC) [Entitic vol] 88.5 fL Normal 80.0-94.0 [facility] Comment on above: Performed By: #### C BC #### [facility] [address] [place] [address] Dr. Armida Brown MONO # 0.5 103/ul Normal 0.3-0.8 [facility] Comment on above: Performed By: #### C BC #### [facility] [address] [place] [address] Dr. Armida Brown Monocytes/100 WBC (Bld) 5.6 % Normal 1.7-12.0 [facility] Comment on above: Performed By: #### C BC #### [facility] [address] [place] [address] Dr. Armida Brown NEUT # 6.1 103/ul Normal 1.4-6.5 [facility] Comment on above: Performed By: #### C BC #### [facility] [address] [place] [address] Dr. Armida Brown Neutrophils/100 WBC (Bld) 68.6 % Normal 43.0-75.0 [facility] Comment on above: Performed By: #### C BC #### [facility] [address] [place] [address] Dr. Armida Brown Platelet mean volume (Bld) [Entitic vol] 9.3 fL Critically low 9.5-13.5 [facility] Comment on above: Performed By: #### C BC #### [facility] [address] [address] [address] Armida Brown PLT 293 103/ul Normal 150-450 [facility] Comment on above: Performed By: #### C BC #### [facility] [address] [address] [address] Armida Brown RBC 5.49 106/ul Normal 4.70-6.10 [facility] Comment on above: Performed By: #### C BC #### [facility] [address] [address] [address] Armida Brown WBC 8.9 103/ul Normal 4.0-11.0 [facility] Comment on above: Performed By: #### C BC #### [facility] [address] [place] [address] Dr. Armida Brown FREE THYROXINE INDEX T7on FTI 3.33 Normal 1.30-4.50 [facility] Comment on above: Performed By: #### T SH, CMP, URIC, LIPID, T7 #### [facility] [address] [address] [address] Armida Brown T3U 35.0 % Normal 33.0-40.0 [facility] Comment on above: Performed By: #### T SH, CMP, URIC, LIPID, T7 #### [facility] [address] [place] [address] Dr. Armida Brown T4 [Mass/Vol] 9.50 ug/dL Normal 4.50-12.10 [facility] Comment on above: Performed By: #### T SH, CMP, URIC, LIPID, T7 #### [facility] [address] [place] [address] Dr. Armida Brown GLYCOHEMOGLOBIN A1Con 2021 ADA RECOMMENDATION SEE BELOW Normal [facility] Comment on above: Result Comment: ADA RECOMMENDED LIMIT 4.0 - 6.0 ADA THERAPEUTIC TARGET < 7.0 ACTION SUGGESTED > 7.0 Performed By: #### A 1C #### [facility] [address] [address] [address] Armida Brown Glucose [Mass/Vol] 103 mg/dL Normal [facility] Comment on above: Performed By: #### A 1C #### [facility] [address] [place] [address] Dr. Armida Brown HbA1c (Bld) [Mass fraction] 5.2 % Normal 4.5-6.2 [facility] Comment on above: Performed By: #### A 1C #### [facility] [address] [place] [address] Dr. Armida Brown LIPID PROFILEon 02-01-2022 CHOL-HDL RATIO NORM SEE BELOW Normal [facility] Comment on above: Result Comment: 3.3 - 4.4 LOW RISK 4.4 - 7.1 AVERAGE RISK 7.1 - 11.0 MODERATE RISK >11.0 HIGH RISK Performed By: #### T SH, CMP, URIC, LIPID, T7 #### [facility] [address] [place] [address] Dr. Armida Brown Cholesterol [Mass/Vol] 183 mg/dL Normal <=200 [facility] Comment on above: Performed By: #### T SH, CMP, URIC, LIPID, T7 #### [facility] [address] [place] [address] Dr. Armida Brown Cholesterol in HDL [Mass/Vol] 33 mg/dL Critically low 40-60 [facility] Comment on above: Performed By: #### T SH, CMP, URIC, LIPID, T7 #### [facility] [address] [address] [address] Armida Brown Cholesterol in LDL [Mass/Vol] 123.0 mg/dL Normal [facility] Comment on above: Performed By: #### T SH, CMP, URIC, LIPID, T7 #### [facility] [address] [place] [address] Dr. Armida Brown Cholesterol.total/C holesterol in HDL [Mass ratio] 5.5 {ratio} Normal [facility] Comment on above: Performed By: #### T SH, CMP, URIC, LIPID, T7 #### [facility] [address] [place] [address] Dr. Armida Brown HDL NORMAL > or = 60 mg/dl - LO W CARDIOVASCULAR RISK <40 mg/dl - HIGH CARDIOVASCULAR RISK Normal [facility] Comment on above: Performed By: #### T SH, CMP, URIC, LIPID, T7 #### [facility] [address] [address] [address] Armida Brown LDL CALC NORMAL SEE BELOW Normal [facility] Comment on above: Result Comment: <100 mg/dl OPTIMAL 100 - 129 mg/dl NEAR OR ABOVE OPTIMAL 130 - 159 mg/dl BORDERLINE HIGH 160 - 189 mg/dl HIGH >190 mg/dl VERY HIGH Performed By: #### T SH, CMP, URIC, LIPID, T7 #### [facility] [address] [address] [address] Armida Brown Triglyceride [Mass/Vol] 135 mg/dL Normal <=150 [facility] Comment on above: Performed By: #### T SH, CMP, URIC, LIPID, T7 #### [facility] [address] [address] [address] Armida Brown VLDL CALC 27.0 mg/dL Normal [facility] Comment on above: Performed By: #### T SH, CMP, URIC, LIPID, T7 #### [facility] [address] [address] [address] Armida Brown PROF 14(COMP METB)on 022 Albumin [Mass/Vol] 4.1 g/dL Normal 3.4-5.[address] [facility] Comment on above: Performed By: #### T SH, CMP, URIC, LIPID, T7 #### [facility] [address] [address] [address] Armida Brown Albumin/Globulin [Mass ratio] 1.1 {ratio} Normal [facility] Comment on above: Performed By: #### T SH, CMP, URIC, LIPID, T7 #### [facility] [address] [address] [address] Armida Brown ALP [Catalytic activity/Vol] 79 U/L Normal 46-116 [facility] Comment on above: Performed By: #### T SH, CMP, URIC, LIPID, T7 #### [facility] [address] [address] [address] Armida Brown ALT [Catalytic activity/Vol] 58 U/L Normal 16-63 [facility] Comment on above: Performed By: #### T SH, CMP, URIC, LIPID, T7 #### [facility] [address] [address] [address] Armida Brown Anion gap [Moles/Vol] 12.6 mmol/L Normal [facility] Comment on above: Performed By: #### T SH, CMP, URIC, LIPID, T7 #### [facility] [address] [place] [address] Dr. Armida Brown AST [Catalytic activity/Vol] 23 U/L Normal 15-37 [facility] Comment on above: Performed By: #### T SH, CMP, URIC, LIPID, T7 #### [facility] [address] [place] [address] Dr. Armida Brown Bilirubin [Mass/Vol] 0.6 mg/dL Normal 0.2-1.0 [facility] Comment on above: Performed By: #### T SH, CMP, URIC, LIPID, T7 #### [facility] [address] [address] [address] Armida Brown Calcium [Mass/Vol] 8.9 mg/dL Normal 8.5-10.[address] [facility] Comment on above: Performed By: #### T SH, CMP, URIC, LIPID, T7 #### [facility] [address] [place] [address] Dr. Armida Brown Chloride [Moles/Vol] 104 mmol/L Normal 98-107 [facility] Comment on above: Performed By: #### T SH, CMP, URIC, LIPID, T7 #### [facility] [address] [place] [address] Dr. Armida Brown CO2 [Moles/Vol] 26.7 mmol/L Normal 21.0-32.0 [facility] Comment on above: Performed By: #### T SH, CMP, URIC, LIPID, T7 #### [facility] [address] [place] [address] Dr. Armida Brown Creatinine [Mass/Vol] 0.99 mg/dL Normal 0.70-1.30 [facility] Comment on above: Performed By: #### T SH, CMP, URIC, LIPID, T7 #### [facility] [address] [address] [address] Armida Brown EGFR-AF TURKMEN >60 Normal >=60 [facility] Comment on above: Performed By: #### T SH, CMP, URIC, LIPID, T7 #### [facility] [address] [address] [address] Armida Brown EGFR-NON AF TURKMEN >60 Normal >=60 [facility] Comment on above: Performed By: #### T SH, CMP, URIC, LIPID, T7 #### [facility] [address] [place] [address] Dr. Armida Brown Globulin (S) [Mass/Vol] 3.6 g/dL Normal [facility] Comment on above: Performed By: #### T SH, CMP, URIC, LIPID, T7 #### [facility] [address] [place] [address] Dr. Armida Brown Glucose [Mass/Vol] 100 mg/dL Normal 74-106 [facility] Comment on above: Performed By: #### T SH, CMP, URIC, LIPID, T7 #### [facility] [address] [place] [address] Dr. Armida Brown Potassium [Moles/Vol] 4.3 mmol/L Normal 3.5-5.1 [facility] Comment on above: Performed By: #### T SH, CMP, URIC, LIPID, T7 #### [facility] [address] [place] [address] Dr. Armida Brown Protein [Mass/Vol] 7.7 g/dL Normal 6.4-8.2 [facility] Comment on above: Performed By: #### T SH, CMP, URIC, LIPID, T7 #### [facility] [address] [place] [address] Dr. Armida Brown Sodium [Moles/Vol] 139 mmol/L Normal 136-145 [facility] Comment on above: Performed By: #### T SH, CMP, URIC, LIPID, T7 #### [facility] [address] [address] [address] Armida Brown Urea nitrogen [Mass/Vol] 16.0 mg/dL Normal 7.0-18.0 [facility] Comment on above: Performed By: #### T SH, CMP, URIC, LIPID, T7 #### [facility] [address] [address] [address] Armida Brown Urea nitrogen/Creatinine [Mass ratio] 16.2 mg/mg Normal [facility] Comment on above: Performed By: #### T SH, CMP, URIC, LIPID, T7 #### [facility] [address] [place] [address] Dr. Armida Brown TSHon 02-01-2022 TSH 1.176 uIU/mL Normal 0.358-3.740 [facility] Comment on above: Performed By: #### T SH, CMP, URIC, LIPID, T7 #### [facility] [address] [place] [address] Dr. Armida Brown URIC ACID SERUMon 02-01-2022 Urate [Mass/Vol] 6.7 mg/dL Normal 3.5-7.2 [facility] Comment on above: Performed By: #### T SH, CMP, URIC, LIPID, T7 #### [facility] [address] [place] [address] Dr. Armida Brown .eGFRon 08-12-2018 eGFR AA >60 Normal >=60 [facility] Comment on above: Order Comment: Order added by Discern rule Result Comment: Resu lt = 0-14.9 mL/min/1.73 m2 Kidney failure or Dialysis Result = 15-29 mL/min/1.73 m2 Severe decrease in GFR Result = 30-59 mL/min/1.73 m2 Moderate decrease in GFR Result >= 60 mL/min/1.73 m2 Normal or increased GFR Performed By: #### P TT #### [facility] [address] [place] [id number] eGFR Non-AA >60 Normal >=60 [facility] Comment on above: Order Comment: Order added [...] dosing. Performed By: #### P TT #### [id number] Basic Metabolic Profileon Anion gap molar conc 11 mmol/L Normal 7-17 [facility] Comment on above: Performed By: #### P TINR #### [id number] Calcium mass conc 8.2 mg/dL Low 8.5-10.3 [facility] Comment on above: Performed By: #### P TINR #### [address] [id number] Chloride molar conc 102 mmol/L Normal 98-110 [facility] Comment on above: Performed By: #### P TINR #### [address] [id number] CO2 molar conc 27 mmol/L Normal 22-32 [facility] Comment on above: Performed By: #### P TINR #### [address] [address] Creatinine mass conc 0.83 mg/dL Normal 0.61-1.24 [facility] Comment on above: Performed By: #### P TINR #### [id number] Glucose mass conc 109 mg/dL Normal 74-118 [facility] Comment on above: Performed By: #### P TINR #### [address] [address] Potassium molar conc 3.9 mmol/L Normal 3.4-4.8 [facility] Comment on above: Performed By: #### P TINR #### [address] [address] Sodium molar conc 136 mmol/L Normal 133-142 [facility] Comment on above: Performed By: #### P TINR #### [address] [address] Urea nitrogen mass conc 9 mg/dL Normal 8-26 [facility] Comment on above: Performed By: #### P TINR #### [address] [id number] Urea nitrogen/Creatinine mass ratio 10.8 mg/mg Normal 10.0-20.0 [facility] Comment on above: Performed By: #### P TINR #### [address] [id number] CBC w/ Diffon 08-12-2018 Erythrocyte distribution width Ratio (RBC) 12.5 % Normal 11.6-14.8 [facility] Comment on above: Performed By: #### P TINR #### [address] [address] Hematocrit Volume Fraction (Bld) 29.7 % Low 41.0-53.0 [facility] Comment on above: Performed By: #### P TINR #### [address] [address] Hemoglobin mass conc (Bld) 10.3 g/dL Low 13.5-17.5 [facility] Comment on above: Performed By: #### P TINR #### [address] [address] MCH Entitic mass (RBC) 30.1 pg Normal 27.0-35.0 [facility] Comment on above: Performed By: #### P TINR #### [address] [address] MCHC mass conc (RBC) 34.5 % Normal 31.0-37.0 [facility] Comment on above: Performed By: #### P TINR #### [id number] MCV Entitic volume (RBC) 87.2 fL Normal 80.0-100.0 [facility] Comment on above: Performed By: #### P TINR #### [address] [id number] Platelet mean volume Entitic volume (Bld) 7.8 fL Normal 6.7-10.6 [facility] Comment on above: Performed By: #### P TINR #### [id number] Platelets #/vol (Bld) 218 x10*3/mcL Normal 150-350 [facility] Comment on above: Performed By: #### P TINR #### [place] [address] RBC #/vol (Bld) 3.41 x10*6/mcL Low 4.30-5.80 [facility] Comment on above: Performed By: #### P TINR #### [id number] WBC #/vol (Bld) 9.1 x10*3/mcL Normal 4.5-11.0 [facility] Comment on above: Performed By: #### P TINR #### [place] [address] Diff Autoon 08-12-2018 Baso Absolute 0.0 x10*3/mcL Normal 0.0-0.2 [facility] Comment on above: Performed By: #### P TINR #### [address] [id number] Basophils/100 WBC (Bld) 0.5 % Normal 0.0-1.2 [facility] Comment on above: Performed By: #### P TINR #### [address] [id number] Eos Absolute 0.3 x10*3/mcL Normal 0.0-0.4 [facility] Comment on above: Performed By: #### P TINR #### [address] [address] Eosinophils/100 WBC (Bld) 3.4 % Normal 0.0-6.1 [facility] Comment on above: Performed By: #### P TINR #### [address] [address] Lymphocytes #/vol (Bld) 1.1 x10*3/mcL Normal 1.0-4.8 [facility] Comment on above: Performed By: #### P TINR #### [address] [address] Lymphocytes/100 WBC (Bld) 11.8 % Low 27.2-40.8 [facility] Comment on above: Performed By: #### P TINR #### [address] [address] Floyd Absolute 0.8 x10*3/mcL Normal 0.3-1.1 [facility] Comment on above: Performed By: #### P TINR #### [address] [address] Monocytes/100 WBC (Bld) 8.5 % Normal 4.7-13.9 [facility] Comment on above: Performed By: #### P TINR #### [address] [address] Neutro Absolute 6.9 x10*3/mcL Normal 1.8-7.7 [facility] Comment on above: Performed By: #### P TINR #### [address] [address] Neutro Auto 75.8 % High 47.2-70.8 [facility] Comment on above: Performed By: #### P TINR #### [address] [address] Inpatient Clinical Summaryon 08-12-2018 Inpatient Clinical Summary [address] [place] [address] [address] Clinical Summary Person Information Name: Chiquita Weeks Age: 28 Years : 1990 Sex: Male PCP: Cyril Ruiz MD Marital Status: Phone: PCP: Race: White Ethnicity: Not or Language: Ukrainian Visit Id: Visit Reason: Speciality: Acuity: Enc Type: Inpatient Med Service: Surgery Arrival: 08/08/2018 08:12:20 Discharge: Dispo Type: Address: [address] [place] [address] Diagnosis: 1:Scheuermann's kyphosis Discharged To: Home Treatments: [...] range between ( 27.2 and 40.8 ) Floyd Auto: 8.5 % -- Normal range between [...] range between ( 41.0 and 53.0 ) Floyd Absolute: 0.8 x10 MCH: 30.1 pg -- [...] Follow up: With: Address: When: Jesus Reyes [facility], [place] [phone] Business (1) Comments: Schedule follow up appointment for 2 weeks for staple removal With: Address: When: Cyril Ruiz Normal [facility] Occupational Therapy Progres s Noteon 08-12-2018 Protein mass conc Planned/pending dc t o home today. Reecommended [facility] Electronically signed by ___ Teo Johnson 08/12/18 06:26 EST Normal [facility] Orthopedic Progress Noteon 0 08-12-2018 Protein mass [...] Luís Marcus PA-C 08/12/18 07:37 EST Normal [facility] .eGFRon 08-11-2018 eGFR Non-AA >60 Normal >=60 [facility] Comment on above: Order Comment: Order added [...] dosing. Performed By: #### P TINR #### [address] [id number] eGFR AA >60 Normal >=60 [facility] Comment on above: Order Comment: Order added by Discern rule Result Comment: Resu lt = 0-14.9 mL/min/1.73 m2 Kidney failure or Dialysis Result = 15-29 mL/min/1.73 m2 Severe decrease in GFR Result = 30-59 mL/min/1.73 m2 Moderate decrease in GFR Result >= 60 mL/min/1.73 m2 Normal or increased GFR Performed By: #### P TINR #### [address] [id number] Basic Metabolic Profileon Anion gap molar conc 10 mmol/L Normal 7-17 [facility] Comment on above: Performed By: #### P TINR #### [place] [id number] Calcium mass conc 8.3 mg/dL Low 8.5-10.3 [facility] Comment on above: Performed By: #### P TINR #### [address] [address] Chloride molar conc 97 mmol/L Low 98-110 [facility] Comment on above: Performed By: #### P TINR #### [address] [address] CO2 molar conc 26 mmol/L Normal 22-32 [facility] Comment on above: Performed By: #### P TINR #### [address] [address] Creatinine mass conc 0.88 mg/dL Normal 0.61-1.24 [facility] Comment on above: Performed By: #### P TINR #### [address] [address] Glucose mass conc 109 mg/dL Normal 74-118 [facility] Comment on above: Performed By: #### P TINR #### [address] [address] Potassium molar conc 4.0 mmol/L Normal 3.4-4.8 [facility] Comment on above: Performed By: #### P TINR #### [address] [address] Sodium molar conc 129 mmol/L Low 133-142 [facility] Comment on above: Performed By: #### P TINR #### [address] [address] Urea nitrogen mass conc 9 mg/dL Normal 8-26 [facility] Comment on above: Performed By: #### P TINR #### [address] [address] Urea nitrogen/Creatinine mass ratio 10.2 mg/mg Normal 10.0-20.0 [facility] Comment on above: Performed By: #### P TINR #### [address] [address] CBC w/ Diffon 08-11-2018 Erythrocyte distribution width Ratio (RBC) 12.6 % Normal 11.6-14.8 [facility] Comment on above: Performed By: #### P TINR #### [address] [address] Hematocrit Volume Fraction (Bld) 31.7 % Low 41.0-53.0 [facility] Comment on above: Performed By: #### P TINR #### [address] [address] Hemoglobin mass conc (Bld) 10.8 g/dL Low 13.5-17.5 [facility] Comment on above: Performed By: #### P TINR #### [address] [address] MCH Entitic mass (RBC) 29.9 pg Normal 27.0-35.0 [facility] Comment on above: Performed By: #### P TINR #### [address] [address] MCHC mass conc (RBC) 34.2 % Normal 31.0-37.0 [facility] Comment on above: Performed By: #### P TINR #### [address] [address] MCV Entitic volume (RBC) 87.5 fL Normal 80.0-100.0 [facility] Comment on above: Performed By: #### P TINR #### [address] [address] Platelet mean volume Entitic volume (Bld) 7.8 fL Normal 6.7-10.6 [facility] Comment on above: Performed By: #### P TINR #### [address] [address] Platelets #/vol (Bld) 218 x10*3/mcL Normal 150-350 [facility] Comment on above: Performed By: #### P TINR #### [address] [address] RBC #/vol (Bld) 3.62 x10*6/mcL Low 4.30-5.80 [facility] Comment on above: Performed By: #### P TINR #### [address] [address] WBC #/vol (Bld) 11.8 x10*3/mcL High 4.5-11.0 [facility] Comment on above: Performed By: #### P TINR #### [address] [address] Diff Autoon 08-11-2018 Baso Absolute 0.1 x10*3/mcL Normal 0.0-0.2 [facility] Comment on above: Performed By: #### P TINR #### [address] [address] Basophils/100 WBC (Bld) 0.5 % Normal 0.0-1.2 [facility] Comment on above: Performed By: #### P TINR #### [address] [address] Eos Absolute 0.3 x10*3/mcL Normal 0.0-0.4 [facility] Comment on above: Performed By: #### P TINR #### [address] [address] Eosinophils/100 WBC (Bld) 2.3 % Normal 0.0-6.1 [facility] Comment on above: Performed By: #### P TINR #### [address] [address] Lymphocytes #/vol (Bld) 1.7 x10*3/mcL Normal 1.0-4.8 [facility] Comment on above: Performed By: #### P TINR #### [address] [address] Lymphocytes/100 WBC (Bld) 14.3 % Low 27.2-40.8 [facility] Comment on above: Performed By: #### P TINR #### [address] [address] Floyd Absolute 1.2 x10*3/mcL High 0.3-1.1 [facility] Comment on above: Performed By: #### P TINR #### [address] [address] Monocytes/100 WBC (Bld) 9.9 % Normal 4.7-13.9 [facility] Comment on above: Performed By: #### P TINR #### [address] [address] Neutro Absolute 8.6 x10*3/mcL High 1.8-7.7 [facility] Comment on above: Performed By: #### P TINR #### [address] [address] Neutro Auto 73.0 % High 47.2-70.8 [facility] Comment on above: Performed By: #### P TINR #### [facility] [address] [place] [address] Orthopedic Progress Noteon 0 08-11-2018 Protein mass [...] Luís Marcus PA-C 08/11/18 14:44 EST Normal [facility] XR Scoliosis Study 2 or 3 Vi [...] Electronically Signed in Other Vendor System) Normal [facility] Comment on above: Order Comment: Stand ing AP and lateral views in TLSO brace .eGFRon 08-10-2018 eGFR AA >60 Normal >=60 [facility] Comment on above: Result Comment: Resu lt = 0-14.9 mL/min/1.73 m2 Kidney failure or Dialysis Result = 15-29 mL/min/1.73 m2 Severe decrease in GFR Result = 30-59 mL/min/1.73 m2 Moderate decrease in GFR Result >= 60 mL/min/1.73 m2 Normal or increased GFR Performed By: #### C BC #### [address] [address] eGFR Non-AA >60 Normal >=60 [facility] Comment on above: Result Comment: Resu lt [...] dosing. Performed By: #### C BC #### [address] [address] Basic Metabolic Profileon Anion gap molar conc 12 mmol/L Normal 7-17 [facility] Comment on above: Performed By: #### C BC #### [address] [address] Calcium mass conc 8.1 mg/dL Low 8.5-10.3 [facility] Comment on above: Performed By: #### C BC #### [address] [address] Chloride molar conc 103 mmol/L Normal 98-110 [facility] Comment on above: Performed By: #### C BC #### [address] [address] CO2 molar conc 25 mmol/L Normal 22-32 [facility] Comment on above: Performed By: #### C BC #### [address] [address] Creatinine mass conc 0.83 mg/dL Normal 0.61-1.24 [facility] Comment on above: Performed By: #### C BC #### [address] [address] Glucose mass conc 99 mg/dL Normal 74-118 [facility] Comment on above: Performed By: #### C BC #### [address] [address] Potassium molar conc 4.3 mmol/L Normal 3.4-4.8 [facility] Comment on above: Performed By: #### C BC #### [address] [address] Sodium molar conc 136 mmol/L Normal 133-142 [facility] Comment on above: Performed By: #### C BC #### [address] [address] Urea nitrogen mass conc 12 mg/dL Normal 8-26 [facility] Comment on above: Performed By: #### C BC #### [address] [address] Urea nitrogen/Creatinine mass ratio 14.5 mg/mg Normal 10.0-20.0 [facility] Comment on above: Performed By: #### C BC #### [address] [address] CBC w/ Diffon 08-10-2018 Erythrocyte distribution width Ratio (RBC) 12.6 % Normal 11.6-14.8 [facility] Comment on above: Performed By: #### C BC #### [address] [address] Hematocrit Volume Fraction (Bld) 33.6 % Low 41.0-53.0 [facility] Comment on above: Performed By: #### C BC #### [address] [address] Hemoglobin mass conc (Bld) 11.4 g/dL Low 13.5-17.5 [facility] Comment on above: Performed By: #### C BC #### [address] [address] MCH Entitic mass (RBC) 29.9 pg Normal 27.0-35.0 [facility] Comment on above: Performed By: #### C BC #### [address] [address] MCHC mass conc (RBC) 34.0 % Normal 31.0-37.0 [facility] Comment on above: Performed By: #### C BC #### [address] [address] MCV Entitic volume (RBC) 87.8 fL Normal 80.0-100.0 [facility] Comment on above: Performed By: #### C BC #### [address] [address] Platelet mean volume Entitic volume (Bld) 8.1 fL Normal 6.7-10.6 [facility] Comment on above: Performed By: #### C BC #### [address] [address] Platelets #/vol (Bld) 182 x10*3/mcL Normal 150-350 [facility] Comment on above: Performed By: #### C BC #### [address] [address] RBC #/vol (Bld) 3.82 x10*6/mcL Low 4.30-5.80 [facility] Comment on above: Performed By: #### C BC #### [address] [address] WBC #/vol (Bld) 10.3 x10*3/mcL Normal 4.5-11.0 [facility] Comment on above: Performed By: #### C BC #### [address] [address] Diff Autoon 08-10-2018 Baso Absolute 0.1 x10*3/mcL Normal 0.0-0.2 [facility] Comment on above: Performed By: #### C BC #### [address] [address] Basophils/100 WBC (Bld) 1.4 % High 0.0-1.2 [facility] Comment on above: Performed By: #### C BC #### [address] [address] Eos Absolute 0.1 x10*3/mcL Normal 0.0-0.4 [facility] Comment on above: Performed By: #### C BC #### [address] [address] Eosinophils/100 WBC (Bld) 1.2 % Normal 0.0-6.1 [facility] Comment on above: Performed By: #### C BC #### [address] [address] Lymphocytes #/vol (Bld) 2.3 x10*3/mcL Normal 1.0-4.8 [facility] Comment on above: Performed By: #### C BC #### [address] [address] Lymphocytes/100 WBC (Bld) 22.7 % Low 27.2-40.8 [facility] Comment on above: Performed By: #### C BC #### [address] [address] Floyd Absolute 1.1 x10*3/mcL Normal 0.3-1.1 [facility] Comment on above: Performed By: #### C BC #### [address] [address] Monocytes/100 WBC (Bld) 10.6 % Normal 4.7-13.9 [facility] Comment on above: Performed By: #### C BC #### [address] [address] Neutro Absolute 6.6 x10*3/mcL Normal 1.8-7.7 [facility] Comment on above: Performed By: #### C BC #### [facility] [address] [place] [address] Neutro Auto 64.1 % Normal 47.2-70.8 [facility] Comment on above: Performed By: #### C BC #### [facility] [address] [place] [address] Orthopedic Progress Noteon 0 08-10-2018 Protein mass [...] Luís Marcus PA-C 08/10/18 06:03 EST Normal [facility] .eGFRon 08-09-2018 eGFR AA >60 Normal >=60 [facility] Comment on above: Result Comment: Resu lt = 0-14.9 mL/min/1.73 m2 Kidney failure or Dialysis Result = 15-29 mL/min/1.73 m2 Severe decrease in GFR Result = 30-59 mL/min/1.73 m2 Moderate decrease in GFR Result >= 60 mL/min/1.73 m2 Normal or increased GFR Performed By: #### C BC #### [address] [address] eGFR Non-AA >60 Normal >=60 [facility] Comment on above: Result Comment: Resu lt [...] dosing. Performed By: #### C BC #### [address] [address] Basic Metabolic Profileon Anion gap molar conc 12 mmol/L Normal 7-17 [facility] Comment on above: Performed By: #### C BC #### [address] [address] Calcium mass conc 8.3 mg/dL Low 8.5-10.3 [facility] Comment on above: Performed By: #### C BC #### [address] [address] Chloride molar conc 106 mmol/L Normal 98-110 [facility] Comment on above: Performed By: #### C BC #### [address] [address] CO2 molar conc 24 mmol/L Normal 22-32 [facility] Comment on above: Performed By: #### C BC #### [address] [address] Creatinine mass conc 1.02 mg/dL Normal 0.61-1.24 [facility] Comment on above: Performed By: #### C BC #### [address] [address] Glucose mass conc 119 mg/dL High 74-118 [facility] Comment on above: Performed By: #### C BC #### [address] [address] Potassium molar conc 4.5 mmol/L Normal 3.4-4.8 [facility] Comment on above: Performed By: #### C BC #### [address] [address] Sodium molar conc 137 mmol/L Normal 133-142 [facility] Comment on above: Performed By: #### C BC #### [address] [address] Urea nitrogen mass conc 12 mg/dL Normal 8-26 [facility] Comment on above: Performed By: #### C BC #### [address] [address] Urea nitrogen/Creatinine mass ratio 11.8 mg/mg Normal 10.0-20.0 [facility] Comment on above: Performed By: #### C BC #### [address] [address] CBC w/ Diffon 08-09-2018 Erythrocyte distribution width Ratio (RBC) 12.8 % Normal 11.6-14.8 [facility] Comment on above: Performed By: #### . Automated Diff #### [address] [address] Hematocrit Volume Fraction (Bld) 39.9 % Low 41.0-53.0 [facility] Comment on above: Performed By: #### . Automated Diff #### [address] [address] Hemoglobin mass conc (Bld) 13.4 g/dL Low 13.5-17.5 [facility] Comment on above: Performed By: #### . Automated Diff #### [address] [address] MCH Entitic mass (RBC) 29.1 pg Normal 27.0-35.0 [facility] Comment on above: Performed By: #### . Automated Diff #### [address] [address] MCHC mass conc (RBC) 33.5 % Normal 31.0-37.0 [facility] Comment on above: Performed By: #### . Automated Diff #### [address] [address] MCV Entitic volume (RBC) 86.9 fL Normal 80.0-100.0 [facility] Comment on above: Performed By: #### . Automated Diff #### [place] [id number] Platelet mean volume Entitic volume (Bld) 8.2 fL Normal 6.7-10.6 [facility] Comment on above: Performed By: #### . Automated Diff #### [place] [address] Platelets #/vol (Bld) 302 x10*3/mcL Normal 150-350 [facility] Comment on above: Performed By: #### . Automated Diff #### [place] [address] RBC #/vol (Bld) 4.59 x10*6/mcL Normal 4.30-5.80 [facility] Comment on above: Performed By: #### . Automated Diff #### [address] [address] WBC #/vol (Bld) 14.2 x10*3/mcL High 4.5-11.0 [facility] Comment on above: Performed By: #### . Automated Diff #### [place] [id number] Practice Office Associate Progress Noteon 08-09-2018 Practice Office Associate Progress Note Met with patient regarding transitions [...] ___ Abbie Cordova 08/09/18 10:08 EST Normal [facility] Diff Autoon 08-09-2018 Baso Absolute 0.0 x10*3/mcL Normal 0.0-0.2 [facility] Comment on above: Performed By: #### . Automated Diff #### [address] [address] Basophils/100 WBC (Bld) 0.3 % Normal 0.0-1.2 [facility] Comment on above: Performed By: #### . Automated Diff #### [address] [address] Eos Absolute 0.0 x10*3/mcL Normal 0.0-0.4 [facility] Comment on above: Performed By: #### . Automated Diff #### [address] [address] Eosinophils/100 WBC (Bld) 0.1 % Normal 0.0-6.1 [facility] Comment on above: Performed By: #### . Automated Diff #### [address] [address] Lymphocytes #/vol (Bld) 1.2 x10*3/mcL Normal 1.0-4.8 [facility] Comment on above: Performed By: #### . Automated Diff #### [address] [address] Lymphocytes/100 WBC (Bld) 8.6 % Low 27.2-40.8 [facility] Comment on above: Performed By: #### . Automated Diff #### [address] [address] Floyd Absolute 1.0 x10*3/mcL Normal 0.3-1.1 [facility] Comment on above: Performed By: #### . Automated Diff #### [address] [address] Monocytes/100 WBC (Bld) 6.9 % Normal 4.7-13.9 [facility] Comment on above: Performed By: #### . Automated Diff #### [facility] [address] [place] [address] Neutro Absolute 11.9 x10*3/mcL High 1.8-7.7 [facility] Comment on above: Performed By: #### . Automated Diff #### [facility] [address] [place] [address] Neutro Auto 84.1 % High 47.2-70.8 [facility] Comment on above: Performed By: #### . Automated Diff #### [place] [address] [place] [id number] Orthopedic Progress Noteon 0 08-09-2018 Protein mass [...] Luís Marcus PA-C 08/09/18 06:28 EST Normal [facility] Progress Note-Nurseon 2018 Protein mass conc Upset [...] ___ Petra Kim 08/09/18 10:50 EST Normal [facility] XR Spine Thoracic Minimum 4 Viewson 08-09-2018 [...] Electronically Signed in Other Vendor System) Normal [facility] CT Spine Thoracic w/o Contra ston 08-08-2018 [...] exam here. Consider MRI. Radiation Dose Estimate: CTDI(mGy):0.012637 / / / kVp:120.287737 / mAs:0.969463 / / / DLP(mGy-cm):9.856322Tho y Part: Abdomen CTDI(mGy):0.383462 / / / kVp:140.991858 / mAs:0.485564 / / / DLP(mGy-cm):14.093083Am dy Part: Final Dictated by: Chris Don MD Dictated DT/TM: 08.08.2018 11:02 am Signed by: Chris Don MD Signed (Electronic Signature): 08.08.2018 11:22 am (If Report Is Signed, Electronically Signed in Other Vendor System) Normal [facility] Comment on above: Order Comment: tried to call office at 18:05. office already closed and unable to leave message regarding this to be a future order. Hgb & Hcton 08-08-2018 Hematocrit Volume Fraction (Bld) 42.8 % Normal 41.0-53.0 [facility] Comment on above: Performed By: #### . Automated Diff #### [place] [address] Hemoglobin mass conc (Bld) 14.4 g/dL Normal 13.5-17.5 [facility] Comment on above: Performed By: #### . Automated Diff #### [place] [address] [place] [address] Operative Reporton 9 Operative Report Indication for [...] decompression and co-surgeon Leida Lynn for instrumentation Critical Care Transport Nurse Luís HAMEED Anesthesia General anesthetic via endotracheal [...] is secured. He is carefully turned onto [facility] operating room table and head and neck [...] through T12 are resected using Luis Alberto director distribution and this bone is harvested for [...] of autograft from local harvest supplemented with [place] demineralized bone matrix. The wound is reirrigated [...] surgical procedure was assisted by my physician?s asset protection assistant. Her presence was needed throughout the case for manipulation and positioning the surgical arm as well as positioning the surgical instruments as well as primarily assisting me through procedure. Due to the complexity of condition, the skill set of an neurosurgical physician asset protection assistant was needed throughout the case. During the surgical case, the surgical coder was working the back table and was not available for assistance. Tourniquet Time None Sponge/Needle Count Per nursing correct Fluid Count 2500 mL crystalloid Electronically signed by ___ Shane PANCHAL MD, Leida Cross 08/08/18 17:22 EST Normal [facility] Operative Report Operative Report DATE OF OPERATION: [...] 5. Use of local autograft bone and [place] Matrix SURGEON: Jesus Shah MD for decompression Leida Lynn MD for instrumentation BEEF SPECIALIST: Luís Staley assisted throughout the procedure with [...] injury, paralysis, non-union, DVT/PE, bleeding, chronic pain, AK, stroke, etc. All questions were answered and [...] by entirely resecting the facet joint. Two [place] chrome rods were cut to size and [...] bone was packed over the decorticated elements bilaterally.[place] matrix was placed on top of this [...] and dusted with 3 g vancomycin powder. [place] used for skin and antibiotic ointment apploed [...] Jesus Reyes MD 08/09/18 11:58 EST Normal [facility] Operative Report Preoperative Diagnos is Scheuermann's kyphosis Intractable thoracic pain Postoperative Diagnosis Scheuermann's kyphosis Intractable thoracic pain Operation 1. T7-T12 decompression with T7-T12 bilateral [place] Osteotomies 2. T6-L2 posterior spinal fusion using in situ deformity correction Surgeon(s) Dr. Reyes for decompression Dr. 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 Exercise Home/Environment Lives with Children, Spouse. Living [...] Jesus Reyes MD 08/08/2018 14:55 EST Normal [facility] .eGFRon 07-31-2018 eGFR Non-AA >60 Normal >=60 [facility] Comment on above: Result Comment: Resu lt [...] dosing. Performed By: #### E GFR #### [address] [address] eGFR AA >60 Normal >=60 [facility] Comment on above: Result Comment: Resu lt = 0-14.9 mL/min/1.73 m2 Kidney failure or Dialysis Result = 15-29 mL/min/1.73 m2 Severe decrease in GFR Result = 30-59 mL/min/1.73 m2 Moderate decrease in GFR Result >= 60 mL/min/1.73 m2 Normal or increased GFR Performed By: #### E GFR #### [address] [address] ABO/Rhon 07-31-2018 ABO/Rh SD 1.11.19 DCon: 0 ABO/Rh: O POS Normal [facility] Comment on above: Performed By: #### A MONISHA #### [facility] (DEFAULT) [address] [place] [id number] [address] ABSC Autoon 07-31-2018 ABSC Auto Negative Normal [facility] Comment on above: Performed By: #### A SA #### [address] [address] Basic Metabolic Profileon Anion gap molar conc 15 mmol/L Normal 7-17 [facility] Comment on above: Performed By: #### C [id number] #### [address] [address] Calcium mass conc 9.7 mg/dL Normal 8.5-10.3 [facility] Comment on above: Performed By: #### C [id number] #### [address] [address] Chloride molar conc 96 mmol/L Low 98-110 [facility] Comment on above: Performed By: #### C [id number] #### [address] [address] CO2 molar conc 28 mmol/L Normal 22-32 [facility] Comment on above: Performed By: #### C [id number] #### [address] [address] Creatinine mass conc 1.07 mg/dL Normal 0.61-1.24 [facility] Comment on above: Performed By: #### C [id number] #### [address] [address] Glucose mass conc 94 mg/dL Normal 74-118 [facility] Comment on above: Performed By: #### C [id number] #### [address] [address] Potassium molar conc 4.4 mmol/L Normal 3.4-4.8 [facility] Comment on above: Performed By: #### C [id number] #### [address] [address] Sodium molar conc 135 mmol/L Normal 133-142 [facility] Comment on above: Performed By: #### C [id number] #### [address] [address] Urea nitrogen mass conc 20 mg/dL Normal 8-26 [facility] Comment on above: Performed By: #### C [id number] #### [address] [address] Urea nitrogen/Creatinine mass ratio 18.7 mg/mg Normal 10.0-20.0 [facility] Comment on above: Performed By: #### C [id number] #### [address] [address] CBC w/ Diffon 07-31-2018 Erythrocyte distribution width Ratio (RBC) 13.0 % Normal 11.6-14.8 [facility] Comment on above: Performed By: #### C BC #### [address] [address] Hematocrit Volume Fraction (Bld) 51.4 % Normal 41.0-53.0 [facility] Comment on above: Performed By: #### C BC #### [address] [address] [address] Hemoglobin mass conc (Bld) 17.4 g/dL Normal 13.5-17.5 [facility] Comment on above: Performed By: #### C BC #### [place] [id number] MCH Entitic mass (RBC) 29.8 pg Normal 27.0-35.0 [facility] Comment on above: Performed By: #### C BC #### [place] [id number] MCHC mass conc (RBC) 33.9 % Normal 31.0-37.0 [facility] Comment on above: Performed By: #### C BC #### [place] [id number] MCV Entitic volume (RBC) 87.7 fL Normal 80.0-100.0 [facility] Comment on above: Performed By: #### C BC #### [place] [id number] Platelet mean volume Entitic volume (Bld) 7.8 fL Normal 6.7-10.6 [facility] Comment on above: Performed By: #### C BC #### [place] [id number] Platelets #/vol (Bld) 295 x10*3/mcL Normal 150-350 [facility] Comment on above: Performed By: #### C BC #### [address] [address] RBC #/vol (Bld) 5.86 x10*6/mcL High 4.30-5.80 [facility] Comment on above: Performed By: #### C BC #### [address] [address] WBC #/vol (Bld) 9.1 x10*3/mcL Normal 4.5-11.0 [facility] Comment on above: Performed By: #### C BC #### [address] [address] Diff Autoon 07-31-2018 Baso Absolute 0.1 x10*3/mcL Normal 0.0-0.2 [facility] Comment on above: Performed By: #### . Automated Diff #### [address] [address] Basophils/100 WBC (Bld) 1.0 % Normal 0.0-1.2 [facility] Comment on above: Performed By: #### . Automated Diff #### [address] [address] Eos Absolute 0.3 x10*3/mcL Normal 0.0-0.4 [facility] Comment on above: Performed By: #### . Automated Diff #### [address] [address] Eosinophils/100 WBC (Bld) 3.1 % Normal 0.0-6.1 [facility] Comment on above: Performed By: #### . Automated Diff #### [address] [address] Lymphocytes #/vol (Bld) 2.6 x10*3/mcL Normal 1.0-4.8 [facility] Comment on above: Performed By: #### . Automated Diff #### [address] [address] Lymphocytes/100 WBC (Bld) 28.2 % Normal 27.2-40.8 [facility] Comment on above: Performed By: #### . Automated Diff #### [address] [address] Floyd Absolute 0.8 x10*3/mcL Normal 0.3-1.1 [facility] Comment on above: Performed By: #### . Automated Diff #### [address] [address] Monocytes/100 WBC (Bld) 9.3 % Normal 4.7-13.9 [facility] Comment on above: Performed By: #### . Automated Diff #### [address] [address] Neutro Absolute 5.3 x10*3/mcL Normal 1.8-7.7 [facility] Comment on above: Performed By: #### . Automated Diff #### [facility] [address] [place] [address] Neutro Auto 58.4 % Normal 47.2-70.8 [facility] Comment on above: Performed By: #### . Automated Diff #### [address] [address] MRSA, PCRon 07-31-2018 INR Coag RelTime (Bld) Negative Normal [facility] Comment on above: Result Comment: The Character Booster Xpert MRSA Assay is a qualitative in [...] clinician. Performed By: #### M RSAPC #### [address] [address] Neurosurgery Office/Clinic N oteon 07-31-2018 Neurosurgery Office/Clinic [...] rare alcohol intake Patient works in a [employer]-no legal or Workmen's Compensation claims on today's [...] MD, Leida Cross 07/31/18 11:40 EST Normal [facility] PTon 07-31-2018 INR Coag RelTime (PPP) 1.0 {INR} Normal <=3.5 [facility] Comment on above: Result Comment: INR has no normal range. INR Therapeutic range is: 2.0-3.0 (AF, CVA, TIAs, DVT prophylaxis, acute DVT) 2.5-3.5 ([facility] heart valves, recurrent thrombosis/emboli) Performed By: #### P TINR #### [address] [address] Prothrombin time (PT) Coag time (PPP) 10.4 s Normal 9.1-11.6 [facility] Comment on above: Performed By: #### P TINR #### [address] [address] PTTon 07-31-2018 aPTT Coag time (Bld) 28.9 s Normal 19.2-29.7 [facility] Comment on above: Performed By: #### P TT #### [address] [address] XR Chest 2 Viewson 9 XR Chest [...] Electronically Signed in Other Vendor System) Normal [facility] SCOLIOSIS 2 [facility] 04-24-2018 [facility] [address] [place], [place] [id number] =====Patient Name: CHIQUITA WEEKS : 1990Sex: MAge: Race: WhiteMRN: [id number]. Location: 84Patient Status: OVisit #: [id number] Date: 04/24/2018 3:05:00 PMCompleted Date: 04/24/2018 03:19 PMRequesting Provider: COOKIE COLES Attending Provider: COOKIE COLES Report Copy To: Signs & Symptoms: M54.6 Pain in thoracic spine [id number]: AthenaComments: , , , Ordering Provider - COOKIE COLES MD , Exam: SCOLIOSIS 2 VWSAccession #: [id number] SCOLIOSIS 2 S 04/24/2018 3:19 PM EDT [...] abnormality. Electronically signed by:Adelfo Kay. Transcribed by: [email or web address], User Resident: Electronically Signed by: ADELFO KAY @ 04/24/2018 10:56 PM Normal [facility] Comment on above: Order Comment: , , = ========= , Ordering Provider - COOKIE COLES MD , Encounters Encounter Date Encounter Type Care Provider Facility Start: 02-01-2022 End: 02-02-2022 ambulatory ERNST PENA Facility: Start: 06-23-2021 ambulatory ERNST [facility] Facility: Start: 09-25-2018 End: 09-26-[address] [facility] CYRIL MIGUEL A Facility:[facility] Start: 08-08-2018 End: 08-12-2018 Evaluation and management of inpatient SELVON MARCIA Facility:[facility] Start: 07-31-2018 End: 08-01-2018 Patient [facility] Start: 07-31-2018 End: 08-01-2018 Patient encounter procedure LEIDA LYNN Facility:[facility] Start: 07-30-2018 Patient encounter procedure SELVON MARCIA Facility:[facility] Start: 04-24-2018 End: 04-25-2018 Patient encounter COOKIE COLES Facility:[facility] Start: 04-15-2018 End: 04-16-2018 Patient encounter DEFAULT PHYSICIAN Facility:[facility] Procedures Date Procedure Procedure Detail Performing Clinician Start: 02-01-2022 PSA screening ERNST OROURKE Comment on above: Performed By: #### P [facility] #### [facility] [address] [place] [address] Dr. Armida Brown Payers Date Payer Category Payer Unknown 2017 Unknown [id number] 1990 Unknown [id number] 2.16.8 [id number] 1990 Unknown [id number] 2.16.8 [id number] 1990 Unknown [id number] 2.16.8 [id number] 1988 Unknown [id number] 2.16.8 [id number] 1988 Unknown [id number] 2.16.8 [id number] 1988 Unknown [id number] 2.16.8 [id number] 1988 Unknown [id number] 2.16.84 [id number] 1988 Unknown [id number] 2.16.84 [id number] 1988 Unknown [id number] 2.16.84 [id number] 1988 Unknown [id number] 2.16.84 [id number] 1961 Medicaid [id number] 1961 Medicare [id number] 1961 Unknown [id number] Unknown [id number] Summary Purpose Family History No Family History [...] 5. Use of local autograft bone and [place] [employer] SURGEON: Jesus Shah MD for decompression [...] section and content) DATE CREATED AUTHOR 05/29/2018 [facility] DATE CREATED AUTHOR AUTHOR'S ORGANIZ ATION 08/25/2018 [facility] DATE CREATED AUTHOR AUTHOR'S ORGANIZ ATION 02/15/2022 [facility] DATE CREATED AUTHOR AUTHOR'S ORGANIZ ATION 09/27/2022 [facility] FOR RECORDS PERTAINING TO PATIENTS WHO ARE [...] BE BASED ON THE PRIMARY CLINICAL RECORDS. [facility]. provides no warranty or guarantee of the accuracy or completeness of information in this document.
[2024-05-27 07:10] VITALS: BP 127/95; PULSE 77; TEMP 36.3; O2SAT 96
[2024-05-27] MEDS: ONABOTULINUMTOXINA 200 UNIT VIAL INJ (08:16)
[2024-05-27] MEDS: ONABOTULINUMTOXINA 100 UNIT VIAL INJ (08:16)
[2024-05-27] MEDS: 0.9 % SODIUM CHLORIDE 10 ML VIAL INJ (08:18)
[2024-05-27 08:22] VITALS: BP 135/95; BP 143/96; PULSE 60; PULSE 65; O2SAT 94
--- NOTE | 2024-05-27 08:41 | W.PM.PROCNOT ---
Date of procedure: 05/27/24 Pre-op diagnosis: thoracic-lumbar dystonia Post-op diagnosis: same as pre-op Procedure: PROCEDURE:? Botulinum toxin infiltration of the right erector spinae muscle at the thoracic 10-11, 11-12 levels under fluoroscopic guidance. SOLUTION USED FOR INJECTION:? Botulinum toxin type A, 300 units IMMEDIATE COMPLICATIONS:? None. PROCEDURE:? After informed consent was obtained from the patient, was brought to the OR, placed in the prone position.? The skin overlying the area was prepped with the normal sterile fashion.? A 25 gauge spinal needle was inserted over the pedicle at the thoracic 10 level on the right side.? Needle tip advanced until it was encountered.? Needle tip was withdrawn slightly and injection of 300 units of botulinum toxin was injected at this area.?? Post procedure, needle was removed.? Tolerated the procedure well without complications.?He reports a dramatic reduction of pain symptoms post procedurally. Anesthesia: Local Surgeon: Annette Banks Condition: stable Disposition: PACU
== END 2024-05-27 08:26 | disposition home or self-care (01) ==
LOC: SURGOUT 06:59
PROVIDERS: PCP Nurse Practitioner Family; Visit Provider Anesthesiology Pain Medicine
DX: G24.9 Dystonia, unspecified (principal)
CPT/HCPCS: 64646; J0585

== ENCOUNTER 2024-06-04 08:45 | Outpatient (OUT) | payer MEDICARE, MEDICAID, SELFPAY ==
--- OUTSIDE RECORDS SUMMARY | 2024-06-04 08:58 | XMS_ITS | CCD ---
Author Organization [facility] Care Team Providers Care Irrigation Laborer Name Role Phone PHYSICIAN, DEFAULT Unavailable Unavailable [...] Consulting Unavailable LEIDA LYNN Attending Unavaila ble [facility] Unavailable SLOANE HIGH PA-C Attending Unavail able MARCIA, SELVON Attending Unavailable [facility] Unavailable BECKY, ERNST Primary Care Unavailable TAISHA, DR SCOOTER Webster Attending Unavailable TAISHA, DR SCOOTER Webster Admitting Unavailable CHANTE HERNANDEZ Consulting Unavailable BECKY, ERNST Primary Care Unavailable BECKY, ERNST Admitting Unavailable ERNST PENA Attending Unavailable ERNST PENA Consulting Unavailable [facility] Care Unavaila ble MARCIA, SELVON F Referring Unavailable MARCIA, SELVON F Attending Unavailable MARCIA, SELVON F Admitting Unavailable Allergies Allergy Classification Reported Allergen(s) Allergy Type Date of Onset Reaction(s) Facility (1 source) No Known Medication Allergies; Translations: [No Known Medication Allergies] Propensity to adverse reactions to drug (disorder) [facility] Repository Problems Problem Classification Problem Date [...] INSULINon 02-02-2022 Insulin 16.5 uIU/mL Normal 2.6-24.9 [facility] Comment on above: Performed By: #### I NSULIN #### [facility] [address] [place] [address] Dr. Armida Brown CBC AUTO DIFFon 02-01-2022 BASO # 0.1 103/ul Normal 0.0-0.1 [facility] Comment on above: Performed By: #### C BC #### [facility] [address] [place] [address] Dr. Armida Brown Basophils/100 WBC (Bld) 0.9 % Normal 0.2-2.0 [facility] Comment on above: Performed By: #### C BC #### [facility] [address] [place] [address] Dr. Armida Brown EO # 0.4 103/ul Normal 0.0-0.7 [facility] Comment on above: Performed By: #### C BC #### [facility] [address] [place] [address] Dr. Armida Brown Eosinophils/100 WBC (Bld) 4.7 % Normal 0.9-7.0 [facility] Comment on above: Performed By: #### C BC #### [facility] [address] [place] [address] Dr. Armida Brown Erythrocyte distribution width (RBC) [Ratio] 13.1 % Normal 11.0-15.0 [facility] Comment on above: Performed By: #### C BC #### [facility] [address] [place] [address] Dr. Armida Brown Hematocrit (Bld) [Volume fraction] 48.6 % Normal 42.0-54.0 [facility] Comment on above: Performed By: #### C BC #### [facility] [address] [place] [address] Dr. Armida Brown Hemoglobin (Bld) [Mass/Vol] 16.5 g/dL Normal 14.0-18.0 [facility] Comment on above: Performed By: #### C BC #### [facility] [address] [place] [address] Dr. Armida Brown IG # 0.05 10e3/ul Critically high 0.00-0.03 [facility] Comment on above: Performed By: #### C BC #### [facility] [address] [place] [address] Dr. Armida Brown IG % 0.6 % Critically high 0.0-0.5 [facility] Comment on above: Performed By: #### C BC #### [facility] [address] [place] [address] Dr. Armida Brown LYMPH # 1.7 103/ul Normal 1.2-3.8 [facility] Comment on above: Performed By: #### C BC #### [facility] [address] [place] [address] Dr. Armida Brown Lymphocytes/100 WBC (Bld) 19.6 % Critically low 20.5-60.0 [facility] Comment on above: Performed By: #### C BC #### [facility] [address] [place] [address] Dr. Armida Brown MANUAL DIFF REQ NO Normal [facility] Comment on above: Performed By: #### C BC #### [facility] [address] [address] [address] Armida Brown MCH (RBC) [Entitic mass] 30.1 pg Normal 25.9-34.0 [facility] Comment on above: Performed By: #### C BC #### [facility] [address] [address] [address] Armida Brown MCHC (RBC) [Mass/Vol] 34.0 g/dL Normal 29.9-35.2 [facility] Comment on above: Performed By: #### C BC #### [facility] [address] [place] [address] Dr. Armida Brown MCV (RBC) [Entitic vol] 88.5 fL Normal 80.0-94.0 [facility] Comment on above: Performed By: #### C BC #### [facility] [address] [place] [address] Dr. Armida Brown MONO # 0.5 103/ul Normal 0.3-0.8 [facility] Comment on above: Performed By: #### C BC #### [facility] [address] [place] [address] Dr. rAmida Brown Monocytes/100 WBC (Bld) 5.6 % Normal 1.7-12.0 [facility] Comment on above: Performed By: #### C BC #### [facility] [address] [place] [address] Dr. Armida Brown NEUT # 6.1 103/ul Normal 1.4-6.5 [facility] Comment on above: Performed By: #### C BC #### [facility] [address] [place] [address] Dr. Armida Brown Neutrophils/100 WBC (Bld) 68.6 % Normal 43.0-75.0 [facility] Comment on above: Performed By: #### C BC #### [facility] [address] [place] [address] Dr. Armida Brown Platelet mean volume (Bld) [Entitic vol] 9.3 fL Critically low 9.5-13.5 [facility] Comment on above: Performed By: #### C BC #### [facility] [address] [address] [address] Armida Brown PLT 293 103/ul Normal 150-450 [facility] Comment on above: Performed By: #### C BC #### [facility] [address] [address] [address] Armida Brown RBC 5.49 106/ul Normal 4.70-6.10 [facility] Comment on above: Performed By: #### C BC #### [facility] [address] [address] [address] Armida Brown WBC 8.9 103/ul Normal 4.0-11.0 [facility] Comment on above: Performed By: #### C BC #### [facility] [address] [place] [address] Dr. Armida Brown FREE THYROXINE INDEX T7on FTI 3.33 Normal 1.30-4.50 [facility] Comment on above: Performed By: #### T SH, CMP, URIC, LIPID, T7 #### [facility] [address] [address] [address] Armida Brown T3U 35.0 % Normal 33.0-40.0 [facility] Comment on above: Performed By: #### T SH, CMP, URIC, LIPID, T7 #### [facility] [address] [place] [address] Dr. Armida Brown T4 [Mass/Vol] 9.50 ug/dL Normal 4.50-12.10 [facility] Comment on above: Performed By: #### T SH, CMP, URIC, LIPID, T7 #### [facility] [address] [place] [address] Dr. Armida Brown GLYCOHEMOGLOBIN A1Con 2021 ADA RECOMMENDATION SEE BELOW Normal [facility] Comment on above: Result Comment: ADA RECOMMENDED LIMIT 4.0 - 6.0 ADA THERAPEUTIC TARGET < 7.0 ACTION SUGGESTED > 7.0 Performed By: #### A 1C #### [facility] [address] [address] [address] Armida Brown Glucose [Mass/Vol] 103 mg/dL Normal [facility] Comment on above: Performed By: #### A 1C #### [facility] [address] [place] [address] Dr. Armida Brown HbA1c (Bld) [Mass fraction] 5.2 % Normal 4.5-6.2 [facility] Comment on above: Performed By: #### A 1C #### [facility] [address] [place] [address] Dr. Armida Brown LIPID PROFILEon 02-01-2022 CHOL-HDL RATIO NORM SEE BELOW Normal [facility] Comment on above: Result Comment: 3.3 - 4.4 LOW RISK 4.4 - 7.1 AVERAGE RISK 7.1 - 11.0 MODERATE RISK >11.0 HIGH RISK Performed By: #### T SH, CMP, URIC, LIPID, T7 #### [facility] [address] [place] [address] Dr. Armida Brown Cholesterol [Mass/Vol] 183 mg/dL Normal <=200 [facility] Comment on above: Performed By: #### T SH, CMP, URIC, LIPID, T7 #### [facility] [address] [place] [address] Dr. Armida Brown Cholesterol in HDL [Mass/Vol] 33 mg/dL Critically low 40-60 [facility] Comment on above: Performed By: #### T SH, CMP, URIC, LIPID, T7 #### [facility] [address] [address] [address] Armida Brown Cholesterol in LDL [Mass/Vol] 123.0 mg/dL Normal [facility] Comment on above: Performed By: #### T SH, CMP, URIC, LIPID, T7 #### [facility] [address] [place] [address] Dr. Armida Brown Cholesterol.total/C holesterol in HDL [Mass ratio] 5.5 {ratio} Normal [facility] Comment on above: Performed By: #### T SH, CMP, URIC, LIPID, T7 #### [facility] [address] [place] [address] Dr. Armida Brown HDL NORMAL > or = 60 mg/dl - LO W CARDIOVASCULAR RISK <40 mg/dl - HIGH CARDIOVASCULAR RISK Normal [facility] Comment on above: Performed By: #### T SH, CMP, URIC, LIPID, T7 #### [facility] [address] [address] [address] Armida Brown LDL CALC NORMAL SEE BELOW Normal [facility] Comment on above: Result Comment: <100 mg/dl OPTIMAL 100 - 129 mg/dl NEAR OR ABOVE OPTIMAL 130 - 159 mg/dl BORDERLINE HIGH 160 - 189 mg/dl HIGH >190 mg/dl VERY HIGH Performed By: #### T SH, CMP, URIC, LIPID, T7 #### [facility] [address] [address] [address] Armida Brown Triglyceride [Mass/Vol] 135 mg/dL Normal <=150 [facility] Comment on above: Performed By: #### T SH, CMP, URIC, LIPID, T7 #### [facility] [address] [address] [address] Armida Brown VLDL CALC 27.0 mg/dL Normal [facility] Comment on above: Performed By: #### T SH, CMP, URIC, LIPID, T7 #### [facility] [address] [address] [address] Armida Brown PROF 14(COMP METB)on 022 Albumin [Mass/Vol] 4.1 g/dL Normal 3.4-5.0 [facility] Comment on above: Performed By: #### T SH, CMP, URIC, LIPID, T7 #### [facility] [address] [address] [address] Armida Brown Albumin/Globulin [Mass ratio] 1.1 {ratio} Normal [facility] Comment on above: Performed By: #### T SH, CMP, URIC, LIPID, T7 #### [facility] [address] [address] [address] Armida Brown ALP [Catalytic activity/Vol] 79 U/L Normal 46-116 [facility] Comment on above: Performed By: #### T SH, CMP, URIC, LIPID, T7 #### [facility] [address] [address] [address] Armida Brown ALT [Catalytic activity/Vol] 58 U/L Normal 16-63 [facility] Comment on above: Performed By: #### T SH, CMP, URIC, LIPID, T7 #### [facility] [address] [address] [address] Armida Brown Anion gap [Moles/Vol] 12.6 mmol/L Normal [facility] Comment on above: Performed By: #### T SH, CMP, URIC, LIPID, T7 #### [facility] [address] [place] [address] Dr. Armida Brown AST [Catalytic activity/Vol] 23 U/L Normal 15-37 [facility] Comment on above: Performed By: #### T SH, CMP, URIC, LIPID, T7 #### [facility] [address] [place] [address] Dr. Armida Brown Bilirubin [Mass/Vol] 0.6 mg/dL Normal 0.2-1.0 [facility] Comment on above: Performed By: #### T SH, CMP, URIC, LIPID, T7 #### [facility] [address] [address] [address] Armida Brown Calcium [Mass/Vol] 8.9 mg/dL Normal 8.5-10.1 [facility] Comment on above: Performed By: #### T SH, CMP, URIC, LIPID, T7 #### [facility] [address] [place] [address] Dr. Armida Brown Chloride [Moles/Vol] 104 mmol/L Normal 98-107 [facility] Comment on above: Performed By: #### T SH, CMP, URIC, LIPID, T7 #### [facility] [address] [place] [address] Dr. Armida Brown CO2 [Moles/Vol] 26.7 mmol/L Normal 21.0-32.0 [facility] Comment on above: Performed By: #### T SH, CMP, URIC, LIPID, T7 #### [facility] [address] [place] [address] Dr. Armida Brown Creatinine [Mass/Vol] 0.99 mg/dL Normal 0.70-1.30 [facility] Comment on above: Performed By: #### T SH, CMP, URIC, LIPID, T7 #### [facility] [address] [address] [address] Armida Brown EGFR-AF SPANISH >60 Normal >=60 [facility] Comment on above: Performed By: #### T SH, CMP, URIC, LIPID, T7 #### [facility] [address] [address] [address] Armida Brown EGFR-NON AF SPANISH >60 Normal >=60 [facility] Comment on above: Performed By: #### T SH, CMP, URIC, LIPID, T7 #### [facility] [address] [place] [address] Dr. Armida Brown Globulin (S) [Mass/Vol] 3.6 g/dL Normal [facility] Comment on above: Performed By: #### T SH, CMP, URIC, LIPID, T7 #### [facility] [address] [place] [address] Dr. Armida Brown Glucose [Mass/Vol] 100 mg/dL Normal 74-106 [facility] Comment on above: Performed By: #### T SH, CMP, URIC, LIPID, T7 #### [facility] [address] [place] [address] Dr. Armida Brown Potassium [Moles/Vol] 4.3 mmol/L Normal 3.5-5.1 [facility] Comment on above: Performed By: #### T SH, CMP, URIC, LIPID, T7 #### [facility] [address] [place] [address] Dr. Armida Brown Protein [Mass/Vol] 7.7 g/dL Normal 6.4-8.2 [facility] Comment on above: Performed By: #### T SH, CMP, URIC, LIPID, T7 #### [facility] [address] [place] [address] Dr. Armida Brown Sodium [Moles/Vol] 139 mmol/L Normal 136-145 [facility] Comment on above: Performed By: #### T SH, CMP, URIC, LIPID, T7 #### [facility] [address] [address] [address] Armida Brown Urea nitrogen [Mass/Vol] 16.0 mg/dL Normal 7.0-18.0 [facility] Comment on above: Performed By: #### T SH, CMP, URIC, LIPID, T7 #### [facility] [address] [address] [address] Armida Brown Urea nitrogen/Creatinine [Mass ratio] 16.2 mg/mg Normal [facility] Comment on above: Performed By: #### T SH, CMP, URIC, LIPID, T7 #### [facility] [address] [place] [address] Dr. Armida Brown TSHon 02-01-2022 TSH 1.176 uIU/mL Normal 0.358-3.740 [facility] Comment on above: Performed By: #### T SH, CMP, URIC, LIPID, T7 #### [facility] [address] [place] [address] Dr. Armida Brown URIC ACID SERUMon 02-01-2022 Urate [Mass/Vol] 6.7 mg/dL Normal 3.5-7.2 [facility] Comment on above: Performed By: #### T SH, CMP, URIC, LIPID, T7 #### [facility] [address] [place] [address] Dr. Armida Brown .eGFRon 08-12-2018 eGFR AA >60 Normal >=60 [facility] Comment on above: Order Comment: Order added by Discern rule Result Comment: Resu lt = 0-14.9 mL/min/1.73 m2 Kidney failure or Dialysis Result = 15-29 mL/min/1.73 m2 Severe decrease in GFR Result = 30-59 mL/min/1.73 m2 Moderate decrease in GFR Result >= 60 mL/min/1.73 m2 Normal or increased GFR Performed By: #### P TT #### [facility] [address] [place] [address] eGFR Non-AA >60 Normal >=60 [facility] Comment on above: Order Comment: Order [...] dosing. Performed By: #### P TT #### [address] [id number] Basic Metabolic Profileon Anion gap molar conc 11 mmol/L Normal 7-17 [facility] Comment on above: Performed By: #### P TINR #### [address] [id number] Calcium mass conc 8.2 mg/dL Low 8.5-10.3 [facility] Comment on above: Performed By: #### P TINR #### [address] [id number] Chloride molar conc 102 mmol/L Normal 98-110 [facility] Comment on above: Performed By: #### P TINR #### [address] [id number] CO2 molar conc 27 mmol/L Normal 22-32 [facility] Comment on above: Performed By: #### P TINR #### [address] [address] Creatinine mass conc 0.83 mg/dL Normal 0.61-1.24 [facility] Comment on above: Performed By: #### P TINR #### [address] [id number] Glucose mass conc 109 mg/dL Normal 74-118 [facility] Comment on above: Performed By: #### P TINR #### [address] [address] Potassium molar conc 3.9 mmol/L Normal 3.4-4.8 [facility] Comment on above: Performed By: #### P TINR #### [address] [address] Sodium molar conc 136 mmol/L Normal 133-142 [facility] Comment on above: Performed By: #### P TINR #### [address] [address] Urea nitrogen mass conc 9 mg/dL Normal 8-26 [facility] Comment on above: Performed By: #### P TINR #### [address] [id number] Urea nitrogen/Creatinine mass ratio 10.8 mg/mg Normal 10.0-20.0 [facility] Comment on above: Performed By: #### P TINR #### [address] [id number] CBC w/ Diffon 08-12-2018 Erythrocyte distribution width Ratio (RBC) 12.5 % Normal 11.6-14.8 [facility] Comment on above: Performed By: #### P TINR #### [address] [address] Hematocrit Volume Fraction (Bld) 29.7 % Low 41.0-53.0 [facility] Comment on above: Performed By: #### P TINR #### [address] [address] Hemoglobin mass conc (Bld) 10.3 g/dL Low 13.5-17.5 [facility] Comment on above: Performed By: #### P TINR #### [address] [address] MCH Entitic mass (RBC) 30.1 pg Normal 27.0-35.0 [facility] Comment on above: Performed By: #### P TINR #### [address] [address] MCHC mass conc (RBC) 34.5 % Normal 31.0-37.0 [facility] Comment on above: Performed By: #### P TINR #### [address] [id number] MCV Entitic volume (RBC) 87.2 fL Normal 80.0-100.0 [facility] Comment on above: Performed By: #### P TINR #### [address] [id number] Platelet mean volume Entitic volume (Bld) 7.8 fL Normal 6.7-10.6 [facility] Comment on above: Performed By: #### P TINR #### [address] [id number] Platelets #/vol (Bld) 218 x10*3/mcL Normal 150-350 [facility] Comment on above: Performed By: #### P TINR #### [place] [address] RBC #/vol (Bld) 3.41 x10*6/mcL Low 4.30-5.80 [facility] Comment on above: Performed By: #### P TINR #### [address] [id number] WBC #/vol (Bld) 9.1 x10*3/mcL Normal 4.5-11.0 [facility] Comment on above: Performed By: #### P TINR #### [place] [address] Diff Autoon 08-12-2018 Baso Absolute 0.0 x10*3/mcL Normal 0.0-0.2 [facility] Comment on above: Performed By: #### P TINR #### [address] [id number] Basophils/100 WBC (Bld) 0.5 % Normal 0.0-1.2 [facility] Comment on above: Performed By: #### P TINR #### [address] [place] [id number] Eos Absolute 0.3 x10*3/mcL Normal 0.0-0.4 [facility] Comment on above: Performed By: #### P TINR #### [address] [address] Eosinophils/100 WBC (Bld) 3.4 % Normal 0.0-6.1 [facility] Comment on above: Performed By: #### P TINR #### [address] [address] Lymphocytes #/vol (Bld) 1.1 x10*3/mcL Normal 1.0-4.8 [facility] Comment on above: Performed By: #### P TINR #### [address] [address] Lymphocytes/100 WBC (Bld) 11.8 % Low 27.2-40.8 [facility] Comment on above: Performed By: #### P TINR #### [address] [address] Canadian Absolute 0.8 x10*3/mcL Normal 0.3-1.1 [facility] Comment on above: Performed By: #### P TINR #### [address] [address] Monocytes/100 WBC (Bld) 8.5 % Normal 4.7-13.9 [facility] Comment on above: Performed By: #### P TINR #### [address] [address] Neutro Absolute 6.9 x10*3/mcL Normal 1.8-7.7 [facility] Comment on above: Performed By: #### P TINR #### [address] [address] Neutro Auto 75.8 % High 47.2-70.8 [facility] Comment on above: Performed By: #### P TINR #### [address] [address] Inpatient Clinical Summaryon 08-12-2018 Inpatient Clinical Summary [address] [place] [address] [address] Clinical Summary Person Information Name: Chiquita Weeks Age: 28 Years : 1990 Sex: Male PCP: Cyril Ruiz MD Marital Status: Phone: PCP: Race: White Ethnicity: Not or Language: Serbian Visit Id: Visit Reason: Speciality: Acuity: Enc Type: Inpatient Med Service: Surgery Arrival: 08/08/2018 08:12:20 Discharge: Dispo Type: Address: [address] [place] [address] Diagnosis: 1:Scheuermann's kyphosis Discharged To: Home Treatments: [...] range between ( 27.2 and 40.8 ) Canadian Auto: 8.5 % -- Normal range between [...] range between ( 41.0 and 53.0 ) Canadian Absolute: 0.8 x10 MCH: 30.1 pg -- [...] Follow up: With: Address: When: Jesus Reyes [facility] [address] [facility], [place] [phone] Business (1) Comments: Schedule follow up appointment for 2 weeks for staple removal With: Address: When: Cyril Ruiz Normal [facility] Occupational Therapy Progres s Noteon 08-12-2018 Protein mass conc Planned/pending dc t o home today. Reecommended [facility] Electronically signed by ___ Teo Johnson 08/12/18 06:26 EST Normal [facility] Orthopedic Progress Noteon 0 08-12-2018 Protein [...] Luís Marcus PA-C 08/12/18 07:37 EST Normal [facility] .eGFRon 08-11-2018 eGFR Non-AA >60 Normal >=60 [facility] Comment on above: Order Comment: Order [...] dosing. Performed By: #### P TINR #### [place] [id number] eGFR AA >60 Normal >=60 [facility] Comment on above: Order Comment: Order added by Discern rule Result Comment: Resu lt = 0-14.9 mL/min/1.73 m2 Kidney failure or Dialysis Result = 15-29 mL/min/1.73 m2 Severe decrease in GFR Result = 30-59 mL/min/1.73 m2 Moderate decrease in GFR Result >= 60 mL/min/1.73 m2 Normal or increased GFR Performed By: #### P TINR #### [place] [id number] Basic Metabolic Profileon Anion gap molar conc 10 mmol/L Normal 7-17 [facility] Comment on above: Performed By: #### P TINR #### [place] [id number] Calcium mass conc 8.3 mg/dL Low 8.5-10.3 [facility] Comment on above: Performed By: #### P TINR #### [address] [address] Chloride molar conc 97 mmol/L Low 98-110 [facility] Comment on above: Performed By: #### P TINR #### [address] [address] CO2 molar conc 26 mmol/L Normal 22-32 [facility] Comment on above: Performed By: #### P TINR #### [address] [address] Creatinine mass conc 0.88 mg/dL Normal 0.61-1.24 [facility] Comment on above: Performed By: #### P TINR #### [address] [address] Glucose mass conc 109 mg/dL Normal 74-118 [facility] Comment on above: Performed By: #### P TINR #### [address] [address] Potassium molar conc 4.0 mmol/L Normal 3.4-4.8 [facility] Comment on above: Performed By: #### P TINR #### [address] [address] Sodium molar conc 129 mmol/L Low 133-142 [facility] Comment on above: Performed By: #### P TINR #### [address] [address] Urea nitrogen mass conc 9 mg/dL Normal 8-26 [facility] Comment on above: Performed By: #### P TINR #### [address] [address] Urea nitrogen/Creatinine mass ratio 10.2 mg/mg Normal 10.0-20.0 [facility] Comment on above: Performed By: #### P TINR #### [address] [address] CBC w/ Diffon 08-11-2018 Erythrocyte distribution width Ratio (RBC) 12.6 % Normal 11.6-14.8 [facility] Comment on above: Performed By: #### P TINR #### [address] [address] Hematocrit Volume Fraction (Bld) 31.7 % Low 41.0-53.0 [facility] Comment on above: Performed By: #### P TINR #### [address] [address] Hemoglobin mass conc (Bld) 10.8 g/dL Low 13.5-17.5 [facility] Comment on above: Performed By: #### P TINR #### [address] [address] MCH Entitic mass (RBC) 29.9 pg Normal 27.0-35.0 [facility] Comment on above: Performed By: #### P TINR #### [address] [address] MCHC mass conc (RBC) 34.2 % Normal 31.0-37.0 [facility] Comment on above: Performed By: #### P TINR #### [address] [address] MCV Entitic volume (RBC) 87.5 fL Normal 80.0-100.0 [facility] Comment on above: Performed By: #### P TINR #### [address] [address] Platelet mean volume Entitic volume (Bld) 7.8 fL Normal 6.7-10.6 [facility] Comment on above: Performed By: #### P TINR #### [address] [address] Platelets #/vol (Bld) 218 x10*3/mcL Normal 150-350 [facility] Comment on above: Performed By: #### P TINR #### [address] [address] RBC #/vol (Bld) 3.62 x10*6/mcL Low 4.30-5.80 [facility] Comment on above: Performed By: #### P TINR #### [address] [address] WBC #/vol (Bld) 11.8 x10*3/mcL High 4.5-11.0 [facility] Comment on above: Performed By: #### P TINR #### [address] [address] Diff Autoon 08-11-2018 Baso Absolute 0.1 x10*3/mcL Normal 0.0-0.2 [facility] Comment on above: Performed By: #### P TINR #### [address] [address] Basophils/100 WBC (Bld) 0.5 % Normal 0.0-1.2 [facility] Comment on above: Performed By: #### P TINR #### [address] [address] Eos Absolute 0.3 x10*3/mcL Normal 0.0-0.4 [facility] Comment on above: Performed By: #### P TINR #### [address] [address] Eosinophils/100 WBC (Bld) 2.3 % Normal 0.0-6.1 [facility] Comment on above: Performed By: #### P TINR #### [address] [address] Lymphocytes #/vol (Bld) 1.7 x10*3/mcL Normal 1.0-4.8 [facility] Comment on above: Performed By: #### P TINR #### [address] [address] Lymphocytes/100 WBC (Bld) 14.3 % Low 27.2-40.8 [facility] Comment on above: Performed By: #### P TINR #### [address] [address] Canadian Absolute 1.2 x10*3/mcL High 0.3-1.1 [facility] Comment on above: Performed By: #### P TINR #### [address] [address] Monocytes/100 WBC (Bld) 9.9 % Normal 4.7-13.9 [facility] Comment on above: Performed By: #### P TINR #### [address] [address] Neutro Absolute 8.6 x10*3/mcL High 1.8-7.7 [facility] Comment on above: Performed By: #### P TINR #### [address] [address] Neutro Auto 73.0 % High 47.2-70.8 [facility] Comment on above: Performed By: #### P TINR #### [facility] [address] [place] [address] Orthopedic Progress Noteon 0 08-11-2018 Protein mass [...] Luís Marcus PA-C 08/11/18 14:44 EST Normal [facility] XR Scoliosis Study 2 or 3 [...] Electronically Signed in Other Vendor System) Normal [facility] Comment on above: Order Comment: Stand ing AP and lateral views in TLSO brace .eGFRon 08-10-2018 eGFR AA >60 Normal >=60 [facility] Comment on above: Result Comment: Resu lt = 0-14.9 mL/min/1.73 m2 Kidney failure or Dialysis Result = 15-29 mL/min/1.73 m2 Severe decrease in GFR Result = 30-59 mL/min/1.73 m2 Moderate decrease in GFR Result >= 60 mL/min/1.73 m2 Normal or increased GFR Performed By: #### C BC #### [address] [address] eGFR Non-AA >60 Normal >=60 [facility] Comment on above: Result Comment: Resu [...] dosing. Performed By: #### C BC #### [address] [address] Basic Metabolic Profileon Anion gap molar conc 12 mmol/L Normal 7-17 [facility] Comment on above: Performed By: #### C BC #### [address] [address] Calcium mass conc 8.1 mg/dL Low 8.5-10.3 [facility] Comment on above: Performed By: #### C BC #### [address] [address] Chloride molar conc 103 mmol/L Normal 98-110 [facility] Comment on above: Performed By: #### C BC #### [address] [address] CO2 molar conc 25 mmol/L Normal 22-32 [facility] Comment on above: Performed By: #### C BC #### [address] [address] Creatinine mass conc 0.83 mg/dL Normal 0.61-1.24 [facility] Comment on above: Performed By: #### C BC #### [address] [address] Glucose mass conc 99 mg/dL Normal 74-118 [facility] Comment on above: Performed By: #### C BC #### [address] [address] Potassium molar conc 4.3 mmol/L Normal 3.4-4.8 [facility] Comment on above: Performed By: #### C BC #### [address] [address] Sodium molar conc 136 mmol/L Normal 133-142 [facility] Comment on above: Performed By: #### C BC #### [address] [address] Urea nitrogen mass conc 12 mg/dL Normal 8-26 [facility] Comment on above: Performed By: #### C BC #### [address] [address] Urea nitrogen/Creatinine mass ratio 14.5 mg/mg Normal 10.0-20.0 [facility] Comment on above: Performed By: #### C BC #### [address] [address] CBC w/ Diffon 08-10-2018 Erythrocyte distribution width Ratio (RBC) 12.6 % Normal 11.6-14.8 [facility] Comment on above: Performed By: #### C BC #### [address] [address] Hematocrit Volume Fraction (Bld) 33.6 % Low 41.0-53.0 [facility] Comment on above: Performed By: #### C BC #### [address] [address] Hemoglobin mass conc (Bld) 11.4 g/dL Low 13.5-17.5 [facility] Comment on above: Performed By: #### C BC #### [address] [address] MCH Entitic mass (RBC) 29.9 pg Normal 27.0-35.0 [facility] Comment on above: Performed By: #### C BC #### [address] [address] MCHC mass conc (RBC) 34.0 % Normal 31.0-37.0 [facility] Comment on above: Performed By: #### C BC #### [address] [address] MCV Entitic volume (RBC) 87.8 fL Normal 80.0-100.0 [facility] Comment on above: Performed By: #### C BC #### [address] [address] Platelet mean volume Entitic volume (Bld) 8.1 fL Normal 6.7-10.6 [facility] Comment on above: Performed By: #### C BC #### [address] [address] Platelets #/vol (Bld) 182 x10*3/mcL Normal 150-350 [facility] Comment on above: Performed By: #### C BC #### [address] [address] RBC #/vol (Bld) 3.82 x10*6/mcL Low 4.30-5.80 [facility] Comment on above: Performed By: #### C BC #### [address] [address] WBC #/vol (Bld) 10.3 x10*3/mcL Normal 4.5-11.0 [facility] Comment on above: Performed By: #### C BC #### [address] [address] Diff Autoon 08-10-2018 Baso Absolute 0.1 x10*3/mcL Normal 0.0-0.2 [facility] Comment on above: Performed By: #### C BC #### [address] [address] Basophils/100 WBC (Bld) 1.4 % High 0.0-1.2 [facility] Comment on above: Performed By: #### C BC #### [address] [address] Eos Absolute 0.1 x10*3/mcL Normal 0.0-0.4 [facility] Comment on above: Performed By: #### C BC #### [address] [address] Eosinophils/100 WBC (Bld) 1.2 % Normal 0.0-6.1 [facility] Comment on above: Performed By: #### C BC #### [address] [address] Lymphocytes #/vol (Bld) 2.3 x10*3/mcL Normal 1.0-4.8 [facility] Comment on above: Performed By: #### C BC #### [address] [address] Lymphocytes/100 WBC (Bld) 22.7 % Low 27.2-40.8 [facility] Comment on above: Performed By: #### C BC #### [address] [address] Canadian Absolute 1.1 x10*3/mcL Normal 0.3-1.1 [facility] Comment on above: Performed By: #### C BC #### [address] [address] Monocytes/100 WBC (Bld) 10.6 % Normal 4.7-13.9 [facility] Comment on above: Performed By: #### C BC #### [address] [address] Neutro Absolute 6.6 x10*3/mcL Normal 1.8-7.7 [facility] Comment on above: Performed By: #### C BC #### [facility] [address] [place] [address] Neutro Auto 64.1 % Normal 47.2-70.8 [facility] Comment on above: Performed By: #### C BC #### [facility] [address] [place] [address] Orthopedic Progress Noteon 0 08-10-2018 Protein mass [...] Luís Marcus PA-C 08/10/18 06:03 EST Normal [facility] .eGFRon 08-09-2018 eGFR AA >60 Normal >=60 [facility] Comment on above: Result Comment: Resu lt = 0-14.9 mL/min/1.73 m2 Kidney failure or Dialysis Result = 15-29 mL/min/1.73 m2 Severe decrease in GFR Result = 30-59 mL/min/1.73 m2 Moderate decrease in GFR Result >= 60 mL/min/1.73 m2 Normal or increased GFR Performed By: #### C BC #### [address] [address] eGFR Non-AA >60 Normal >=60 [facility] Comment on above: Result Comment: Resu [...] dosing. Performed By: #### C BC #### [address] [address] Basic Metabolic Profileon Anion gap molar conc 12 mmol/L Normal 7-17 [facility] Comment on above: Performed By: #### C BC #### [address] [address] Calcium mass conc 8.3 mg/dL Low 8.5-10.3 [facility] Comment on above: Performed By: #### C BC #### [address] [address] Chloride molar conc 106 mmol/L Normal 98-110 [facility] Comment on above: Performed By: #### C BC #### [address] [address] CO2 molar conc 24 mmol/L Normal 22-32 [facility] Comment on above: Performed By: #### C BC #### [address] [address] Creatinine mass conc 1.02 mg/dL Normal 0.61-1.24 [facility] Comment on above: Performed By: #### C BC #### [address] [address] Glucose mass conc 119 mg/dL High 74-118 [facility] Comment on above: Performed By: #### C BC #### [address] [address] Potassium molar conc 4.5 mmol/L Normal 3.4-4.8 [facility] Comment on above: Performed By: #### C BC #### [address] [address] Sodium molar conc 137 mmol/L Normal 133-142 [facility] Comment on above: Performed By: #### C BC #### [address] [address] Urea nitrogen mass conc 12 mg/dL Normal 8-26 [facility] Comment on above: Performed By: #### C BC #### [address] [address] Urea nitrogen/Creatinine mass ratio 11.8 mg/mg Normal 10.0-20.0 [facility] Comment on above: Performed By: #### C BC #### [address] [address] CBC w/ Diffon 08-09-2018 Erythrocyte distribution width Ratio (RBC) 12.8 % Normal 11.6-14.8 [facility] Comment on above: Performed By: #### . Automated Diff #### [address] [address] Hematocrit Volume Fraction (Bld) 39.9 % Low 41.0-53.0 [facility] Comment on above: Performed By: #### . Automated Diff #### [address] [address] Hemoglobin mass conc (Bld) 13.4 g/dL Low 13.5-17.5 [facility] Comment on above: Performed By: #### . Automated Diff #### [address] [address] MCH Entitic mass (RBC) 29.1 pg Normal 27.0-35.0 [facility] Comment on above: Performed By: #### . Automated Diff #### [address] [address] MCHC mass conc (RBC) 33.5 % Normal 31.0-37.0 [facility] Comment on above: Performed By: #### . Automated Diff #### [address] [address] MCV Entitic volume (RBC) 86.9 fL Normal 80.0-100.0 [facility] Comment on above: Performed By: #### . Automated Diff #### [place] [id number] Platelet mean volume Entitic volume (Bld) 8.2 fL Normal 6.7-10.6 [facility] Comment on above: Performed By: #### . Automated Diff #### [place] [address] Platelets #/vol (Bld) 302 x10*3/mcL Normal 150-350 [facility] Comment on above: Performed By: #### . Automated Diff #### [place] [address] RBC #/vol (Bld) 4.59 x10*6/mcL Normal 4.30-5.80 [facility] Comment on above: Performed By: #### . Automated Diff #### [address] [address] WBC #/vol (Bld) 14.2 x10*3/mcL High 4.5-11.0 [facility] Comment on above: Performed By: #### . Automated Diff #### [place] [id number] Coal [employer] Progress Noteon 08-09-2018 Coal Trimmer Progress Note Met with patient regarding transitions [...] ___ Abbie Cordova 08/09/18 10:08 EST Normal [facility] Diff Autoon 08-09-2018 Baso Absolute 0.0 x10*3/mcL Normal 0.0-0.2 [facility] Comment on above: Performed By: #### . Automated Diff #### [address] [address] Basophils/100 WBC (Bld) 0.3 % Normal 0.0-1.2 [facility] Comment on above: Performed By: #### . Automated Diff #### [address] [address] Eos Absolute 0.0 x10*3/mcL Normal 0.0-0.4 [facility] Comment on above: Performed By: #### . Automated Diff #### [address] [address] Eosinophils/100 WBC (Bld) 0.1 % Normal 0.0-6.1 [facility] Comment on above: Performed By: #### . Automated Diff #### [address] [address] Lymphocytes #/vol (Bld) 1.2 x10*3/mcL Normal 1.0-4.8 [facility] Comment on above: Performed By: #### . Automated Diff #### [address] [address] Lymphocytes/100 WBC (Bld) 8.6 % Low 27.2-40.8 [facility] Comment on above: Performed By: #### . Automated Diff #### [address] [address] Canadian Absolute 1.0 x10*3/mcL Normal 0.3-1.1 [facility] Comment on above: Performed By: #### . Automated Diff #### [address] [address] Monocytes/100 WBC (Bld) 6.9 % Normal 4.7-13.9 [facility] Comment on above: Performed By: #### . Automated Diff #### [facility] [address] [place] [address] Neutro Absolute 11.9 x10*3/mcL High 1.8-7.7 [facility] Comment on above: Performed By: #### . Automated Diff #### [facility] [address] [place] [address] Neutro Auto 84.1 % High 47.2-70.8 [facility] Comment on above: Performed By: #### . Automated Diff #### [place] [address] [place] [id number] Orthopedic Progress Noteon 0 08-09-2018 Protein mass [...] Luís Marcus PA-C 08/09/18 06:28 EST Normal [facility] Progress Note-Nurseon 2018 Protein mass conc [...] ___ Petra Kim 08/09/18 10:50 EST Normal [facility] XR Spine Thoracic Minimum 4 Viewson [...] Electronically Signed in Other Vendor System) Normal [facility] CT Spine Thoracic w/o Contra ston [...] exam here. Consider MRI. Radiation Dose Estimate: CTDI(mGy):0.081902 / / / kVp:120.585931 / mAs:0.039229 / / / DLP(mGy-cm):9.977285Urf y Part: Abdomen CTDI(mGy):0.442197 / / / kVp:140.865388 / mAs:0.214970 / / / DLP(mGy-cm):14.880354Nw dy Part: Final Dictated by: Chris Don MD Dictated DT/TM: 08.08.2018 11:02 am Signed by: Chris Don MD Signed (Electronic Signature): 08.08.2018 11:22 am (If Report Is Signed, Electronically Signed in Other Vendor System) Normal [facility] Comment on above: Order Comment: tried to call office at 18:05. office already closed and unable to leave message regarding this to be a future order. Hgb & Hcton 08-08-2018 Hematocrit Volume Fraction (Bld) 42.8 % Normal 41.0-53.0 [facility] Comment on above: Performed By: #### . Automated Diff #### [place] [address] Hemoglobin mass conc (Bld) 14.4 g/dL Normal 13.5-17.5 [facility] Comment on above: Performed By: #### . Automated Diff #### [place] [address] [place] [address] Operative Reporton 9 Operative Report Indication for [...] decompression and co-surgeon Leida Lynn for instrumentation Primary Substance Abuse Counselor Luís HAMEED Anesthesia General anesthetic via endotracheal [...] T12 are resected using Luis Alberto distribution dispatcher and this bone is harvested for placement [...] of autograft from local harvest supplemented with [place] demineralized bone matrix. The wound is reirrigated [...] surgical procedure was assisted by my physician?s paperhanger assistant. Her presence was needed throughout the case for manipulation and positioning the surgical arm as well as positioning the surgical instruments as well as primarily assisting me through procedure. Due to the complexity of condition, the skill set of an neurosurgical physician paperhanger assistant was needed throughout the case. During the surgical case, the surgical supervisor was working the back table and was not available for assistance. Tourniquet Time None Sponge/Needle Count Per nursing correct Fluid Count 2500 mL crystalloid Electronically signed by ___ Shane PANCHAL MD, Leida Cross 08/08/18 17:22 EST Normal [facility] Operative Report Operative Report DATE OF [...] 5. Use of local autograft bone and Montezuma Matrix SURGEON: Jesus Shah MD for decompression Leida Lynn MD for instrumentation NUCLEAR WASTE MANAGEMENT ENGINEER: Luís Staley assisted throughout the procedure with [...] injury, paralysis, non-union, DVT/PE, bleeding, chronic pain, IL, stroke, etc. All questions were answered and [...] by entirely resecting the facet joint. Two [place] chrome rods were cut to size and [...] bone was packed over the decorticated elements bilaterally.Jimi matrix was placed on top of this [...] Jesus Reyes MD 08/09/18 11:58 EST Normal [facility] Operative Report Preoperative Diagnos is Scheuermann's kyphosis Intractable thoracic pain Postoperative Diagnosis Scheuermann's kyphosis Intractable thoracic pain Operation 1. T7-T12 decompression with T7-T12 bilateral [place] Osteotomies 2. T6-L2 posterior spinal fusion using in situ deformity correction Surgeon(s) Dr. Reyes for decompression Dr. 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 Home/Environment Lives with Children, Spouse. Living [...] Jesus Reyes MD 08/08/2018 14:55 EST Normal [facility] .eGFRon 07-31-2018 eGFR Non-AA >60 Normal >=60 [facility] Comment on above: Result Comment: Resu [...] dosing. Performed By: #### E GFR #### [address] [address] eGFR AA >60 Normal >=60 [facility] Comment on above: Result Comment: Resu lt = 0-14.9 mL/min/1.73 m2 Kidney failure or Dialysis Result = 15-29 mL/min/1.73 m2 Severe decrease in GFR Result = 30-59 mL/min/1.73 m2 Moderate decrease in GFR Result >= 60 mL/min/1.73 m2 Normal or increased GFR Performed By: #### E GFR #### [address] [address] ABO/Rhon 07-31-2018 ABO/Rh SD 1.11.19 DCon: 0 ABO/Rh: O POS Normal [facility] Comment on above: Performed By: #### A MONISHA #### [facility] (DEFAULT) [address] [place] [id number] [address] ABSC Autoon 07-31-2018 ABSC Auto Negative Normal [facility] Comment on above: Performed By: #### A SA #### [address] [address] Basic Metabolic Profileon Anion gap molar conc 15 mmol/L Normal 7-17 [facility] Comment on above: Performed By: #### C [id number] #### [address] [address] Calcium mass conc 9.7 mg/dL Normal 8.5-10.3 [facility] Comment on above: Performed By: #### C [id number] #### [address] [address] Chloride molar conc 96 mmol/L Low 98-110 [facility] Comment on above: Performed By: #### C [id number] #### [address] [address] CO2 molar conc 28 mmol/L Normal 22-32 [facility] Comment on above: Performed By: #### C [id number] #### [address] [address] Creatinine mass conc 1.07 mg/dL Normal 0.61-1.24 [facility] Comment on above: Performed By: #### C [id number] #### [address] [address] Glucose mass conc 94 mg/dL Normal 74-118 [facility] Comment on above: Performed By: #### C [id number] #### [address] [address] Potassium molar conc 4.4 mmol/L Normal 3.4-4.8 [facility] Comment on above: Performed By: #### C [id number] #### [address] [address] Sodium molar conc 135 mmol/L Normal 133-142 [facility] Comment on above: Performed By: #### C [id number] #### [address] [address] Urea nitrogen mass conc 20 mg/dL Normal 8-26 [facility] Comment on above: Performed By: #### C [id number] #### [address] [address] Urea nitrogen/Creatinine mass ratio 18.7 mg/mg Normal 10.0-20.0 [facility] Comment on above: Performed By: #### C [id number] #### [address] [address] CBC w/ Diffon 07-31-2018 Erythrocyte distribution width Ratio (RBC) 13.0 % Normal 11.6-14.8 [facility] Comment on above: Performed By: #### C BC #### [address] [address] Hematocrit Volume Fraction (Bld) 51.4 % Normal 41.0-53.0 [facility] Comment on above: Performed By: #### C BC #### [address] [address] Hemoglobin mass conc (Bld) 17.4 g/dL Normal 13.5-17.5 [facility] Comment on above: Performed By: #### C BC #### [place] [id number] MCH Entitic mass (RBC) 29.8 pg Normal 27.0-35.0 [facility] Comment on above: Performed By: #### C BC #### [place] [id number] MCHC mass conc (RBC) 33.9 % Normal 31.0-37.0 [facility] Comment on above: Performed By: #### C BC #### [place] [id number] MCV Entitic volume (RBC) 87.7 fL Normal 80.0-100.0 [facility] Comment on above: Performed By: #### C BC #### [place] [id number] Platelet mean volume Entitic volume (Bld) 7.8 fL Normal 6.7-10.6 [facility] Comment on above: Performed By: #### C BC #### [place] [id number] Platelets #/vol (Bld) 295 x10*3/mcL Normal 150-350 [facility] Comment on above: Performed By: #### C BC #### [address] [address] RBC #/vol (Bld) 5.86 x10*6/mcL High 4.30-5.80 [facility] Comment on above: Performed By: #### C BC #### [address] [address] WBC #/vol (Bld) 9.1 x10*3/mcL Normal 4.5-11.0 [facility] Comment on above: Performed By: #### C BC #### [address] [address] Diff Autoon 07-31-2018 Baso Absolute 0.1 x10*3/mcL Normal 0.0-0.2 [facility] Comment on above: Performed By: #### . Automated Diff #### [address] [address] Basophils/100 WBC (Bld) 1.0 % Normal 0.0-1.2 [facility] Comment on above: Performed By: #### . Automated Diff #### [address] [address] Eos Absolute 0.3 x10*3/mcL Normal 0.0-0.4 [facility] Comment on above: Performed By: #### . Automated Diff #### [address] [address] Eosinophils/100 WBC (Bld) 3.1 % Normal 0.0-6.1 [facility] Comment on above: Performed By: #### . Automated Diff #### [address] [address] Lymphocytes #/vol (Bld) 2.6 x10*3/mcL Normal 1.0-4.8 [facility] Comment on above: Performed By: #### . Automated Diff #### [address] [address] Lymphocytes/100 WBC (Bld) 28.2 % Normal 27.2-40.8 [facility] Comment on above: Performed By: #### . Automated Diff #### [address] [address] Canadian Absolute 0.8 x10*3/mcL Normal 0.3-1.1 [facility] Comment on above: Performed By: #### . Automated Diff #### [address] [address] Monocytes/100 WBC (Bld) 9.3 % Normal 4.7-13.9 [facility] Comment on above: Performed By: #### . Automated Diff #### [address] [address] Neutro Absolute 5.3 x10*3/mcL Normal 1.8-7.7 [facility] Comment on above: Performed By: #### . Automated Diff #### [facility] [address] [place] [address] Neutro Auto 58.4 % Normal 47.2-70.8 [facility] Comment on above: Performed By: #### . Automated Diff #### [address] [address] MRSA, PCRon 07-31-2018 INR Coag RelTime (Bld) Negative Normal [facility] Comment on above: Result Comment: The stickK Xpert MRSA Assay is a qualitative in [...] clinician. Performed By: #### M RSAPC #### [address] [address] Neurosurgery Office/Clinic N oteon 07-31-2018 Neurosurgery Office/Clinic [...] rare alcohol intake Patient works in a [employer]-no legal or Workmen's Compensation claims on today's [...] MD, Leida Cross 07/31/18 11:40 EST Normal [facility] PTon 07-31-2018 INR Coag RelTime (PPP) 1.0 {INR} Normal <=3.5 [facility] Comment on above: Result Comment: INR has no normal range. INR Therapeutic range is: 2.0-3.0 (AF, CVA, TIAs, DVT prophylaxis, acute DVT) 2.5-3.5 ([facility] heart valves, recurrent thrombosis/emboli) Performed By: #### P TINR #### [address] [address] Prothrombin time (PT) Coag time (PPP) 10.4 s Normal 9.1-11.6 [facility] Comment on above: Performed By: #### P TINR #### [address] [address] PTTon 07-31-2018 aPTT Coag time (Bld) 28.9 s Normal 19.2-29.7 [facility] Comment on above: Performed By: #### P TT #### [address] [address] XR Chest 2 Viewson 9 XR Chest [...] Electronically Signed in Other Vendor System) Normal [facility] [address] [place], [place] [address] =====Patient Name: CHIQUITA WEEKS : 1990Sex: MAge: Race: WhiteMRN: [id number]. Location: 84Patient Status: OVisit #: [id number] Date: 04/24/2018 3:05:00 PMCompleted Date: 04/24/2018 03:19 PMRequesting Provider: COOKIE COLES Attending Provider: COOKIE COLES Report Copy To: Signs & Symptoms: M54.6 Pain in thoracic spine [id number]: AthenaComments: , , , Ordering Provider - COOKIE COLES MD , Exam: SCOLIOSIS 2 VWSAccession #: [id number] SCOLIOSIS 2 S 04/24/2018 3:19 PM EDT [...] abnormality. Electronically signed by:Adelfo Kay. Transcribed by: [email or web address], User Resident: Electronically Signed by: ADELFO KAY @ 04/24/2018 10:56 PM Normal [facility] Comment on above: Order Comment: , , = ========= , Ordering Provider - COOKIE COLES MD , Encounters Encounter Date Encounter Type Care Provider Facility Start: 02-01-2022 End: 02-02-2022 ambulatory ERNST PENA Facility: Start: 06-23-2021 ambulatory ER[facility]ST [facility] Facility: Start: 09-25-2018 End: 09-26-2018 ambulatory [facility] MIGUEL [place] Start: 08-08-2018 End: 08-12-2018 Evaluation and management of inpatient SELVON MARCIA Facility:[facility] Start: 07-31-2018 End: 08-01-2018 [facility] Start: 07-31-2018 End: 08-01-2018 Patient encounter procedure LEIDA LYNN Facility:[facility] Start: 07-30-2018 Patient encounter procedure SELVON MARCIA Facility:[facility] Start: 04-24-2018 End: 04-25-2018 Patient encounter COOKIE COLES Facility:[facility] Start: 04-15-2018 End: 04-16-2018 Patient encounter DEFAULT PHYSICIAN Facility:[facility] Procedures Date Procedure Procedure Detail Performing Clinician Start: 02-01-2022 PSA screening ERNST OROURKE Comment on above: Performed By: #### P [facility] #### [facility] [address] [place] [address] Dr. Armida Brown Payers Date Payer Category Payer Unknown 2017 Unknown [id number] 1990 Unknown [id number] 2.16.8 [id number] 1990 Unknown [id number] 2.16.8 [id number] 1990 Unknown [id number] 2.16.8 [id number] 1990 Unknown [id number] 2.16.8 [id number] 1988 Unknown [id number] 2.16.8 [id number] 1988 Unknown [id number] 2.16.8 [id number] 1988 Unknown [id number] 2.16.84 [id number] 1990 Unknown [id number] 2.16.84 [id number] 1988 Unknown [id number] 2.16.84 [id number] 1988 Unknown [id number] 2.16.84 [id number] 1961 Medicaid [id number] 1961 Medicare [id number] 1961 Unknown [id number] Unknown [id number] Summary Purpose Family History No Family History [...] section and content) DATE CREATED AUTHOR 05/29/2018 [facility] DATE CREATED AUTHOR AUTHOR'S ORGANIZ ATION 08/25/2018 [facility] DATE CREATED AUTHOR AUTHOR'S ORGANIZ ATION 02/15/[address] [facility] DATE CREATED AUTHOR AUTHOR'S ORGANIZ ATION 09/27/2022 [facility] FOR RECORDS PERTAINING TO PATIENTS WHO ARE [...] BE BASED ON THE PRIMARY CLINICAL RECORDS. [facility]. provides no warranty or guarantee of the accuracy or completeness of information in this document.
--- NOTE | 2024-06-04 09:17 | P.CN_ITS ---
Consult Note: HPI Data of Consult Patient: known to practice within the last 3 years Requesting Physician: Letty Ayala NP Primary Care Provider: ERNST PENA Consult Narrative Reason for consult: back pain Narrative: Benji Cunningham a pleasant 34 year old male presents for evaluation and management of chronic right sided low back pain. Patient has a longstanding of myofascial pain and dystonia, T6-L2 fusion. Patient has found benefit to baclofen 10mg TID PRN pain/spasms and zonegran 100mg BID. Recent right erector spinae botox injection >80% improvement ongoing. continues to have mild to moderate pain/spasming increased with lifting housework and activity, improved with heat and sleep. cc:: CC: Letty Ayala NP Review of Systems ROS Status of ROS 10 or more systems reviewed and unremark able except as noted in history and below Musculoskeletal Reports: back pain PFSH PFS Medical History (Updated 06/04/24 @ 09:18 by Letty Ayala NP) Anxiety ?F41.9 - Anxiety disorder, unspecified (ICD-10) HTN (hypertension) ?I10 - Essential (primary) hypertension (ICD-10) Surgical History History of spinal fusion ?Z98.1 - Arthrodesis status (ICD-10) Meds Home Medications and Allergies Home Medications ?Medication ?Instructions ?Recorded ?Confirmed ?Type baclofen 10 mg tablet 10 mg PO TID 11/06/23 05/27/24 History bupropion HCl 300 mg 24 hr tablet, 300 mg PO DAILY 11/06/23 05/27/24 History extended release (Wellbutrin XL) hydrochlorothiazide 25 mg tablet 25 mg PO DAILY 11/06/23 05/27/24 History lisinopril 40 mg tablet 40 mg PO DAILY 11/06/23 05/27/24 History metoprolol tartrate 50 mg tablet 50 mg PO BID 11/06/23 05/27/24 History zonisamide 100 mg capsule 100 mg PO .HS 11/06/23 05/27/24 History (Zonegran) Allergies Allergy/AdvReac Type Severity Reaction Status Date / Time No Known Drug Allergies Allergy Verified 05/27/24 07:15 Exam Constitutional Documenting provider has reviewed patient's vital signs: yes Common normals: no apparent distress, oriented x3, healthy appearing, alert and well nourished General appearance: cooperative HENGA Common normals: normocephalic, hearing grossly normal bilaterally and moist oral mucous membranes Head and scalp: normocephalic Eye Common normals: PERRL Pupil: PERRL Neck & C-Spine Common normals: full ROM General: normal visual inspection Chest Common normals: inspection of chest normal Respiratory Common normals: normal respiratory effort, no retractions and no use of accessory muscles Back & Pelvis Thoracic spine/upper back: pain with ROM and paraspinal muscle tenderness Lumbar spine/lower back: pain with ROM and paraspinal muscle tenderness Other: spasming noted over bilateral trapezius, erector spinae, and lattisimus dorsi Extremity Common normals: normal to inspection and full ROM Neuro Common normals: oriented x3, CN's II-XII intact bilaterally, moves all extremities, no focal motor deficits, no sensory deficits noted and deep tendon reflexes 2+ bilaterally Sensorium/orientation: alert Motor exam: strength 5/5 throughout and no movement abnormalities noted Psych Common normals: mental status grossly normal, thought process normal, cooperative, affect normal, speech normal and activity/motor behavior normal Speech: normal speech Thought process: normal thought process Assessment and Plan Assessment and Plan (1) Dystonia: (2) Post laminectomy syndrome: (3) Myalgia, other site: Plan overall significant improvement from right erector spinae botox injection zynex tens discussed and ordered for dystonia, post-lami syndrome, myalgia. to be utilized QID PRN pain/spasms 10-15 min sessions continue baclofen 10mg TID PRN pain/spasms continue zonegran 100mg BID f/u 6 months, sooner if needed
== END 2024-06-04 08:46 | disposition home or self-care (01) ==
LOC: PM 08:45
PROVIDERS: PCP Nurse Practitioner Family; Visit Provider Nurse Practitioner
DX: G24.8 Other dystonia (principal); M96.1 Postlaminectomy syndrome, not elsewhere classified; M79.18 Myalgia, other site
CPT/HCPCS: G0463

== ENCOUNTER 2024-12-03 08:49 | Outpatient (OUT) | payer MEDICARE, MEDICAID, SELFPAY ==
--- NOTE | 2024-12-03 09:22 | PM.CN ---
Consult Note: HPI Data of Consult Patient: known to practice within the last 3 years Requesting Physician: Letty Ayala NP Primary Care Provider: ERNST PENA Consult Narrative Reason for consult: back pain Narrative: Benji Cunningham a pleasant 34 year old male presents for evaluation and management of chronic back pain. Patient has a longstanding of myofascial pain and dystonia, T6-L2 fusion. Patient has found benefit to baclofen 10mg TID PRN pain/spasms and zonegran 100mg BID. Pain today 4/10 aching in upper back increasing to 10/10 with lifting, twisting, standing, walking, housework, activity. pain mildly improved with heat, tens, sitting and sleep. prior thoracic/lumbar imaging consistent with spondylosis and mutlievel degenerative changes above and below fusion. cc:: CC: Letty Ayala NP Review of Systems ROS Status of ROS 10 or more systems reviewed and unremarkable except as noted in history and below Musculoskeletal Reports: back pain PFSH PFSH Medical History (Updated 12/03/24 @ 09:24 by Letty Ayala NP) Anxiety ?F41.9 - Anxiety disorder, unspecified (ICD-10) HTN (hypertension) ?I10 - Essential (primary) hypertension (ICD-10) Surgical History History of spinal fusion ?Z98.1 - Arthrodesis status (ICD-10) Meds Home Medications and Allergies Home Medications ?Medication ?Instructions ?Recorded ?Confirmed ?Type baclofen 10 mg tablet 10 mg PO TID 11/06/23 05/27/24 History bupropion HCl 300 mg 24 hr tablet, 300 mg PO DAILY 11/06/23 05/27/24 History extended release (Wellbutrin XL) hydrochlorothiazide 25 mg tablet 25 mg PO DAILY 11/06/23 05/27/24 History lisinopril 40 mg tablet 40 mg PO DAILY 11/06/23 05/27/24 History metoprolol tartrate 50 mg tablet 50 mg PO BID 11/06/23 05/27/24 History zonisamide 100 mg capsule 100 mg PO .HS 11/06/23 05/27/24 History (Zonegran) baclofen 10 mg tablet 10 mg PO TID PRN muscle spasm #270 07/21/24 Rx tabs zonisamide 50 mg capsule See Rx Instructions .Route 07/21/24 Rx .COMPLEX #270 caps Allergies Allergy/AdvReac Type Severity Reaction Status Date / Time No Known Drug Allergies Allergy Verified 05/27/24 07:15 Exam Constitutional Documenting provider has reviewed patient's vital signs: yes Common normals: no apparent distress, oriented x3, healthy appearing, alert and well nourished General appearance: cooperative HENMT Common normals: normocephalic, hearing grossly normal bilaterally and moist oral mucous membranes Head and scalp: normocephalic Eye Common normals: PERRL Pupil: PERRL Neck & C-Spine Common normals: full ROM General: normal visual inspection Chest Common normals: inspection of chest normal Respiratory Common normals: normal respiratory effort, no retractions and no use of accessory muscles Back & Pelvis Thoracic spine/upper back: pain with ROM, thoracic spinal tenderness, paraspinal muscle tenderness and paraspinal muscle spasm Lumbar spine/lower back: pain with ROM and paraspinal muscle tenderness Other: spasming noted over bilateral trapezius, erector spinae, and lattisimus dorsi bilateral facet tenderness T3-5 strength 5/5 in BUE positive facet loading Extremity Common normals: normal to inspection and full ROM Neuro Common normals: oriented x3, CN's II-XII intact bilaterally, moves all extremities, no focal motor deficits, no sensory deficits noted and deep tendon reflexes 2+ bilaterally Sensorium/orientation: alert Motor exam: strength 5/5 throughout and no movement abnormalities noted Psych Common normals: mental status grossly normal, thought process normal, cooperative, affect normal, speech normal and activity/motor behavior normal Speech: normal speech Thought process: normal thought process Assessment and Plan Assessment and Plan (1) Thoracic spondylosis: Assessment and Plan: The patient has had over 3 months of moderate to severe upper and low back pain with functional impairment and inadequate response to conservative care including NSAIDS (unless there are contraindication such as concurrent blood thinners), multiple oral or topical pain medications, and home exercise program/physical therapy.? Patient has completed >6 weeks of guided home exercise program and/or formal physical therapy program without relief of their symptoms.? The Oswestry Disability Index was completed, and the patient scored a 56%.? The patient noted the following:?? moderate to severe pain impacting ADLs, sitting, standing, walking, sleeping, social life and travel We discussed the risks and benefits of the procedure with the patient, and we are NOT planning on using sedation as outlined in the guidelines from Medicare unless there is a documented reason that sedation would be strongly recommended.?? ?The procedure will be completed with fluoroscopic guidance.? (2) Failed back syndrome: (3) Dystonia: (4) Myalgia, other site: Plan bilateral T3-4 T4-5 facet medial branch block x2 working towards RFA will review case with Dr Agosto in consideration of spinal cord stim, handout provided to pt continue tens PRN finds benefit continue current medication, finds mild benefit without side effects continue HEP as tolerated, has been engaged in provider guided HEP 2x/week > 6weeks without significant improvement in pain or functional improvement f/u after each nerve block
== END 2024-12-03 08:50 | disposition home or self-care (01) ==
LOC: PM 08:50
PROVIDERS: PCP Nurse Practitioner Family; Visit Provider Nurse Practitioner
DX: M47.814 Spondylosis without myelopathy or radiculopathy, thoracic region (principal); M96.1 Postlaminectomy syndrome, not elsewhere classified; G24.9 Dystonia, unspecified; M79.18 Myalgia, other site
CPT/HCPCS: G0463

== ENCOUNTER 2025-01-05 08:06 | Day surgery (SDC) | payer MEDICARE, MEDICAID, SELFPAY ==
--- OUTSIDE RECORDS SUMMARY | 2024-06-24 04:03 | XMS_ITS ---
Author Organization The [facility] in [place] Address [address] [place] [address] Care Team Providers Care Director Financial Services Name Role Phone Gaby Levine Primary Care Provider [phone] REASON FOR VISIT b/p readings Medications Medication SIG (Take, Route, Frequency, Duration) Notes Start Date End Date Status Metoprolol Tartrate 50 MG 1 tablet with food Orally Twice a day for 30 days 06/05/2024 Active Encounters Encounter Location Date Provider Diagnosis [facility] [address] [place] [address] 06/24/2024 Gaby Levine Plan Of Treatment Medication Medication Name Sig Start Date Stop Date Notes Lisinopril 40 MG TAKE 1 TABLET BY MOUTH EVERY DAY Metoprolol Tartrate 50 MG 1 tablet with food Orally Twice a day for 30 days 06/05/2024 Next Appt Details Provider Name:Gaby garza, 04/28/2025 09:00:00 AM, [address] [place], [address], Progress Notes * Mario SIMMONS WDOB:[birth year] (34 yo M)Acc No.[id number]:06/24/2024 Patient: Mario NAYLOR :1990 A ge:34 Y S ex:Male Address:[address] [place] [address], [address], [place] [address] * Refills Stop Lisinopril Tablet, 40 MG, TAKE 1 TABLET BY MOUTH EVERY DAY Refill Metoprolol Tartrate Tablet, 50 MG, Orally, 60, 1 tablet with food, Twice a day, 30 days, Refills=11 * true * Date: Generated for Mraio hall/Julissa/Milagros on: 0 01/05/2025 08:10 AM EDT
--- OUTSIDE RECORDS SUMMARY | 2024-07-11 09:23 | XMS_ITS ---
Author Organization The [facility] in [place] Address [address] [place] [address] Care Team Providers Care Graphic Manager Name Role Phone Gaby Levine Primary Care Provider [phone] REASON FOR VISIT rf metoprolol Medications Medication SIG (Take, Route, Frequency, Duration) Notes Start Date End Date Status Metoprolol Tartrate 50 MG 1 tablet with food Orally Twice a day for 30 days 06/05/2024 Active Encounters Encounter Location Date Provider Diagnosis [facility] [address] [place] [address] 07/11/2024 Gaby Levine Plan Of Treatment Medication Medication Name Sig Start Date Stop Date Notes Metoprolol Tartrate 50 MG 1 tablet with food Orally Twice a day for 30 days 06/05/2024 Next Appt Details Provider Name:Gaby garza, 04/28/2025 09:00:00 AM, [address] [place], [address], Progress Notes * Mario SIMMONS WDOB:[birth year] (34 yo M)Acc No.[id number]:07/11/2024 Patient: Juan OLEGARIOADELINA Mario Street :1990 A ge:34 Y S ex:Male Address:[address] [place] [address], [address], [place] [address] * Refills Refill Metoprolol Tartrate Tablet, 50 MG, Orally, 60, 1 tablet with food, Twice a day, 30 days, Refills=11 * true * Date: Generated for Mario hall/Julissa/Milagros on: 0 01/05/2025 08:10 AM EDT
--- OUTSIDE RECORDS SUMMARY | 2024-09-16 06:00 | XMS_ITS ---
Author Organization [facility] Address [address] [place] [address] Care Team Providers Care Test Deck Supervisor Name Role Phone Candis Ying Primary Care Provider [phone] Isis Carter [phone] REASON FOR VISIT 6 MONTH PROPHY Encounters Encounter Location Date Provider Diagnosis [facility] [address] [place] [address] 09/16/2024 Isis Hill Plan Of Treatment Next Appt Details Provider Name:Candis joshua, 01/19/2025 09:30:00 AM, [address] [place], [address], Progress Notes * GERONIMO WEEKS WDOB:[birth year] (34 yo M)Acc No.[id number]:09/16/2024 Patient: Juan MONTY GERONIMO Street Provider: To Hill :1990 A ge:34 Y S ex:Male Date:09/16/2024 Address:[address] [facility], [address], [place], [id number] Pcp:Candis Ying Subjective: * Chief Complaints: * 1 . 6 MONTH PROPHY. * Medical History: Objective: * Vitals: Assessment: Plan: * Treatment: * Images: * Electronic signature of Galina Hill on 01/05/2025 at 08:10 AM EDT Sign off status: Pending * Provider: To Hill Date: 0 09/16/2024 Generated for Mario hall/Julissa/Audreyitting on: 0 01/05/2025 08:10 AM EDT
--- OUTSIDE RECORDS SUMMARY | 2024-10-01 05:30 | XMS_ITS ---
Author Organization [facility] Address [address] [place] [address] Care Team Providers Care Instructor Private Name Role Phone Candis Ying Primary Care Provider [phone] REASON FOR VISIT FILLING Encounters Encounter Location Date Provider Diagnosis [facility] [address] [place] [address] 10/01/2024 Candis Ying Plan Of Treatment Next Appt Details Provider Name:Candis joshua, 01/19/2025 09:30:00 AM, [address] [place], [address], Progress Notes * GERONIMO WEEKS WDOB:[birth year] (34 yo M)Acc No.[id number]:10/01/2024 Patient: Juan GERONIMO MILLAN Provider: Colten Ying DDS :1990 A ge:34 Y S ex:Male Date:10/01/2024 Address:[address] [facility], [address], [place], [id number] Subjective: * Chief Complaints: * 1 . FILLING. * Medical History: Objective: * Vitals: Assessment: Plan: * Treatment: * Images: * Electronic signature of Elda Ying DDS on 01/05/2025 at 08:10 AM EDT Sign off status: Pending * Provider: Colten Ying DDS Date: 0 10/01/2024 Generated for Mario hall/Julissa/Audreyitting on: 0 01/05/2025 08:10 AM EDT
--- OUTSIDE RECORDS SUMMARY | 2024-10-27 06:00 | XMS_ITS ---
Author Organization [facility] in [place] Address [address] [place] [address] Care Team Providers Care Retail Pharmacist Name Role Phone Gaby Levine Primary Care Provider [phone] Allergies No Known Allergies REASON FOR VISIT [...] 10/27/2024 Encounters Encounter Location Date Provider Diagnosis [facility] [address] [place] [address] 10/27/2024 Gaby Dubosemer Hyperlipidemia E78.5 ; Essential [...] Name:Gaby garza, 04/28/2025 09:00:00 AM, [address] [place], [address], Progress Notes * Mario SIMMONS WDOB:[birth year] (34 yo M)Acc No.[id number]:10/27/2024 Progress Note Patient: Mario NAYLOR Provider: Angel Levine ([facility]), PROCESS CONTROL TECHNICIAN :1990 A ge:34 Y S ex:Male Date:10/27/2024 Address:[address] [place] [address], [place], [id number] Check In:09:51 AM ESTCheck O ut:10:32 AM [...] stable, continue * Preventive Medicine: Screenings/Counseling: B [place] ACTION PLAN Above Normal BMI Follow-up D ietary management education, guidance, and counseling * Follow Up: 6 Months,prn * * Electronically signed by Mago Levine NP, NICK SETTER.PROCESS CONTROL [id number] on 10/30/2024 at 09:02 AM EDT Sign off status: Completed Visit Status: C HK (Check Out) true * Provider: Angel Levine ([facility]), PROCESS CONTROL TECHNICIAN Date: 0 10/27/2024 Generated for Mario hall/Julissa/Yasminesmitting on: 0 01/05/2025 08:10 AM EDT History and Physical Notes * [...]
--- OUTSIDE RECORDS SUMMARY | 2025-01-05 08:11 | XMS_ITS | Patient Health Record ---
Author Organization [facility] es Address [address] [place] [address] Care Team Providers Care Staff Auditor Name Role Phone Candis Ying Primary Care Provider Chris Martin Unavailable [phone] Isis Hill Unavailable [phone] Reason For Referral No Information Medications Medication SIG (Take, Route, Fr equency, Duration) Notes Start Date End Date Status Lisinopril Active hydroCHLOROthiazide Active Encounters Encounter Location Date Provider Diagnosis [facility] [address] [place] [address] 06/09/2024 Candis Ying Dental caries on pit and fissure surface penetrating into dentin K02.52 [facility] [address] [place] [address] 03/13/2024 Isis Hill Dental caries on pit and fissure surface penetrating into dentin K02.52 and Acute gingivitis, plaque induced K05.00 Assessments Encounter Date Diagnosis (ICD Code) Assessment Notes Treatment Notes Treatment Clinical Notes Section Notes 03/13/2024 Dental caries on pit and fissure surface penetrating into dentin (ICD-10 - K02.52) 06/09/2024 Dental caries on pit and fissure surface penetrating into dentin (ICD-10 - K02.52) 03/13/2024 Acute gingivitis, plaque induced (ICD-10 - K05.00) Plan Of Treatment Next Appt Details Provider Name:Candis joshua, 01/19/2025 09:30:00 AM, [address] [place], [address], Insurance Providers Payer Name Payer Address Payer Phone Subscriber Number Group Number Insured Name Patient Relationship to Insured Coverage Start Date Coverage End Date [employer] [address] [address] [place] [address] [id number] GERONIMO WEEKS Self - patient is the insured 3 [employer] [place] [employer] [address] [place] [phone] [id number] GERONIMO WEEKS Self - patient is the insured 4
--- OUTSIDE RECORDS SUMMARY | 2025-01-05 08:11 | XMS_ITS | Patient Health Record ---
Author Organization [facility] in [place] Address [address] [place] [address] Care Team Providers Care Chili Maker Name Role Phone Gaby Levine Primary Care Provider [phone] Allergies No Known Allergies Reason For Referral No Information Medications Medication SIG (Take, Route, Frequency, Duration) [...] smoke your fir st cigarette? 31-60 minutes Alcohol Screen (Audit-C) Question Answer Notes Did you have a drink contain ing alcohol in the past year? Yes How often did you have 6 or more drinks on one occasion in the past year? Never (0 point) How many drinks did you have on a typical day when you were drinking in the past year? 1 or 2 drinks (0 point) How often did you have a dri nk containing alcohol in the past year? Less than monthly (1 point) Points 1 Interpretation Negative AUDIT-C (Standard) Question Answer Notes Did you have a drink containing alcohol in the p ast year? No Points 0 Interpretation Negative Problems Problem Type SNOMED Code ICD Code Onset Dates Problem Status W/U Status Risk Notes Problem 54142297 Essential (primary) hypertension (I10) Active confirmed Problem Hyperlipidemia (58599764) Hyperlipidemia (E78.5) Active confirmed Problem Smoker (34577227) Smoker (F17.200) Active confi rmed Problem Obese (126684098) Obese (E66.9) Active confirme d Problem Hyperinsulinemia (62308220) Hyperinsulinemia (E16.1) Active confirmed Problem Mixed anxiety and depressive disorder (156433491) Anxiety and depression (F41.9) Active confirmed Problem Chronic low back pain with left-sided sciatica (M54.42) Active confirmed Vital Signs Blood pressure diastolic 88 mm Hg 10/27/2024 Height 72 in 10/27/2024 Blood pressure systolic 112 mm Hg 10/27/2024 Weight 334.4 lbs 10/27/2024 BMI 45.35 kg/m2 10/27/2024 Encounters Encounter Location Date Provider Diagnosis [facility] [address] [place] [address] 06/24/2024 Gaby Levine [facility] [address] [place] [address] 07/11/2024 Gaby Levine [facility] [address] [place] [address] 05/12/[address] [facility] [address] [place] [address] 05/23/2024 Gaby Levine [facility] [address] [place] [address] 06/05/2024 Gaby Levine [facility] [address] [place] [address] 06/10/2024 Gaby Levine [facility] [address] [place] [address] 05/01/2024 Gaby Levine Essential (primary) hypertension I10 and Obese E66.9 [facility] [address] [place] [address] 10/27/2024 Gaby Julianna Hyperlipidemia E78.5 ; Essential (primary) hypertension I10 and Anxiety and depression F41.9 Assessments Encounter Date Diagnosis (ICD Code) Assessment Notes Treatment Notes Treatment Clinical Notes Section Notes 05/01/2024 Essential (primary) hypertension (ICD-10 - I10) continue monitor call with BP 2 weeks may increase metoprolol dose 05/01/2024 Obese (ICD-10 - E66.9) discussed diet and med options handouts given fu as needed 10/27/2024 Hyperlipidemia (ICD-10 - E78.5) 10/27/2024 Essential (primary) hypertension (ICD-10 - I10) BP ok continue to monitor continue meds 10/27/2024 Anxiety and depression (ICD-10 - F41.9) mood stable, continue Plan Of Treatment Pending Test Test Name Order Date CMP (COMPLETE METABOLIC PANEL) 4 HEMOGLOBIN A1C (GLYCO) 10/31/2023 HEMOGLOBIN A1C (GLYCO) 10/27/2024 INSULIN, TOTAL 10/27/2024 INSULIN, TOTAL 10/31/2023 LIPID PANEL (CHOL/TRIG/HDL/LDL) 10/28/19 25 LIPID PANEL (CHOL/TRIG/HDL/LDL) 10/31/19 24 CBC WITH DIFF 10/31/2023 URIC ACID 10/27/2024 CBC W/AUTO DIFF 11/06/2023 THYROID PANEL (T4/TSH/FREE T3) 5 THYROID PANEL (T4/TSH/FREE T3) 4 PSA, SCREENING 10/27/2024 XR shoulder ORTEGA min 2V 10/31/2023 CMP (COMP MET CLEMENS) w/eGFR CKD-EPI 2024 CBC WITH DIFF 10/27/2024 Next Appt Details Provider Name:Gaby garza, 04/28/2025 09:00:00 AM, [address] [place], [address], Insurance Providers Payer Name Payer Address Payer Phone Subscriber Number Group Number Insured Name Patient Relationship to Insured Coverage Start Date Coverage End Date [facility] [employer] [employer] MEDICARE [address] [place] [address] [id number] Mario Simmons Self - patient is the insured [place] 2ND INS [address] [place], [place] [id number] Mario Simmons Self - patient is the insured 3 Medical (General) History Medical History History ICD Code Arthritis M19.90 Anxiety and depression F41.8 Abnormal liver enzymes R74.8 Dyslipidemia E78.5 Benign essential hypertension I10 Hypothyroid E03.9 Scheuermann's disease M42.00 Smoker F17.200 Surgical History Surgery Date(Month/Year) Tonsillectomy Spine Injections Back Surgery
--- OUTSIDE RECORDS SUMMARY | 2025-01-05 08:25 | XMS_ITS | CCD ---
Author Organization [facility] Care Team Providers Care Cross Roller Name Role Phone PHYSICIAN, DEFAULT Unavailable Unavailable PHYSICIAN, DEFAULT Unavailable Unavailable ELGAFY, COOKIE K Unavailable Unavailable ELGAFY, COOKIE K Unavailable Unavailable ELGAFY, COOKIE K Unavailable Unavailable UNKNOWN, PHYSICIAN Unavailable Unavailable MARCIA, SELVON Admitting Unavailable MARCIA, SELVON Attending Unavailable [facility] Primary Care Unavailable Luís Marcus Consulting Unavailable LEIDA LYNN Consulting Unavaila ble Lynn, Leida Cross Consulting Unavaila ble SpychalsEllen zeng Consulting Unavailable Delfino Montoya Consulting Unavailable LEIDA LYNN Attending Unavaila ble [facility] Un[facility]available SLOANE HIGH PA-C Attending Unavail able MARCIA, SELVON Attending Unavailable [facility] Unavailable BECKY, ERNST Primary Care Unavailable TAISHA, DR SCOOTER Webster Attending Unavailable TAISHA, DR SCOOTER Webster Admitting Unavailable CHANTE HERNANDEZ Consulting Unavailable BECKY, ERNST Primary Care Unavailable BECKY, ERNST Admitting Unavailable ERNST PENA Attending Unavailable ERNST PENA Consulting Unavailable [facility] Care Unavaila ble MARCIA, SELVON F Referring Unavailable MARCIA, SELVON F Attending Unavailable MARCIA, SELVON F Admitting Unavailable Allergies Allergy Classification Reported Allergen(s) Allergy Type Date of Onset Reaction(s) Facility (1 source) No Known Medication Allergies; Translations: [No Known Medication Allergies] Propensity to adverse reactions to drug (disorder) [facility] Repository Problems Problem Classification Problem Date Documented [...] 02-02-2022 Insulin 16.5 uIU/mL Normal 2.6-24.[address] [facility] Comment on above: Performed By: #### I NSULIN #### [facility] [address] [place] [address] Dr. Armida Brown CBC AUTO DIFFon 02-01-2022 BASO # 0.1 103/ul Normal 0.0-0.[address] [facility] Comment on above: Performed By: #### C BC #### [facility] [address] [place] [address] Dr. Armida Brown Basophils/100 WBC (Bld) 0.9 % Normal 0.2-2.[address] [facility] Comment on above: Performed By: #### C BC #### [facility] [address] [place] [address] Dr. Armida Brown EO # 0.4 103/ul Normal 0.0-0.[address] [facility] Comment on above: Performed By: #### C BC #### [facility] [address] [place] [address] Dr. Armida Brown Eosinophils/100 WBC (Bld) 4.7 % Normal 0.9-7.[address] [facility] Comment on above: Performed By: #### C BC #### [facility] [address] [place] [address] Dr. Armida Brown Erythrocyte distribution width (RBC) [Ratio] 13.1 % Normal 11.0-15.[address] [facility] Comment on above: Performed By: #### C BC #### [facility] [address] [place] [address] Dr. Armida Brown Hematocrit (Bld) [Volume fraction] 48.6 % Normal 42.0-54.[address] [facility] Comment on above: Performed By: #### C BC #### [facility] [address] [place] [address] Dr. Armida Brown Hemoglobin (Bld) [Mass/Vol] 16.5 g/dL Normal 14.0-18.[address] [facility] Comment on above: Performed By: #### C BC #### [facility] [address] [place] [address] Dr. Armida Brown IG # 0.05 10e3/ul Critically high 0.00-0.03 [facility] Comment on above: Performed By: #### C BC #### [facility] [address] [place] [address] Dr. Armida Brown IG % 0.6 % Critically high 0.0-0.5 [facility] Comment on above: Performed By: #### C BC #### [facility] [address] [place] [address] Dr. Armida Brown LYMPH # 1.7 103/ul Normal 1.2-3.[address] [facility] Comment on above: Performed By: #### C BC #### [facility] [address] [place] [address] Dr. Armida Brown Lymphocytes/100 WBC (Bld) 19.6 % Critically low 20.5-60.[address] [facility] Comment on above: Performed By: #### C BC #### [facility] [address] [place] [address] Dr. Armida Brown MANUAL DIFF REQ NO Normal [facility] Comment on above: Performed By: #### C BC #### [facility] [address] [address] [address] Armida Brown MCH (RBC) [Entitic mass] 30.1 pg Normal 25.9-34.[address] [facility] Comment on above: Performed By: #### C BC #### [facility] [address] [address] [address] Armida Brown MCHC (RBC) [Mass/Vol] 34.0 g/dL Normal 29.9-35.[address] [facility] Comment on above: Performed By: #### C BC #### [facility] [address] [place] [address] Dr. Armida Brown MCV (RBC) [Entitic vol] 88.5 fL Normal 80.0-94.[address] [facility] Comment on above: Performed By: #### C BC #### [facility] [address] [place] [address] Dr. Armida Brown MONO # 0.5 103/ul Normal 0.3-0.[address] [facility] Comment on above: Performed By: #### C BC #### [facility] [address] [place] [address] Dr. Armida Brown Monocytes/100 WBC (Bld) 5.6 % Normal 1.7-12.[address] [facility] Comment on above: Performed By: #### C BC #### [facility] [address] [place] [address] Dr. Armida Brown NEUT # 6.1 103/ul Normal 1.4-6.5 [facility] Comment on above: Performed By: #### C BC #### [facility] [address] [place] [address] Dr. Armida Brown Neutrophils/100 WBC (Bld) 68.6 % Normal 43.0-75.0 [facility] Comment on above: Performed By: #### C BC #### [facility] [address] [place] [address] Dr. Armida Brown Platelet mean volume (Bld) [Entitic vol] 9.3 fL Critically low 9.5-13.[address] [facility] Comment on above: Performed By: #### C BC #### [facility] [address] [address] [address] Armida Brown PLT 293 103/ul Normal 150-[address] [facility] Comment on above: Performed By: #### C BC #### [facility] [address] [address] [address] Armida Brown RBC 5.49 106/ul Normal 4.70-6.[address] [facility] Comment on above: Performed By: #### C BC #### [facility] [address] [address] [address] Armida Brown WBC 8.9 103/ul Normal 4.0-11.[address] [facility] Comment on above: Performed By: #### C BC #### [facility] [address] [place] [address] Dr. Armida Brown FREE THYROXINE INDEX T7on FTI 3.33 Normal 1.30-4.[address] [facility] Comment on above: Performed By: #### T SH, CMP, URIC, LIPID, T7 #### [facility] [address] [address] [address] Armida Brown T3U 35.0 % Normal 33.0-40.[address] [facility] Comment on above: Performed By: #### T SH, CMP, URIC, LIPID, T7 #### [facility] [address] [place] [address] Dr. Armida Brown T4 [Mass/Vol] 9.50 ug/dL Normal 4.50-12.10 [facility] Comment on above: Performed By: #### T SH, CMP, URIC, LIPID, T7 #### [facility] [address] [place] [address] Dr. Armida Brown GLYCOHEMOGLOBIN A1Con 2021 ADA RECOMMENDATION SEE BELOW Normal [facility] Comment on above: Result Comment: ADA RECOMMENDED LIMIT 4.0 - 6.0 ADA THERAPEUTIC TARGET < 7.0 ACTION SUGGESTED > 7.0 Performed By: #### A 1C #### [facility] [address] [address] [address] Armida Brown Glucose [Mass/Vol] 103 mg/dL Normal [facility] Comment on above: Performed By: #### A 1C #### [facility] [address] [place] [address] Dr. Armida Brown HbA1c (Bld) [Mass fraction] 5.2 % Normal 4.5-6.[address] [facility] Comment on above: Performed By: #### A 1C #### [facility] [address] [place] [address] Dr. Armida Brown LIPID PROFILEon 02-01-2022 CHOL-HDL RATIO NORM SEE BELOW Normal [facility] Comment on above: Result Comment: 3.3 - 4.4 LOW RISK 4.4 - 7.1 AVERAGE RISK 7.1 - 11.0 MODERATE RISK >11.0 HIGH RISK Performed By: #### T SH, CMP, URIC, LIPID, T7 #### [facility] [address] [place] [address] Dr. Armida Brown Cholesterol [Mass/Vol] 183 mg/dL Normal <=[address] [facility] Comment on above: Performed By: #### T SH, CMP, URIC, LIPID, T7 #### [facility] [address] [place] [address] Dr. Armida Brown Cholesterol in HDL [Mass/Vol] 33 mg/dL Critically low 40-[address] [facility] Comment on above: Performed By: #### T SH, CMP, URIC, LIPID, T7 #### [facility] [address] [address] [address] Armida Brown Cholesterol in LDL [Mass/Vol] 123.0 mg/dL Normal [facility] Comment on above: Performed By: #### T SH, CMP, URIC, LIPID, T7 #### [facility] [address] [place] [address] Dr. Armida Brown Cholesterol.total/C holesterol in HDL [Mass ratio] 5.5 {ratio} Normal [facility] Comment on above: Performed By: #### T SH, CMP, URIC, LIPID, T7 #### [facility] [address] [place] [address] Dr. Armida Brown HDL NORMAL > or = 60 mg/dl - LO W CARDIOVASCULAR RISK <40 mg/dl - HIGH CARDIOVASCULAR RISK Normal [facility] Comment on above: Performed By: #### T SH, CMP, URIC, LIPID, T7 #### [facility] [address] [address] [address] Armida Brown LDL CALC NORMAL SEE BELOW Normal [facility] Comment on above: Result Comment: <100 mg/dl OPTIMAL 100 - 129 mg/dl NEAR OR ABOVE OPTIMAL 130 - 159 mg/dl BORDERLINE HIGH 160 - 189 mg/dl HIGH >190 mg/dl VERY HIGH Performed By: #### T SH, CMP, URIC, LIPID, T7 #### [facility] [address] [address] [address] Armida Brown Triglyceride [Mass/Vol] 135 mg/dL Normal <=[address] [facility] Comment on above: Performed By: #### T SH, CMP, URIC, LIPID, T7 #### [facility] [address] [address] [address] Armida Brown VLDL CALC 27.0 mg/dL Normal [facility] Comment on above: Performed By: #### T SH, CMP, URIC, LIPID, T7 #### [facility] [address] [address] [address] Armida Brown PROF 14(COMP METB)on 022 Albumin [Mass/Vol] 4.1 g/dL Normal 3.4-5.0 [facility] Comment on above: Performed By: #### T SH, CMP, URIC, LIPID, T7 #### [facility] [address] [address] [address] Armida Brown Albumin/Globulin [Mass ratio] 1.1 {ratio} Normal [facility] Comment on above: Performed By: #### T SH, CMP, URIC, LIPID, T7 #### [facility] [address] [address] [address] Armida Brown ALP [Catalytic activity/Vol] 79 U/L Normal 46-[address] [facility] Comment on above: Performed By: #### T SH, CMP, URIC, LIPID, T7 #### [facility] [address] [address] [address] Armida Brown ALT [Catalytic activity/Vol] 58 U/L Normal 16-63 [facility] Comment on above: Performed By: #### T SH, CMP, URIC, LIPID, T7 #### [facility] [address] [address] [address] Armida Brown Anion gap [Moles/Vol] 12.6 mmol/L Normal [facility] Comment on above: Performed By: #### T SH, CMP, URIC, LIPID, T7 #### [facility] [address] [place] [address] Dr. Armida Brown AST [Catalytic activity/Vol] 23 U/L Normal 15-[address] [facility] Comment on above: Performed By: #### T SH, CMP, URIC, LIPID, T7 #### [facility] [address] [place] [address] Dr. Armida Brown Bilirubin [Mass/Vol] 0.6 mg/dL Normal 0.2-1.[address] [facility] Comment on above: Performed By: #### T SH, CMP, URIC, LIPID, T7 #### [facility] [address] [address] [address] Armida Brown Calcium [Mass/Vol] 8.9 mg/dL Normal 8.5-10.1 [facility] Comment on above: Performed By: #### T SH, CMP, URIC, LIPID, T7 #### [facility] [address] [place] [address] Dr. Armida Brown Chloride [Moles/Vol] 104 mmol/L Normal 98-107 [facility] Comment on above: Performed By: #### T SH, CMP, URIC, LIPID, T7 #### [facility] [address] [place] [address] Dr. Armida Brown CO2 [Moles/Vol] 26.7 mmol/L Normal 21.0-32.0 [facility] Comment on above: Performed By: #### T SH, CMP, URIC, LIPID, T7 #### [facility] [address] [place] [address] Dr. Armida Brown Creatinine [Mass/Vol] 0.99 mg/dL Normal 0.70-1.30 [facility] Comment on above: Performed By: #### T SH, CMP, URIC, LIPID, T7 #### [facility] [address] [address] [address] Armida Brown EGFR-AF [place] >60 Normal >=60 [facility] Comment on above: Performed By: #### T SH, CMP, URIC, LIPID, T7 #### [facility] [address] [address] [address] Armida Brown EGFR-NON AF [place] >60 Normal >=60 [facility] Comment on above: Performed By: #### T SH, CMP, URIC, LIPID, T7 #### [facility] [address] [place] [address] Dr. Armida Brown Globulin (S) [Mass/Vol] 3.6 g/dL Normal [facility] Comment on above: Performed By: #### T SH, CMP, URIC, LIPID, T7 #### [facility] [address] [place] [address] Dr. Armida Brown Glucose [Mass/Vol] 100 mg/dL Normal 74-106 [facility] Comment on above: Performed By: #### T SH, CMP, URIC, LIPID, T7 #### [facility] [address] [place] [address] Dr. Armida Brown Potassium [Moles/Vol] 4.3 mmol/L Normal 3.5-5.1 [facility] Comment on above: Performed By: #### T SH, CMP, URIC, LIPID, T7 #### [facility] [address] [place] [address] Dr. Armida Brown Protein [Mass/Vol] 7.7 g/dL Normal 6.4-8.2 [facility] Comment on above: Performed By: #### T SH, CMP, URIC, LIPID, T7 #### [facility] [address] [place] [address] Dr. Armida Brown Sodium [Moles/Vol] 139 mmol/L Normal 136-145 [facility] Comment on above: Performed By: #### T SH, CMP, URIC, LIPID, T7 #### [facility] [address] [address] [address] Armida Brown Urea nitrogen [Mass/Vol] 16.0 mg/dL Normal 7.0-18.[address] [facility] Comment on above: Performed By: #### T SH, CMP, URIC, LIPID, T7 #### [facility] [address] [address] [address] Armida Brown Urea nitrogen/Creatinine [Mass ratio] 16.2 mg/mg Normal [facility] Comment on above: Performed By: #### T SH, CMP, URIC, LIPID, T7 #### [facility] [address] [place] [address] Dr. Armida Brown TSHon 02-01-2022 TSH 1.176 uIU/mL Normal 0.358-3.740 [facility] Comment on above: Performed By: #### T SH, CMP, URIC, LIPID, T7 #### [facility] [address] [place] [address] Dr. Armida Brown URIC ACID SERUMon 02-01-2022 Urate [Mass/Vol] 6.7 mg/dL Normal 3.5-7.2 [facility] Comment on above: Performed By: #### T SH, CMP, URIC, LIPID, T7 #### [facility] [address] [place] [address] Dr. Armida Brown .eGFRon 08-12-2018 eGFR AA >60 Normal >=60 [facility] Comment on above: Order Comment: Order added by Discern rule Result Comment: Resu lt = 0-14.9 mL/min/1.73 m2 Kidney failure or Dialysis Result = 15-29 mL/min/1.73 m2 Severe decrease in GFR Result = 30-59 mL/min/1.73 m2 Moderate decrease in GFR Result >= 60 mL/min/1.73 m2 Normal or increased GFR Performed By: #### P TT #### [facility] [address] [place] [id number] eGFR Non-AA >60 Normal >=60 [facility] Comment on above: Order Comment: Order added [...] dosing. Performed By: #### P TT #### [address] [id number] Basic Metabolic Profileon Anion gap molar conc 11 mmol/L Normal 7-17 [facility] Comment on above: Performed By: #### P TINR #### [address] [id number] Calcium mass conc 8.2 mg/dL Low 8.5-10.3 [facility] Comment on above: Performed By: #### P TINR #### [address] [place] [id number] Chloride molar conc 102 mmol/L Normal 98-110 [facility] Comment on above: Performed By: #### P TINR #### [address] [place] [id number] CO2 molar conc 27 mmol/L Normal 22-32 [facility] Comment on above: Performed By: #### P TINR #### [address] [address] Creatinine mass conc 0.83 mg/dL Normal 0.61-1.24 [facility] Comment on above: Performed By: #### P TINR #### [address] [place] [id number] Glucose mass conc 109 mg/dL Normal 74-118 [facility] Comment on above: Performed By: #### P TINR #### [address] [address] Potassium molar conc 3.9 mmol/L Normal 3.4-4.8 [facility] Comment on above: Performed By: #### P TINR #### [address] [address] Sodium molar conc 136 mmol/L Normal 133-142 [facility] Comment on above: Performed By: #### P TINR #### [address] [address] Urea nitrogen mass conc 9 mg/dL Normal 8-26 [facility] Comment on above: Performed By: #### P TINR #### [address] [place] [id number] Urea nitrogen/Creatinine mass ratio 10.8 mg/mg Normal 10.0-20.0 [facility] Comment on above: Performed By: #### P TINR #### [address] [place] [id number] CBC w/ Diffon 08-12-2018 Erythrocyte distribution width Ratio (RBC) 12.5 % Normal 11.6-14.8 [facility] Comment on above: Performed By: #### P TINR #### [address] [address] Hematocrit Volume Fraction (Bld) 29.7 % Low 41.0-53.0 [facility] Comment on above: Performed By: #### P TINR #### [address] [address] Hemoglobin mass conc (Bld) 10.3 g/dL Low 13.5-17.5 [facility] Comment on above: Performed By: #### P TINR #### [address] [address] MCH Entitic mass (RBC) 30.1 pg Normal 27.0-35.0 [facility] Comment on above: Performed By: #### P TINR #### [address] [address] MCHC mass conc (RBC) 34.5 % Normal 31.0-37.0 [facility] Comment on above: Performed By: #### P TINR #### [address] [place] [id number] MCV Entitic volume (RBC) 87.2 fL Normal 80.0-100.0 [facility] Comment on above: Performed By: #### P TINR #### [address] [place] [id number] Platelet mean volume Entitic volume (Bld) 7.8 fL Normal 6.7-10.6 [facility] Comment on above: Performed By: #### P TINR #### [address] [place] [id number] Platelets #/vol (Bld) 218 x10*3/mcL Normal 150-350 [facility] Comment on above: Performed By: #### P TINR #### [place] [address] RBC #/vol (Bld) 3.41 x10*6/mcL Low 4.30-5.80 [facility] Comment on above: Performed By: #### P TINR #### [address] [place] [id number] WBC #/vol (Bld) 9.1 x10*3/mcL Normal 4.5-11.0 [facility] Comment on above: Performed By: #### P TINR #### [place] [address] Diff Autoon 08-12-2018 Baso Absolute 0.0 x10*3/mcL Normal 0.0-0.2 [facility] Comment on above: Performed By: #### P TINR #### [address] [place] [id number] Basophils/100 WBC (Bld) 0.5 % Normal 0.0-1.2 [facility] Comment on above: Performed By: #### P TINR #### [address] [place] [id number] Eos Absolute 0.3 x10*3/mcL Normal 0.0-0.4 [facility] Comment on above: Performed By: #### P TINR #### [address] [address] Eosinophils/100 WBC (Bld) 3.4 % Normal 0.0-6.1 [facility] Comment on above: Performed By: #### P TINR #### [address] [address] Lymphocytes #/vol (Bld) 1.1 x10*3/mcL Normal 1.0-4.8 [facility] Comment on above: Performed By: #### P TINR #### [address] [address] Lymphocytes/100 WBC (Bld) 11.8 % Low 27.2-40.8 [facility] Comment on above: Performed By: #### P TINR #### [address] [address] Sullivan Absolute 0.8 x10*3/mcL Normal 0.3-1.1 [facility] Comment on above: Performed By: #### P TINR #### [address] [address] Monocytes/100 WBC (Bld) 8.5 % Normal 4.7-13.9 [facility] Comment on above: Performed By: #### P TINR #### [address] [address] Neutro Absolute 6.9 x10*3/mcL Normal 1.8-7.7 [facility] Comment on above: Performed By: #### P TINR #### [address] [address] Neutro Auto 75.8 % High 47.2-70.8 [facility] Comment on above: Performed By: #### P TINR #### [address] [address] Inpatient Clinical Summaryon 08-12-2018 Inpatient Clinical Summary [address] [place] [address] [address] Clinical Summary Person Information Name: Chiquita Weeks Age: 28 Years : 1990 Sex: Male PCP: Cyril Ruiz MD Marital Status: Phone: PCP: Race: White Ethnicity: Not or Language: Faroese Visit Id: Visit Reason: Speciality: Acuity: Enc Type: Inpatient Med Service: Surgery Arrival: 08/08/2018 08:12:20 Discharge: Dispo Type: Address: [address] [place] [address] Diagnosis: 1:Scheuermann's kyphosis Discharged To: Home Treatments: [...] range between ( 27.2 and 40.8 ) Sullivan Auto: 8.5 % -- Normal range between [...] range between ( 41.0 and 53.0 ) Sullivan Absolute: 0.8 x10 MCH: 30.1 pg -- [...] Follow up: With: Address: When: Jesus Reyes [facility] [employer] [facility], [place] [address] [phone] Business (1) Comments: Schedule follow up appointment for 2 weeks for staple removal With: Address: When: Cyril Ruiz Normal [facility] Occupational Therapy Progres s Noteon 08-12-2018 Protein mass conc Planned/pending dc t o home today. Reecommended [facility] Electronically signed by ___ Teo Johnson 08/12/18 06:26 EST Normal [facility] Orthopedic Progress Noteon 0 08-12-2018 Protein mass [...] Luís Marcus PA-C 08/12/18 07:37 EST Normal [facility] .eGFRon 08-11-2018 eGFR Non-AA >60 Normal >=60 [facility] Comment on above: Order Comment: Order added [...] dosing. Performed By: #### P TINR #### [place] [id number] eGFR AA >60 Normal >=60 [facility] Comment on above: Order Comment: Order added by Discern rule Result Comment: Resu lt = 0-14.9 mL/min/1.73 m2 Kidney failure or Dialysis Result = 15-29 mL/min/1.73 m2 Severe decrease in GFR Result = 30-59 mL/min/1.73 m2 Moderate decrease in GFR Result >= 60 mL/min/1.73 m2 Normal or increased GFR Performed By: #### P TINR #### [place] [id number] Basic Metabolic Profileon Anion gap molar conc 10 mmol/L Normal 7-17 [facility] Comment on above: Performed By: #### P TINR #### [place] [id number] Calcium mass conc 8.3 mg/dL Low 8.5-10.3 [facility] Comment on above: Performed By: #### P TINR #### [address] [address] Chloride molar conc 97 mmol/L Low 98-110 [facility] Comment on above: Performed By: #### P TINR #### [address] [address] CO2 molar conc 26 mmol/L Normal 22-32 [facility] Comment on above: Performed By: #### P TINR #### [address] [address] Creatinine mass conc 0.88 mg/dL Normal 0.61-1.24 [facility] Comment on above: Performed By: #### P TINR #### [address] [address] Glucose mass conc 109 mg/dL Normal 74-118 [facility] Comment on above: Performed By: #### P TINR #### [address] [address] Potassium molar conc 4.0 mmol/L Normal 3.4-4.8 [facility] Comment on above: Performed By: #### P TINR #### [address] [address] Sodium molar conc 129 mmol/L Low 133-142 [facility] Comment on above: Performed By: #### P TINR #### [address] [address] Urea nitrogen mass conc 9 mg/dL Normal 8-26 [facility] Comment on above: Performed By: #### P TINR #### [address] [address] Urea nitrogen/Creatinine mass ratio 10.2 mg/mg Normal 10.0-20.0 [facility] Comment on above: Performed By: #### P TINR #### [address] [address] CBC w/ Diffon 08-11-2018 Erythrocyte distribution width Ratio (RBC) 12.6 % Normal 11.6-14.8 [facility] Comment on above: Performed By: #### P TINR #### [address] [address] Hematocrit Volume Fraction (Bld) 31.7 % Low 41.0-53.0 [facility] Comment on above: Performed By: #### P TINR #### [address] [address] Hemoglobin mass conc (Bld) 10.8 g/dL Low 13.5-17.5 [facility] Comment on above: Performed By: #### P TINR #### [address] [address] MCH Entitic mass (RBC) 29.9 pg Normal 27.0-35.0 [facility] Comment on above: Performed By: #### P TINR #### [address] [address] MCHC mass conc (RBC) 34.2 % Normal 31.0-37.0 [facility] Comment on above: Performed By: #### P TINR #### [address] [address] MCV Entitic volume (RBC) 87.5 fL Normal 80.0-100.0 [facility] Comment on above: Performed By: #### P TINR #### [address] [address] Platelet mean volume Entitic volume (Bld) 7.8 fL Normal 6.7-10.6 [facility] Comment on above: Performed By: #### P TINR #### [address] [address] Platelets #/vol (Bld) 218 x10*3/mcL Normal 150-350 [facility] Comment on above: Performed By: #### P TINR #### [address] [address] RBC #/vol (Bld) 3.62 x10*6/mcL Low 4.30-5.80 [facility] Comment on above: Performed By: #### P TINR #### [address] [address] WBC #/vol (Bld) 11.8 x10*3/mcL High 4.5-11.0 [facility] Comment on above: Performed By: #### P TINR #### [address] [address] Diff Autoon 08-11-2018 Baso Absolute 0.1 x10*3/mcL Normal 0.0-0.2 [facility] Comment on above: Performed By: #### P TINR #### [address] [address] Basophils/100 WBC (Bld) 0.5 % Normal 0.0-1.2 [facility] Comment on above: Performed By: #### P TINR #### [address] [address] Eos Absolute 0.3 x10*3/mcL Normal 0.0-0.4 [facility] Comment on above: Performed By: #### P TINR #### [address] [address] Eosinophils/100 WBC (Bld) 2.3 % Normal 0.0-6.1 [facility] Comment on above: Performed By: #### P TINR #### [address] [address] Lymphocytes #/vol (Bld) 1.7 x10*3/mcL Normal 1.0-4.8 [facility] Comment on above: Performed By: #### P TINR #### [address] [address] Lymphocytes/100 WBC (Bld) 14.3 % Low 27.2-40.8 [facility] Comment on above: Performed By: #### P TINR #### [address] [address] Sullivan Absolute 1.2 x10*3/mcL High 0.3-1.1 [facility] Comment on above: Performed By: #### P TINR #### [address] [address] Monocytes/100 WBC (Bld) 9.9 % Normal 4.7-13.9 [facility] Comment on above: Performed By: #### P TINR #### [address] [address] Neutro Absolute 8.6 x10*3/mcL High 1.8-7.7 [facility] Comment on above: Performed By: #### P TINR #### [address] [address] Neutro Auto 73.0 % High 47.2-70.8 [facility] Comment on above: Performed By: #### P TINR #### [facility] [address] [place] [address] Orthopedic Progress Noteon 0 08-11-2018 Protein mass [...] Luís Marcus PA-C 08/11/18 14:44 EST Normal [facility] XR Scoliosis Study 2 or 3 Vi [...] Electronically Signed in Other Vendor System) Normal [facility] Comment on above: Order Comment: Stand ing AP and lateral views in TLSO brace .eGFRon 08-10-2018 eGFR AA >60 Normal >=60 [facility] Comment on above: Result Comment: Resu lt = 0-14.9 mL/min/1.73 m2 Kidney failure or Dialysis Result = 15-29 mL/min/1.73 m2 Severe decrease in GFR Result = 30-59 mL/min/1.73 m2 Moderate decrease in GFR Result >= 60 mL/min/1.73 m2 Normal or increased GFR Performed By: #### C BC #### [address] [address] eGFR Non-AA >60 Normal >=60 [facility] Comment on above: Result Comment: Resu lt [...] dosing. Performed By: #### C BC #### [address] [address] Basic Metabolic Profileon Anion gap molar conc 12 mmol/L Normal 7-17 [facility] Comment on above: Performed By: #### C BC #### [address] [address] Calcium mass conc 8.1 mg/dL Low 8.5-10.3 [facility] Comment on above: Performed By: #### C BC #### [address] [address] Chloride molar conc 103 mmol/L Normal 98-110 [facility] Comment on above: Performed By: #### C BC #### [address] [address] CO2 molar conc 25 mmol/L Normal 22-32 [facility] Comment on above: Performed By: #### C BC #### [address] [address] Creatinine mass conc 0.83 mg/dL Normal 0.61-1.24 [facility] Comment on above: Performed By: #### C BC #### [address] [address] Glucose mass conc 99 mg/dL Normal 74-118 [facility] Comment on above: Performed By: #### C BC #### [address] [address] Potassium molar conc 4.3 mmol/L Normal 3.4-4.8 [facility] Comment on above: Performed By: #### C BC #### [address] [address] Sodium molar conc 136 mmol/L Normal 133-142 [facility] Comment on above: Performed By: #### C BC #### [address] [address] Urea nitrogen mass conc 12 mg/dL Normal 8-26 [facility] Comment on above: Performed By: #### C BC #### [address] [address] Urea nitrogen/Creatinine mass ratio 14.5 mg/mg Normal 10.0-20.0 [facility] Comment on above: Performed By: #### C BC #### [address] [address] CBC w/ Diffon 08-10-2018 Erythrocyte distribution width Ratio (RBC) 12.6 % Normal 11.6-14.8 [facility] Comment on above: Performed By: #### C BC #### [address] [address] Hematocrit Volume Fraction (Bld) 33.6 % Low 41.0-53.0 [facility] Comment on above: Performed By: #### C BC #### [address] [address] Hemoglobin mass conc (Bld) 11.4 g/dL Low 13.5-17.5 [facility] Comment on above: Performed By: #### C BC #### [address] [address] MCH Entitic mass (RBC) 29.9 pg Normal 27.0-35.0 [facility] Comment on above: Performed By: #### C BC #### [address] [address] MCHC mass conc (RBC) 34.0 % Normal 31.0-37.0 [facility] Comment on above: Performed By: #### C BC #### [address] [address] MCV Entitic volume (RBC) 87.8 fL Normal 80.0-100.0 [facility] Comment on above: Performed By: #### C BC #### [address] [address] Platelet mean volume Entitic volume (Bld) 8.1 fL Normal 6.7-10.6 [facility] Comment on above: Performed By: #### C BC #### [address] [address] Platelets #/vol (Bld) 182 x10*3/mcL Normal 150-350 [facility] Comment on above: Performed By: #### C BC #### [address] [address] RBC #/vol (Bld) 3.82 x10*6/mcL Low 4.30-5.80 [facility] Comment on above: Performed By: #### C BC #### [address] [address] WBC #/vol (Bld) 10.3 x10*3/mcL Normal 4.5-11.0 [facility] Comment on above: Performed By: #### C BC #### [address] [address] Diff Autoon 08-10-2018 Baso Absolute 0.1 x10*3/mcL Normal 0.0-0.2 [facility] Comment on above: Performed By: #### C BC #### [address] [address] Basophils/100 WBC (Bld) 1.4 % High 0.0-1.2 [facility] Comment on above: Performed By: #### C BC #### [address] [address] Eos Absolute 0.1 x10*3/mcL Normal 0.0-0.4 [facility] Comment on above: Performed By: #### C BC #### [address] [address] Eosinophils/100 WBC (Bld) 1.2 % Normal 0.0-6.1 [facility] Comment on above: Performed By: #### C BC #### [address] [address] Lymphocytes #/vol (Bld) 2.3 x10*3/mcL Normal 1.0-4.8 [facility] Comment on above: Performed By: #### C BC #### [address] [address] Lymphocytes/100 WBC (Bld) 22.7 % Low 27.2-40.8 [facility] Comment on above: Performed By: #### C BC #### [address] [address] Sullivan Absolute 1.1 x10*3/mcL Normal 0.3-1.1 [facility] Comment on above: Performed By: #### C BC #### [address] [address] Monocytes/100 WBC (Bld) 10.6 % Normal 4.7-13.9 [facility] Comment on above: Performed By: #### C BC #### [address] [address] Neutro Absolute 6.6 x10*3/mcL Normal 1.8-7.7 [facility] Comment on above: Performed By: #### C BC #### [facility] [address] [place] [address] Neutro Auto 64.1 % Normal 47.2-70.8 [facility] Comment on above: Performed By: #### C BC #### [facility] [address] [place] [address] Orthopedic Progress Noteon 0 08-10-2018 Protein mass [...] Luís Marcus PA-C 08/10/18 06:03 EST Normal [facility] .eGFRon 08-09-2018 eGFR AA >60 Normal >=60 [facility] Comment on above: Result Comment: Resu lt = 0-14.9 mL/min/1.73 m2 Kidney failure or Dialysis Result = 15-29 mL/min/1.73 m2 Severe decrease in GFR Result = 30-59 mL/min/1.73 m2 Moderate decrease in GFR Result >= 60 mL/min/1.73 m2 Normal or increased GFR Performed By: #### C BC #### [address] [address] eGFR Non-AA >60 Normal >=60 [facility] Comment on above: Result Comment: Resu lt [...] dosing. Performed By: #### C BC #### [address] [address] Basic Metabolic Profileon Anion gap molar conc 12 mmol/L Normal 7-17 [facility] Comment on above: Performed By: #### C BC #### [address] [address] Calcium mass conc 8.3 mg/dL Low 8.5-10.3 [facility] Comment on above: Performed By: #### C BC #### [address] [address] Chloride molar conc 106 mmol/L Normal 98-110 [facility] Comment on above: Performed By: #### C BC #### [address] [address] CO2 molar conc 24 mmol/L Normal 22-32 [facility] Comment on above: Performed By: #### C BC #### [address] [address] Creatinine mass conc 1.02 mg/dL Normal 0.61-1.24 [facility] Comment on above: Performed By: #### C BC #### [address] [address] Glucose mass conc 119 mg/dL High 74-118 [facility] Comment on above: Performed By: #### C BC #### [address] [address] Potassium molar conc 4.5 mmol/L Normal 3.4-4.8 [facility] Comment on above: Performed By: #### C BC #### [address] [address] Sodium molar conc 137 mmol/L Normal 133-142 [facility] Comment on above: Performed By: #### C BC #### [address] [address] Urea nitrogen mass conc 12 mg/dL Normal 8-26 [facility] Comment on above: Performed By: #### C BC #### [address] [address] Urea nitrogen/Creatinine mass ratio 11.8 mg/mg Normal 10.0-20.0 [facility] Comment on above: Performed By: #### C BC #### [address] [address] CBC w/ Diffon 08-09-2018 Erythrocyte distribution width Ratio (RBC) 12.8 % Normal 11.6-14.8 [facility] Comment on above: Performed By: #### . Automated Diff #### [address] [address] Hematocrit Volume Fraction (Bld) 39.9 % Low 41.0-53.0 [facility] Comment on above: Performed By: #### . Automated Diff #### [address] [address] Hemoglobin mass conc (Bld) 13.4 g/dL Low 13.5-17.5 [facility] Comment on above: Performed By: #### . Automated Diff #### [address] [address] MCH Entitic mass (RBC) 29.1 pg Normal 27.0-35.0 [facility] Comment on above: Performed By: #### . Automated Diff #### [address] [address] MCHC mass conc (RBC) 33.5 % Normal 31.0-37.0 [facility] Comment on above: Performed By: #### . Automated Diff #### [address] [address] MCV Entitic volume (RBC) 86.9 fL Normal 80.0-100.0 [facility] Comment on above: Performed By: #### . Automated Diff #### [place] [id number] Platelet mean volume Entitic volume (Bld) 8.2 fL Normal 6.7-10.6 [facility] Comment on above: Performed By: #### . Automated Diff #### [place] [address] Platelets #/vol (Bld) 302 x10*3/mcL Normal 150-350 [facility] Comment on above: Performed By: #### . Automated Diff #### [place] [address] RBC #/vol (Bld) 4.59 x10*6/mcL Normal 4.30-5.80 [facility] Comment on above: Performed By: #### . Automated Diff #### [address] [address] WBC #/vol (Bld) 14.2 x10*3/mcL High 4.5-11.0 [facility] Comment on above: Performed By: #### . Automated Diff #### [place] [id number] [employer] Progress Noteon 08-09-2018 [employer] Progress Note Met with patient regarding transitions [...] ___ Abbie Cordova 08/09/18 10:08 EST Normal [facility] Diff Autoon 08-09-2018 Baso Absolute 0.0 x10*3/mcL Normal 0.0-0.2 [facility] Comment on above: Performed By: #### . Automated Diff #### [address] [address] Basophils/100 WBC (Bld) 0.3 % Normal 0.0-1.2 [facility] Comment on above: Performed By: #### . Automated Diff #### [address] [address] Eos Absolute 0.0 x10*3/mcL Normal 0.0-0.4 [facility] Comment on above: Performed By: #### . Automated Diff #### [address] [address] Eosinophils/100 WBC (Bld) 0.1 % Normal 0.0-6.1 [facility] Comment on above: Performed By: #### . Automated Diff #### [address] [address] Lymphocytes #/vol (Bld) 1.2 x10*3/mcL Normal 1.0-4.8 [facility] Comment on above: Performed By: #### . Automated Diff #### [address] [address] Lymphocytes/100 WBC (Bld) 8.6 % Low 27.2-40.8 [facility] Comment on above: Performed By: #### . Automated Diff #### [address] [address] Sullivan Absolute 1.0 x10*3/mcL Normal 0.3-1.1 [facility] Comment on above: Performed By: #### . Automated Diff #### [address] [address] Monocytes/100 WBC (Bld) 6.9 % Normal 4.7-13.9 [facility] Comment on above: Performed By: #### . Automated Diff #### [facility] [address] [place] [address] Neutro Absolute 11.9 x10*3/mcL High 1.8-7.7 [facility] Comment on above: Performed By: #### . Automated Diff #### [facility] [address] [place] [address] Neutro Auto 84.1 % High 47.2-70.8 [facility] Comment on above: Performed By: #### . Automated Diff #### [place] [address] [place] [id number] Orthopedic Progress Noteon 0 08-09-2018 Protein mass [...] Luís Marcus PA-C 08/09/18 06:28 EST Normal [facility] Progress Note-Nurseon 2018 Protein mass conc Upset [...] ___ Petra Kim 08/09/18 10:50 EST Normal [facility] XR Spine Thoracic Minimum 4 Viewson 08-09-2018 [...] Electronically Signed in Other Vendor System) Normal [facility] CT Spine Thoracic w/o Contra ston 08-08-2018 [...] exam here. Consider MRI. Radiation Dose Estimate: CTDI(mGy):0.247098 / / / kVp:120.216200 / mAs:0.163089 / / / DLP(mGy-cm):9.129797Jkl y Part: Abdomen CTDI(mGy):0.474060 / / / kVp:140.450362 / mAs:0.619695 / / / DLP(mGy-cm):14.821036Kd dy Part: Final Dictated by: Chris Don MD Dictated DT/TM: 08.08.2018 11:02 am Signed by: Chris Don MD Signed (Electronic Signature): 08.08.2018 11:22 am (If Report Is Signed, Electronically Signed in Other Vendor System) Normal [facility] Comment on above: Order Comment: tried to call office at 18:05. office already closed and unable to leave message regarding this to be a future order. Hgb & Hcton 08-08-2018 Hematocrit Volume Fraction (Bld) 42.8 % Normal 41.0-53.0 [facility] Comment on above: Performed By: #### . Automated Diff #### [place] [address] Hemoglobin mass conc (Bld) 14.4 g/dL Normal 13.5-17.5 [facility] Comment on above: Performed By: #### . Automated Diff #### [place] [address] [place] [address] Operative Reporton 9 Operative Report Indication for [...] decompression and co-surgeon Leida Lynn for instrumentation Planisher Luís HAMEED Anesthesia General anesthetic via endotracheal [...] is secured. He is carefully turned onto [facility] operating room table and head and [...] through T12 are resected using Luis Alberto transcribing machine operator and this bone is harvested [...] of autograft from local harvest supplemented with [place] demineralized bone matrix. The wound is reirrigated [...] surgical procedure was assisted by my physician?s family service assistant. Her presence was needed throughout the case for manipulation and positioning the surgical arm as well as positioning the surgical instruments as well as primarily assisting me through procedure. Due to the complexity of condition, the skill set of an neurosurgical physician family service assistant was needed throughout the case. During the surgical case, the surgical scrub tech was working the back table and was not available for assistance. Tourniquet Time None Sponge/Needle Count Per nursing correct Fluid Count 2500 mL crystalloid Electronically signed by ___ Shane PANCHAL MD, Leida Cross 08/08/18 17:22 EST Normal [facility] Operative Report Operative Report DATE OF OPERATION: [...] 5. Use of local autograft bone and [place] Matrix SURGEON: Jesus Shah MD for decompression Leida Lynn MD for instrumentation CATH LAB MANAGER: Luís Staley assisted throughout the procedure [...] injury, paralysis, non-union, DVT/PE, bleeding, chronic pain, RI, stroke, etc. All questions were answered and [...] by entirely resecting the facet joint. Two [place] chrome rods were cut to size and [...] bone was packed over the decorticated elements bilaterally.[place] matrix was placed on top of this [...] and dusted with 3 g vancomycin powder. [place] used for skin and antibiotic ointment apploed [...] Jesus Reyes MD 08/09/18 11:58 EST Normal [facility] Operative Report Preoperative Diagnos is Scheuermann's kyphosis Intractable thoracic pain Postoperative Diagnosis Scheuermann's kyphosis Intractable thoracic pain Operation 1. T7-T12 decompression with T7-T12 bilateral [place] Osteotomies 2. T6-L2 posterior spinal fusion using in situ deformity correction Surgeon(s) Dr. Reyes for decompression Dr. 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 Exercise Home/Environment Lives with Children, Spouse. Living [...] Jesus Reyes MD 08/08/2018 14:55 EST Normal [facility] .eGFRon 07-31-2018 eGFR Non-AA >60 Normal >=60 [facility] Comment on above: Result Comment: Resu lt [...] dosing. Performed By: #### E GFR #### [address] [address] eGFR AA >60 Normal >=60 [facility] Comment on above: Result Comment: Resu lt = 0-14.9 mL/min/1.73 m2 Kidney failure or Dialysis Result = 15-29 mL/min/1.73 m2 Severe decrease in GFR Result = 30-59 mL/min/1.73 m2 Moderate decrease in GFR Result >= 60 mL/min/1.73 m2 Normal or increased GFR Performed By: #### E GFR #### [address] [address] ABO/Rhon 07-31-2018 ABO/Rh SD 1.11.19 DCon: 0 ABO/Rh: O POS Normal [facility] Comment on above: Performed By: #### A MONISHA #### [facility] (DEFAULT) [address] [place] [id number] [address] ABSC Autoon 07-31-2018 ABSC Auto Negative Normal [facility] Comment on above: Performed By: #### A SA #### [address] [address] Basic Metabolic Profileon Anion gap molar conc 15 mmol/L Normal 7-17 [facility] Comment on above: Performed By: #### C [id number] #### [address] [address] Calcium mass conc 9.7 mg/dL Normal 8.5-10.3 [facility] Comment on above: Performed By: #### C [id number] #### [address] [address] Chloride molar conc 96 mmol/L Low 98-110 [facility] Comment on above: Performed By: #### C [id number] #### [address] [address] CO2 molar conc 28 mmol/L Normal 22-32 [facility] Comment on above: Performed By: #### C [id number] #### [address] [address] Creatinine mass conc 1.07 mg/dL Normal 0.61-1.24 [facility] Comment on above: Performed By: #### C [id number] #### [address] [address] Glucose mass conc 94 mg/dL Normal 74-118 [facility] Comment on above: Performed By: #### C [id number] #### [address] [address] Potassium molar conc 4.4 mmol/L Normal 3.4-4.8 [facility] Comment on above: Performed By: #### C [id number] #### [address] [address] Sodium molar conc 135 mmol/L Normal 133-142 [facility] Comment on above: Performed By: #### C [id number] #### [address] [address] Urea nitrogen mass conc 20 mg/dL Normal 8-26 [facility] Comment on above: Performed By: #### C [id number] #### [address] [address] Urea nitrogen/Creatinine mass ratio 18.7 mg/mg Normal 10.0-20.0 [facility] Comment on above: Performed By: #### C [id number] #### [address] [address] CBC w/ Diffon 07-31-2018 Erythrocyte distribution width Ratio (RBC) 13.0 % Normal 11.6-14.8 [facility] Comment on above: Performed By: #### C BC #### [address] [address] Hematocrit Volume Fraction (Bld) 51.4 % Normal 41.0-53.0 [facility] Comment on above: Performed By: #### C BC #### [address] [address] Hemoglobin mass conc (Bld) 17.4 g/dL Normal 13.5-17.5 [facility] Comment on above: Performed By: #### C BC #### [place] 3754940 MCH Entitic mass (RBC) 29.8 pg Normal 27.0-35.0 [facility] Comment on above: Performed By: #### C BC #### [place] [address]4940 MCHC mass conc (RBC) 33.9 % Normal 31.0-37.0 [facility] Comment on above: Performed By: #### C BC #### [place] 3754940 MCV Entitic volume (RBC) 87.7 fL Normal 80.0-100.0 [facility] Comment on above: Performed By: #### C BC #### [place] [id number] Platelet mean volume Entitic volume (Bld) 7.8 fL Normal 6.7-10.6 [facility] Comment on above: Performed By: #### C BC #### [place] [id number] Platelets #/vol (Bld) 295 x10*3/mcL Normal 150-350 [facility] Comment on above: Performed By: #### C BC #### [address] [address] RBC #/vol (Bld) 5.86 x10*6/mcL High 4.30-5.80 [facility] Comment on above: Performed By: #### C BC #### [address] [address] WBC #/vol (Bld) 9.1 x10*3/mcL Normal 4.5-11.0 [facility] Comment on above: Performed By: #### C BC #### [address] [address] Diff Autoon 07-31-2018 Baso Absolute 0.1 x10*3/mcL Normal 0.0-0.2 [facility] Comment on above: Performed By: #### . Automated Diff #### [address] [address] Basophils/100 WBC (Bld) 1.0 % Normal 0.0-1.2 [facility] Comment on above: Performed By: #### . Automated Diff #### [address] [address] Eos Absolute 0.3 x10*3/mcL Normal 0.0-0.4 [facility] Comment on above: Performed By: #### . Automated Diff #### [address] [address] Eosinophils/100 WBC (Bld) 3.1 % Normal 0.0-6.1 [facility] Comment on above: Performed By: #### . Automated Diff #### [address] [address] Lymphocytes #/vol (Bld) 2.6 x10*3/mcL Normal 1.0-4.8 [facility] Comment on above: Performed By: #### . Automated Diff #### [address] [address] Lymphocytes/100 WBC (Bld) 28.2 % Normal 27.2-40.8 [facility] Comment on above: Performed By: #### . Automated Diff #### [address] [address] [place] Absolute 0.8 x10*3/mcL Normal 0.3-1.1 [facility] Comment on above: Performed By: #### . Automated Diff #### [address] [address] [address] Monocytes/100 WBC (Bld) 9.3 % Normal 4.7-13.9 [facility] Comment on above: Performed By: #### . Automated Diff #### [address] [address] Neutro Absolute 5.3 x10*3/mcL Normal 1.8-7.7 [facility] Comment on above: Performed By: #### . Automated Diff #### [facility] [address] [place] [address] Neutro Auto 58.4 % Normal 47.2-70.8 [facility] Comment on above: Performed By: #### . Automated Diff #### [address] [address] MRSA, PCRon 07-31-2018 INR Coag RelTime (Bld) Negative Normal [facility] Comment on above: Result Comment: [employer] Xpert MRSA Assay is a qualitative in [...] clinician. Performed By: #### M RSAPC #### [address] [address] Neurosurgery Office/Clinic N oteon 07-31-2018 Neurosurgery Office/Clinic [...] rare alcohol intake Patient works in a [employer]-no legal or Workmen's Compensation claims on today's [...] MD, Leida Cross 07/31/18 11:40 EST Normal [facility] PTon 07-31-2018 INR Coag RelTime (PPP) 1.0 {INR} Normal <=3.5 [facility] Comment on above: Result Comment: INR has no normal range. INR Therapeutic range is: 2.0-3.0 (AF, CVA, TIAs, DVT prophylaxis, acute DVT) 2.5-3.5 ([facility] heart valves, recurrent thrombosis/emboli) Performed By: #### P TINR #### [address] [address] Prothrombin time (PT) Coag time (PPP) 10.4 s Normal 9.1-11.6 [facility] Comment on above: Performed By: #### P TINR #### [address] [address] PTTon 07-31-2018 aPTT Coag time (Bld) 28.9 s Normal 19.2-29.7 [facility] Comment on above: Performed By: #### P TT #### [address] [address] XR Chest 2 Viewson 9 XR Chest [...] Electronically Signed in Other Vendor System) Normal [facility] SC[facility]IOSIS 2 [facility] 04-24-2018 [facility] [address] [place], [place] [address] =====Patient Name: CHIQUITA WEEKS : 1990Sex: MAge: Race: WhiteMRN: [id number]. Location: 84Patient Status: OVisit #: [id number] Date: 04/24/2018 3:05:00 PMCompleted Date: 04/24/2018 03:19 PMRequesting Provider: COOKIE COLES Attending Provider: COOKIE COLES Report Copy To: Signs & Symptoms: M54.6 Pain in thoracic spine G32Lbjakjv: AthenaComments: , , , Ordering Provider - COOKIE COLES MD , Exam: SCOLIOSIS 2 VWSAccession #: [id number] SCOLIOSIS 2 S 04/24/2018 3:19 PM EDT [...] abnormality. Electronically signed by:Adelfo Kay. Transcribed by: [email or web address], User Resident: Electronically Signed by: ADELFO KAY @ 04/24/2018 10:56 PM Normal [facility] Comment on above: Order Comment: , , = ========= , Ordering Provider - COOKIE COLES MD , Encounters Encounter Date Encounter Type Care Provider Facility Start: 02-01-2022 End: 02-02-2022 ambulatory ERNST PENA Facility: Start: 06-23-2021 ambulatory [facility] Facility: Start: 09-25-2018 End: 09-26-2018 ambulatory [facility]IGU[facility] A Facility:[facility] Start: 08-08-2018 End: 08-12-2018 Evaluation and management of inpatient SELVON MARCIA Facility:[facility] Start: 07-31-2018 End: 08-01-2018 [facility] Start: 07-31-2018 End: 08-01-2018 Patient encounter procedure LEIDA LYNN Facility:[facility] Start: 07-30-2018 Patient encounter procedure SELVON MARCIA Facility:[facility] Start: 04-24-2018 End: 04-25-2018 Patient encounter COOKIE COLES Facility:[facility] Start: 04-15-2018 End: 04-16-2018 Patient encounter DEFAULT PHYSICIAN Facility:[facility] Procedures Date Procedure Procedure Detail Performing Clinician Start: 02-01-2022 PSA screening ERNST OROURKE Comment on above: Performed By: #### P [facility] #### [facility] [address] [place] [address] Dr. Armida Brown Payers Date Payer Category Payer Unknown 2017 Unknown [id number] 1990 Unknown [id number] 2.16.8 [id number] 1990 Unknown [id number] 2.16.8 [id number] 1990 Unknown [id number] 2.16.8 [id number] 1990 Unknown [id number] 2.16.8 [id number] 1988 Unknown [id number] 2.16.8 [id number] 1988 Unknown [id number] 2.16.8 [id number] 1988 Unknown [id number] 2.16.84 [id number] 1988 Unknown [id number] 2.16.84 [id number] 1988 Unknown [id number] 2.16.84 [id number] 1988 Unknown [id number] 2.16.84 [id number] 1961 Medicaid [id number] 1961 Medicare [id number] 1961 Unknown [id number] Unknown [id number] Summary Purpose Family History No Family History [...] 5. Use of local autograft bone and [place] [employer] SURGEON: Jesus Shah MD for decompression [...] DATE CREATED AUTHOR AUTHOR'S ORGANIZ ATION 08/25/2018 [facility] DATE CREATED AUTHOR AUTHOR'S ORGANIZ ATION 02/15/2022 [facility] DATE CREATED AUTHOR AUTHOR'S ORGANIZ ATION 09/27/2022 [facility] FOR RECORDS PERTAINING TO PATIENTS WHO ARE [...] BE BASED ON THE PRIMARY CLINICAL RECORDS. [facility]. provides no warranty or guarantee of the accuracy or completeness of information in this document.
[2025-01-05 08:33] VITALS: BP 123/86; PULSE 68; TEMP 35.9; O2SAT 96
[2025-01-05 08:58] VITALS: PULSE 71; O2SAT 95
[2025-01-05 09:00] VITALS: BP 149/94; BP 152/90; PULSE 57; O2SAT 97
[2025-01-05] MEDS: BUPIVACAINE HCL 0.25% PF 25 MG/10 ML VIAL 8 ML INJ (09:03)
--- NOTE | 2025-01-05 09:04 | W.PM.PROCNOT ---
Date of procedure: 01/05/25 Pre-op diagnosis: Pain due to thoracic spondylosis without myelopathy Post-op diagnosis: same as pre-op Procedure: Procedure: Bilateral T3-4, 4-5 medial branch block Medications: Bupivacaine 0.25% 6cc The patient was seen and examined in the preoperative holding area.? An informed consent was obtained and placed on the chart.? The patient was brought to the medical procedure unit and placed in the prone position.? A timeout was completed verifying correct patient, procedure site, positioning, plan, and special equipment.? Using aseptic technique, the needle was placed at left T3. Under direct fluoroscopic visualization a Quincke-tipped spinal needle was advanced to the junction of the superior articulating process with the transverse process at the designated medial branch segment.? Preceded by negative aspiration, the above-mentioned injectate was placed in 1 mL aliquots.? The procedure was repeated at left T4, 5.? The needle was removed and insertion site was covered. The same procedure, at the same levels, was completed on the right side. The patient was taken to the postprocedural recovery area and monitored for an appropriate length of time before found suitable for discharge in the company of a responsible adult. Anesthesia: Local Surgeon: Hardy Agosto Pathology: none sent Condition: stable Disposition: no change
== END 2025-01-05 09:08 | disposition home or self-care (01) ==
LOC: SURGOUT 08:07
PROVIDERS: PCP Nurse Practitioner Family; Visit Provider Anesthesiology
DX: M47.814 Spondylosis without myelopathy or radiculopathy, thoracic region (principal); M54.6 Pain in thoracic spine
CPT/HCPCS: 64490; 64491; J0665

== ENCOUNTER 2025-01-08 09:15 | Outpatient (OUT) | payer MEDICARE, SELFPAY ==
--- OUTSIDE RECORDS SUMMARY | 2024-06-24 04:03 | XMS_ITS ---
Author Organization The [facility] in [place] Address [address] [place] [address] Care Team Providers Care Building Carpenter Helper Name Role Phone Gaby Levine Primary Care Provider REASON FOR VISIT b/p readings Medications Medication SIG (Take, Route, Frequency, Duration) Notes Start Date End Date Status Metoprolol Tartrate 50 MG 1 tablet with food Orally Twice a day for 30 days 06/05/2024 Active Encounters Encounter Location Date Provider Diagnosis [facility] [address] [place] [address] 06/24/2024 Gaby Levine Plan Of Treatment Medication Medication Name Sig Start Date Stop Date Notes Lisinopril 40 MG TAKE 1 TABLET BY MOUTH EVERY DAY Metoprolol Tartrate 50 MG 1 tablet with food Orally Twice a day for 30 days 06/05/2024 Next Appt Details Provider Name:Gaby garza, 04/28/2025 09:00:00 AM, [address] [place], [address], Progress Notes * Mario SIMMONS WDOB:[birth year] (34 yo M)Acc No.[id number]:06/24/2024 Patient: Mario NAYLOR :1990 A ge:34 Y S ex:Male Address:[address] [place] [address], [address], [place] [address] * Refills Stop Lisinopril Tablet, 40 MG, TAKE 1 TABLET BY MOUTH EVERY DAY Refill Metoprolol Tartrate Tablet, 50 MG, Orally, 60, 1 tablet with food, Twice a day, 30 days, Refills=11 * true * Date: Generated for Mario hall/Julissa/Milagros on: 0 2025 02:12 PM EDT
--- OUTSIDE RECORDS SUMMARY | 2024-07-11 09:23 | XMS_ITS ---
Author Organization The [facility] in [place] Address [address] [place] [address] Care Team Providers Care Placement Assistant Name Role Phone Gaby Levine Primary Care Provider REASON FOR VISIT rf metoprolol Medications Medication SIG (Take, Route, Frequency, Duration) Notes Start Date End Date Status Metoprolol Tartrate 50 MG 1 tablet with food Orally Twice a day for 30 days 06/05/2024 Active Encounters Encounter Location Date Provider Diagnosis [facility] [address] [place] [address] 07/11/2024 Gaby Levine Plan Of Treatment Medication Medication Name Sig Start Date Stop Date Notes Metoprolol Tartrate 50 MG 1 tablet with food Orally Twice a day for 30 days 06/05/2024 Next Appt Details Provider Name:Gaby garza, 04/28/2025 09:00:00 AM, [address] [place], [address], Progress Notes * Mario SIMMONS WDOB:[birth year] (34 yo M)Acc No.[id number]:07/11/2024 Patient: Juan OLEGARIOADELINA Mario [address] :1990 A ge:34 Y S ex:Male Address:[address] [place] [address], [address], [place] [address] * Refills Refill Metoprolol Tartrate Tablet, 50 MG, Orally, 60, 1 tablet with food, Twice a day, 30 days, Refills=11 * true * Date: Generated for Mario hall/Julissa/Milagros on: 0 2025 02:11 PM EDT
--- OUTSIDE RECORDS SUMMARY | 2024-09-16 06:00 | XMS_ITS ---
Author Organization [facility] Address [address] [place] [address] Care Team Providers Care Patient Care Name Role Phone Candis Ying Primary Care Provider [phone] Isis Carter [phone] REASON FOR VISIT 6 MONTH PROPHY Encounters Encounter Location Date Provider Diagnosis [facility] [address] [place] [address] 09/16/2024 Isis Hill Plan Of Treatment Next Appt Details Provider Name:Candis joshua, 01/19/2025 09:30:00 AM, [address] [place], [address], Progress Notes * GERONIMO WEEKS WDOB:[birth year] (35 yo M)Acc No.[id number]:09/16/2024 Patient: Juan MONTY GERONIMO Street Provider: To Hill :1990 A ge:34 Y S ex:Male Date:09/16/2024 Address:[address] [facility], [address], [place], [id number] Pcp:Candis Ying Subjective: * Chief Complaints: * 1 . 6 MONTH PROPHY. * Medical History: Objective: * Vitals: Assessment: Plan: * Treatment: * Images: * Electronic signature of Galina Hill on 2025 at 02:12 PM EDT Sign off status: Pending * Provider: To Hill Date: 0 09/16/2024 Generated for Mario hall/Julissa/Audreyitting on: 0 2025 02:12 PM EDT
--- OUTSIDE RECORDS SUMMARY | 2024-10-01 05:30 | XMS_ITS ---
Author Organization [facility] Address [address] [place] [address] Care Team Providers Care Day Care Home Provider Name Role Phone Candis Ying Primary Care Provider [phone] REASON FOR VISIT FILLING Encounters Encounter Location Date Provider Diagnosis [facility] [address] [place] [address] 10/01/2024 Candis Ying Plan Of Treatment Next Appt Details Provider Name:Candis joshua, 01/19/2025 09:30:00 AM, [address] [place], [address], Progress Notes * GERONIMO WEEKS WDOB:[birth year] (35 yo M)Acc No.[id number]:10/01/2024 Patient: Juan GERONIMO MILLAN Provider: Colten Ying DDS :1990 A ge:34 Y S ex:Male Date:10/01/2024 Address:[address] [facility], [address], [place], [id number] Subjective: * Chief Complaints: * 1 . FILLING. * Medical History: Objective: * Vitals: Assessment: Plan: * Treatment: * Images: * Electronic signature of Elda Ying DDS on 2025 at 02:11 PM EDT Sign off status: Pending * Provider: Colten Ying DDS Date: 0 10/01/2024 Generated for Mario hall/Julissa/Audreyitting on: 0 2025 02:11 PM EDT
--- OUTSIDE RECORDS SUMMARY | 2024-10-27 06:00 | XMS_ITS ---
Author Organization [facility] [place] Address [address] [place] [address] Care Team Providers Care Automation Engineer Name Role Phone Gaby Levine Primary Care Provider Allergies No Known Allergies REASON FOR VISIT 6 mo f/u, He has tweaked his BP meds- med list updated to reflect what he is taking- BP dips down but if takes something away then goes high Medications Medication SIG (Take, Route, Frequency, Duration) Notes Start Date End Date Status Zonisamide 50 MG 1 in the morning, 2 at bedtime Orally Active hydroCHLOROthiazide 25 MG 1 tablet in th e morning Orally Once a day for 90 days Active Lisinopril 40 MG 1 tablet Orally Once a day for 90 days 10/27/2024 Active Baclofen 10 MG 1 tablet as needed Orally Twice a day Active buPROPion HCl ER (XL) 300 MG TAKE 1 TABL ET BY MOUTH EVERY DAY FOR 90 DAYS for 90 days Active Metoprolol Tartrate 75 MG 1 tablet with food Orally Twice a day for 90 days 06/05/2024 Active Social History Tobacco Use: Social History Observation Description Date Details (start date - stop date) Current Smoker 07/23/2002 - NA Tobacco Use/Smoking Question Answer Notes Patient is a current smoker When did you start smoking? 07/23/2002 How often do you smoke cigarettes? every day How many cigarettes a day do you smoke? 11-20 How soon after you wake up do you smoke your fir st cigarette? 31-60 minutes Vital Signs Blood pressure systolic 112 mm Hg 10/28/19 25 Blood pressure diastolic 88 mm Hg 025 Height 72 in 10/27/2024 Weight 334.4 lbs 10/27/2024 BMI 45.35 kg/m2 10/27/2024 Encounters Encounter Location Date Provider Diagnosis [facility] ([place], [place]) [address] [place] [address] 10/27/2024 Gaby Dubosemer Hyperlipidemia E78.5 ; Essential (primary) hypertension I10 and Anxiety and depression F41.9 Assessments Encounter Date Diagnosis (ICD Code) Assessment Notes Treatment Notes Treatment Clinical Notes Section Notes 10/27/2024 Hyperlipidemia (ICD-10 - E78.5) 10/27/2024 Essential (primary) hypertension (ICD-10 - I10) BP ok continue to monitor continue meds 10/27/2024 Anxiety and depression (ICD-10 - F41.9) mood stable, continue Plan Of Treatment Medication Medication Name Sig Start Date Stop Date Notes hydroCHLOROthiazide 25 MG 1 tablet in th e morning Orally Once a day for 90 days Lisinopril 40 MG 1 tablet Orally Once a day for 90 days 10/27/2024 buPROPion HCl ER (XL) 300 MG TAKE 1 TABL ET BY MOUTH EVERY DAY FOR 90 DAYS for 90 days Metoprolol Tartrate 75 MG 1 tablet with food Orally Twice a day for 90 days 06/05/2024 Treatment Notes Assessment Notes Essential (primary) hypertension BP ok continue to monitor continue meds Anxiety and depression mood stable, cont inue Pending Test Test Name Order Date HEMOGLOBIN A1C (GLYCO) 10/27/2024 INSULIN, TOTAL 10/27/2024 LIPID PANEL (CHOL/TRIG/HDL/LDL) 10/28/19 25 URIC ACID 10/27/2024 THYROID PANEL (T4/TSH/FREE T3) 5 PSA, SCREENING 10/27/2024 CMP (COMP MET CLEMENS) w/eGFR CKD-EPI 2024 CBC WITH DIFF 10/27/2024 Next Appt Details Follow Up: 6 Months,Gertrude barbour son: Provider Name:Gaby garza, 04/28/2025 09:00:00 AM, [address] [place], [address], Progress Notes * Mario SIMMONS WDOB:[birth year] (34 yo M)Acc No.[id number]:10/27/2024 Progress Note Patient: Mario NAYLOR Provider: Angel Levine ([facility]), STUDY ABROAD COORDINATOR :1990 A ge:34 Y S ex:Male Date:10/27/2024 Address:[address] [place] [address], [place], [id number] Check In:09:51 AM ESTCheck O ut:10:32 AM EST Subjective: * Chief Complaints: * 1 . 6 mo f/u. 2. He has tweaked his BP meds- med list updated to reflect what he is taking- BP dips down but if takes something away then goes high. * HPI: G eneral: Patient presents for follow up to blood pressure medication management. Patient states we have adjusted medication and have landed on the current dose which he believes is working. He states he is having some BP drops where he is symptomatic, but ovreall his BP checks have been good. pain man did Botox injections helped some. D epression Screening: PHQ-9 L ittle interest or pleasure in doing things?Several days F eeling down, depressed, or hopeless M ore than half the days T rouble falling or staying asleep, or sleeping too much M ore than half the days F eeling tired or having little energy M ore than half the days P oor appetite or overeating M ore than half the days F eeling bad about yourself or that you are a failure, or have let yourself or your family down S everal days T rouble concentrating on things, such as reading the newspaper or watching television M ore than half the days M oving or speaking so slowly that other people could have noticed; or the opposite, being so fidgety or restless that you have been moving around a lot more than usual N ot at all T houghts that you would be better off or of hurting yourself in some way N ot at all T otal Score 1 2 I nterpretation M oderate Depression * ROS: E ENT: visual changes d enies. s wollen glands or neck lumps?denies. r inging in ears d enies. G eneral/Constitutional: Sweats: D enies. F atigue d enies. B lurred vision d enies. S leep problems d enies. F atigue or Weakness d enies. F ever or Chills d enies. C ardiovascular: Shortness of Breath w/lying flat d enies. L ightheadedness/dizziness S tates he has episodes of feeling lightheaded when his BP is low.. C hest tightness/ heavy pressure d enies. S welling of legs, ankles, or feet d enies. C hest pain d enies. P alpitations d enies. R espiratory: Chronic or frequent cough d enies. D ifficulty breathing d enies. C hest pain d enies. W heezing d enies. C hronic Cough d enies. M usculoskeletal: Chronic Back Pain a dmits. * Active Problem List I10 Essential (primary) hypertension Modified On:10/31/2023U Status:confirmed M54.42 Chronic low back toan n with left-sided sciatica Modified On:10/31/2023U Status:confirmed F41.9 Anxiety and depressi on Modified On:10/31/2023U Status:confirmed F17.200 Smoker Modified On:10/31/2023U Status:confirmed E78.5 Hyperlipidemia Modified On:11/06/2023U Status:confirmed E16.1 Hyperinsulinemia Modified On:11/08/2023U Status:confirmed E66.9 Obese Modified On:05/01/2024U Status:confirmed * Medical History: A rthritis, Anxiety and depression, Abnormal liver enzymes, Dyslipidemia, Benign essential hypertension, Hypothyroid, Scheuermann's disease, Smoker. * Surgical History: B ack Surgery , Spine Injections , Tonsillectomy . * Hospitalization/Major Diagno stic Procedure: D enies Past Hospitalization. * Family History: M other: alive, depression, irritable bowel syndrome, diagnosed with Unspecified essential hypertension, Unspecified heart disease. M aternal Grandfather: COPD. M aternal Grandmother: stroke, diagnosed with Unspecified essential hypertension, Unspecified heart disease. 1 son(s) , 1 daughter(s) . . * Social History: T obacco Use: T obacco Use/Smoking P palak is a c urrent smoker W hen did you start smoking? 0 07/23/2002 H ow often do you smoke cigarettes? e very day H ow many cigarettes a day do you smoke? 1 1-20 H ow soon after you wake up do you smoke your first cigarette? 3 1-60 minutes * Medications: T aking Baclofen 10 MG Tablet 1 tablet as needed Orally Twice a day , Taking buPROPion HCl ER (XL) 300 MG Tablet Extended Release 24 Hour TAKE 1 TABLET BY MOUTH EVERY DAY FOR 90 DAYS , Taking hydroCHLOROthiazide 25 MG Tablet 1 tablet in the morning Orally Once a day , Taking Lisinopril 40 MG Tablet 1 tablet Orally Once a day , Taking Metoprolol Tartrate 75 MG Tablet 1 tablet with food Orally Twice a day , Taking Zonisamide 50 MG Capsule 1 in the morning, 2 at bedtime Orally , Medication List reviewed and reconciled with the patient * Allergies: N .K.D.A. Objective: * Vitals: W t:334.4lbs, Ht: 72 in, BP:112/88mm Hg, BMI:45.35Index, Ht-cm: 182.88 cm, Wt-k.68 kg. * Examination: P hysical Exam: GENERAL: w ell developed, well nourished, in no acute distress. HEAD: n ormocephalic/atraumatic. EYES: p upils equal, round and reactive to light, conjunctivae and sclerae normal. MOUTH: m ucous membranes moist, normal oropharynx and posterior pharynx without lesions or exudates, tongue normal, dentition normal. NECK: n judi supple, no masses or palpable cervical nodes, trachea midline, thyroid without nodules, masses, tenderness, or enlargement. CHEST: n o chest wall deformity, no chest wall tenderness.? LUNGS: n ormal respiratory effort and clear to auscultation, no wheezes, rales, or rhonchi, good air exchange. CARDIO: r egular rate and rhythm, normal S1 and S2, nor murmur, rub, or gallop. PULSES: n ormal capillary refill. MUSCULOSKELETAL: n o deformity or scoliosis noted, normal range of motion, joints normal, no erythema, edema, effusion, or ecchymosis. EXTREMITY: n o clubbing, cyanosis, edema, or deformity with normal ROM in both upper and lower bilateral extremities. NEUROLOGIC: g rossly normal. LYMPH NODES: n o cervical adenopathy, nodes normal. MENTAL STATUS: a lert and oriented x3, normal mood and affect. Assessment: * Assessment: 1. H yperlipidemia - E78.5 (Primary) 2 . E ssential (primary) hypertension - I10 3 . A nxiety and depression - F41.9 Plan: * Treatment: 2. E ssential (primary) hypertension Refill Metoprolol Tartrate Tablet, 75 MG, 1 tablet with food, Orally, Twice a day, 90 days, 180 Tablet, Refills 3; R efill hydroCHLOROthiazide Tablet, 25 MG, 1 tablet in the morning, Orally, Once a day, 90 days, 90 Tablet, Refills 3; R efill Lisinopril Tablet, 40 MG, 1 tablet, Orally, Once a day, 90 days, 90 Tablet, Refills 3. Notes: BP ok continue to monitor continue meds 3. A nxiety and depression Refill buPROPion HCl ER (XL) Tablet Extended Release 24 Hour, 300 MG, TAKE 1 TABLET BY MOUTH EVERY DAY FOR 90 DAYS, 90 days, 90 Tablet, Refills 3. Notes: mood stable, continue * Preventive Medicine: Screenings/Counseling: B RI ACTION PLAN Above Normal BMI Follow-up D ietary management education, guidance, and counseling * Follow Up: 6 Months,prn * * Sign off status: Completed Visit Status: C HK (Check Out) true * Provider: Angel Levine ([facility]), STUDY ABROAD COORDINATOR Date: 0 10/27/2024 Generated for Mario hall/Julissa/Audreyitting on: 0 2025 02:12 PM EDT History and Physical Notes * HPI (History of Present Illness) Category Sub-Category Detail Notes Category Not es Depression Screening PHQ-9 Little inte rest or pleasure in doing things: Several days Feeling down, depressed, or hopeless: Mo re than half the days Trouble falling or staying a sleep, or sleeping too much: More than half the days Feeling tired or having little energy: M ore than half the days Poor appetite or overeating: More than h heraclio the days Feeling bad about yourself o r that you are a failure, or have let yourself or your family down: Several days Trouble concentrating on thi ngs, such as reading the newspaper or watching television: More than half the days Moving or speaking so slowly that other people could have noticed; or the opposite, being so fidgety or restless that you have been moving around a lot more than usual: Not at all Thoughts that you would be b nolan off or of hurting yourself in some way: Not at all Total Score: 12 Interpretation: Moderate Depression General Patient presents for follow up to blood pressure medication management. Patient states we have adjusted medication and have landed on the current dose which he believes is working. He states he is having some BP drops where he is symptomatic, but ovreall his BP checks have been good. pain man did Botox injections helped some Examination Category Sub-Category Detail Notes Category Not es Physical Exam GENERAL: well developed, well nourished, in no acute distress HEAD: normocephalic/atraum atic EYES: pupils equal, round and reactive to light, conjunctivae and sclerae normal MOUTH: mucous membranes [facility] [facility], normal oropharynx and posterior pharynx without lesions or exudates, tongue normal, dentition normal NECK: neck supple, no mass es or palpable cervical nodes, trachea midline, thyroid without nodules, masses, tenderness, or enlargement CHEST: no chest wall deform ity, no chest wall tenderness LUNGS: normal respiratory e ffort and clear to auscultation, no wheezes, rales, or rhonchi, good air exchange CARDIO: regular rate and rhy thm, normal S1 and S2, nor murmur, rub, or gallop PULSES: normal capillary ref ill MUSCULOSKELETAL: no deformity or scol iosis noted, normal range of motion, joints normal, no erythema, edema, effusion, or ecchymosis EXTREMITY: no clubbing, cyanosi s, edema, or deformity with normal ROM in both upper and lower bilateral extremities NEUROLOGIC: grossly normal LYMPH NODES: no cervical adenopat hy, nodes normal MENTAL STATUS: alert and oriented x 3, normal mood and affect
--- NOTE | 2025-01-08 13:54 | PM.CN ---
Consult Note: HPI Data of Consult Patient: known to practice within the last 3 years Requesting Physician: Letty Ayala NP Primary Care Provider: ERNST PENA Consult Narrative Reason for consult: back pain Narrative: Benji Cunningham a pleasant 35 year old male presents for evaluation and management of chronic back pain. Patient has a longstanding of myofascial pain and dystonia, T6-L2 fusion. Patient has found benefit to baclofen 10mg TID PRN pain/spasms and zonegran 100mg BID. Pain today 4/10 aching in upper back increasing to 10/10 with lifting, twisting, standing, walking, housework, activity. pain mildly improved with heat, tens, sitting and sleep. prior thoracic/lumbar imaging consistent with spondylosis and mutlievel degenerative changes above and below fusion. recently underwent bilateral T3/4 T4/5 MBB #1 with at least 80% improvement while anesthetized, notes pain preop 10/10 post op pain 2/10. cc:: CC: Letty Ayala NP Review of Systems ROS Status of ROS 10 or more systems reviewed and unremarkable except as noted in history and below Musculoskeletal Reports: back pain PFSH PFSH Medical History (Updated 12/03/24 @ 09:24 by Letty Ayala NP) Anxiety ?F41.9 - Anxiety disorder, unspecified (ICD-10) HTN (hypertension) ?I10 - Essential (primary) hypertension (ICD-10) Surgical History History of spinal fusion ?Z98.1 - Arthrodesis status (ICD-10) Meds Home Medications and Allergies Home Medications ?Medication ?Instructions ?Recorded ?Confirmed ?Type bupropion HCl 300 mg 24 hr tablet, 300 mg PO DAILY 11/06/23 01/05/25 History extended release (Wellbutrin XL) hydrochlorothiazide 25 mg tablet 25 mg PO DAILY 11/06/23 01/05/25 History lisinopril 40 mg tablet 40 mg PO DAILY 11/06/23 01/05/25 History metoprolol tartrate 50 mg tablet 75 mg PO BID 11/06/23 01/05/25 History zonisamide 100 mg capsule 100 mg PO .HS 11/06/23 01/05/25 History (Zonegran) baclofen 10 mg tablet 10 mg PO TID PRN muscle spasm #270 07/21/24 01/05/25 Rx tabs zonisamide 50 mg capsule See Rx Instructions .Route 07/21/24 01/05/25 Rx .COMPLEX #270 caps Allergies Allergy/AdvReac Type Severity Reaction Status Date / Time No Known Drug Allergies Allergy Verified 01/05/25 08:35 Exam Constitutional Documenting provider has reviewed patient's vital signs: yes Common normals: no apparent distress, oriented x3, healthy appearing, alert and well nourished General appearance: cooperative HENMT Common normals: normocephalic, hearing grossly normal bilaterally and moist oral mucous membranes Head and scalp: normocephalic Eye Common normals: PERRL Pupil: PERRL Neck & C-Spine Common normals: full ROM General: normal visual inspection Chest Common normals: inspection of chest normal Respiratory Common normals: normal respiratory effort, no retractions and no use of accessory muscles Back & Pelvis Thoracic spine/upper back: pain with ROM, thoracic spinal tenderness, paraspinal muscle tenderness and paraspinal muscle spasm Lumbar spine/lower back: pain with ROM and paraspinal muscle tenderness Other: spasming noted over bilateral trapezius, erector spinae, and lattisimus dorsi bilateral facet tenderness T3-5 strength 5/5 in BUE positive facet loading Extremity Common normals: normal to inspection and full ROM Neuro Common normals: oriented x3, CN's II-XII intact bilaterally, moves all extremities, no focal motor deficits, no sensory deficits noted and deep tendon reflexes 2+ bilaterally Sensorium/orientation: alert Motor exam: strength 5/5 throughout and no movement abnormalities noted Psych Common normals: mental status grossly normal, thought process normal, cooperative, affect normal, speech normal and activity/motor behavior normal Speech: normal speech Thought process: normal thought process Assessment and Plan Assessment and Plan (1) Thoracic spondylosis: Assessment and Plan: The patient has had over 3 months of moderate to severe upper and low back pain with functional impairment and inadequate response to conservative care including NSAIDS (unless there are contraindication such as concurrent blood thinners), multiple oral or topical pain medications, and home exercise program/physical therapy.? Patient has completed >6 weeks of guided home exercise program and/or formal physical therapy program without relief of their symptoms.? The Oswestry Disability Index was completed, and the patient scored a 52%.? The patient noted the following:?? moderate to severe pain impacting ADLs, sitting, standing, walking, sleeping, social life and travel We discussed the risks and benefits of the procedure with the patient, and we are NOT planning on using sedation as outlined in the guidelines from Medicare unless there is a documented reason that sedation would be strongly recommended.?? ?The procedure will be completed with fluoroscopic guidance.? (2) Failed back syndrome: (3) Dystonia: (4) Myalgia, other site: Plan bilateral T3-4 T4-5 facet medial branch block x2 working towards RFA could consider referring to Dr Mckeon at [facility] for scs trial/implant continue tens PRN finds benefit continue current medication, finds mild benefit without side effects continue HEP as tolerated, has been engaged in provider guided HEP 2x/week > 6weeks without significant improvement in pain or functional improvement f/u after each nerve block
--- OUTSIDE RECORDS SUMMARY | 2025-01-08 14:12 | XMS_ITS | Patient Health Record ---
Author Organization [facility] Address [address] [place] [address] Care Team Providers Care Zoology Teacher Name Role Phone Kaden Shah Unavailable [phone] Reason For Referral No Information Medications Medication SIG (Take, Route, Fr equency, Duration) Notes Start Date End Date Status spironolactone Activ e citalopram Active amLODIPine Active lisinopril Active atenolol Active [place] Active Social History Tobacco Use: Social History Observation Description Date Details (start date - stop date) Former Smoker NA - NA Smoking History Question Answer Notes Smoking Status Former Smoker When did you stop smoking? 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 Problem Sciatica (28262606) Sciatica of left side (M54.32) Active confirmed Problem Low back pain (500796857) Thoracolumbar back pain (M54.5) Active confirmed Problem Muscle weakness (82841573) Left leg weakness (M62.81) Active confirmed Plan Of Treatment No Information Insurance Providers Payer Name Payer Address Payer Phone Subscriber Number Group Number Insured Name Patient Relationship to Insured Coverage Start Date Coverage End Date [employer] [address] [address] [place] [address] [id number] SALTY JIMENEZ Spouse - patient is the spouse of the insured Medical (General) History Medical History History ICD Code Bronchitis YES, Surgical History Surgery Date(Month/Year) T7-12 laminectomy, T7-12 Woods-Reese osteotomies, T6-L2 PSF 08/08/2018
--- OUTSIDE RECORDS SUMMARY | 2025-01-08 14:12 | XMS_ITS | Patient Health Record ---
Author Organization [facility] Address [address] [place] [address] Care Team Providers Care Bending Roll Operator Name Role Phone Candis Ying Primary Care Provider Chris Martin Unavailable [phone] Isis Hlil Unavailable [phone] Reason For Referral No Information Medications Medication SIG (Take, Route, Fr equency, Duration) Notes Start Date End Date Status Lisinopril Active hydroCHLOROthiazide Active Encounters Encounter Location Date Provider Diagnosis [facility] [address] [place] [address] 03/13/2024 [place] [place] Dental caries on pit and fissure surface penetrating into dentin K02.52 and Acute gingivitis, plaque induced K05.00 [facility] [address] [facility] [place] [address] 06/09/2024 Candis Ying Dental caries on pit and fissure surface penetrating into dentin K02.52 Assessments Encounter Date Diagnosis (ICD Code) Assessment [...] Provider Name:Candis joshua, 01/19/2025 09:30:00 AM, [address] [place], [address], Insurance Providers Payer Name Payer Address Payer Phone Subscriber Number Group Number Insured Name Patient Relationship to Insured Coverage Start Date Coverage End Date [facility] [address] [address] [place] [address] [id number] GERONIMO WEEKS Self - patient is the insured 3 DENTAL [place] [employer] [address] [place] [address] [phone] [id number] GERONIMO WEEKS Self - patient is the insured 4
--- OUTSIDE RECORDS SUMMARY | 2025-01-08 14:13 | XMS_ITS | Patient Health Record ---
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 Name Role Phone Gaby Levine Primary Care Provider Allergies No Known Allergies Reason For Referral [...] Problem Status W/U Status Risk Notes Problem 99364565 Essential (primary) hypertension (I10) Active confirmed Problem Hyperlipidemia (14773534) Hyperlipidemia (E78.5) Active confirmed Problem Smoker (37423938) Smoker (F17.200) Active confi rmed Problem Obese (210775738) Obese (E66.9) Active confirme d Problem Hyperinsulinemia (11696571) Hyperinsulinemia (E16.1) Active confirmed Problem Mixed anxiety and depressive disorder (933273406) Anxiety and depression (F41.9) Active confirmed Problem Sciatica (63630205) Chronic low back pain with left-sided sciatica (M54.42) Active confirmed Vital Signs Blood pressure diastolic 88 mm Hg 10/27/2024 Height 72 in 10/27/2024 Blood pressure systolic 112 mm Hg 10/27/2024 Weight 334.4 lbs 10/27/2024 BMI 45.35 kg/m2 10/27/2024 Encounters Encounter Location Date Provider Diagnosis [facility] [address] [place] [address] 05/01/2024 Gaby Levine Essential (primary) hypertension I10 and Obese E66.9 [facility] [address] [place] [address] 10/27/2024 Gaby Levine Hyperlipidemia E78.5 ; Essential (primary) hypertension I10 and Anxiety and depression F41.9 [facility] [address] [place] [address] 05/12/2024 Gaby Levine [facility] [address] [place] [address] 05/23/2024 Gaby Levine [facility] [address] [place] [address] 06/05/2024 Gaby Levine [facility] [address] [place] [address] 06/10/2024 Gaby Levine [facility] [address] [place] [address] 06/24/2024 Gaby Levine [facility] [address] [place] [address] 07/11/2024 Gaby Levine Assessments Encounter Date Diagnosis (ICD Code) Assessment [...] Name:Gaby garza, 04/28/2025 09:00:00 AM, [address] [place], [address], Insurance Providers Payer Name Payer Address Payer Phone Subscriber Number Group Number Insured Name Patient Relationship to Insured Coverage Start Date Coverage End Date [facility] [employer] PR[facility] MEDICARE [address] [place] [address] [id number] Mario Simmons Self - patient is the insured [place] 2ND INS [address] OFF[place], [place] [id number] [phone] [id number] Mario Simmons Self - patient is the insured 3 Medical (General) History Medical History History ICD Code Arthritis M19.90 Anxiety and depression F41.8 Abnormal liver enzymes R74.8 Dyslipidemia E78.5 Benign essential hypertension I10 Hypothyroid E03.9 Scheuermann's disease M42.00 Smoker F17.200 Surgical History Surgery Date(Month/Year) Back Surgery Spine Injections Tonsillectomy
== END 2025-01-08 09:16 | disposition home or self-care (01) ==
LOC: PM 14:10
PROVIDERS: PCP Nurse Practitioner Family; Visit Provider Nurse Practitioner
DX: M47.814 Spondylosis without myelopathy or radiculopathy, thoracic region (principal); M96.1 Postlaminectomy syndrome, not elsewhere classified; G24.9 Dystonia, unspecified; M79.18 Myalgia, other site
CPT/HCPCS: G0463

== ENCOUNTER 2025-01-19 07:22 | Day surgery (SDC) | payer MEDICARE, SELFPAY ==
--- OUTSIDE RECORDS SUMMARY | 2025-01-19 07:25 | XMS_ITS | CCD ---
Author Organization [facility] Care Team Providers Care Top Installer Name Role Phone PHYSICIAN, DEFAULT Unavailable Unavailable PHYSICIAN, DEFAULT Unavailable Unavailable ELGAFY, COOKIE K Unavailable Unavailable ELGAFY, COOKIE K Unavailable Unavailable ELGAFY, COOKIE K Unavailable Unavailable UNKNOWN, PHYSICIAN Unavailable Unavailable ERNST PENA Primary Care Unavailable TAISHA, DR SCOOTER Webster Attending Unavailable DR SCOOTER SUMNER Admitting Unavailable CHANTE HERNANDEZ Consulting Unavailable BECKY, ERNST Primary Care Unavailable ERNST PENA Admitting Unavailable ERNST PENA Attending Unavailable ERNST PENA Consulting [facility] Unavaila ble MARCIA, SELVON F Referring Unavailable MARCIA, SELVON F Attending Unavailable MARCIA, SELVON F Admitting Unavailable Triny LIM, Hardy Castillo Attending Unavailable Allergies Allergy Classification Reported Allergen(s) Allergy Type Date of Onset Reaction(s) Facility (1 source) No Known Medication Allergies; Translations: [No Known Medication Allergies] Propensity to adverse reactions to drug (disorder) [facility] Repository Problems Problem Classification Problem Date [...] INSULINon 02-02-2022 Insulin 16.5 uIU/mL Normal 2.6-24.9 [facility] Comment on above: Performed By: #### I NSULIN #### [facility] [address] [place] [address] Dr. Armida Brown CBC AUTO DIFFon 02-01-2022 BASO # 0.1 103/ul Normal 0.0-0.1 [facility] Comment on above: Performed By: #### C BC #### [facility] [address] [place] [address] Dr. Armida Brown Basophils/100 WBC (Bld) 0.9 % Normal 0.2-2.0 [facility] Comment on above: Performed By: #### C BC #### [facility] [address] [place] [address] Dr. Armida Brown EO # 0.4 103/ul Normal 0.0-0.7 [facility] Comment on above: Performed By: #### C BC #### [facility] [address] [place] [address] Dr. Armida Brown Eosinophils/100 WBC (Bld) 4.7 % Normal 0.9-7.0 [facility] Comment on above: Performed By: #### C BC #### [facility] [address] [place] [address] Dr. Armida Brown Erythrocyte distribution width (RBC) [Ratio] 13.1 % Normal 11.0-15.0 [facility] Comment on above: Performed By: #### C BC #### [facility] [address] [place] [address] Dr. Armida Brown Hematocrit (Bld) [Volume fraction] 48.6 % Normal 42.0-54.0 [facility] Comment on above: Performed By: #### C BC #### [facility] [address] [place] [address] Dr. Armida Brown Hemoglobin (Bld) [Mass/Vol] 16.5 g/dL Normal 14.0-18.0 [facility] Comment on above: Performed By: #### C BC #### [facility] [address] [place] [address] Dr. Armida Brown IG # 0.05 10e3/ul Critically high 0.00-0.03 [facility] Comment on above: Performed By: #### C BC #### [facility] [address] [place] [address] Dr. Armida Brown IG % 0.6 % Critically high 0.0-0.5 [facility] Comment on above: Performed By: #### C BC #### [facility] [address] [place] [address] Dr. Armida Brown LYMPH # 1.7 103/ul Normal 1.2-3.8 [facility] Comment on above: Performed By: #### C BC #### [facility] [address] [place] [address] Dr. Armida Brown Lymphocytes/100 WBC (Bld) 19.6 % Critically low 20.5-60.0 [facility] Comment on above: Performed By: #### C BC #### [facility] [address] [place] [address] Dr. Armida Brown MANUAL DIFF REQ NO Normal [facility] Comment on above: Performed By: #### C BC #### [facility] [address] [place] [address] Dr. Armida Brown MCH (RBC) [Entitic mass] 30.1 pg Normal 25.9-34.0 [facility] Comment on above: Performed By: #### C BC #### [facility] [address] [place] [address] Dr. Armida Brown MCHC (RBC) [Mass/Vol] 34.0 g/dL Normal 29.9-35.2 [facility] Comment on above: Performed By: #### C BC #### [facility] [address] [address] [address] Armida Brown MCV (RBC) [Entitic vol] 88.5 fL Normal 80.0-94.0 [facility] Comment on above: Performed By: #### C BC #### [facility] [address] [place] [address] Dr. Armida Brown MONO # 0.5 103/ul Normal 0.3-0.8 [facility] Comment on above: Performed By: #### C BC #### [facility] [address] [place] [address] Dr. Armida Brown Monocytes/100 WBC (Bld) 5.6 % Normal 1.7-12.0 [facility] Comment on above: Performed By: #### C BC #### [facility] [address] [place] [address] Dr. Armida Brown NEUT # 6.1 103/ul Normal 1.4-6.5 [facility] Comment on above: Performed By: #### C BC #### [facility] [address] [place] [address] Dr. Armida Brown Neutrophils/100 WBC (Bld) 68.6 % Normal 43.0-75.0 [facility] Comment on above: Performed By: #### C BC #### [facility] [address] [place] [address] Dr. Armida Brown Platelet mean volume (Bld) [Entitic vol] 9.3 fL Critically low 9.5-13.5 [facility] Comment on above: Performed By: #### C BC #### [facility] [address] [place] [address] Dr. Armida Brown PLT 293 103/ul Normal 150-450 [facility] Comment on above: Performed By: #### C BC #### [facility] [address] [place] [address] Dr. Armida Brown RBC 5.49 106/ul Normal 4.70-6.10 [facility] Comment on above: Performed By: #### C BC #### [facility] [address] [place] [address] Dr. Armida Brown WBC 8.9 103/ul Normal 4.0-11.0 [facility] Comment on above: Performed By: #### C BC #### [facility] [address] [place] [address] Dr. Armida Brown FREE THYROXINE INDEX T7on FTI 3.33 Normal 1.30-4.50 [facility] Comment on above: Performed By: #### T SH, CMP, URIC, LIPID, T7 #### [facility] [address] [place] [address] Dr. Armida Brown T3U 35.0 % Normal 33.0-40.0 [facility] Comment on above: Performed By: #### T SH, CMP, URIC, LIPID, T7 #### [facility] [address] [place] [address] Dr. Armida Brown T4 [Mass/Vol] 9.50 ug/dL Normal 4.50-12.10 [facility] Comment on above: Performed By: #### T SH, CMP, URIC, LIPID, T7 #### [facility] [address] [place] [address] Dr. Armida Brown GLYCOHEMOGLOBIN A1Con 2021 ADA RECOMMENDATION SEE BELOW Normal [facility] Comment on above: Result Comment: ADA RECOMMENDED LIMIT 4.0 - 6.0 ADA THERAPEUTIC TARGET < 7.0 ACTION SUGGESTED > 7.0 Performed By: #### A 1C #### [facility] [address] [place] [address] Dr. Armida Brown Glucose [Mass/Vol] 103 mg/dL Normal [facility] Comment on above: Performed By: #### A 1C #### [facility] [address] [place] [address] Dr. Armida Brown HbA1c (Bld) [Mass fraction] 5.2 % Normal 4.5-6.2 [facility] Comment on above: Performed By: #### A 1C #### [facility] [address] [address] [address] Armida Brown LIPID PROFILEon 02-01-2022 CHOL-HDL RATIO NORM SEE BELOW Normal [facility] Comment on above: Result Comment: 3.3 - 4.4 LOW RISK 4.4 - 7.1 AVERAGE RISK 7.1 - 11.0 MODERATE RISK >11.0 HIGH RISK Performed By: #### T SH, CMP, URIC, LIPID, T7 #### [facility] [address] [address] [address] Armida Brown Cholesterol [Mass/Vol] 183 mg/dL Normal <=200 [facility] Comment on above: Performed By: #### T SH, CMP, URIC, LIPID, T7 #### [facility] [address] [place] [address] Dr. Armida Brown Cholesterol in HDL [Mass/Vol] 33 mg/dL Critically low 40-60 [facility] Comment on above: Performed By: #### T SH, CMP, URIC, LIPID, T7 #### [facility] [address] [address] [address] Armida Brown Cholesterol in LDL [Mass/Vol] 123.0 mg/dL Normal [facility] Comment on above: Performed By: #### T SH, CMP, URIC, LIPID, T7 #### [facility] [address] [place] [address] Dr. Armida Brown Cholesterol.total/Ch olesterol in HDL [Mass ratio] 5.5 {ratio} Normal [facility] Comment on above: Performed By: #### T SH, CMP, URIC, LIPID, T7 #### [facility] [address] [place] [address] Dr. Armida Brown HDL NORMAL > or = 60 mg/dl - LO W CARDIOVASCULAR RISK <40 mg/dl - HIGH CARDIOVASCULAR RISK Normal [facility] Comment on above: Performed By: #### T SH, CMP, URIC, LIPID, T7 #### [facility] [address] [place] [address] Dr. Armida Brown LDL CALC NORMAL SEE BELOW Normal [facility] Comment on above: Result Comment: <100 mg/dl OPTIMAL 100 - 129 mg/dl NEAR OR ABOVE OPTIMAL 130 - 159 mg/dl BORDERLINE HIGH 160 - 189 mg/dl HIGH >190 mg/dl VERY HIGH Performed By: #### T SH, CMP, URIC, LIPID, T7 #### [facility] [address] [address] [address] Armida Brown Triglyceride [Mass/Vol] 135 mg/dL Normal <=150 [facility] Comment on above: Performed By: #### T SH, CMP, URIC, LIPID, T7 #### [facility] [address] [address] [address] Armida Brown VLDL CALC 27.0 mg/dL Normal [facility] Comment on above: Performed By: #### T SH, CMP, URIC, LIPID, T7 #### [facility] [address] [address] [address] Armida Brown PROF 14(COMP METB)on 022 Albumin [Mass/Vol] 4.1 g/dL Normal 3.4-5.0 [facility] Comment on above: Performed By: #### T SH, CMP, URIC, LIPID, T7 #### [facility] [address] [address] [address] Armida Brown Albumin/Globulin [Mass ratio] 1.1 {ratio} Normal [facility] Comment on above: Performed By: #### T SH, CMP, URIC, LIPID, T7 #### [facility] [address] [address] [address] Armida Brown ALP [Catalytic activity/Vol] 79 U/L Normal 46-116 [facility] Comment on above: Performed By: #### T SH, CMP, URIC, LIPID, T7 #### [facility] [address] [address] [address] Armida Brown ALT [Catalytic activity/Vol] 58 U/L Normal 16-63 [facility] Comment on above: Performed By: #### T SH, CMP, URIC, LIPID, T7 #### [facility] [address] [address] [address] Armida Brown Anion gap [Moles/Vol] 12.6 mmol/L Normal [facility] Comment on above: Performed By: #### T SH, CMP, URIC, LIPID, T7 #### [facility] [address] [place] [address] Dr. Armida Brown AST [Catalytic activity/Vol] 23 U/L Normal 15-37 [facility] Comment on above: Performed By: #### T SH, CMP, URIC, LIPID, T7 #### [facility] [address] [place] [address] Dr. Armida Brown Bilirubin [Mass/Vol] 0.6 mg/dL Normal 0.2-1.0 [facility] Comment on above: Performed By: #### T SH, CMP, URIC, LIPID, T7 #### [facility] [address] [place] [address] Dr. Armida Brown Calcium [Mass/Vol] 8.9 mg/dL Normal 8.5-10.1 [facility] Comment on above: Performed By: #### T SH, CMP, URIC, LIPID, T7 #### [facility] [address] [place] [address] Dr. Armida Brown Chloride [Moles/Vol] 104 mmol/L Normal 98-107 [facility] Comment on above: Performed By: #### T SH, CMP, URIC, LIPID, T7 #### [facility] [address] [place] [address] Dr. Armida Brown CO2 [Moles/Vol] 26.7 mmol/L Normal 21.0-32.0 [facility] Comment on above: Performed By: #### T SH, CMP, URIC, LIPID, T7 #### [facility] [address] [place] [address] Dr. Armida Brown Creatinine [Mass/Vol] 0.99 mg/dL Normal 0.70-1.30 [facility] Comment on above: Performed By: #### T SH, CMP, URIC, LIPID, T7 #### [facility] [address] [place] [address] Dr. Armida Brown EGFR-AF NICARAGUAN >60 Normal >=60 [facility] Comment on above: Performed By: #### T SH, CMP, URIC, LIPID, T7 #### [facility] [address] [address] [address] Armida Brown EGFR-NON AF NICARAGUAN >60 Normal >=60 [facility] Comment on above: Performed By: #### T SH, CMP, URIC, LIPID, T7 #### [facility] [address] [address] [address] Armida Brown Globulin (S) [Mass/Vol] 3.6 g/dL Normal [facility] Comment on above: Performed By: #### T SH, CMP, URIC, LIPID, T7 #### [facility] [address] [address] [address] Armida Brown Glucose [Mass/Vol] 100 mg/dL Normal 74-[address] [facility] Comment on above: Performed By: #### T SH, CMP, URIC, LIPID, T7 #### [facility] [address] [address] [address] Armida Brown Potassium [Moles/Vol] 4.3 mmol/L Normal 3.5-5.1 [facility] Comment on above: Performed By: #### T SH, CMP, URIC, LIPID, T7 #### [facility] [address] [address] [address] Armida Brown Protein [Mass/Vol] 7.7 g/dL Normal 6.4-8.[address] [facility] Comment on above: Performed By: #### T SH, CMP, URIC, LIPID, T7 #### [facility] [address] [address] [address] Armida Brown Sodium [Moles/Vol] 139 mmol/L Normal 136-[address] [facility] Comment on above: Performed By: #### T SH, CMP, URIC, LIPID, T7 #### [facility] [address] [address] [address] Armida Brown Urea nitrogen [Mass/Vol] 16.0 mg/dL Normal 7.0-18.0 [facility] Comment on above: Performed By: #### T SH, CMP, URIC, LIPID, T7 #### [facility] [address] [address] [address] Armida Brown Urea nitrogen/Creatinine [Mass ratio] 16.2 mg/mg Normal [facility] Comment on above: Performed By: #### T SH, CMP, URIC, LIPID, T7 #### [facility] [address] [place] [address] Dr. Armida Brown TSHon 02-01-2022 TSH 1.176 uIU/mL Normal 0.358-3.740 [facility] Comment on above: Performed By: #### T SH, CMP, URIC, LIPID, T7 #### [facility] [address] [address] [address] Armida Brown URIC ACID SERUMon 02-01-2022 Urate [Mass/Vol] 6.7 mg/dL Normal 3.5-7.2 [facility] Comment on above: Performed By: #### T SH, CMP, URIC, LIPID, T7 #### [facility] [address] [place] [address] Dr. Armida Brown SCOLIOSIS 2 VWSon 04-24-2018 [facility] 2 [facility] [place] [id number] Patient Name: BENJI WEEKS : 1990Sex: MAge: Race: WhiteMRN: [id number]. Location: 82Patient Status: OVisit #: [id number] Date: 04/24/2018 3:05:00 PMCompleted Date: 04/24/2018 03:19 PMRequesting Provider: COOKIE COLES Attending Provider: COOKIE COLES Report Copy To: Signs & Symptoms: M54.6 Pain in thoracic spine [id number]: AthenaComments: , , , Ordering Provider - COOKIE COLES MD , Exam: SCOLIOSIS 2 VWSAccession #: [id number] SCO LIOSIS 2 VWS 04/24/2018 3:19 PM EDT SIGNS AND SYMPTOMS: [...] anomalies or acute bony abnormality. Electronically signed by:Vinay Kay. Transcribed by: [email or web address], User Resident: Electronically Signed by: VINAY KAY @ 04/24/2018 10:56 PM Normal [facility] Comment on above: Order Comment: , , = ========= , Ordering Provider - COOKIE COLES MD , Encounters Encounter Date Encounter Type Care Provider Facility Start: 01-05-2025 End: 01-05-2025 ambulatory Hardy Agosto MD Facility:[facility] Start: 02-01-2022 End: 02-02-2022 ambulatory ERNST PENA Facility: Start: 06-23-2021 ambulatory ERNST PENA Facility: Start: 09-25-2018 End: 09-26-2018 ambulatory CYRIL GRADY Facility:[facility] Start: 04-24-2018 End: 04-25-2018 Patient encounter COOKIE COLES Facility:[facility] Start: 04-15-2018 End: 04-16-2018 Patient encounter DEFAULT PHYSICIAN Facility:[facility] Procedures Date Procedure Procedure Detail Performing Clinician Start: 02-01-2022 PSA screening ERNST OROURKE Comment on above: Performed By: #### P [facility] #### [facility] [address] [place] [address] Dr. Armida Brown Payers Date Payer Category Payer Medicaid 2024 Medicare 2018 Unknown 2017 Unknown [id number] 1990 Unknown [id number] 2.16.8 [id number] 1990 Unknown [id number] 2.16.8 [id number] 1990 Unknown [id number] 2.16.84 [id number] 1988 Unknown [id number] 2.16.84 [id number] 1988 Unknown [id number] 2.16.84 [id number] 1988 Unknown [id number] 2.16.84 [id number] 1988 Unknown [id number] 2.16. [id number] 1961 Medicaid [id number] 1961 Medicare [id number] 1961 Unknown [id number] Unknown [id number] Summary Purpose Family History No Family History Records FoundNo Family History Records FoundNo Family History Records FoundNo Family History Records Found Advance Directives No Advanced Directives Records FoundNo Advanced Directives Records FoundNo Advanced Directives Records FoundNo Advanced Directives Records Found Additional Source Comments (unrecognized sect ion and content) No Status Records FoundNo Status Records FoundNo Status Records FoundNo Status Records Found INFORMATION SOURCE (unrecogn ized section and content) DATE CREATED AUTHOR 05/29/2018 [facility] DATE CREATED AUTHOR AUTHOR'S ORGANIZ ATION 02/15/2022 [facility] DATE CREATED AUTHOR AUTHOR'S ORGANIZ ATION 09/27/2022 [facility] DATE CREATED AUTHOR AUTHOR'S ORGANIZ ATION 01/15/2025 [facility] FOR RECORDS PERTAINING TO PATIENTS WHO [...] BE BASED ON THE PRIMARY CLINICAL RECORDS. [employer] [facility]. provides no warranty or guarantee of the accuracy or completeness of information in this document.
[2025-01-19 07:37] VITALS: BP 149/93; PULSE 76; TEMP 36.2; O2SAT 96
[2025-01-19 08:21] VITALS: BP 122/73; PULSE 66; O2SAT 96
[2025-01-19] MEDS: BUPIVACAINE HCL 0.25% PF 25 MG/10 ML VIAL 8 ML INJ (08:22)
[2025-01-19] MEDS: LIDOCAINE HCL 2% 400 MG/20 ML MDV INJ (08:22)
[2025-01-19 08:23] VITALS: BP 124/76; PULSE 74; O2SAT 96
--- NOTE | 2025-01-19 08:28 | W.PM.PROCNOT ---
Date of procedure: 01/19/25 Pre-op diagnosis: Pain due to thoracic spondylosis without myelopathy Post-op diagnosis: same as pre-op Procedure: Procedure: Bilateral T3-4, 4-5 medial branch block Medications: Bupivacaine 0.25% 6cc The patient was seen and examined in the preoperative holding area.? An informed consent was obtained and placed on the chart.? The patient was brought to the medical procedure unit and placed in the prone position.? A timeout was completed verifying correct patient, procedure site, positioning, plan, and special equipment.? Using aseptic technique, the needle was placed at left T3. Under direct fluoroscopic visualization a Quincke-tipped spinal needle was advanced to the junction of the superior articulating process with the transverse process at the designated medial branch segment.? Preceded by negative aspiration, the above-mentioned injectate was placed in 1 mL aliquots.? The procedure was repeated at left T4, 5.? The needle was removed and insertion site was covered. The same procedure, at the same levels, was completed on the right side. The patient was taken to the postprocedural recovery area and monitored for an appropriate length of time before found suitable for discharge in the company of a responsible adult. Anesthesia: Local Surgeon: Hardy Agosto Pathology: none sent Condition: stable Disposition: no change
== END 2025-01-19 08:29 | disposition home or self-care (01) ==
LOC: SURGOUT 07:23
PROVIDERS: PCP Nurse Practitioner Family; Visit Provider Anesthesiology
DX: M47.814 Spondylosis without myelopathy or radiculopathy, thoracic region (principal); M54.6 Pain in thoracic spine
CPT/HCPCS: 64490; 64491; J0665

== ENCOUNTER 2025-01-22 09:37 | Outpatient (OUT) | payer MEDICARE, SELFPAY ==
--- OUTSIDE RECORDS SUMMARY | 2024-06-24 04:03 | XMS_ITS ---
Author Organization The [facility] in [place] Address [address] [place] [address] Care Team Providers Care Real Estate Economist Name Role Phone Gaby Levine Primary Care Provider [phone] REASON FOR VISIT b/p readings Medications Medication SIG (Take, Route, Frequency, Duration) Notes Start Date End Date Status Metoprolol Tartrate 50 MG 1 tablet with food Orally Twice a day for 30 days 06/05/2024 Active Encounters Encounter Location Date Provider Diagnosis [facility] [address] [place] [address] 06/24/2024 Gaby Levine Plan Of Treatment Medication Medication Name Sig Start Date Stop Date Notes Lisinopril 40 MG TAKE 1 TABLET BY MOUTH EVERY DAY Metoprolol Tartrate 50 MG 1 tablet with food Orally Twice a day for 30 days 06/05/2024 Next Appt Details Provider Name:Gaby garza, 04/28/2025 09:00:00 AM, [address] [place], [address], Progress Notes * Mario SIMMONS WDOB:[birth year] (34 yo M)Acc No.[id number]:06/24/2024 Patient: Mario NAYLOR :1990 A ge:34 Y S ex:Male Address:[address] [place] [address], [address], [place] [address] * Refills Stop Lisinopril Tablet, 40 MG, TAKE 1 TABLET BY MOUTH EVERY DAY Refill Metoprolol Tartrate Tablet, 50 MG, Orally, 60, 1 tablet with food, Twice a day, 30 days, Refills=11 * true * Date: Generated for Mario hall/Julissa/Milagros on: 0 01/22/2025 09:40 AM EDT
--- OUTSIDE RECORDS SUMMARY | 2024-07-11 09:23 | XMS_ITS ---
Author Organization The [facility] in [place] Address [address] [place] [address] Care Team Providers Care Sample Room Supervisor Name Role Phone Gaby Levine Primary Care Provider REASON FOR VISIT rf metoprolol Medications Medication SIG (Take, Route, Frequency, Duration) Notes Start Date End Date Status Metoprolol Tartrate 50 MG 1 tablet with food Orally Twice a day for 30 days 06/05/2024 Active Encounters Encounter Location Date Provider Diagnosis [facility] [address] [place] [address] 07/11/2024 Gaby Levine Plan Of Treatment Medication Medication Name Sig Start Date Stop Date Notes Metoprolol Tartrate 50 MG 1 tablet with food Orally Twice a day for 30 days 06/05/2024 Next Appt Details Provider Name:Gaby garza, 04/28/2025 09:00:00 AM, [address] [place], [address], Progress Notes * Mario SIMMONS WDOB:[birth year] (34 yo M)Acc No.[id number]:07/11/2024 Patient: Juan OLEGARIOADELINA Mario Street :1990 A ge:34 Y S ex:Male Address:[address] [place] [address], [address], [place] [address] * Refills Refill Metoprolol Tartrate Tablet, 50 MG, Orally, 60, 1 tablet with food, Twice a day, 30 days, Refills=11 * true * Date: Generated for Mario hall/Julissa/Milagros on: 0 01/22/2025 09:39 AM EDT
--- OUTSIDE RECORDS SUMMARY | 2024-09-16 06:00 | XMS_ITS ---
Author Organization [facility] Address [address] [place] [address] Care Team Providers Care Steward/Stewardess Deck Name Role Phone Candis Ying Primary Care Provider [phone] Isis Carter [phone] REASON FOR VISIT 6 MONTH PROPHY Encounters Encounter Location Date Provider Diagnosis [place] [address] [place] [address] 09/16/2024 Isis Hill Plan Of Treatment No Information Progress Notes * GERONIMO WEEKS WDOB:[birth year] (35 yo M)Acc No.[id number]:09/16/2024 Patient: Juan MILLAN GERONIMO Yenifer Provider: To Hill :1990 A ge:34 Y S ex:Male Date:09/16/2024 Address:[address] [place] [address], [address], [place], [id number] Pcp:Candis Ying Subjective: * Chief Complaints: * 1 . 6 MONTH PROPHY. * Medical History: Objective: * Vitals: Assessment: Plan: * Treatment: * Images: * Electronic signature of Galina Hill on 01/22/2025 at 09:40 AM EDT Sign off status: Pending * Provider: To Hill Date: 09/16/2024 Generated for Dignai rafael/Fajae/eTransmitting on: 01/22/2025 09:40 AM EDT
--- OUTSIDE RECORDS SUMMARY | 2024-10-01 05:30 | XMS_ITS ---
Author Organization [facility] Address [address] [place] [address] Care Team Providers Care Electromechanical Inspector Name Role Phone Candis Ying Primary Care Provider [phone] REASON FOR VISIT FILLING Encounters Encounter Location Date Provider Diagnosis [place] [address] [place] [address] 10/01/2024 Candis Ying Plan Of Treatment No Information Progress Notes * GERONIMO WEEKS WDOB:[birth year] (35 yo M)Acc No.[id number]:10/01/2024 Patient: Juan MILLAN GERONIMO Yenifer Provider: Colten Ying DDS :1990 A ge:34 Y S ex:Male Date:10/01/2024 Address:[address] [place] [address], [address], [place], [id number] Subjective: * Chief Complaints: * 1 . FILLING. * Medical History: Objective: * Vitals: Assessment: Plan: * Treatment: * Images: * Electronic signature of Elda Ying DDS on 01/22/2025 at 09:39 AM EDT Sign off status: Pending * Provider: Colten Ying DDS Date: 10/01/2024 Generated for Mario hall/Julissa/eTransmitting on: 01/22/2025 09:39 AM EDT
--- OUTSIDE RECORDS SUMMARY | 2024-10-27 06:00 | XMS_ITS ---
Author Organization [facility] [place] Address [address] [place] [address] Care Team Providers Care Mini Bar Attendant Name Role Phone Gaby Levine Primary Care [...] 10/27/2024 Encounters Encounter Location Date Provider Diagnosis [facility] [address] [place] [address] 10/27/2024 Gaby Dubosemer Hyperlipidemia E78.5 ; Essential [...] Name:Gaby garza, 04/28/2025 09:00:00 AM, [address] [place], [address], Progress Notes * Mario SIMMONS WDOB:[birth year] (34 yo M)Acc No.[id number]:10/27/2024 Progress Note Patient: Mario NAYLOR Provider: Angel Levine ([facility]), SUBSORTER :1990 A ge:34 Y S ex:Male Date:10/27/2024 Address:[address] [place] [address], [place], [id number] Check In:09:51 AM ESTCheck O ut:10:32 AM [...] L ittle interest or pleasure in doing things�Several days F eeling down, depressed, or hopeless [...] d enies. s wollen glands or neck lumps�denies. r inging in ears d enies. G [...] o chest wall deformity, no chest wall tenderness.� LUNGS: n ormal respiratory effort and clear [...] stable, continue * Preventive Medicine: Screenings/Counseling: B SD ACTION PLAN Above Normal BMI Follow-up D ietary management education, guidance, and counseling * Follow Up: 6 Months,prn * * Sign off status: Completed Visit Status: C HK (Check Out) true * Provider: Angel Levine ([facility]), SUBSORTER Date: 0 10/27/2024 Generated for Mario hall/Julissa/eTransmitting on: 01/22/2025 09:39 AM EDT History and Physical Notes * HPI [...] Poor appetite or overeating: More than h [facility] the days Feeling bad about yourself o [...]
--- OUTSIDE RECORDS SUMMARY | 2025-01-19 05:30 | XMS_ITS ---
Author Organization [facility] Address [address] [place] [address] Care Team Providers Care Vb Developer Name Role Phone Candis Ying Primary Care Provider [phone] REASON FOR VISIT FILLING Encounters Encounter Location Date Provider Diagnosis [place] [address] [place] [address] 01/19/2025 Candis Ying Plan Of Treatment No Information Progress Notes * GERONIMO WEEKS WDOB:[birth year] (35 yo M)Acc No.[id number]:01/19/2025 Patient: Juan MILLAN GERONIMO Yenifer Provider: Colten Ying DDS :1990 A ge:35 Y S ex:Male Date:01/19/2025 Address:[address] [place] [address], [address], [place], [id number] Subjective: * Chief Complaints: * 1 . FILLING. * Medical History: Objective: * Vitals: Assessment: Plan: * Treatment: * Images: * Electronic signature of Elda Ying DDS on 01/22/2025 at 09:40 AM EDT Sign off status: Pending * Provider: Colten Ying DDS Date: 01/19/2025 Generated for Mario hall/Julissa/eTransmitting on: 01/22/2025 09:40 AM EDT
--- OUTSIDE RECORDS SUMMARY | 2025-01-22 09:39 | XMS_ITS | Patient Health Record ---
Author Organization [facility] Address [address] [place] [address] Care Team Providers Care Fabrication Welder Name Role Phone Kaden Shah Unavailable [phone] Reason For Referral No Information Medications Medication SIG (Take, Route, Fr equency, Duration) Notes Start Date End Date Status spironolactone Activ e citalopram Active amLODIPine Active lisinopril Active atenolol Active Foster Active Social History Tobacco Use: Social History Observation Description Date Details (start date - stop date) Former Smoker NA - NA Smoking History Question Answer Notes Smoking Status Former Smoker When did you stop smoking? 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 Problem Sciatica (40492720) Sciatica of left side (M54.32) Active confirmed Problem Low back pain (616093265) Thoracolumbar back pain (M54.5) Active confirmed Problem Muscle weakness (09973618) Left leg weakness (M62.81) Active confirmed Plan Of Treatment No Information Insurance Providers Payer Name Payer Address Payer Phone Subscriber Number Group Number Insured Name Patient Relationship to Insured Coverage Start Date Coverage End Date [employer] [address] [address] [place] [phone] [id number] SALTY JIMENEZ Spouse - patient is the spouse of the insured Medical (General) History Medical History History ICD Code Bronchitis YES, Surgical History Surgery Date(Month/Year) T7-12 laminectomy, T7-12 Woods-Reese osteotomies, T6-L2 PSF 08/08/2018
--- OUTSIDE RECORDS SUMMARY | 2025-01-22 09:40 | XMS_ITS | Patient Health Record ---
Author Organization [facility] [place] Address [address] [place] [address] Care Team Providers Care Stand Up Comedian Name Role Phone Gaby Levine Primary Care [...] Problem Status W/U Status Risk Notes Problem 44595417 Essential (primary) hypertension (I10) Active confirmed Problem Hyperlipidemia (64557528) Hyperlipidemia (E78.5) Active confirmed Problem Smoker (39086036) Smoker (F17.200) Active confi rmed Problem Obese (806028034) Obese (E66.9) Active confirme d Problem Hyperinsulinemia (68125994) Hyperinsulinemia (E16.1) Active confirmed Problem Mixed anxiety and depressive disorder (341466864) Anxiety and depression (F41.9) Active confirmed Problem Sciatica (20286821) Chronic low back pain with left-sided sciatica (M54.42) Active confirmed Vital Signs Blood pressure diastolic 88 mm Hg 10/27/2024 Height 72 in 10/27/2024 Blood pressure systolic 112 mm Hg 10/27/2024 Weight 334.4 lbs 10/27/2024 BMI 45.35 kg/m2 10/27/2024 Encounters Encounter Location Date Provider Diagnosis [facility] [address] [place] [address] 06/24/2024 Gaby Levine [facility] [address] [place] [address] 07/11/2024 Gaby Levine [facility] [address] [place] [address] 05/12/2024 Gaby Levine [facility] [address] [place] [address] 05/23/2024 Gaby Levine [facility] [address] [place] [address] 06/05/2024 Gaby Levine [facility] [address] [place] [address] 06/10/2024 Gaby Levine [facility] [address] [place] [address] 05/01/2024 Gaby Julianna Essential (primary) hypertension I10 and Obese E66.9 [facility] [address] [place] [address] 10/27/2024 Gaby Levine Hyperlipidemia E78.5 ; Essential [...] Name:Gaby garza, 04/28/2025 09:00:00 AM, [address] [place], [address], Insurance Providers Payer Name Payer Address Payer Phone Subscriber Number Group Number Insured Name Patient Relationship to Insured Coverage Start Date Coverage End Date [facility] DUALS PRIMARY MEDICARE [address] [place] [address] [phone] [id number] Mario Simmons Self - patient is the insured [place] 2ND INS [address] OFFICE [place], [place] [id number] Mario Simmons Self - patient is the insured 3 Medical (General) History Medical History History ICD Code Arthritis M19.90 Anxiety and depression F41.8 Abnormal liver enzymes R74.8 Dyslipidemia E78.5 Benign essential hypertension I10 Hypothyroid E03.9 Scheuermann's disease M42.00 Smoker F17.200 Surgical History Surgery Date(Month/Year) Back Surgery Spine Injections Tonsillectomy
--- OUTSIDE RECORDS SUMMARY | 2025-01-22 09:40 | XMS_ITS | Patient Health Record ---
Author Organization [facility] Address [address] [place] [address] Care Team Providers Care Loading Supervisor Name Role Phone Candis Ying Primary Care Provider Chris Martin Unavailable [phone] Isis Hill Unavailable [phone] Reason For Referral No Information Medications Medication SIG (Take, Route, Fr equency, Duration) Notes Start Date End Date Status Lisinopril Active hydroCHLOROthiazide Active Encounters Encounter Location Date Provider Diagnosis [address] [address] 03/13/2024 Isis Hill Dental caries on pit and fissure surface penetrating into dentin K02.52 and Acute gingivitis, plaque induced K05.[address] [address] 06/09/2024 Candis Ying Dental caries on pit [...] induced (ICD-10 - K05.00) Plan Of Treatment No Information Insurance Providers Payer Name Payer Address Payer Phone Subscriber Number Group Number Insured Name Patient Relationship to Insured Coverage Start Date Coverage End Date DENTAL [employer] [place] D[place] [address] [address] [place] [address] [id number] GERONIMO WEEKS Self - patient is the insured 3 DENTAL [place] [address] [place] [address] [id number] GERONIMO WEEKS Self - patient is the insured 4
--- NOTE | 2025-01-22 09:54 | PM.CN ---
Consult Note: HPI Data of Consult Patient: known to practice within the last 3 years Consult date: 01/22/25 Requesting Physician: Letty Ayala NP Primary Care Provider: ERNST PENA Consult Narrative Reason for consult: back pain Narrative: Benji Cunningham a pleasant 35 year old male presents for evaluation and management of chronic back pain. Patient has a longstanding of myofascial pain and dystonia, T6-L2 fusion. Patient has found benefit to baclofen 10mg TID PRN pain/spasms and zonegran 100mg BID. Pain today 4/10 aching in upper back increasing to 10/10 with lifting, twisting, standing, walking, housework, activity. pain mildly improved with heat, tens, sitting and sleep. prior thoracic/lumbar imaging consistent with spondylosis and multilevel degenerative changes above and below fusion. recently underwent bilateral T3/4 T4/5 MBB #1 and #2 with at least 80% improvement while anesthetized, notes pain preop 10/10 post op pain 1/10. cc:: CC: Letty Ayala NP Review of Systems ROS Status of ROS 10 or more systems reviewed and unremarkable except as noted in history and below Musculoskeletal Reports: back pain PFSH PFS Medical History (Updated 12/03/24 @ 09:24 by Letty Ayala NP) Anxiety �F41.9 - Anxiety disorder, unspecified (ICD-10) HTN (hypertension) �I10 - Essential (primary) hypertension (ICD-10) Surgical History History of spinal fusion �Z98.1 - Arthrodesis status (ICD-10) Meds Home Medications and Allergies Home Medications �Medication �Instructions �Recorded �Confirmed �Type bupropion HCl 300 mg 24 hr tablet, 300 mg PO DAILY 11/06/23 01/19/25 History extended release (Wellbutrin XL) hydrochlorothiazide 25 mg tablet 25 mg PO DAILY 11/06/23 01/19/25 History lisinopril 40 mg tablet 40 mg PO DAILY 11/06/23 01/19/25 History metoprolol tartrate 50 mg tablet 75 mg PO BID 11/06/23 01/19/25 History zonisamide 100 mg capsule 100 mg PO .HS 11/06/23 01/19/25 History (Zonegran) baclofen 10 mg tablet 10 mg PO TID PRN muscle spasm #270 07/21/24 01/19/25 Rx tabs zonisamide 50 mg capsule See Rx Instructions .Route 07/21/24 01/19/25 Rx .COMPLEX #270 caps Allergies Allergy/AdvReac Type Severity Reaction Status Date / Time No Known Drug Allergies Allergy Verified 01/19/25 07:34 Exam Constitutional Documenting provider has reviewed patient's vital signs: yes Common normals: no apparent distress, oriented x3, healthy appearing, alert and well nourished General appearance: cooperative HENMT Common normals: normocephalic, hearing grossly normal bilaterally and moist oral mucous membranes Head and scalp: normocephalic Eye Common normals: PERRL Pupil: PERRL Neck & C-Spine Common normals: full ROM General: normal visual inspection Chest Common normals: inspection of chest normal Respiratory Common normals: normal respiratory effort, no retractions and no use of accessory muscles Back & Pelvis Thoracic spine/upper back: pain with ROM, thoracic spinal tenderness, paraspinal muscle tenderness and paraspinal muscle spasm Lumbar spine/lower back: pain with ROM and paraspinal muscle tenderness Other: spasming noted over bilateral trapezius, erector spinae, and lattisimus dorsi bilateral facet tenderness T3-5 strength 5/5 in BUE positive facet loading Extremity Common normals: normal to inspection and full ROM Neuro Common normals: oriented x3, CN's II-XII intact bilaterally, moves all extremities, no focal motor deficits, no sensory deficits noted and deep tendon reflexes 2+ bilaterally Sensorium/orientation: alert Motor exam: strength 5/5 throughout and no movement abnormalities noted Psych Common normals: mental status grossly normal, thought process normal, cooperative, affect normal, speech normal and activity/motor behavior normal Speech: normal speech Thought process: normal thought process Assessment and Plan Assessment and Plan (1) Thoracic spondylosis: Assessment and Plan: The patient has had over 3 months of moderate to severe upper and low back pain with functional impairment and inadequate response to conservative care including NSAIDS (unless there are contraindication such as concurrent blood thinners), multiple oral or topical pain medications, and home exercise program/physical therapy.� Patient has completed >6 weeks of guided home exercise program and/or formal physical therapy program without relief of their symptoms.� The Oswestry Disability Index was completed, and the patient scored a 48%.� The patient noted the following:�� moderate to severe pain impacting ADLs, sitting, standing, walking, sleeping, social life and travel We discussed the risks and benefits of the procedure with the patient, and we are NOT planning on using sedation as outlined in the guidelines from Medicare unless there is a documented reason that sedation would be strongly recommended.�� �The procedure will be completed with fluoroscopic guidance.� (2) Failed back syndrome: (3) Dystonia: (4) Myalgia, other site: Plan proceed with right and left T3-4 T4-5 facet medial branch RFA could consider referring to Dr Mckeon at [facility] for scs trial/implant continue tens PRN finds benefit continue current medication, finds mild benefit without side effects continue HEP as tolerated, has been engaged in provider guided HEP 2x/week > 6weeks without significant improvement in pain or functional improvement f/u 1 month after RFA complete
== END 2025-01-22 09:38 | disposition home or self-care (01) ==
PROVIDERS: PCP Nurse Practitioner Family; Visit Provider Nurse Practitioner
DX: M47.814 Spondylosis without myelopathy or radiculopathy, thoracic region (principal); M96.1 Postlaminectomy syndrome, not elsewhere classified; G24.9 Dystonia, unspecified; M79.18 Myalgia, other site
CPT/HCPCS: G0463

== ENCOUNTER 2025-02-09 08:43 | Day surgery (SDC) | payer MEDICARE, SELFPAY ==
--- OUTSIDE RECORDS SUMMARY | 2024-06-24 04:03 | XMS_ITS ---
Author Organization The [facility] in [place] Address [address] [place] [address] Care Team Providers Care Shredding Machine Tender Name Role Phone Gaby Levine Primary Care Provider REASON FOR VISIT b/p readings Medications Medication SIG (Take, Route, Frequency, Duration) Notes Start Date End Date Status Metoprolol Tartrate 50 MG 1 tablet with food Orally Twice a day for 30 days 06/05/2024 Active Encounters Encounter Location Date Provider Diagnosis [facility] [address] [place] [address] 06/24/2024 Gaby Levine Plan Of Treatment Medication Medication Name Sig Start Date Stop Date Notes Lisinopril 40 MG TAKE 1 TABLET BY MOUTH EVERY DAY Metoprolol Tartrate 50 MG 1 tablet with food Orally Twice a day for 30 days 06/05/2024 Next Appt Details Provider Name:Gaby garza, 04/28/2025 09:00:00 AM, [address] [place], [address], Progress Notes * Mario SIMMONS WDOB:[birth year] (34 yo M)Acc No.[id number]:06/24/2024 Patient: Mario NAYLOR :1990 A ge:34 Y S ex:Male Address:[address] [place] [address], [address], [place] [address] * Refills Stop Lisinopril Tablet, 40 MG, TAKE 1 TABLET BY MOUTH EVERY DAY Refill Metoprolol Tartrate Tablet, 50 MG, Orally, 60, 1 tablet with food, Twice a day, 30 days, Refills=11 * true * Date: Generated for Mario hall/Julissa/Milagros on: 0 02/09/2025 08:48 AM EDT
--- OUTSIDE RECORDS SUMMARY | 2024-07-11 09:23 | XMS_ITS ---
Author Organization The [facility] in [place] Address [address] [place] [address] Care Team Providers Care Mems Device Scientist Name Role Phone Gaby Levine Primary Care Provider [phone] REASON FOR VISIT rf metoprolol Medications Medication SIG (Take, Route, Frequency, Duration) Notes Start Date End Date Status Metoprolol Tartrate 50 MG 1 tablet with food Orally Twice a day for 30 days 06/05/2024 Active Encounters Encounter Location Date Provider Diagnosis [facility] [address] [place] [address] 07/11/2024 Gaby Levine Plan Of Treatment Medication Medication Name Sig Start Date Stop Date Notes Metoprolol Tartrate 50 MG 1 tablet with food Orally Twice a day for 30 days 06/05/2024 Next Appt Details Provider Name:Gaby garza, 04/28/2025 09:00:00 AM, [address] [place], [address], Progress Notes * Mario SIMMONS WDOB:[birth year] (34 yo M)Acc No.[id number]:07/11/2024 Patient: Juan OLEGARIOADELINA Mario Street :1990 A ge:34 Y S ex:Male Address:[address] [place] [address], [address], [place] [address] * Refills Refill Metoprolol Tartrate Tablet, 50 MG, Orally, 60, 1 tablet with food, Twice a day, 30 days, Refills=11 * true * Date: Generated for Mario hall/Julissa/Milagros on: 0 02/09/2025 08:47 AM EDT
--- OUTSIDE RECORDS SUMMARY | 2024-09-16 06:00 | XMS_ITS ---
Author Organization [facility] Address [address] [place] [address] Care Team Providers Care Ross Furnace Operator Name Role Phone Candis Ying Primary Care Provider [phone] Isis Reyes [phone] REASON FOR VISIT 6 MONTH PROPHY Encounters Encounter Location Date Provider Diagnosis [facility] [address] [place] [address] 09/16/2024 Isis Mayes Plan Of Treatment No Information Progress Notes * GERONIMO WEEKS WDOB:[birth year] (35 yo M)Acc No.[id number]:09/16/2024 Patient: GERONIMO NAYLOR Provider: To Hill :1990 A ge:34 Y S ex:Male Date:09/16/2024 Address:[address] [facility], [address], [place], [id number] Pcp:Candis Ying Subjective: * Chief Complaints: * 1 . 6 MONTH PROPHY. * Medical History: Objective: * Vitals: Assessment: Plan: * Treatment: * Images: * Electronic signature of Galina Mayes on 02/09/2025 at 08:48 AM EDT Sign off status: Pending * Provider: To Hill Date: 0 09/16/2024 Generated for Dignai ng/Facleog/eTransmitting on: 0 02/09/2025 08:48 AM EDT
--- OUTSIDE RECORDS SUMMARY | 2024-10-01 05:30 | XMS_ITS ---
Author Organization [facility] Address [address] [place] [address] Care Team Providers Care Forest Fire Specialist Supervisor Name Role Phone Candis Ying Primary Care Provider REASON FOR VISIT FILLING Encounters Encounter Location Date Provider Diagnosis [place] [address] [address] 10/01/2024 Candis Ying Plan Of Treatment No Information Progress Notes * GERONIMO WEEKS WDOB:[birth year] (35 yo M)Acc No.[id number]:10/01/2024 Patient: Juan MILLAN GERONIMO Yenifer Provider: Colten Ying DDS :1990 A ge:34 Y S ex:Male Date:10/01/2024 Address:[address] [place] [address], [address], [place], [id number] Subjective: * Chief Complaints: * 1 . FILLING. * Medical History: Objective: * Vitals: Assessment: Plan: * Treatment: * Images: * Electronic signature of Elda Ying DDS on 02/09/2025 at 08:47 AM EDT Sign off status: Pending * Provider: Colten Ying DDS Date: 10/01/2024 Generated for Mario hall/Julissa/eTransmitting on: 0 02/09/2025 08:47 AM EDT
--- OUTSIDE RECORDS SUMMARY | 2024-10-27 06:00 | XMS_ITS ---
Author Organization [facility] in [place] Address [address] [place] [address] Care Team Providers Care Boring Machine Operator Helper Name Role Phone Gaby Levine Primary [...] fir st cigarette? 31-60 minutes Vital Signs Weight 334.4 lbs 10/27/2024 Height 72 in 10/27/2024 Blood pressure systolic 112 mm Hg 10/28/19 25 Blood pressure diastolic 88 mm Hg 025 BMI 45.35 kg/m2 10/27/2024 Encounters Encounter Location Date Provider Diagnosis [facility] [address] [place] [address] 10/27/2024 Gaby Dubosemer Hyperlipidemia E78.5 ; Essential [...] Name:Gaby garza, 04/28/2025 09:00:00 AM, [address] [place], [address], Progress Notes * Mario SIMMONS WDOB:[birth year] (34 yo M)Acc No.[id number]:10/27/2024 Progress Note Patient: Mario NAYLOR Provider: Angel Levine ([facility]), DIABETES SOLUTIONS SPECIALIST :1990 A ge:34 Y S ex:Male Date:10/27/2024 Address:[address] [place] [address], [place], [id number] Check In:09:51 AM ESTCheck O ut:10:32 AM [...] exudates, tongue normal, dentition normal. NECK: n jdui supple, no masses or palpable cervical nodes, [...] stable, continue * Preventive Medicine: Screenings/Counseling: B [place] ACTION PLAN Above Normal BMI Follow-up D ietary management education, guidance, and counseling * Follow Up: 6 Months,prn * * Electronically signed by Mago Levine NP, CAUSTIC OPERATOR.DIABETES SOLUTIONS SPECIALIST.[id number] on 10/30/2024 at 09:02 AM EDT Sign off status: Completed Visit Status: C HK (Check Out) true * Provider: Angel Levine ([facility]), DIABETES SOLUTIONS SPECIALIST Date: 0 10/27/2024 Generated for Mario hall/Julissa/Yamsinesmitting on: 0 02/09/2025 08:48 AM EDT History and Physical Notes * [...]
--- OUTSIDE RECORDS SUMMARY | 2025-01-19 05:30 | XMS_ITS ---
Author Organization [facility] Address [address] [place] [address] Care Team Providers Care Riding Double Name Role Phone Candis Ying Primary Care Provider [phone] REASON FOR VISIT FILLING Encounters Encounter Location Date Provider Diagnosis [place] [address] [place] [address] 01/19/2025 Candis Ying Plan Of Treatment No Information Progress Notes * GERONIMO WEEKS WDOB:[birth year] (35 yo M)Acc No.[id number]:01/19/2025 Patient: Juan MILLAN GERONIMO Yenifer Provider: Colten Ying DDS :1990 A ge:35 Y S ex:Male Date:01/19/2025 Address:[address] [place] [address], [address], [place], [id number] Subjective: * Chief Complaints: * 1 . FILLING. * Medical History: Objective: * Vitals: Assessment: Plan: * Treatment: * Images: * Electronic signature of Elda Ying DDS on 02/09/2025 at 08:48 AM EDT Sign off status: Pending * Provider: Colten Ying DDS Date: 01/19/2025 Generated for Mario hall/Julissa/eTransmitting on: 02/09/2025 08:48 AM EDT
--- OUTSIDE RECORDS SUMMARY | 2025-02-09 08:47 | XMS_ITS | Patient Health Record ---
Author Organization [facility] Address [address] [place] [address] Care Team Providers Care Commercial Retoucher Name Role Phone Kaden Shah Unavailable [phone] Reason For Referral No Information Medications Medication SIG (Take, Route, Fr equency, Duration) Notes Start Date End Date Status spironolactone Activ e citalopram Active amLODIPine Active lisinopril Active atenolol Active [place] Active Social History Tobacco Use: Social History Observation Description Date Details (start date - stop date) Former Smoker NA - NA Smoking History Question Answer Notes Smoking Status Former Smoker When did you stop smoking? 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 Problem Sciatica (68187639) Sciatica of left side (M54.32) Active confirmed Problem Low back pain (116280427) Thoracolumbar back pain (M54.5) Active confirmed Problem Muscle weakness (58735702) Left leg weakness (M62.81) Active confirmed Plan Of Treatment No Information Insurance Providers Payer Name Payer Address Payer Phone Subscriber Number Group Number Insured Name Patient Relationship to Insured Coverage Start Date Coverage End Date [employer] [address] [address] [place] [address] [id number] SALTY JIMENEZ Spouse - patient is the spouse of the insured Medical (General) History Medical History History ICD Code Bronchitis YES, Surgical History Surgery Date(Month/Year) T7-12 laminectomy, T7-12 Woods-Reese osteotomies, T6-L2 PSF 08/08/2018
[2025-02-09 08:48] VITALS: BP 139/94; PULSE 70; TEMP 36.4; O2SAT 96
--- OUTSIDE RECORDS SUMMARY | 2025-02-09 08:48 | XMS_ITS | Patient Health Record ---
Author Organization [facility] Address [address] [place] [address] Care Team Providers Care Stunt Person Name Role Phone Candis Ying Primary Care Provider [phone] Chris Martin Unavailable [phone] Isis Mayes Unavailable [phone] Reason For Referral No Information Medications Medication SIG (Take, Route, Fr equency, Duration) Notes Start Date End Date Status Lisinopril Active hydroCHLOROthiazide Active Encounters Encounter Location Date Provider Diagnosis [address] [address] 03/13/2024 Isis Mayes Dental caries on pit and fissure surface penetrating into dentin K02.52 and Acute gingivitis, plaque induced K05.[address] [address] 06/09/2024 Candis Ying Dental caries on pit [...] Coverage Start Date Coverage End Date DENTAL [facility] DUAL [address] [address] [place] [address] [id number] GERONIMO WEEKS Self - patient is the insured 3 DENTAL [place] [address] [place] [address] [id number] GERONIMO WEEKS Self - patient is the insured 4
--- OUTSIDE RECORDS SUMMARY | 2025-02-09 08:49 | XMS_ITS | Patient Health Record ---
Author Organization [facility] [place] Address [address] [place] [address] Care Team Providers Care Financial Coach Name Role Phone Gaby Levine Primary Care Provider [phone] Allergies No Known Allergies Reason For Referral [...] Problem Status W/U Status Risk Notes Problem 30842916 Essential (primary) hypertension (I10) Active confirmed Problem Hyperlipidemia (11086153) Hyperlipidemia (E78.5) Active confirmed Problem Smoker (35124835) Smoker (F17.200) Active confi rmed Problem Obese (141219089) Obese (E66.9) Active confirme d Problem Hyperinsulinemia (20753475) Hyperinsulinemia (E16.1) Active confirmed Problem Mixed anxiety and depressive disorder (293151358) Anxiety and depression (F41.9) Active confirmed Problem Sciatica (57305760) Chronic low back pain with left-sided sciatica (M54.42) Active confirmed Vital Signs Blood pressure diastolic 88 mm Hg 10/27/2024 Height 72 in 10/27/2024 Blood pressure systolic 112 mm Hg 10/27/2024 Weight 334.4 lbs 10/27/2024 BMI 45.35 kg/m2 10/27/2024 Encounters Encounter Location Date Provider Diagnosis [facility] [address] [place] [address] 05/12/2024 Gaby Levine [facility] [address] [place] [address] 05/23/2024 Gaby Levine [facility] [address] [place] [address] 06/05/2024 Gaby Levine [facility] [address] [place] [address] 06/10/2024 Gaby Levine [facility] [address] [place] [address] 06/24/2024 Gaby Levine [facility] [address] [place] [address] 07/11/2024 Gaby Levine [facility] [address] [place] [address] 05/01/2024 Gaby Julianna Essential (primary) hypertension I10 and Obese E66.9 [facility] [address] [place] [address] 10/27/2024 Gaby Levine Hyperlipidemia E78.5 ; Essential [...] Name:Gaby garza, 04/28/2025 09:00:00 AM, [address] [place], [address], Insurance Providers Payer Name Payer Address Payer Phone Subscriber Number Group Number Insured Name Patient Relationship to Insured Coverage Start Date Coverage End Date [facility] DUALS PRIMARY MEDICARE [address] [place] [address] [id number] Mario Simmons Self - patient is the insured [place] 2ND INS [address] [place], [place] [id number] Mario Simmons Self - patient is the insured 3 Medical (General) History Medical History History ICD Code Arthritis M19.90 Anxiety and depression F41.8 Abnormal liver enzymes R74.8 Dyslipidemia E78.5 Benign essential hypertension I10 Hypothyroid E03.9 Scheuermann's disease M42.00 Smoker F17.200 Surgical History Surgery Date(Month/Year) Back Surgery Spine Injections Tonsillectomy
[2025-02-09 09:42] VITALS: BP 132/86; BP 134/89; PULSE 66; PULSE 72; O2SAT 95; O2SAT 97
[2025-02-09] MEDS: BUPIVACAINE HCL 0.25% PF 25 MG/10 ML VIAL 2 ML INJ (09:46)
[2025-02-09] MEDS: DEXAMETHASONE SOD PHOS 10 MG/ML VIAL INJ (09:46)
[2025-02-09] MEDS: LIDOCAINE HCL 2% 400 MG/20 ML MDV 10 ML INJ (09:47)
--- NOTE | 2025-02-09 09:52 | P.ON_ITS ---
Date of procedure: 02/09/25 Pre-op diagnosis: Pain due to thoracic spondylosis without myelopathy Post-op diagnosis: same as pre-op Procedure: Procedure: Left T3-4, 4-5 radiofrequency ablation Medications: Bupivacaine 0.25% 2cc, dexamethasone 10mg, lidocaine 2% 3cc The patient was seen and examined in the preoperative holding area.? The site was marked.? Written informed consent was obtained and placed on the chart.? The patient was brought to the medical procedure unit and placed in the prone position.? A timeout was completed verifying correct patient, procedure, positioning, and special requirements.? The skin overlying the target points, the designated medial branch, was prepped and draped in the usual sterile fashion.? The target point was achieved with a 20-gauge 15 cm with a 10 mm curved active tip radiofrequency cannula under direct fluoroscopic visualization.? The needle was inserted at level T3 on the left side. Needle tip position was confirmed with lateral fluoroscopic position.? Motor stimulation was carried out at 2 Hz up to 5 volts with the absence of extremity activity.? This was repeated at level T4, 5 on left side.?? Sensory stimulation was carried out.? Concordant pain was realized at the above- mentioned sites.? Then radiofrequency lesioning was carried out times 90 seconds at 80 degrees times 2 lesions at each level.? The radiofrequency probe was removed prior to cannula removal.? The above-mentioned injectate was placed in 1 mL increments.? The needle was removed.? Insertion sites were covered.? The patient was taken to the postoperative recovery area and monitored for an appropriate length of time before being found suitable for discharge in the company of a responsible adult. Anesthesia: Local Surgeon: Hardy Agosto Pathology: none sent Condition: stable Disposition: no change
== END 2025-02-09 09:57 | disposition home or self-care (01) ==
LOC: SURGOUT 08:46
PROVIDERS: PCP Nurse Practitioner Family; Visit Provider Anesthesiology
DX: M47.814 Spondylosis without myelopathy or radiculopathy, thoracic region (principal)
CPT/HCPCS: 64633; 64634; J0665; J1100

== ENCOUNTER 2025-02-23 08:47 | Day surgery (SDC) | payer MEDICARE, SELFPAY ==
--- OUTSIDE RECORDS SUMMARY | 2025-02-23 09:00 | XMS_ITS | CCD ---
Author Organization [facility] Care Team Providers Care Behavioral Health Specialist Name Role Phone PHYSICIAN, DEFAULT Unavailable Unavailable [...] PENA Attending Unavailable ERNST PENA Consulting Unavailable [facility] Primary Care Unavaila ble MARCIA, SELVON F Referring Unavailable MARCIA, SELVON F Attending Unavailable MARCIA, SELVON F Admitting Unavailable Ginasrin LIM, Hardy Castillo Attending Unavailable Ginasrin LIM, Andabundio Castillo Attending Unavailable Triny LIM, Andri Valfreda Attending Unavailable Allergies Allergy Classification Reported Allergen(s) Allergy Type Date of Onset Reaction(s) Facility (1 source) No Known Medication Allergies; Translations: [No Known Medication Allergies] Propensity to adverse reactions to drug (disorder) [facility] Repository Problems Problem Classification Problem Date [...] INSULINon 02-02-2022 Insulin 16.5 uIU/mL Normal 2.6-24.9 [facility] Comment on above: Performed By: #### I NSULIN #### [facility] [address] [place] [address] Dr. Armida Brown CBC AUTO DIFFon 02-01-2022 BASO # 0.1 103/ul Normal 0.0-0.1 [facility] Comment on above: Performed By: #### C BC #### [facility] [address] [place] [address] Dr. Armida Brown Basophils/100 WBC (Bld) 0.9 % Normal 0.2-2.0 [facility] Comment on above: Performed By: #### C BC #### [facility] [address] [place] [address] Dr. Armida Brown EO # 0.4 103/ul Normal 0.0-0.7 [facility] Comment on above: Performed By: #### C BC #### [facility] [address] [place] [address] Dr. Armida Brown Eosinophils/100 WBC (Bld) 4.7 % Normal 0.9-7.0 [facility] Comment on above: Performed By: #### C BC #### [facility] [address] [place] [address] Dr. Armida Brown Erythrocyte distribution width (RBC) [Ratio] 13.1 % Normal 11.0-15.0 [facility] Comment on above: Performed By: #### C BC #### [facility] [address] [address] [address] Armida Brown Hematocrit (Bld) [Volume fraction] 48.6 % Normal 42.0-54.0 [facility] Comment on above: Performed By: #### C BC #### [facility] [address] [address] [address] Armida Brown Hemoglobin (Bld) [Mass/Vol] 16.5 g/dL Normal 14.0-18.0 [facility] Comment on above: Performed By: #### C BC #### [facility] [address] [place] [address] Dr. Armida Brown IG # 0.05 10e3/ul Critically high 0.00-0.03 [facility] Comment on above: Performed By: #### C BC #### [facility] [address] [place] [address] Dr. Armida Brown IG % 0.6 % Critically high 0.0-0.5 [facility] Comment on above: Performed By: #### C BC #### [facility] [address] [place] [address] Dr. Armida Brown LYMPH # 1.7 103/ul Normal 1.2-3.8 [facility] Comment on above: Performed By: #### C BC #### [facility] [address] [place] [address] Dr. Armida Brown Lymphocytes/100 WBC (Bld) 19.6 % Critically low 20.5-60.0 [facility] Comment on above: Performed By: #### C BC #### [facility] [address] [place] [address] Dr. Armida Brown MANUAL DIFF REQ NO Normal [facility] Comment on above: Performed By: #### C BC #### [facility] [address] [place] [address] Dr. Armida Brown MCH (RBC) [Entitic mass] 30.1 pg Normal 25.9-34.0 [facility] Comment on above: Performed By: #### C BC #### [facility] [address] [address] [address] Armida Brown MCHC (RBC) [Mass/Vol] 34.0 g/dL Normal 29.9-35.2 [facility] Comment on above: Performed By: #### C BC #### [facility] [address] [place] [address] Dr. Armida Brown MCV (RBC) [Entitic vol] 88.5 fL Normal 80.0-94.0 [facility] Comment on above: Performed By: #### C BC #### [facility] [address] [place] [address] Dr. Armida Brown MONO # 0.5 103/ul Normal 0.3-0.8 [facility] Comment on above: Performed By: #### C BC #### [facility] [address] [place] [address] Dr. Armida Brown Monocytes/100 WBC (Bld) 5.6 % Normal 1.7-12.0 [facility] Comment on above: Performed By: #### C BC #### [facility] [address] [place] [address] Dr. Armida Brown NEUT # 6.1 103/ul Normal 1.4-6.5 [facility] Comment on above: Performed By: #### C BC #### [facility] [address] [place] [address] Dr. Armida Brown Neutrophils/100 WBC (Bld) 68.6 % Normal 43.0-75.0 [facility] Comment on above: Performed By: #### C BC #### [facility] [address] [place] [address] Dr. Armida Brown Platelet mean volume (Bld) [Entitic vol] 9.3 fL Critically low 9.5-13.5 [facility] Comment on above: Performed By: #### C BC #### [facility] [address] [place] [address] Dr. Armida Brown PLT 293 103/ul Normal 150-450 [facility] Comment on above: Performed By: #### C BC #### [facility] [address] [place] [address] Dr. Armida Brown RBC 5.49 106/ul Normal 4.70-6.10 [facility] Comment on above: Performed By: #### C BC #### [facility] [address] [address] [address] Armida Brown WBC 8.9 103/ul Normal 4.0-11.0 [facility] Comment on above: Performed By: #### C BC #### [facility] [address] [place] [address] Dr. Armida Brown FREE THYROXINE INDEX T7on FTI 3.33 Normal 1.30-4.50 [facility] Comment on above: Performed By: #### T SH, CMP, URIC, LIPID, T7 #### [facility] [address] [place] [address] Dr. Armida Brown T3U 35.0 % Normal 33.0-40.0 [facility] Comment on above: Performed By: #### T SH, CMP, URIC, LIPID, T7 #### [facility] [address] [place] [address] Dr. Armida Brown T4 [Mass/Vol] 9.50 ug/dL Normal 4.50-12.10 [facility] Comment on above: Performed By: #### T SH, CMP, URIC, LIPID, T7 #### [facility] [address] [place] [address] Dr. Armida Brown GLYCOHEMOGLOBIN A1Con 2021 ADA RECOMMENDATION SEE BELOW Normal [facility] Comment on above: Result Comment: ADA RECOMMENDED LIMIT 4.0 - 6.0 ADA THERAPEUTIC TARGET < 7.0 ACTION SUGGESTED > 7.0 Performed By: #### A 1C #### [facility] [address] [place] [address] Dr. Armida Brown Glucose [Mass/Vol] 103 mg/dL Normal [facility] Comment on above: Performed By: #### A 1C #### [facility] [address] [place] [address] Dr. Armida Brown HbA1c (Bld) [Mass fraction] 5.2 % Normal 4.5-6.2 [facility] Comment on above: Performed By: #### A 1C #### [facility] [address] [address] [address] Armida Brown LIPID PROFILEon 02-01-2022 CHOL-HDL RATIO NORM SEE BELOW Normal [facility] Comment on above: Result Comment: 3.3 - 4.4 LOW RISK 4.4 - 7.1 AVERAGE RISK 7.1 - 11.0 MODERATE RISK >11.0 HIGH RISK Performed By: #### T SH, CMP, URIC, LIPID, T7 #### [facility] [address] [address] [address] Armida Brown Cholesterol [Mass/Vol] 183 mg/dL Normal <=200 [facility] Comment on above: Performed By: #### T SH, CMP, URIC, LIPID, T7 #### [facility] [address] [address] [address] Armida Brown Cholesterol in HDL [Mass/Vol] 33 mg/dL Critically low 40-60 [facility] Comment on above: Performed By: #### T SH, CMP, URIC, LIPID, T7 #### [facility] [address] [address] [address] Armida Brown Cholesterol in LDL [Mass/Vol] 123.0 mg/dL Normal [facility] Comment on above: Performed By: #### T SH, CMP, URIC, LIPID, T7 #### [facility] [address] [address] [address] Armida Brown Cholesterol.total/Ch olesterol in HDL [Mass ratio] 5.5 {ratio} Normal [facility] Comment on above: Performed By: #### T SH, CMP, URIC, LIPID, T7 #### [facility] [address] [address] [address] Armida Brown HDL NORMAL > or = 60 mg/dl - LO W CARDIOVASCULAR RISK <40 mg/dl - HIGH CARDIOVASCULAR RISK Normal [facility] Comment on above: Performed By: #### T SH, CMP, URIC, LIPID, T7 #### [facility] [address] [address] [address] Armida Brown LDL CALC NORMAL SEE BELOW Normal [facility] Comment on above: Result Comment: <100 mg/dl OPTIMAL 100 - 129 mg/dl NEAR OR ABOVE OPTIMAL 130 - 159 mg/dl BORDERLINE HIGH 160 - 189 mg/dl HIGH >190 mg/dl VERY HIGH Performed By: #### T SH, CMP, URIC, LIPID, T7 #### [facility] [address] [address] [address] Armida Brown Triglyceride [Mass/Vol] 135 mg/dL Normal <=150 [facility] Comment on above: Performed By: #### T SH, CMP, URIC, LIPID, T7 #### [facility] [address] [address] [address] Armida Brown VLDL CALC 27.0 mg/dL Normal [facility] Comment on above: Performed By: #### T SH, CMP, URIC, LIPID, T7 #### [facility] [address] [place] [address] Dr. Armida Brown PROF 14(COMP METB)on 022 Albumin [Mass/Vol] 4.1 g/dL Normal 3.4-5.0 [facility] Comment on above: Performed By: #### T SH, CMP, URIC, LIPID, T7 #### [facility] [address] [place] [address] Dr. Armida Brown Albumin/Globulin [Mass ratio] 1.1 {ratio} Normal [facility] Comment on above: Performed By: #### T SH, CMP, URIC, LIPID, T7 #### [facility] [address] [address] [address] Armida Brown ALP [Catalytic activity/Vol] 79 U/L Normal 46-116 [facility] Comment on above: Performed By: #### T SH, CMP, URIC, LIPID, T7 #### [facility] [address] [place] [address] Dr. Armida Brown ALT [Catalytic activity/Vol] 58 U/L Normal 16-63 [facility] Comment on above: Performed By: #### T SH, CMP, URIC, LIPID, T7 #### [facility] [address] [place] [address] Dr. Armida Brown Anion gap [Moles/Vol] 12.6 mmol/L Normal [facility] Comment on above: Performed By: #### T SH, CMP, URIC, LIPID, T7 #### [facility] [address] [address] [address] Armida Brown AST [Catalytic activity/Vol] 23 U/L Normal 15-37 [facility] Comment on above: Performed By: #### T SH, CMP, URIC, LIPID, T7 #### [facility] [address] [address] [address] Armida Brown Bilirubin [Mass/Vol] 0.6 mg/dL Normal 0.2-1.0 [facility] Comment on above: Performed By: #### T SH, CMP, URIC, LIPID, T7 #### [facility] [address] [address] [address] Armida Brown Calcium [Mass/Vol] 8.9 mg/dL Normal 8.5-10.1 [facility] Comment on above: Performed By: #### T SH, CMP, URIC, LIPID, T7 #### [facility] [address] [address] [address] Armida Brown Chloride [Moles/Vol] 104 mmol/L Normal 98-107 [facility] Comment on above: Performed By: #### T SH, CMP, URIC, LIPID, T7 #### [facility] [address] [address] [address] Armida Brown CO2 [Moles/Vol] 26.7 mmol/L Normal 21.0-32.0 [facility] Comment on above: Performed By: #### T SH, CMP, URIC, LIPID, T7 #### [facility] [address] [address] [address] Armida Brown Creatinine [Mass/Vol] 0.99 mg/dL Normal 0.70-1.30 [facility] Comment on above: Performed By: #### T SH, CMP, URIC, LIPID, T7 #### [facility] [address] [address] [address] Armida Borwn EGFR-AF LITHUANIAN >60 Normal >=60 [facility] Comment on above: Performed By: #### T SH, CMP, URIC, LIPID, T7 #### [facility] [address] [address] [address] Armida Brown EGFR-NON AF LITHUANIAN >60 Normal >=60 [facility] Comment on above: Performed By: #### T SH, CMP, URIC, LIPID, T7 #### [facility] [address] [address] [address] Armida Brown Globulin (S) [Mass/Vol] 3.6 g/dL Normal [facility] Comment on above: Performed By: #### T SH, CMP, URIC, LIPID, T7 #### [facility] [address] [place] [address] Dr. Armida Brown Glucose [Mass/Vol] 100 mg/dL Normal 74-106 [facility] Comment on above: Performed By: #### T SH, CMP, URIC, LIPID, T7 #### [facility] [address] [place] [address] Dr. Armida Brown Potassium [Moles/Vol] 4.3 mmol/L Normal 3.5-5.1 [facility] Comment on above: Performed By: #### T SH, CMP, URIC, LIPID, T7 #### [facility] [address] [place] [address] Dr. Armida Brown Protein [Mass/Vol] 7.7 g/dL Normal 6.4-8.2 [facility] Comment on above: Performed By: #### T SH, CMP, URIC, LIPID, T7 #### [facility] [address] [place] [address] Dr. Armida Brown Sodium [Moles/Vol] 139 mmol/L Normal 136-145 [facility] Comment on above: Performed By: #### T SH, CMP, URIC, LIPID, T7 #### [facility] [address] [place] [address] Dr. Armida Brown Urea nitrogen [Mass/Vol] 16.0 mg/dL Normal 7.0-18.0 [facility] Comment on above: Performed By: #### T SH, CMP, URIC, LIPID, T7 #### [facility] [address] [place], [place] [address] Dr. Armida Brown Urea nitrogen/Creatinine [Mass ratio] 16.2 mg/mg Normal [facility] Comment on above: Performed By: #### T SH, CMP, URIC, LIPID, T7 #### [facility] [address] [place], [place] [address] Dr. Armida Brown TSHon 02-01-2022 TSH 1.176 uIU/mL Normal 0.358-3.740 [facility] Comment on above: Performed By: #### T SH, CMP, URIC, LIPID, T7 #### [facility] [address] [place], [place] [address] Dr. Armida Brown URIC ACID SERUMon 02-01-2022 Urate [Mass/Vol] 6.7 mg/dL Normal 3.5-7.2 [facility] Comment on above: Performed By: #### T SH, CMP, URIC, LIPID, T7 #### [facility] [address] [address] [address] Armida Brown SCOLIOSIS 2 VWSon 04-24-2018 SCOLIOSIS 2 [facility] [address] [place] [id number] Patient Name: CHIQUITA WEEKS : 1990Sex: MAge: Race: WhiteMRN: [id number]. Location: 82Patient Status: OVisit #: [id number] Date: 04/24/2018 3:05:00 PMCompleted Date: 04/24/2018 03:19 PMRequesting Provider: COOKIE COLES Attending Provider: COOKIE COLES Report Copy To: Signs & Symptoms: M54.6 Pain in thoracic spine R84Temxvqq: AthenaComments: , , , Ordering Provider - COOKIE COLES MD , Exam: SCOLIOSIS 2 VWSAccession #: [id number] SCO LIOSIS 2 VWS 04/24/2018 3:19 PM [...] abnormality. Electronically signed by:Adelfo Kay. Transcribed by: [email or web address], User Resident: Electronically Signed by: ADELFO KAY @ 04/24/2018 10:56 PM Normal [facility] Comment on above: Order Comment: , , = ========= , Ordering Provider - COOKIE COLES MD , Encounters Encounter Date Encounter Type Care Provider Facility Start: 02-09-2025 End: 07-21-2025 ambulatory Hardy Agosto MD Facility:[facility] Start: 01-19-2025 End: 01-19-2025 ambulatory Hardy Agosto MD Facility:[facility] Start: 01-05-2025 End: 01-05-2025 ambulatory Hardy Agosto MD Facility:[facility] Start: 02-01-2022 End: 02-02-2022 ambulatory ERNST PENA Facility: Start: 06-23-2021 ambulatory ERNST BECKY Facility: Start: 09-25-2018 End: 09-26-2018 ambulatory CYRIL GRADY Facility:[facility] Start: 04-24-2018 End: 04-25-2018 Patient encounter COOKIE Adrian LENTZYENNIFERVINICIO Facility:[facility] Start: 04-15-2018 End: 04-16-2018 Patient encounter DEFAULT PHYSICIAN Facility:[facility] Procedures Date Procedure Procedure Detail Performing Clinician Start: 02-01-2022 PSA screening ERNST OROURKE Comment on above: Performed By: #### P [facility] #### [facility] [address] [address] [address] Armida Brown Payers Date Payer Category Payer Medicaid 2024 Medicare 2018 Unknown 2017 Unknown [id number] 1990 Unknown [id number] 2.16.8 [id number] 1990 Unknown [id number] 2.16.8 [id number] 1990 Unknown [id number] 2.16.84 [id number] 1990 Unknown [id number] 2.16.84 [id number] 1990 Unknown [id number] 2.16.84 [id number] 1988 Unknown [id number] 2.16.84 [id number] 1988 Unknown [id number] 2.16. [id number] 1988 Unknown [id number] 2.16. [id number] 1988 Unknown [id number] 2.16. [id number] 1961 Medicaid [id number] 1961 Medicare [id number] 1961 Unknown [id number] Unknown [id number] Summary Purpose Family History No Family History [...] section and content) DATE CREATED AUTHOR 05/29/2018 [facility] DATE CREATED AUTHOR AUTHOR'S ORGANIZ ATION 02/15/2022 [facility] DATE CREATED AUTHOR AUTHOR'S ORGANIZ ATION 09/27/2022 [facility] DATE CREATED AUTHOR AUTHOR'S ORGANIZ ATION 02/20/2025 [facility] FOR RECORDS PERTAINING TO PATIENTS [...] BE BASED ON THE PRIMARY CLINICAL RECORDS. [employer] provides no warranty or guarantee of the accuracy or completeness of information in this document.
[2025-02-23 09:09] VITALS: BP 130/83; PULSE 67; TEMP 36.6; O2SAT 97
[2025-02-23 09:51] VITALS: BP 142/100; BP 142/92; PULSE 70; PULSE 75; O2SAT 94; O2SAT 95
[2025-02-23] MEDS: DEXAMETHASONE SOD PHOS 10 MG/ML VIAL INJ (09:55)
[2025-02-23] MEDS: LIDOCAINE HCL 2% 400 MG/20 ML MDV 8 ML INJ (09:55)
[2025-02-23] MEDS: BUPIVACAINE HCL 0.25% PF 25 MG/10 ML VIAL 2 ML INJ (09:55)
--- NOTE | 2025-02-23 10:01 | P.ON_ITS ---
Date of procedure: 02/23/25 Pre-op diagnosis: Pain due to thoracic spondylosis without myelopathy Post-op diagnosis: same as pre-op Procedure: Procedure: Right T3-4, 4-5 radiofrequency ablation Medications: Bupivacaine 0.25% 2cc, lidocaine 2% 5cc, dexamethasone 10mg The patient was seen and examined in the preoperative holding area.? The site was marked.? Written informed consent was obtained and placed on the chart.? The patient was brought to the medical procedure unit and placed in the prone position.? A timeout was completed verifying correct patient, procedure, positioning, and special requirements.? The skin overlying the target points, the designated medial branch, was prepped and draped in the usual sterile fashion.? The target point was achieved with a 20-gauge 15 cm with a 10 mm curved active tip radiofrequency cannula under direct fluoroscopic visualization .? The needle was inserted at level T3 on the right side. Needle tip position was confirmed with lateral fluoroscopic position.? Motor stimulation was carried out at 2 Hz up to 5 volts with the absence of extremity activity.? This was repeated at level T4, 5 on right side.?? Sensory stimulation was carried out.? Concordant pain was realized at the above- mentioned sites.? Then radiofrequency lesioning was carried out times 90 seconds at 80 degrees times 2 lesions at each level.? The radiofrequency probe was removed prior to cannula removal.? The above-mentioned injectate was placed in 1 mL increments.? The needle was removed.? Insertion sites were covered.? The patient was taken to the postoperative recovery area and monitored for an appropriate length of time before being found suitable for discharge in the company of a responsible adult. Anesthesia: Local Surgeon: Hardy Agosto Pathology: none sent Condition: stable Disposition: no change
== END 2025-02-23 10:03 | disposition home or self-care (01) ==
LOC: SURGOUT 08:48
PROVIDERS: PCP Nurse Practitioner Family; Visit Provider Anesthesiology
DX: M54.6 Pain in thoracic spine (principal); M47.814 Spondylosis without myelopathy or radiculopathy, thoracic region
CPT/HCPCS: 64633; 64634; J0665; J1100

== ENCOUNTER 2025-03-26 10:04 | Outpatient (OUT) | payer MEDICARE, SELFPAY ==
--- OUTSIDE RECORDS SUMMARY | 2025-03-26 10:10 | XMS_ITS | CCD ---
Author Organization [facility] Care Team Providers Care Broom Builder Name Role Phone PHYSICIAN, DEFAULT Unavailable Unavailable PHYSICIAN, DEFAULT Unavailable Unavailable ELGAFY, COOKIE K Unavailable Unavailable ELGAFY, COOKIE K Unavailable Unavailable ELGAFY, COOKIE K Unavailable Unavailable UNKNOWN, PHYSICIAN Unavailable Unavailable ERNST PENA Primary Care Unavailable TAISHA, DR SCOOTER Webster Attending Unavailable TAISHA, DR SCOOTER Webster Admitting Unavailable CHANTE HERNANDEZ Consulting Unavailable BECKY, ERNST Primary Care Unavailable BECKY ERNST Admitting Unavailable ERNST PENA Attending Unavailable BECKY ERNST Consulting Unavailable [facility] Primary Care Unavaila ble MARCIA, SELVON F Referring Unavailable MARCIA, SELVON F Attending Unavailable MARCIA, SELVON F Admitting Unavailable Gieditis , Andrius Castillo Attending Unavailable Giedraitis , Andrius Valfreda Attending Unavailable Giedraitis , Andrius Vytautlisa Attending Unavailable Giedraitis , Andrius Vytautlisa Attending Unavailable Allergies Allergy Classification Reported Allergen(s) Allergy Type Date of Onset Reaction(s) Facility (1 source) No Known Medication Allergies; Translations: [No Known Medication Allergies] Propensity to adverse reactions to drug (disorder) [facility] Repository Problems Problem Classification Problem [...] INSULINon 02-02-2022 Insulin 16.5 uIU/mL Normal 2.6-24.9 [facility] Comment on above: Performed By: #### I NSULIN #### [facility] [address] [place] [address] Dr. Armida Brown CBC AUTO DIFFon 02-01-2022 BASO # 0.1 103/ul Normal 0.0-0.1 [facility] Comment on above: Performed By: #### C BC #### [facility] [address] [place] [address] Dr. Armida Brown Basophils/100 WBC (Bld) 0.9 % Normal 0.2-2.0 [facility] Comment on above: Performed By: #### C BC #### [facility] [address] [place] [address] Dr. Armida Brown EO # 0.4 103/ul Normal 0.0-0.7 [facility] Comment on above: Performed By: #### C BC #### [facility] [address] [address] [address] Armida Brown Eosinophils/100 WBC (Bld) 4.7 % Normal 0.9-7.0 [facility] Comment on above: Performed By: #### C BC #### [facility] [address] [place] [address] Dr. Armida Brown Erythrocyte distribution width (RBC) [Ratio] 13.1 % Normal 11.0-15.0 [facility] Comment on above: Performed By: #### C BC #### [facility] [address] [address] [address] Armida Brown Hematocrit (Bld) [Volume fraction] 48.6 % Normal 42.0-54.0 [facility] Comment on above: Performed By: #### C BC #### [facility] [address] [address] [address] Armida Brown Hemoglobin (Bld) [Mass/Vol] 16.5 g/dL Normal 14.0-18.0 [facility] Comment on above: Performed By: #### C BC #### [facility] [address] [place] [address] Dr. Armida Brown IG # 0.05 10e3/ul Critically high 0.00-0.03 [facility] Comment on above: Performed By: #### C BC #### [facility] [address] [place] [address] Dr. Armida Brown IG % 0.6 % Critically high 0.0-0.5 [facility] Comment on above: Performed By: #### C BC #### [facility] [address] [address] [address] Armida Brown LYMPH # 1.7 103/ul Normal 1.2-3.8 [facility] Comment on above: Performed By: #### C BC #### [facility] [address] [place] [address] Dr. Armida Brown Lymphocytes/100 WBC (Bld) 19.6 % Critically low 20.5-60.0 [facility] Comment on above: Performed By: #### C BC #### [facility] [address] [address] [address] Armida Brown MANUAL DIFF REQ NO Normal [facility] Comment on above: Performed By: #### C BC #### [facility] [address] [place] [address] Dr. Armida Brown MCH (RBC) [Entitic mass] 30.1 pg Normal 25.9-34.0 [facility] Comment on above: Performed By: #### C BC #### [facility] [address] [address] [address] Armida Brown MCHC (RBC) [Mass/Vol] 34.0 g/dL Normal 29.9-35.2 [facility] Comment on above: Performed By: #### C BC #### [facility] [address] [address] [address] Armida Brown MCV (RBC) [Entitic vol] 88.5 fL Normal 80.0-94.0 [facility] Comment on above: Performed By: #### C BC #### [facility] [address] [place] [address] Dr. Armida Brown MONO # 0.5 103/ul Normal 0.3-0.8 [facility] Comment on above: Performed By: #### C BC #### [facility] [address] [place] [address] Dr. Armida Brown Monocytes/100 WBC (Bld) 5.6 % Normal 1.7-12.0 [facility] Comment on above: Performed By: #### C BC #### [facility] [address] [place] [address] Dr. Armida Brown NEUT # 6.1 103/ul Normal 1.4-6.5 [facility] Comment on above: Performed By: #### C BC #### [facility] [address] [place] [address] Dr. Armida Brown Neutrophils/100 WBC (Bld) 68.6 % Normal 43.0-75.0 [facility] Comment on above: Performed By: #### C BC #### [facility] [address] [place] [address] Dr. Armida Brown Platelet mean volume (Bld) [Entitic vol] 9.3 fL Critically low 9.5-13.5 [facility] Comment on above: Performed By: #### C BC #### [facility] [address] [place] [address] Dr. Armida Brown PLT 293 103/ul Normal 150-450 [facility] Comment on above: Performed By: #### C BC #### [facility] [address] [place] [address] Dr. Armida Brown RBC 5.49 106/ul Normal 4.70-6.10 [facility] Comment on above: Performed By: #### C BC #### [facility] [address] [place] [address] Dr. Armida Brown WBC 8.9 103/ul Normal 4.0-11.0 [facility] Comment on above: Performed By: #### C BC #### [facility] [address] [place] [address] Dr. Armida Brown FREE THYROXINE INDEX T7on FTI 3.33 Normal 1.30-4.50 [facility] Comment on above: Performed By: #### T SH, CMP, URIC, LIPID, T7 #### [facility] [address] [place] [address] Dr. Armida Brown T3U 35.0 % Normal 33.0-40.0 [facility] Comment on above: Performed By: #### T SH, CMP, URIC, LIPID, T7 #### [facility] [address] [place] [address] Dr. Armida Brown T4 [Mass/Vol] 9.50 ug/dL Normal 4.50-12.10 [facility] Comment on above: Performed By: #### T SH, CMP, URIC, LIPID, T7 #### [facility] [address] [place] [address] Dr. Armida Brown GLYCOHEMOGLOBIN A1Con 2021 ADA RECOMMENDATION SEE BELOW Normal [facility] Comment on above: Result Comment: ADA RECOMMENDED LIMIT 4.0 - 6.0 ADA THERAPEUTIC TARGET < 7.0 ACTION SUGGESTED > 7.0 Performed By: #### A 1C #### [facility] [address] [place] [address] Dr. Armida Brown Glucose [Mass/Vol] 103 mg/dL Normal [facility] Comment on above: Performed By: #### A 1C #### [facility] [address] [place] [address] Dr. Armida Brown HbA1c (Bld) [Mass fraction] 5.2 % Normal 4.5-6.2 [facility] Comment on above: Performed By: #### A 1C #### [facility] [address] [place] [address] Dr. Armida Brown LIPID PROFILEon 02-01-2022 CHOL-HDL RATIO NORM SEE BELOW Normal [facility] Comment on above: Result Comment: 3.3 - 4.4 LOW RISK 4.4 - 7.1 AVERAGE RISK 7.1 - 11.0 MODERATE RISK >11.0 HIGH RISK Performed By: #### T SH, CMP, URIC, LIPID, T7 #### [facility] [address] [place] [address] Dr. Armida Brown Cholesterol [Mass/Vol] 183 mg/dL Normal <=200 [facility] Comment on above: Performed By: #### T SH, CMP, URIC, LIPID, T7 #### [facility] [address] [place] [address] Dr. Armida Brown Cholesterol in HDL [Mass/Vol] 33 mg/dL Critically low 40-60 [facility] Comment on above: Performed By: #### T SH, CMP, URIC, LIPID, T7 #### [facility] [address] [place] [address] Dr. Armida Brown Cholesterol in LDL [Mass/Vol] 123.0 mg/dL Normal [facility] Comment on above: Performed By: #### T SH, CMP, URIC, LIPID, T7 #### [facility] [address] [place] [address] Dr. Armida Brown Cholesterol.total/Ch olesterol in HDL [Mass ratio] 5.5 {ratio} Normal [facility] Comment on above: Performed By: #### T SH, CMP, URIC, LIPID, T7 #### [facility] [address] [place] [address] Dr. Armida Brown HDL NORMAL > or = 60 mg/dl - LO W CARDIOVASCULAR RISK <40 mg/dl - HIGH CARDIOVASCULAR RISK Normal [facility] Comment on above: Performed By: #### T SH, CMP, URIC, LIPID, T7 #### [facility] [address] [place] [address] Dr. Armida Brown LDL CALC NORMAL SEE BELOW Normal [facility] Comment on above: Result Comment: <100 mg/dl OPTIMAL 100 - 129 mg/dl NEAR OR ABOVE OPTIMAL 130 - 159 mg/dl BORDERLINE HIGH 160 - 189 mg/dl HIGH >190 mg/dl VERY HIGH Performed By: #### T SH, CMP, URIC, LIPID, T7 #### [facility] [address] [address] [address] Armida Brown Triglyceride [Mass/Vol] 135 mg/dL Normal <=150 [facility] Comment on above: Performed By: #### T SH, CMP, URIC, LIPID, T7 #### [facility] [address] [address] [address] Armida Brown VLDL CALC 27.0 mg/dL Normal [facility] Comment on above: Performed By: #### T SH, CMP, URIC, LIPID, T7 #### [facility] [address] [address] [address] Armida Brown PROF 14(COMP METB)on 022 Albumin [Mass/Vol] 4.1 g/dL Normal 3.4-5.0 [facility] Comment on above: Performed By: #### T SH, CMP, URIC, LIPID, T7 #### [facility] [address] [address] [address] Armida Brown Albumin/Globulin [Mass ratio] 1.1 {ratio} Normal [facility] Comment on above: Performed By: #### T SH, CMP, URIC, LIPID, T7 #### [facility] [address] [address] [address] Armida Brown ALP [Catalytic activity/Vol] 79 U/L Normal 46-116 [facility] Comment on above: Performed By: #### T SH, CMP, URIC, LIPID, T7 #### [facility] [address] [address] [address] Armida Brown ALT [Catalytic activity/Vol] 58 U/L Normal 16-63 [facility] Comment on above: Performed By: #### T SH, CMP, URIC, LIPID, T7 #### [facility] [address] [address] [address] Armida Brown Anion gap [Moles/Vol] 12.6 mmol/L Normal [facility] Comment on above: Performed By: #### T SH, CMP, URIC, LIPID, T7 #### [facility] [address] [address] [address] Armida Brown AST [Catalytic activity/Vol] 23 U/L Normal 15-37 [facility] Comment on above: Performed By: #### T SH, CMP, URIC, LIPID, T7 #### [facility] [address] [address] [address] Armida Brown Bilirubin [Mass/Vol] 0.6 mg/dL Normal 0.2-1.0 [facility] Comment on above: Performed By: #### T SH, CMP, URIC, LIPID, T7 #### [facility] [address] [place] [address] Dr. Armida Brown Calcium [Mass/Vol] 8.9 mg/dL Normal 8.5-10.1 [facility] Comment on above: Performed By: #### T SH, CMP, URIC, LIPID, T7 #### [facility] [address] [address] [address] Armida Brown Chloride [Moles/Vol] 104 mmol/L Normal 98-107 [facility] Comment on above: Performed By: #### T SH, CMP, URIC, LIPID, T7 #### [facility] [address] [address] [address] Armida Brown CO2 [Moles/Vol] 26.7 mmol/L Normal 21.0-32.0 [facility] Comment on above: Performed By: #### T SH, CMP, URIC, LIPID, T7 #### [facility] [address] [place] [address] Dr. Armida Brown Creatinine [Mass/Vol] 0.99 mg/dL Normal 0.70-1.30 [facility] Comment on above: Performed By: #### T SH, CMP, URIC, LIPID, T7 #### [facility] [address] [place] [address] Dr. Armida Brown EGFR-AF [place]IZ[place] >60 Normal >=60 [facility] Comment on above: Performed By: #### T SH, CMP, URIC, LIPID, T7 #### [facility] [address] [address] [address] Armida Brown EGFR-NON AF CITIZEN OF [place] >60 Normal >=60 [facility] Comment on above: Performed By: #### T SH, CMP, URIC, LIPID, T7 #### [facility] [address] [address] [address] Armida Brown Globulin (S) [Mass/Vol] 3.6 g/dL Normal [facility] Comment on above: Performed By: #### T SH, CMP, URIC, LIPID, T7 #### [facility] [address] [place] [address] Dr. Armida Brown Glucose [Mass/Vol] 100 mg/dL Normal 74-106 [facility] Comment on above: Performed By: #### T SH, CMP, URIC, LIPID, T7 #### [facility] [address] [place] [address] Dr. Armida Brown Potassium [Moles/Vol] 4.3 mmol/L Normal 3.5-5.1 [facility] Comment on above: Performed By: #### T SH, CMP, URIC, LIPID, T7 #### [facility] [address] [place] [address] Dr. Armida Brown Protein [Mass/Vol] 7.7 g/dL Normal 6.4-8.2 [facility] Comment on above: Performed By: #### T SH, CMP, URIC, LIPID, T7 #### [facility] [address] [address] [address] Armida Brown Sodium [Moles/Vol] 139 mmol/L Normal 136-145 [facility] Comment on above: Performed By: #### T SH, CMP, URIC, LIPID, T7 #### [facility] [address] [place] [address] Dr. Armida Brown Urea nitrogen [Mass/Vol] 16.0 mg/dL Normal 7.0-18.0 [facility] Comment on above: Performed By: #### T SH, CMP, URIC, LIPID, T7 #### [facility] [address] [place], [place] [address] Dr. Armida Brown Urea nitrogen/Creatinine [Mass ratio] 16.2 mg/mg Normal [facility] Comment on above: Performed By: #### T SH, CMP, URIC, LIPID, T7 #### [facility] [address] [place], [place] [address] Dr. Armida Brown TSHon 02-01-2022 TSH 1.176 uIU/mL Normal 0.358-3.740 [facility] Comment on above: Performed By: #### T SH, CMP, URIC, LIPID, T7 #### [facility] [address] [id number] Armida Brown URIC ACID SERUMon 02-01-2022 Urate [Mass/Vol] 6.7 mg/dL Normal 3.5-7.2 [facility] Comment on above: Performed By: #### T SH, CMP, URIC, LIPID, T7 #### [facility] [address], [place] [address] Dr. Armida Brown SCOLIOSIS 2 VWSon 04-24-2018 SCOLIOSIS 2 S [facility] [place] [id number] Patient Name: BENJI WEEKS : 1990Sex: MAge: Race: WhiteMRN: [id number]. Location: 82Patient Status: OVisit #: [id number] Date: 04/24/2018 3:05:00 PMCompleted Date: 04/24/2018 03:19 PMRequesting Provider: COOKIE COLES Attending Provider: COOKIE COLES Report Copy To: Signs & Symptoms: M54.6 Pain in thoracic spine [id number]: AthenaComments: , , , Ordering Provider - COOKIE COLES MD , Exam: SCOLIOSIS 2 VWSAccession #: [id number] SCO LIOSIS 2 VWS 04/24/2018 3:19 PM [...] abnormality. Electronically signed by:Vinay Kay. Transcribed by: [email or web address], User Resident: Electronically Signed by: VINAY KAY @ 04/24/2018 10:56 PM Normal [facility] Comment on above: Order Comment: , , = ========= , Ordering Provider - COOKIE COLES MD , Encounters Encounter Date Encounter Type Care Provider Facility Start: 02-25-2025 End: 02-25-2025 ambulatory Hardy Agosto MD Facility:[facility] [place] Start: 02-09-2025 End: 02-09-2025 ambulatory Hardy Agosto MD Facility:[facility] Start: 01-19-2025 End: 01-19-2025 ambulatory Hardy Agosto MD Facility:[facility] Start: 01-05-2025 End: 01-05-2025 ambulatory Hardy Agosto MD Facility:[facility] Start: 02-01-2022 End: 02-02-2022 ambulatory ERNST PENA Facility: Start: 06-23-2021 ambulatory ERNST PENA Facility: Start: 09-25-2018 End: 09-26-[facility] Start: 04-24-2018 End: 04-25-2018 Patient encounter COOKIE COLES Facility:[facility] Start: 04-15-2018 End: 04-16-2018 Patient encounter DEFAULT PHYSICIAN Facility:[facility] Procedures Date Procedure Procedure Detail Performing Clinician Start: 02-01-2022 PSA screening ERNST OROURKE Comment on above: Performed By: #### P [facility] #### [facility] [address] [place] [address] Dr. Armida Brown Payers Date Payer Category Payer Medicaid 2024 Medicare 2018 Unknown 2017 Unknown [id number] 1990 Unknown [id number] 2.16.8 [id number] 1990 Unknown [id number] 2.16.8 [id number] 1990 Unknown [id number] 2.16.84 [id number] 1988 Unknown [id number] 2.16.84 [id number] 1988 Unknown [id number] 2.16.84 [id number] 1988 Unknown [id number] 2.16.84 [id number] 1988 Unknown [id number] 2.16. [id number] 1988 Unknown [id number] 2.16. [id number] 1988 Unknown [id number] 2.16. [id number] 1988 Unknown [id number] 2.16. [id number] 1961 Medicaid [id number] 1961 Medicare [id number] 1961 Unknown [id number] Unknown [id number] Summary Purpose Family History No Family History [...] section and content) DATE CREATED AUTHOR 05/29/2018 [facility] DATE CREATED AUTHOR AUTHOR'S ORGANIZ ATION 02/15/2022 [facility] [place] DATE CREATED AUTHOR AUTHOR'S ORGANIZ ATION 09/27/2022 [facility] DATE CREATED AUTHOR AUTHOR'S ORGANIZ ATION 03/06/2025 [facility] FOR RECORDS PERTAINING TO PATIENTS [...] BE BASED ON THE PRIMARY CLINICAL RECORDS. [facility]. provides no warranty or guarantee of the accuracy or completeness of information in this document.
--- NOTE | 2025-03-26 10:25 | PM.CN ---
Consult Note: HPI Data of Consult Patient: known to practice within the last 3 years Consult date: 03/26/25 Requesting Physician: Letty Ayala NP Primary Care Provider: ERNST PENA Consult Narrative Reason for consult: back pain Narrative: Benji Cunningham a pleasant 35 year old male presents for evaluation and management of chronic back pain. Patient has a longstanding of myofascial pain and dystonia, T6-L2 fusion. Patient has found benefit to baclofen 10mg TID PRN pain/spasms and zonegran 100mg BID. Pain today 4-5/10 aching in upper back increasing to 7/10 with weather changes. prior thoracic/lumbar imaging consistent with spondylosis and multilevel degenerative changes above and below fusion. recently underwent right and left T3/4 T4/5 facet RFA with significant ongoing improvement per pt. He notes moderate pain today due to rainy cold weather. He has noticed improvement in pain upon waking, with ADLs, with lifting, twisting, and all activity since his RFAs. pt pleased with outcome. cc:: CC: Letty Ayala NP [facility] Medical History (Updated 12/03/24 @ 09:24 by Letty Ayala NP) Anxiety ?F41.9 - Anxiety disorder, unspecified (ICD-10) HTN (hypertension) ?I10 - Essential (primary) hypertension (ICD-10) Surgical History History of spinal fusion ?Z98.1 - Arthrodesis status (ICD-10) Meds Home Medications and Allergies Home Medications ?Medication ?Instructions ?Recorded ?Confirmed ?Type bupropion HCl 300 mg 24 hr tablet, 300 mg PO DAILY 11/06/23 02/23/25 History extended release (Wellbutrin XL) hydrochlorothiazide 25 mg tablet 25 mg PO DAILY 11/06/23 02/23/25 History lisinopril 40 mg tablet 40 mg PO DAILY 11/06/23 02/23/25 History metoprolol tartrate 50 mg tablet 75 mg PO BID 11/06/23 02/23/25 History baclofen 10 mg tablet 10 mg PO TID PRN muscle spasm #270 07/21/24 02/23/25 Rx tabs zonisamide 50 mg capsule See Rx Instructions .Route 07/21/24 02/23/25 Rx .COMPLEX #270 caps Allergies Allergy/AdvReac Type Severity Reaction Status Date / Time No Known Drug Allergies Allergy Verified 02/23/25 09:14 Exam Constitutional Documenting provider has reviewed patient's vital signs: yes Common normals: no apparent distress, oriented x3, healthy appearing, alert and well nourished General appearance: cooperative HENMT Common normals: normocephalic, hearing grossly normal bilaterally and moist oral mucous membranes Head and scalp: normocephalic Eye Common normals: PERRL Pupil: PERRL Neck & C-Spine Common normals: full ROM General: normal visual inspection Chest Common normals: inspection of chest normal Respiratory Common normals: normal respiratory effort, no retractions and no use of accessory muscles Back & Pelvis Thoracic spine/upper back: ROM limited, pain with ROM, thoracic spinal tenderness, paraspinal muscle tenderness and paraspinal muscle spasm Neuro Common normals: oriented x3 Sensorium/orientation: alert Psych Common normals: mental status grossly normal, thought process normal, cooperative, affect normal, speech normal and activity/motor behavior normal Speech: normal speech Thought process: normal thought process Results Additional Findings Additional findings: If on a controlled substance or opioids, I have checked an [place]AR[place] report on this patient and there are no aberrancies noted in the prescribing history.??If on a controlled substance or opioid a drug screen was completed and reviewed within the last year, and if there has not been a drug screen completed we ordered one today to monitor higher risk, state monitored pain medication use. As part of providing excellent, safe, comprehensive care, the following was completed at our patient's visit: 1. A medication reconciliation and review to ensure accurate knowledge of current/active medications, including asking our patients to inform us about any kozq-cut-ivklysn medications or herbal remedies/nutritional supplements/alternative remedies. 2. A review to specifically ensure our patients have had annual screening for screening for depression, screening for tobacco use, and screening for unhealthy alcohol use. For concerning screenings had a discussion with the patient, provided patient education, and recommended follow-up with primary care provider when appropriate. If patient noted with a risk of falling, they received education on strength, gait, and balance training to prevent future risk of falling. Portions of this note may have been carried over from the previous visit and updated as appropriate. Please note this office utilizes paper charting in addition to the electronic medical record. A list of current medications, vitals, and PMH is available there as the clinical staff outside of myself do not have access to [facility] charting during the clinic day operations. As part of providing quality comprehensive care the current medications, vitals, and PMH were reviewed in the paper chart. Assessment and Plan Assessment and Plan (1) Thoracic spondylosis: (2) Failed back syndrome: (3) Myalgia, other site: (4) Post laminectomy syndrome: (5) Dystonia: Plan right and left T2-3 T4-5 facet RFA providing moderate to significant improvement ongoing per pt continue baclofen 10mg tid prn pain/spasms continue zonegran 100mg BID continue HEP as tolerated f/u 6 months, sooner if needed as discussed
== END 2025-03-26 10:05 | disposition home or self-care (01) ==
LOC: PM 10:04
PROVIDERS: PCP Nurse Practitioner Family; Visit Provider Nurse Practitioner
DX: M47.814 Spondylosis without myelopathy or radiculopathy, thoracic region (principal); M96.1 Postlaminectomy syndrome, not elsewhere classified; M79.18 Myalgia, other site; G24.9 Dystonia, unspecified
CPT/HCPCS: G0463